=== PATIENT | female | born 1945 | race Caucasian/White ===

== ENCOUNTER 2019-05-28 12:50 | Outpatient (CLI) | payer MEDICARE, SELFPAY ==
[2019-05-28 13:25] LABS: Basophils Percent Auto 0.6 % (0.2-1.2); Eosinophils Absolute Auto 0.3 K/mm3 (0-0.3); Eosinophils Percent Auto 4.3 % (0-4.4); Hematocrit 34.2 % (37.0-47.0); Hemoglobin 10.5 g/dL (12.0-15.0); Immature Granulocyte Absolute 0.01 K/mm3 (0.00-0.031); Immature Granulocyte Percent A 0.1 % (0-0.5); Lymphocytes Absolute Auto 0.85 K/mm3 (0.9-3.2); Lymphocytes Percent Auto 12.2 % (18.3-44.2); Mean Corpuscular HGB Conc 30.7 g/dl (32-36); Mean Corpuscular Hemoglobin 29.2 pg (26-34); Mean Platelet Volume 10.3 fl (7.4-10.4); Monocytes Absolute Auto 0.4 K/mm3 (0.1-0.6); Monocytes Percent Auto 6.2 % (2.6-8.5); Neutrophils Absolute Auto 5.3 K/mm3 (1.3-6.7); Neutrophils Percent Auto 76.6 % (45.5-73.1); Platelet Count Result 185 k/mm3 (150-375); Red Cell Distribution Width 14.6 % (11.5-14.5); White Blood Count 6.9 K/mm3 (4.5-10.0)
[2019-05-28 16:43] LABS: Alanine Aminotransferase 13 U/L (4-35); Albumin Level 3.7 g/dL (3.5-5.1); Alkaline Phosphatase 120 U/L (38-126); Aspartate Amino Transferase 17 U/L (14-36); Bilirubin,Total 0.4 mg/dL (0.2-1.3); Blood Urea Nitrogen 20 mg/dL (7-17); Calcium 8.8 mg/dL (8.4-10.2); Carbon Dioxide 33 mmol/L (22-30); Chloride 95 mmol/L (98-107); Estimated Glomerular Filt Rate 44; Glucose 172 mg/dL (65-105); Potassium 3.9 mmol/L (3.4-5.0); Sodium 140 mmol/L (137-145)
[2019-05-31 05:41] LABS: CA 27.29 13 U/mL (<38)
== END 2019-05-28 12:51 | disposition home or self-care (01) ==
LOC: ANHLAB 12:52
PROVIDERS: PCP Internal Medicine; Visit Provider Internal Medicine Hematology & Oncology
DX: C50.412 Malignant neoplasm of upper-outer quadrant of left female breast (principal); Z17.0 Estrogen receptor positive status [ER+]
CPT/HCPCS: 36415; 80053; 85025; 86300

== ENCOUNTER 2019-09-07 10:59 | Outpatient (CLI) | payer MEDICARE, SELFPAY ==
[2019-09-07 13:21] LABS: Hemoglobin A1C 8.3 % (<5.7)
== END 2019-09-07 11:00 | disposition home or self-care (01) ==
PROVIDERS: PCP Internal Medicine; Visit Provider Nurse Practitioner
DX: E11.9 Type 2 diabetes mellitus without complications (principal)
CPT/HCPCS: 36415; 83036

== ENCOUNTER 2019-09-25 10:59 | Outpatient (CLI) | payer MEDICARE, SELFPAY ==
[2019-09-25 11:30] LABS: Basophils Percent Auto 0.4 % (0.2-1.2); Eosinophils Absolute Auto 0.4 K/mm3 (0-0.3); Eosinophils Percent Auto 4.1 % (0-4.4); Hematocrit 34.6 % (37.0-47.0); Hemoglobin 10.8 g/dL (12.0-15.0); Immature Granulocyte Absolute 0.03 K/mm3 (0.00-0.031); Immature Granulocyte Percent A 0.3 % (0-0.5); Lymphocytes Absolute Auto 0.89 K/mm3 (0.9-3.2); Lymphocytes Percent Auto 9.9 % (18.3-44.2); Mean Corpuscular HGB Conc 31.2 g/dl (32-36); Mean Corpuscular Hemoglobin 28.9 pg (26-34); Mean Corpuscular Volume 92.5 fl (80-100); Mean Platelet Volume 10.1 fl (7.4-10.4); Monocytes Absolute Auto 0.6 K/mm3 (0.1-0.6); Monocytes Percent Auto 6.1 % (2.6-8.5); Neutrophils Absolute Auto 7.1 K/mm3 (1.3-6.7); Neutrophils Percent Auto 79.2 % (45.5-73.1); Platelet Count Result 225 k/mm3 (150-375); Red Blood Count 3.74 M/mm3 (4.2-5.4); Red Cell Distribution Width 14.6 % (11.5-14.5)
[2019-09-25 12:19] LABS: Alanine Aminotransferase 10 U/L (4-35); Albumin Level 3.9 g/dL (3.5-5.1); Alkaline Phosphatase 109 U/L (38-126); Aspartate Amino Transferase 17 U/L (14-36); Bilirubin,Total 0.3 mg/dL (0.2-1.3); Blood Urea Nitrogen 29 mg/dL (7-17); Calcium 8.9 mg/dL (8.4-10.2); Carbon Dioxide 32 mmol/L (22-30); Chloride 103 mmol/L (98-107); Estimated Glomerular Filt Rate 37; Glucose 203 mg/dL (65-105); Potassium 3.7 mmol/L (3.4-5.0); Sodium 139 mmol/L (137-145)
[2019-09-25 12:27] LABS: Add Urine Microscopic? NO; Appearance Urine Clear (Clear); Bilirubin Urine Negative (Negative); Blood Urine Negative (Negative); Color Urine Straw (Yellow); Glucose Urine UA Negative (Negative); Ketones Urine Negative (Negative); Leukocyte Esterase Ur Negative LEU/UL (Negative); Nitrate Urine Negative (Negative); Protein Urine Negative (Negative); Urobilinogen Urine Negative mg/dL (<2.0)
[2019-09-25 12:30] LABS: Hemoglobin A1C 8.2 % (<5.7); Parathyroid Intact 53.1 pg/mL (7.5-53.5)
[2019-09-25 12:35] LABS: Vitamin D 25 Hydroxy 54.4 ng/mL
[2019-09-25 12:37] LABS: Creatinine Urine 39.5 mg/dL
[2019-09-25 12:42] LABS: MALB Creatinine Ratio 76.2 mg/g (0-30); Microalbumin Urine Random 30.1 mg/L (0-16.7)
[2019-09-25 13:46] LABS: Erythrocyte Sedimentation Rate 105 mm/hr (0-20)
== END 2019-09-25 11:00 | disposition home or self-care (01) ==
LOC: ANHLAB 11:06
PROVIDERS: PCP Internal Medicine; Visit Provider Internal Medicine Hematology & Oncology
DX: I12.9 Hypertensive chronic kidney disease with stage 1 through stage 4 chronic kidney disease, or unspecified chronic kidney disease (principal); N18.3 Chronic kidney disease, stage 3 (moderate); E78.5 Hyperlipidemia, unspecified; E55.9 Vitamin D deficiency, unspecified; N39.0 Urinary tract infection, site not specified; R73.09 Other abnormal glucose
CPT/HCPCS: 36415; 80053; 81003; 82043; 82306; 83036; 83970; 84550; 85025; 85652

== ENCOUNTER 2019-11-24 12:24 | Emergency (ER) | payer MEDICARE, SELFPAY ==
[2019-11-24 12:40] VITALS: BP 138/78; PULSE 92; RESP 17; TEMP 36.9; O2SAT 96
[2019-11-24 13:57] LABS: Basophils Percent Auto 0.5 % (0.2-1.2); Eosinophils Absolute Auto 0.4 K/mm3 (0-0.3); Eosinophils Percent Auto 4.9 % (0-4.4); Hematocrit 35.8 % (37.0-47.0); Hemoglobin 11.2 g/dL (12.0-15.0); Immature Granulocyte Absolute 0.03 K/mm3 (0.00-0.031); Immature Granulocyte Percent A 0.4 % (0-0.5); Lymphocytes Absolute Auto 0.82 K/mm3 (0.9-3.2); Lymphocytes Percent Auto 10.9 % (18.3-44.2); Mean Corpuscular HGB Conc 31.3 g/dl (32-36); Mean Corpuscular Hemoglobin 28.6 pg (26-34); Mean Corpuscular Volume 91.3 fl (80-100); Mean Platelet Volume 9.9 fl (7.4-10.4); Monocytes Absolute Auto 0.4 K/mm3 (0.1-0.6); Monocytes Percent Auto 5.3 % (2.6-8.5); Neutrophils Absolute Auto 5.9 K/mm3 (1.3-6.7); Platelet Count Result 218 k/mm3 (150-375); Red Blood Count 3.92 M/mm3 (4.2-5.4); Red Cell Distribution Width 14.9 % (11.5-14.5); White Blood Count 7.5 K/mm3 (4.5-10.0)
[2019-11-24 14:07] VITALS: BP 157/87; PULSE 90; RESP 18; O2SAT 96
[2019-11-24 14:10] LABS: Anion Gap 6 mmol/L (8-16); Blood Urea Nitrogen 22 mg/dL (7-17); Calcium 8.8 mg/dL (8.4-10.2); Carbon Dioxide 33 mmol/L (22-30); Chloride 101 mmol/L (98-107); Estimated CRCL calculation 46 ml/min; Estimated Glomerular Filt Rate 44; Glucose 155 mg/dL (65-105); Sodium 140 mmol/L (137-145)
[2019-11-24 14:22] LABS: NT Pro B Type Natriuretic Pept 196 PG/ML (5-100); Troponin I < 0.012 ng/mL (0.000-0.034)
--- NOTE | 2019-11-24 14:25 | ED.ALLEREA ---
HPI - Allergic Reaction General Chief complaint: Allergic Reaction Stated complaint: allergicv reaction, wounds to leg Time Seen by Provider: 11/24/19 14:18 Source: patient History of Present Illness HPI narrative: Patient 74 years old white female, morbidly obese complaining of itching rash over the last few days. Patient denies shortness of breath, fever, chills, nausea, vomiting, shortness of breath. Patient have history of multiple allergies. Lately been eating strawberries which could be triggered her allergy. Related Data Home Medications Medication Instructions Recorded Confirmed allopurinol 100 mg tablet 100 mg PO QID tablet 03/23/19 11/05/19 anastrozole 1 mg tablet 1 mg PO DAILY 03/23/19 11/05/19 calcitriol 0.25 mcg capsule 0.25 mcg PO DAILY 03/23/19 11/05/19 metolazone 5 mg tablet 5 mg PO DAILY PRN 03/23/19 11/05/19 multivitamin 1 tablet PO DAILY 03/23/19 11/05/19 colchicine 0.6 mg tablet 0.6 mg PO DAILY PRN 04/13/19 11/05/19 diclofenac potassium 25 mg capsule 99 mg PO BID cap 09/10/19 11/05/19 ergocalciferol (vitamin D2) 1,250 5,000 unit PO WEEKLY cap 09/10/19 11/05/19 mcg (50,000 unit) capsule ferrous sulfate 325 mg (65 mg 65 mg PO DAILY tablet 09/10/19 09/10/19 iron) tablet Allergies Allergy/AdvReac Type Severity Reaction Status Date / Time povidone-iodine Allergy Swelling Verified 11/24/19 14:09 [From Betadine] soap [From Betadine] Allergy Swelling Verified 11/24/19 14:09 morphine AdvReac Vomiting Verified 11/24/19 14:09 Review of Systems Review of Systems: Narrative: CONSTITUTIONAL: Denies fever, chills, or sweats. EYES: Denies visual changes, redness, or discharge. ENT: Denies rhinorrhea, congestion, sore throat, or otalgia. CARDIOVASCULAR: Denies chest pain, palpitations, or edema. RESPIRATORY: Denies cough or dyspnea. GASTROINTESTINAL: Denies abdominal pain, nausea, vomiting, or diarrhea. GENITOURINARY: Denies dysuria or hematuria. SKIN: Denies rash or itching. MUSCULOSKELETAL: Denies back pain, joint pain, or myalgia. NEUROLOGIC: Denies headache, numbness, or weakness. PSYCHIATRIC: Denies anxiety or depression. [facility] Past Medical History Medical History Cancer COPD (chronic obstructive pulmonary disease) Diabetes Diabetes mellitus Kidney disease Post-lymphadenectomy lymphedema of arm Sleep apnea Thyroid disease Tumor Removed from face: 2014 Removed from chest: 2018 Type 2 diabetes mellitus Surgical History Surgical History H/O mastectomy Left breast 2011 History of breast lump removal 2012 Hx of breast reduction, elective Hx of mastectomy Family History Family History Mother Diabetes mellitus Bowel disease Father Colon cancer Liver cancer Sibling Heart disease Social History Social History Smoking status: Former smoker Alcohol intake: never Gender identity (if verbalized by the patient): Female Spiritual care concerns: No Exam Narrative: Exam Narrative: General appearance: Well-developed, well-nourished, morbidly obese Skin: Normal color, scattered maculopapular rash all over the body. Head: Normocephalic, nontraumatic Eyes: Clear conjunctiva ENT: Oropharynx normal, ears normal, nose normal Neck: Supple, nontender Chest and respiratory: Airway patent, no respiratory distress, no accessory muscle use Heart: Regular rate/rhythm Abdomen: Soft, nontender, no organomegaly, quiet bowel sounds Vascular: Normal peripheral pulses, normal capillary refill. Musculoskeletal: Normal range of motion, nontender back Neurologic: Alert and oriented ?3, [employer] is normal as tested, no gross motor deficit
[2019-11-24] MEDS: LORATADINE 10 MG TABLET PO (14:45)
[2019-11-24] MEDS: predniSONE 20 MG TABLET 40 MG PO (14:45)
[2019-11-24 14:53] VITALS: BP 145/78; PULSE 82; RESP 18; O2SAT 100
== END 2019-11-24 14:54 | disposition home or self-care (01) ==
PROVIDERS: Emergency Provider Emergency Medicine; PCP Internal Medicine
DX: T78.40XA Allergy, unspecified, initial encounter (principal); J44.9 Chronic obstructive pulmonary disease, unspecified; E11.9 Type 2 diabetes mellitus without complications
CPT/HCPCS: 36415; 80048; 83880; 84484; 85025; 99284; A9270; J7512

== ENCOUNTER 2019-12-17 10:59 | Outpatient (CLI) | payer MEDICARE, SELFPAY ==
[2019-12-17 11:47] LABS: Basophils Percent Auto 0.4 % (0.2-1.2); Eosinophils Absolute Auto 0.4 K/mm3 (0-0.3); Eosinophils Percent Auto 4.5 % (0-4.4); Hemoglobin 12.1 g/dL (12.0-15.0); Immature Granulocyte Absolute 0.03 K/mm3 (0.00-0.031); Immature Granulocyte Percent A 0.3 % (0-0.5); Lymphocytes Absolute Auto 1.11 K/mm3 (0.9-3.2); Lymphocytes Percent Auto 12.4 % (18.3-44.2); Mean Corpuscular Hemoglobin 27.6 pg (26-34); Mean Platelet Volume 10.7 fl (7.4-10.4); Monocytes Absolute Auto 0.4 K/mm3 (0.1-0.6); Monocytes Percent Auto 4.8 % (2.6-8.5); Neutrophils Absolute Auto 6.9 K/mm3 (1.3-6.7); Neutrophils Percent Auto 77.6 % (45.5-73.1); Platelet Count Result 228 k/mm3 (150-375); Red Blood Count 4.38 M/mm3 (4.2-5.4); Red Cell Distribution Width 14.9 % (11.5-14.5); White Blood Count 8.9 K/mm3 (4.5-10.0)
[2019-12-17 14:24] LABS: Add Urine Microscopic? YES; Appearance Urine Clear (Clear); Bilirubin Urine Negative (Negative); Blood Urine Negative (Negative); Color Urine Colorless (Yellow); Glucose Urine UA Negative (Negative); Ketones Urine Negative (Negative); Leukocyte Esterase Ur Trace LEU/UL (Negative); Nitrate Urine Negative (Negative); Protein Urine Negative (Negative); RBC Urine 0-2 /hpf (0-2); Squamous Epithelial Cell Urine Few /hpf (Few); Urobilinogen Urine Negative mg/dL (<2.0); WBC Urine 0-3 /hpf
[2019-12-17 14:25] LABS: Specific Grav Ur 1.004 (1.001-1.035)
[2019-12-17 14:31] LABS: INR 0.9; Prothrombin Time 12.2 Seconds (11.1-14.7)
[2019-12-17 14:33] LABS: Partial Thromboplastin Time 29.4 SECONDS (22.3-36.8)
[2019-12-17 14:51] LABS: Erythrocyte Sedimentation Rate 31 mm/hr (0-20)
[2019-12-17 15:10] LABS: Alanine Aminotransferase 15 U/L (4-35); Albumin Level 4.1 g/dL (3.5-5.1); Alkaline Phosphatase 113 U/L (38-126); Anion Gap 8 mmol/L (8-16); Aspartate Amino Transferase 20 U/L (14-36); Bilirubin,Total 0.5 mg/dL (0.2-1.3); Blood Urea Nitrogen 16 mg/dL (7-17); Calcium 9.1 mg/dL (8.4-10.2); Carbon Dioxide 32 mmol/L (22-30); Chloride 99 mmol/L (98-107); Estimated Glomerular Filt Rate 40; Glucose 163 mg/dL (65-105); Phosphorus 3.6 mg/dL (2.5-4.5); Potassium 3.7 mmol/L (3.4-5.0); Sodium 139 mmol/L (137-145); Uric Acid 4.4 mg/dL (2.5-7.5)
[2019-12-17 15:11] LABS: Hemoglobin A1C 7.4 % (<5.7)
[2019-12-17 15:18] LABS: Parathyroid Intact 76.2 pg/mL (7.5-53.5)
[2019-12-17 15:23] LABS: Vitamin D 25 Hydroxy 47.8 ng/mL
[2019-12-17 15:38] LABS: Creatinine Urine 8.1 mg/dL
[2019-12-17 15:43] LABS: MALB Creatinine Ratio 198.8 mg/g (0-30); Microalbumin Urine Random 16.1 mg/L (0-16.7)
== END 2019-12-17 11:00 | disposition home or self-care (01) ==
PROVIDERS: PCP Internal Medicine
DX: R73.09 Other abnormal glucose (principal); N39.0 Urinary tract infection, site not specified; E55.9 Vitamin D deficiency, unspecified; E78.5 Hyperlipidemia, unspecified; R60.9 Edema, unspecified; E11.65 Type 2 diabetes mellitus with hyperglycemia; D64.9 Anemia, unspecified; N18.3 Chronic kidney disease, stage 3 (moderate)
CPT/HCPCS: 36415; 80069; 80076; 81001; 82043; 82306; 83036; 83970; 84550; 85025; 85610; 85652; 85730

== ENCOUNTER 2019-12-17 11:48 | Emergency (ER) | payer MEDICARE, SELFPAY ==
[2019-12-17 12:39] VITALS: BP 154/109; PULSE 88; RESP 17; TEMP 36.4; O2SAT 96
--- NOTE | 2019-12-17 14:00 | ED.SKABFB ---
HPI - Skin/Abscess/Foreign Bdy General Chief complaint: Skin/Abscess/Foreign Body Stated complaint: adverse skin condition Time Seen by Provider: 12/17/19 12:58 Source: patient Mode of arrival: ambulatory Limitations: no limitations History of Present Illness HPI narrative: Patient with history of psoriasis presents with pruritic rash and weeping wounds to bilateral inner lower legs that has been present for months. Patient states she has been on 2 rounds of antibiotics and steroids without resolution of her symptoms. Patient has not seen her primary care nor has she recently seen a junior architect as she states that Dr. Miguel just tries to sell her products in his office without causing resolution of her symptoms. Patient denies any fever, chills, nausea, vomiting, diarrhea or any other symptoms. Related Data Home Medications Medication Instructions Recorded Confirmed allopurinol 100 mg tablet 100 mg PO QID tablet 03/23/19 11/05/19 anastrozole 1 mg tablet 1 mg PO DAILY 03/23/19 11/05/19 calcitriol 0.25 mcg capsule 0.25 mcg PO DAILY 03/23/19 11/05/19 metolazone 5 mg tablet 5 mg PO DAILY PRN 03/23/19 11/05/19 multivitamin 1 tablet PO DAILY 03/23/19 11/05/19 colchicine 0.6 mg tablet 0.6 mg PO DAILY PRN 04/13/19 11/05/19 diclofenac potassium 25 mg capsule 99 mg PO BID cap 09/10/19 11/05/19 ergocalciferol (vitamin D2) 1,250 5,000 unit PO WEEKLY cap 09/10/19 11/05/19 mcg (50,000 unit) capsule ferrous sulfate 325 mg (65 mg 65 mg PO DAILY tablet 09/10/19 09/10/19 iron) tablet Allergies Allergy/AdvReac Type Severity Reaction Status Date / Time povidone-iodine Allergy Swelling Verified 12/17/19 12:41 [From Betadine] soap [From Betadine] Allergy Swelling Verified 12/17/19 12:41 morphine AdvReac Vomiting Verified 12/17/19 12:41 Review of Systems Review of Systems: Narrative: CONSTITUTIONAL: Denies fever, chills, or sweats. EYES: Denies visual changes, redness, or discharge. ENT: Denies rhinorrhea, congestion, sore throat, or otalgia. CARDIOVASCULAR: Denies chest pain, palpitations, or edema. RESPIRATORY: Denies cough or dyspnea. GASTROINTESTINAL: Denies abdominal pain, nausea, vomiting, or diarrhea. GENITOURINARY: Denies dysuria or hematuria. SKIN: Reports rash and itching. MUSCULOSKELETAL: Denies back pain, myalgia, or joint pain NEUROLOGIC: Denies headache, numbness, dizziness, or weakness. PSYCHIATRIC: Denies anxiety or depression. [facility] Social History Social History Smoking status: Former smoker Alcohol intake: never Gender identity (if verbalized by the patient): Female Spiritual care concerns: No Exam Narrative: Exam Narrative: GENERAL: Well-appearing, well-nourished. HEAD: Normocephalic, atraumatic. EYES: PERRLA and EOMI. ENT: Nares clear, no rhinorrhea or epistaxis. Mucous membranes moist. Oropharynx without tonsillar hypertrophy exudate or other lesions. Bilateral TMs pearly rosen nonbulging NECK: Supple. No adenopathy or masses. No vertebral tenderness or loss of ROM. CHEST: Clear to auscultation. No respiratory distress. No wheezes rales or rhonchi HEART: Regular rate and rhythm. Normal peripheral pulses. ABDOMEN: Soft, nontender, nondistended, normal active bowel sounds. No bruises noted. EXTREMITIES: No acute changes in ROM. No edema. SKIN: Patient has dry slightly raised quarter, nickel dime, sized patches Diffusely face, arms, legs - psoriatic in appearance. Patient has two approx 4in circumferential areas to the medial aspects of raised patches that have reddened center a slight serous drainage. There is not surrounding cellulitis or streaking. NEURO: No focal deficits. Alert and oriented x3. PSYCH: Normal mood and affect. Course Vital Signs Vital signs: Vital Signs Temperature 97.6 F 12/17/19 12:39 Pulse Rate 88 12/17/19 12:39 Respiratory Rate 12/17/19 12:39 Blood Pressure 154/109 H 12/17/19 12:39 Pulse Oxim
[2019-12-17 14:12] VITALS: BP 145/96; PULSE 98; RESP 14; O2SAT 98
== END 2019-12-17 14:13 | disposition home or self-care (01) ==
PROVIDERS: Emergency Provider Emergency Medicine; PCP Internal Medicine
DX: L30.9 Dermatitis, unspecified (principal); Z87.891 Personal history of nicotine dependence
CPT/HCPCS: 36415; 80069; 80076; 81001; 82043; 82306; 83036; 83970; 84550; 85025; 85610; 85652; 85730; 99283

== ENCOUNTER 2019-12-29 13:00 | Outpatient (RCR) | payer MEDICARE, SELFPAY ==
[2019-10-08 12:59] VITALS: BMI 43.4
[2019-10-08 13:00] VITALS: BMI 43.4
[2019-12-29 12:55] VITALS: BMI 41.1
[2019-12-29 12:57] VITALS: BMI 41.1
== END 2020-01-06 23:59 | disposition home or self-care (01) ==
LOC: ANHDMC 13:00
PROVIDERS: PCP Internal Medicine; Visit Provider Internal Medicine
DX: E11.9 Type 2 diabetes mellitus without complications (principal); Z71.89 Other specified counseling; Z71.3 Dietary counseling and surveillance
CPT/HCPCS: 97802; 97803; G0108

== ENCOUNTER 2019-12-31 11:16 | Outpatient (CLI) | payer MEDICARE, SELFPAY ==
[2019-12-31 11:35] LABS: Basophils Percent Auto 0.3 % (0.2-1.2); Eosinophils Absolute Auto 0.3 K/mm3 (0-0.3); Eosinophils Percent Auto 3.7 % (0-4.4); Hematocrit 37.5 % (37.0-47.0); Hemoglobin 11.5 g/dL (12.0-15.0); Immature Granulocyte Absolute 0.02 K/mm3 (0.00-0.031); Immature Granulocyte Percent A 0.3 % (0-0.5); Lymphocytes Absolute Auto 1.27 K/mm3 (0.9-3.2); Lymphocytes Percent Auto 16.3 % (18.3-44.2); Mean Corpuscular HGB Conc 30.7 g/dl (32-36); Mean Corpuscular Hemoglobin 27.5 pg (26-34); Mean Corpuscular Volume 89.7 fl (80-100); Mean Platelet Volume 10.3 fl (7.4-10.4); Monocytes Absolute Auto 0.5 K/mm3 (0.1-0.6); Monocytes Percent Auto 6.5 % (2.6-8.5); Neutrophils Absolute Auto 5.7 K/mm3 (1.3-6.7); Neutrophils Percent Auto 72.9 % (45.5-73.1); Platelet Count Result 202 k/mm3 (150-375); Red Blood Count 4.18 M/mm3 (4.2-5.4); Red Cell Distribution Width 15.3 % (11.5-14.5); White Blood Count 7.8 K/mm3 (4.5-10.0)
[2019-12-31 12:27] LABS: Iron 66 ug/dL (37-170)
[2019-12-31 12:31] LABS: Anion Gap 10 mmol/L (8-16); Blood Urea Nitrogen 33 mg/dL (7-17); Calcium 9.1 mg/dL (8.4-10.2); Carbon Dioxide 32 mmol/L (22-30); Chloride 100 mmol/L (98-107); Estimated Glomerular Filt Rate 37; Glucose 153 mg/dL (65-105); Potassium 3.7 mmol/L (3.4-5.0); Sodium 142 mmol/L (137-145)
[2019-12-31 12:37] LABS: Hemoglobin A1C 7.5 % (<5.7); Percent Iron Saturation 20 % (20-50)
== END 2019-12-31 11:17 | disposition home or self-care (01) ==
LOC: ANHLAB 11:17
PROVIDERS: PCP Internal Medicine; Referring Provider Nurse Practitioner; Visit Provider Internal Medicine Hematology & Oncology
DX: E11.9 Type 2 diabetes mellitus without complications (principal)
CPT/HCPCS: 36415; 80048; 82728; 83036; 83540; 83550; 85025

== ENCOUNTER 2020-01-22 14:26 | Outpatient (CLI) | payer MEDICARE, SELFPAY ==
--- NOTE | ~2020-01-22 | MM_ITS ---
EXAMINATION: MM screening vitaliy RT w raj HISTORY: Screening mammogram TECHNIQUE: Craniocaudal and mediolateral oblique 3-D tomosynthesis images were obtained and synthetic 2-D images were generated. CAD analysis was submitted and interpreted. COMPARISON: No prior mammogram is available for comparison at this institution. BREAST PARENCHYMAL COMPOSITION: There are scattered areas of fibroglandular density. FINDINGS: There is no evidence of suspicious mass, calcification, or architectural distortion to sugg est malignancy in either breast. There has been no suspicious interval change. IMPRESSION: 1. No mammographic evidence of malignancy. 2. Recommend routine screening mammography in one year. BI-RADS Category 1: Negative Reviewed, dictated and finalized at location A.
== END 2020-01-22 14:27 | disposition home or self-care (01) ==
PROVIDERS: PCP Internal Medicine; Visit Provider Internal Medicine Hematology & Oncology
DX: Z12.31 Encounter for screening mammogram for malignant neoplasm of breast (principal)
CPT/HCPCS: 77063; 77067

== ENCOUNTER 2020-02-23 11:00 | Outpatient (RCR) | payer MEDICARE, SELFPAY ==
[2020-02-04 10:56] VITALS: BMI 41.8
[2020-02-04 11:01] VITALS: BMI 41.8
== END 2020-02-23 14:17 | disposition home or self-care (01) ==
LOC: ANHDMC 11:00
PROVIDERS: PCP Internal Medicine; Visit Provider Internal Medicine
DX: E11.65 Type 2 diabetes mellitus with hyperglycemia (principal); Z71.89 Other specified counseling; Z71.3 Dietary counseling and surveillance
CPT/HCPCS: 97803; G0108

== ENCOUNTER 2020-04-25 12:28 | Outpatient (CLI) | payer MEDICARE, SELFPAY ==
[2020-04-25 12:56] LABS: Basophils Absolute Auto 0.1 K/mm3 (0.0-0.1); Basophils Percent Auto 0.6 % (0.2-1.2); Eosinophils Absolute Auto 0.3 K/mm3 (0-0.3); Eosinophils Percent Auto 3.2 % (0-4.4); Hematocrit 35.2 % (37.0-47.0); Hemoglobin 11.5 g/dL (12.0-15.0); Immature Granulocyte Absolute 0.03 K/mm3 (0.00-0.031); Immature Granulocyte Percent A 0.3 % (0-0.5); Lymphocytes Percent Auto 11.3 % (18.3-44.2); Mean Corpuscular HGB Conc 32.7 g/dl (32-36); Mean Corpuscular Hemoglobin 29.7 pg (26-34); Mean Platelet Volume 10.2 fl (7.4-10.4); Monocytes Absolute Auto 0.6 K/mm3 (0.1-0.6); Monocytes Percent Auto 6.2 % (2.6-8.5); Neutrophils Percent Auto 78.4 % (45.5-73.1); Platelet Count Result 219 k/mm3 (150-375); Red Blood Count 3.87 M/mm3 (4.2-5.4); Red Cell Distribution Width 13.7 % (11.5-14.5); White Blood Count 8.9 K/mm3 (4.5-10.0)
[2020-04-25 14:09] LABS: Add Urine Microscopic? YES; Appearance Urine Clear (Clear); Bilirubin Urine Negative (Negative); Blood Urine Negative (Negative); Color Urine Yellow (Yellow); Glucose Urine UA Negative (Negative); Ketones Urine Negative (Negative); Leukocyte Esterase Ur Negative LEU/UL (Negative); Mucus Urine Rare /lpf; Nitrate Urine Negative (Negative); Protein Urine 1+ mg/dL (Negative); RBC Urine 0-2 /hpf (0-2); Specific Grav Ur 1.013 (1.001-1.035); Squamous Epithelial Cell Urine Rare /hpf (Few); Urobilinogen Urine Negative mg/dL (<2.0); WBC Urine 0-3 /hpf
[2020-04-25 14:12] LABS: Alanine Aminotransferase 12 U/L (4-35); Albumin Level 3.7 g/dL (3.5-5.1); Alkaline Phosphatase 103 U/L (38-126); Anion Gap 9 mmol/L (8-16); Aspartate Amino Transferase 23 U/L (14-36); Bilirubin,Total 0.4 mg/dL (0.2-1.3); Blood Urea Nitrogen 31 mg/dL (7-17); Calcium 9.1 mg/dL (8.4-10.2); Carbon Dioxide 31 mmol/L (22-30); Chloride 97 mmol/L (98-107); Estimated Glomerular Filt Rate 37; Glucose 143 mg/dL (65-105); Potassium 3.8 mmol/L (3.4-5.0); Sodium 137 mmol/L (137-145)
[2020-04-25 14:22] LABS: Parathyroid Intact 23.3 pg/mL (7.5-53.5)
[2020-04-25 14:29] LABS: Vitamin D 25 Hydroxy 51.3 ng/mL
[2020-04-25 14:40] LABS: Creatinine Urine 78.4 mg/dL
[2020-04-25 14:46] LABS: MALB Creatinine Ratio 102.6 mg/g (0-30); Microalbumin Urine Random 80.4 mg/L (0-16.7)
[2020-04-25 16:50] LABS: Erythrocyte Sedimentation Rate 110 mm/hr (0-20)
[2020-04-25 17:57] LABS: Hemoglobin A1C 8.3 % (<5.7)
[2020-04-27 11:34] LABS: CA 15-3 7 U/mL (<32)
== END 2020-04-25 12:29 | disposition home or self-care (01) ==
PROVIDERS: PCP Internal Medicine; Referring Provider Specialist; Visit Provider Internal Medicine Hematology & Oncology
DX: C50.412 Malignant neoplasm of upper-outer quadrant of left female breast (principal); N18.30 Chronic kidney disease, stage 3 unspecified; I50.9 Heart failure, unspecified; E78.5 Hyperlipidemia, unspecified; R60.9 Edema, unspecified; E55.9 Vitamin D deficiency, unspecified; N39.0 Urinary tract infection, site not specified; R73.09 Other abnormal glucose; Z11.4 Encounter for screening for human immunodeficiency virus [HIV]
CPT/HCPCS: 36415; 80053; 81001; 82043; 82306; 83036; 83970; 84100; 84550; 85025; 85652; 86300; 87086

== ENCOUNTER 2020-06-27 10:41 | Outpatient (CLI) | payer MEDICARE, SELFPAY ==
[2020-06-27 11:02] LABS: Basophils Percent Auto 0.4 % (0.2-1.2); Eosinophils Absolute Auto 0.4 K/mm3 (0-0.3); Eosinophils Percent Auto 4.9 % (0-4.4); Hemoglobin 10.9 g/dL (12.0-15.0); Immature Granulocyte Absolute 0.03 K/mm3 (0.00-0.031); Immature Granulocyte Percent A 0.4 % (0-0.5); Lymphocytes Absolute Auto 1.14 K/mm3 (0.9-3.2); Lymphocytes Percent Auto 13.6 % (18.3-44.2); Mean Corpuscular HGB Conc 32.1 g/dl (32-36); Mean Corpuscular Volume 90.4 fl (80-100); Mean Platelet Volume 9.5 fl (7.4-10.4); Monocytes Absolute Auto 0.5 K/mm3 (0.1-0.6); Monocytes Percent Auto 6.2 % (2.6-8.5); Neutrophils Absolute Auto 6.2 K/mm3 (1.3-6.7); Neutrophils Percent Auto 74.5 % (45.5-73.1); Platelet Count Result 242 k/mm3 (150-375); Red Blood Count 3.76 M/mm3 (4.2-5.4); Red Cell Distribution Width 14.2 % (11.5-14.5); White Blood Count 8.4 K/mm3 (4.5-10.0)
[2020-06-27 11:11] LABS: Add Urine Microscopic? YES; Appearance Urine Clear (Clear); Bilirubin Urine Negative (Negative); Blood Urine Negative (Negative); Color Urine Yellow (Yellow); Glucose Urine UA Negative (Negative); Ketones Urine Negative (Negative); Leukocyte Esterase Ur Negative LEU/UL (Negative); Nitrate Urine Negative (Negative); Protein Urine Trace mg/dL (Negative); Squamous Epithelial Cell Urine Rare /hpf (Few); Urobilinogen Urine Negative mg/dL (<2.0); WBC Urine 0-3 /hpf
[2020-06-27 12:03] LABS: Albumin Level 3.5 g/dL (3.5-5.1); Anion Gap 6 mmol/L (8-16); Blood Urea Nitrogen 21 mg/dL (7-17); Calcium 8.8 mg/dL (8.4-10.2); Carbon Dioxide 36 mmol/L (22-30); Chloride 99 mmol/L (98-107); Estimated Glomerular Filt Rate 34; Glucose 189 mg/dL (65-105); Phosphorus 4.2 mg/dL (2.5-4.5); Potassium 3.9 mmol/L (3.4-5.0); Sodium 141 mmol/L (137-145); Uric Acid 4.2 mg/dL (2.5-7.5)
[2020-06-27 12:15] LABS: Parathyroid Intact 21.7 pg/mL (7.5-53.5)
[2020-06-27 12:16] LABS: Hemoglobin A1C 8.6 % (<5.7)
[2020-06-27 12:29] LABS: Erythrocyte Sedimentation Rate 105 mm/hr (0-20)
[2020-06-27 12:59] LABS: MALB Creatinine Ratio 94.9 mg/g (0-30); Microalbumin Urine Random 67.4 mg/L (0-16.7)
== END 2020-06-27 10:42 | disposition home or self-care (01) ==
LOC: ANHLAB 10:43
PROVIDERS: PCP Internal Medicine; Visit Provider Specialist
DX: R60.9 Edema, unspecified (principal); I12.9 Hypertensive chronic kidney disease with stage 1 through stage 4 chronic kidney disease, or unspecified chronic kidney disease; N18.30 Chronic kidney disease, stage 3 unspecified; E55.9 Vitamin D deficiency, unspecified; N39.0 Urinary tract infection, site not specified; R73.09 Other abnormal glucose; Z11.4 Encounter for screening for human immunodeficiency virus [HIV]
CPT/HCPCS: 36415; 80069; 81001; 82043; 82306; 83036; 83970; 84550; 85025; 85652

== ENCOUNTER 2020-07-14 14:04 | Outpatient (CLI) | payer MEDICARE, SELFPAY ==
--- NOTE | ~2020-07-14 | DEXA_ITS ---
Bone Density Report Name: Tami Kim Age: 74 Sex: Female Ethnicity: White Date of : 1945 Indication: postmenopausal; height loss; asthma or emphysema; Referring Provider: Carly Salmeron Study: Bone densitometry was performed. Exam Date: July 14, 2020 Accession number: [id number] Bone Density: Region BMD T-score Z-score Classification AP Spine (L3, L4) 1.043 -0.5 2.1 Normal Femoral Neck (Left) 0.716 -1.2 0.9 Osteopenia Total Hip (Left) 0.919 -0.2 1.6 Normal Total Hip Bilateral Avg 0.952 0.1 1.9 Normal Femoral Neck (Right) 0.716 -1.2 0.9 Osteopenia Total Hip (Right) 0.984 0.3 2.2 Normal World Health Organization criteria for BMD impression classify patients as: Normal (T-score at or above -1.0), Osteopenia (T-score between -1.0 and -2.5), or Osteoporosis (T-score at or below -2.5). 10-year Fracture Risk(1): Major Osteoporotic Fracture 9.3% Hip Fracture 1.5% Reported Risk Factors: [place] (), Neck BMD=0.716, BMI=41.1 (1) FRAX(R) Version 3.08. Fracture probability calculated for an untreated patient. Fracture probability may be lower if the patient has received treatment. Clinical Information Provided by Patient: Has used the following medications: Vitamin D, Calcium Has the following medical conditions: Asthma or Emphysema Patient maximum height was 66 Menopause Age: 51 Does not regularly consume dairy products Drinks caffeinated beverages Onset of menses at age 15 Number of children 2 Impression: The patient has low bone mass, based on the Left Femoral Neck T-score. The patient has an estimated ten-year risk of hip fracture of 1.5% and an estimated ten-year risk of major fracture of 9.3%, based on the WHO FRAX algorithm. Discussion: BONE DENSITY IS LOW AT ONE OR MORE SKELETAL SITES. This patient's lowest T-score is low at one or more skeletal sites. It meets the World Health Organization's (WHO) criteria for ?low bone mass? (T-score between -1.0 and -2.5). The patient's 10-year risk of fracture as calculated by FRAX is less than the threshold where pharmacological therapy is recommended by the National Osteoporosis Foundation (NOF). However, all treatment decisions require clinical judgment and consideration of individual patient factors, including patient preferences, comorbidities, previous drug use, risk factors not captured in the FRAX model (e.g., frailty, falls, vitamin D deficiency, increased bone turnover, interval significant decline in bone density) and possible under or overestimation of fracture risk by FRAX. The patient should follow a healthful lifestyle (good nutrition with adequate calcium and vitamin D, and appropriate weight-bearing exercise). Follow-Up: Consider repeating this study in 2 to 3 years to reassess this patient's status, or sooner if there is some ne
== END 2020-07-14 14:05 | disposition home or self-care (01) ==
PROVIDERS: PCP Internal Medicine; Visit Provider Clinical Nurse Specialist
DX: Z78.0 Asymptomatic menopausal state (principal); M85.852 Other specified disorders of bone density and structure, left thigh; M85.851 Other specified disorders of bone density and structure, right thigh
CPT/HCPCS: 77080

== ENCOUNTER 2020-08-15 21:56 | Observation (INO) | payer MEDICARE, SELFPAY ==
--- NOTE | ~2020-08-15 | CT_ITS ---
EXAMINATION: CT abdomen pelvis wo con DATE: 08/16/2020 00:56 INDICATION: Generalized abdominal pain. TECHNIQUE: Computed tomography (CT) of the abdomen and pelvis was performed without intravenous contr ast. Automated exposure control and iterative reconstruction technique were employed. The dose-length product was 1401.12 mGy-cm. COMPARISON: PET CT 03/06/2018 FINDINGS: The visualized portions of the lung bases demonstrate mild atelectasis. No pleural effusion . The heart size is normal. There are coronary artery calcifications. No pericardial effusion. The li marilee and spleen are normal. The gallbladder is normal in size and contains gallstones. There are are w all calcifications of the gallbladder (porcelain gallbladder). The pancreas and left adrenal gland ar e normal. There is a chronic 15 mm mass in right adrenal gland measuring low-attenuation, consistent with an adenoma There are cysts in the kidneys measuring up to 6.9 cm on the left. There is no pulmon castro embolus. There is diverticulosis of the colon without evidence of diverticulitis. There are no di lated loops of bowel. The appendix is normal. There are no pathologically enlarged lymph nodes. There is no free intraperitoneal fluid. There is mild thoracolumbar spondylosis. There is a hemangioma in T7 vertebral body. IMPRESSION: 1. Porcelain gallbladder with cholelithiasis. No evidence of acute cholecystitis. Reviewed, dictated and finalized at location A. IMPRESSION: 1. Porcelain gallbladder with cholelithiasis. No evidence of acute cholecystiti s.
--- NOTE | ~2020-08-15 | US_ITS ---
EXAMINATION: US abdomen limited DATE: 08/16/2020 08:08 INDICATION: Right upper quadrant abdominal pain. TECHNIQUE: Multiple grayscale and Doppler ultrasound images of the abdomen were obtained. COMPARISON: CT abdomen and pelvis 08/16/2020 FINDINGS: The visualized portions of the head, body, and tail of the pancreas are normal. The liver i s normal without focal lesion. No liver surface nodularity. There is normal flow in main portal vein. The gallbladder is normal in size and filled with gallstones. There are calcifications of the gallbl adder wall. No gallbladder wall thickening or sonographic Wall sign. The common duct is normal and measures 5 mm. IMPRESSION: 1. Porcelain gallbladder with cholelithiasis. No evidence of acute cholecystitis. Reviewed, dictated and finalized at location A. IMPRESSION: 1. Porcelain gallbladder with cholelithiasis. No evidence of acute cholecystiti s.
[2020-08-15 22:03] VITALS: BP 130/57; PULSE 116; RESP 22; TEMP 36.7; O2SAT 94
[2020-08-15 23:48] VITALS: BP 120/61; PULSE 107; RESP 18; O2SAT 97
[2020-08-16] VITALS (19 sets, daily range): BP systolic 106–154; BP diastolic 59–85; PULSE 62–103; RESP 16–25; TEMP 36.1–36.6; O2SAT 90–100
[2020-08-16] MEDS: SODIUM CHLORIDE 0.9% IV 1,000 ML 999 ML IV CONT (00:23)
[2020-08-16] MEDS: HYDROmorphone HCL INJ (*CRX) 1 MG/ML SYR 0.5 MG IV PUSH (00:24)
[2020-08-16 00:30] LABS: Basophils Percent Auto 0.2 % (0.2-1.2); Eosinophils Percent Auto 0.3 % (0-4.4); Hematocrit 32.4 % (37.0-47.0); Hemoglobin 10.3 g/dL (12.0-15.0); Immature Granulocyte Absolute 0.11 K/mm3 (0.00-0.031); Immature Granulocyte Percent A 0.7 % (0-0.5); Lymphocytes Absolute Auto 0.51 K/mm3 (0.9-3.2); Lymphocytes Percent Auto 3.2 % (18.3-44.2); Mean Corpuscular HGB Conc 31.8 g/dl (32-36); Mean Corpuscular Hemoglobin 28.9 pg (26-34); Mean Platelet Volume 10.1 fl (7.4-10.4); Monocytes Absolute Auto 0.6 K/mm3 (0.1-0.6); Monocytes Percent Auto 3.6 % (2.6-8.5); Neutrophils Absolute Auto 14.7 K/mm3 (1.3-6.7); Platelet Count Result 209 k/mm3 (150-375); Red Blood Count 3.56 M/mm3 (4.2-5.4); White Blood Count 15.9 K/mm3 (4.5-10.0)
[2020-08-16 00:42] LABS: Alanine Aminotransferase 13 U/L (4-35); Albumin Level 3.8 g/dL (3.5-5.1); Alkaline Phosphatase 103 U/L (38-126); Anion Gap 2 mmol/L (8-16); Aspartate Amino Transferase 21 U/L (14-36); Bilirubin,Total 0.3 mg/dL (0.2-1.3); Blood Urea Nitrogen 31 mg/dL (7-17); Carbon Dioxide 34 mmol/L (22-30); Chloride 97 mmol/L (98-107); Estimated CRCL calculation 34 ml/min; Estimated Glomerular Filt Rate 31; Glucose 240 mg/dL (65-105); Lipase 229 U/L (23-300); Potassium 4.2 mmol/L (3.4-5.0); Sodium 133 mmol/L (137-145)
[2020-08-16 00:43] LABS: Lactic Acid Reflex 1.3 mmol/L (0.7-2.1)
--- NOTE | 2020-08-16 01:00 | PC.NURSE ---
Pt unable to void. will attempt again soon.
[2020-08-16] MEDS: ONDANSETRON INJ 4 MG/2 ML VIAL IV PUSH ×2 (01:08→15:01)
[2020-08-16] MEDS: diphenhydrAMINE HCl INJ 50 MG/ML VIAL IV PUSH (02:19)
[2020-08-16] MEDS: PROCHLORPERAZINE EDISYLATE 10 MG/2 ML VIAL IV PUSH (02:19)
--- NOTE | 2020-08-16 02:34 | PC.NURSE ---
Pt unable to void at this time due to nausea. meds given, will attempt again soon.
--- NOTE | 2020-08-16 02:55 | ED.GENADULT ---
HPI - General Adult General Chief complaint: Abdominal Pain Stated complaint: Constipation and nausea Time Seen by Provider: 08/16/20 00:00 History of Present Illness HPI narrative: Patient 69-year-old female presents emergency department chief complaint of abdominal pain nausea and vomiting. Patient reports started having discomfort this evening reports that she has pain in the epigastrium and right upper quadrant. Patient states that she had no fevers with this reports she had a bowel movement that could have triggered the discomfort and started having severe discomfort all throughout her abdomen. Patient reports that she still has her gallbladder and still has her appendix. Related Data Home Medications Medication Instructions Recorded Confirmed allopurinol 100 mg tablet 100 mg PO QID tablet 03/23/19 04/06/20 anastrozole 1 mg tablet 1 mg PO DAILY 03/23/19 04/06/20 calcitriol 0.25 mcg capsule 0.25 mcg PO DAILY 03/23/19 04/06/20 metolazone 5 mg tablet 5 mg PO DAILY PRN 03/23/19 04/06/20 multivitamin 1 tablet PO DAILY 03/23/19 04/06/20 ergocalciferol (vitamin D2) 1,250 5,000 unit PO WEEKLY cap 09/10/19 04/06/20 mcg (50,000 unit) capsule Allergies Allergy/AdvReac Type Severity Reaction Status Date / Time povidone-iodine Allergy Swelling Verified 02/22/20 14:59 [From Betadine] soap [From Betadine] Allergy Swelling Verified 02/22/20 14:59 morphine AdvReac Vomiting Verified 02/22/20 14:59 Review of Systems Review of Systems: Narrative: A 10 system review of systems was completed on the patient and is negative except for what is stated in the HPI. Nursing and ancillary documentation was reviewed. [facility] Past Medical History Medical History (Updated 08/16/20 @ 02:58 by Emilio Dickinson MD) Cancer COPD (chronic obstructive pulmonary disease) Diabetes Diabetes mellitus Kidney disease Post-lymphadenectomy lymphedema of arm Sleep apnea Thyroid disease Tumor Removed from face: 2013 Removed from chest: 2018 Type 2 diabetes mellitus Surgical History Surgical History H/O mastectomy Left breast 2011 History of breast lump removal 2011 Hx of breast reduction, elective Hx of mastectomy Family History Family History Mother Diabetes mellitus Bowel disease Father Colon cancer Liver cancer Sibling Heart disease Social History Social History Smoking status: Former smoker Alcohol intake: never Gender identity (if verbalized by the patient): Female Spiritual care concerns: No Exam Narrative: Exam Narrative: GENERAL: Well-appearing, well-nourished, and in no acute distress. HEAD: Normocephalic, atraumatic. EYES: PERRLA and EOMI. ENT: Nares clear, no rhinorrhea or epistaxis. Mucous membranes moist. NECK: Supple. CHEST: Clear to auscultation. No respiratory distress. HEART: Regular rate and rhythm. No murmur heard. Normal peripheral pulses. ABDOMEN: Soft, tender to palpation in the epigastrium and right upper quadrant, nondistended, normal active bowel sounds. EXTREMITIES: Normal range of motion. No edema. SKIN: Warm, dry, no rash. NEURO: No focal deficits. Alert and oriented x3. PSYCH: Normal mood and affect. Course Course Emergency Course: CT scan shows evidence of gallstones and a probable porcelain gallbladder. Patient is still having some nausea and vomiting even after several doses of antiemetics. The case was discussed with the on-call general surgeon and the case will be discussed with hospitalist service for admission Vital Signs Vital signs: Vital Signs Temperature 36.7 C 08/15/20 22:03 Pulse Rate 116 H 08/15/20 22:03 Respiratory Rate 22 H 08/15/20 22:03 Blood Pressure 130/57 L 08/15/20 22:03 Pulse Oximetry 94 08/15/20 22:03 Temperature 36.7 C 08/15/20
[2020-08-16 03:22] LABS: Add Urine Microscopic? YES; Appearance Urine Cloudy (Clear); Bacteria Urine Trace /hpf; Bilirubin Urine Negative (Negative); Blood Urine Negative (Negative); Color Urine Yellow (Yellow); Glucose Urine UA 2+ mg/dL (Negative); Ketones Urine Negative (Negative); Leukocyte Esterase Ur Trace LEU/UL (Negative); Mucus Urine Rare /lpf; Nitrate Urine Negative (Negative); Protein Urine 2+ mg/dL (Negative); Specific Grav Ur 1.017 (1.001-1.035); Squamous Epithelial Cell Urine Moderate /hpf (Few); Urobilinogen Urine Negative mg/dL (<2.0)
--- NOTE | 2020-08-16 04:21 | ADMGEN ---
This patient, Tami Kim, was admitted to [facility] Surg Room 304-01. Patient/family oriented to hospital policies and general routines including ID bracelet, bed and alarms, visiting hours, pain management, procedures, bathroom and other care routines, personal items, smoking policy, room service/diet, and visiting hours. Information on how to activate the Rapid Response Team has been discussed. Patient/Family are encouraged to report perceived risks to care and to ask questions if they do not understand what they are told or what they should do.
[2020-08-16] MEDS: SODIUM CHLORIDE 0.9% IV 1,000 ML 125 ML IV CONT (04:52)
--- NOTE | 2020-08-16 08:57 | PM.IMHP ---
H&P: HPI History of Present Illness Date/Time: 08/16/20 08:57 Chief Complaint: Constipation Narrative: Date of admission: 08/16/2020 Date of service: 08/16/2020 Tami Kim is a 74-year-old female with a history of breast cancer s/p left mastectomy, COPD, type 2 diabetes mellitus, CKD, NICK, hypothyroidism who presented to the emergency department on 08/16/2020 with complaints of constipation and abdominal pain. On Saturday, 08/14, she began feeling very constipated. She was straining to have a bowel movement. She had rectal pain and soreness but had no bleeding. She was passing small hard stool and denied melena or hematochezia. The following day, she was unable to tolerate eating breakfast. She began having chills and reports dry heaving. She reported abdominal pain just below my xiphoid process. Because of this, she felt she needed to seek emergency care. She reports 3 episodes of emesis while in the emergency department that she described as appearing like bile and mucus. Upon presentation to the ED, she was mildly tachycardic with additional vital signs stable, she is afebrile, she had leukocytosis, mild anemia, platelets within normal limits, BMP significant for elevated BUN and creatinine, lactic 1.3, lipase 229, and CT abdomen/pelvis showed porcelain gallbladder with cholelithiasis without evidence of acute cholecystitis. Upon my evaluation, she is feeling better, her pain has improved and she is endorsing only mild nausea. She is being admitted to the hospitalist service for observation. Supervising physician for this history and physical is Dr. William Lynn. Review of Systems Review of Systems: Narrative: All systems reviewed with pertinent positives and negatives as per HPI. She endorses dizziness following ambulation which is not uncommon for her. Denies lightheadedness. She is able to ambulate independently. She had a frontal headache that she described as throbbing in nature that has resolved this morning. Denies GERD symptoms. She denies shortness breath, cough, or chest pain. No wheezing. Her COPD is well controlled and she reports using her albuterol inhaler approximately 2 times per week. She denies any cardiac issues. She complains of soreness in her left arm related to chronic lymphedema that she typically applies an Stan wrap to with symptomatic improvement. She reports intentional 8 lb weight loss over the past several weeks. She denies urinary symptoms including dysuria, hematuria, urgency or frequency. Denies pain in her neck, back, or joints. She has psoriasis plaques on her lower legs that are stable. She completed COVID vaccine in May 2020 and denies any exposures to COVID positive contacts. [facility] Past Medical History Medical History (Updated 08/16/20 @ 09:24 by Mari Andrews PA-C) Breast cancer CKD (chronic kidney disease) COPD (chronic obstructive pulmonary disease) Diabetes Hypertension Hypothyroid Post-lymphadenectomy lymphedema of arm Skin cancer Sleep apnea Tumor Removed from face: 2013 Removed from chest: 2018 Type 2 diabetes mellitus Surgical History Surgical History (Updated 08/16/20 @ 09:17 by Mari Andrews PA-C) H/O mastectomy Left breast 2011 History of breast lump removal 2011 History of lymph node excision Hx of breast reduction, elective Hx of local excision of skin lesion Family History Family History Mother Diabetes mellitus Bowel disease Father Colon cancer Liver cancer Sibling Heart disease Social History Social History (Updated 08/16/20 @ 09:21 by Mari Andrews PA-C) Social History: Ms. Kim lives at home. She is independent in her daily activities. She has 2 adult children, 1 of whom several years ago. 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 Her PCP is Dr. Campbell. She designates her sister, Cintia, as her surrogate decision maker and she would like to be
[2020-08-16 11:52] LABS: Glucose Point of Care 241 (65-105)
--- NOTE | 2020-08-16 12:19 | WPDANESEPPF ---
Anes - Initial Pre Proc Eval Procedure: Operation Date: 08/16/20 13:00 Proposed Procedures p Laparoscopic Cholecystectomy, Possible Open - Jj Lewis DO Date/Time: 08/16/20 12:19 Surgeon: Mari Andrews PA-C Pre Op Diagnosis: Abdominal pain, nausea and vomiting, cholelithiasi Patient Data Age: 74 Gender: F Height: 1.65 m Weight: 113 kg Last Vital Signs Temp 36.3 C L 08/16/20 06:00 Pulse 94 08/16/20 06:00 Resp 18 08/16/20 06:00 BP 150/85 H 08/16/20 06:00 Pulse Ox 97 08/16/20 08:00 Allergies Allergy/AdvReac Type Severity Reaction Status Date / Time povidone-iodine Allergy Swelling Verified 02/22/20 14:59 [From Betadine] soap [From Betadine] Allergy Swelling Verified 02/22/20 14:59 morphine AdvReac Vomiting Verified 02/22/20 14:59 Home Medications Medication Instructions Recorded Confirmed Type allopurinol 100 mg tablet 100 mg PO QID tablet 03/23/19 08/16/20 History anastrozole 1 mg tablet 1 mg PO DAILY 03/23/19 08/16/20 History calcitriol 0.25 mcg capsule 0.25 mcg PO DAILY 03/23/19 08/16/20 History multivitamin 1 tablet PO DAILY 03/23/19 08/16/20 History lancets #50 each 05/22/19 08/16/20 Rx ergocalciferol (vitamin D2) 1,250 5,000 unit PO WEEKLY cap 09/10/19 08/16/20 History mcg (50,000 unit) capsule glipizide 10 mg tablet 10 mg PO DAILY 90 Days #90 tablet 11/05/19 08/16/20 Rx hydroxyzine HCl 25 mg tablet 25 mg PO TID PRN #30 tablet 12/22/19 08/16/20 Rx glipizide 5 mg tablet 5 mg PO .pm 90 Days #90 tablet 02/22/20 08/16/20 Rx levothyroxine 100 mcg tablet 100 mcg PO DAILY #90 tablet 04/08/20 Rx albuterol sulfate 90 mcg/actuation 1 inh INHALATION Q4H PRN #18 g 05/05/20 08/16/20 Rx aerosol inhaler rosuvastatin 40 mg tablet 40 mg PO DAILY #90 tablet 06/13/20 08/16/20 Rx losartan 25 mg tablet 25 mg PO DAILY #90 tablet 07/12/20 08/16/20 Rx furosemide [Lasix] 60 mg PO DAILY 08/16/20 08/16/20 History Laboratory Tests 08/16/20 08/16/20 08/16/20 00:22 00:23 00:23 WBC 15.9 K/mm3 H K/mm3 (4.5-10.0) RBC 3.56 M/mm3 L M/mm3 (4.2-5.4) Hgb 10.3 g/dL L g/dL (12.0-15.0) Hct 32.4 % L % (37.0-47.0) MCV 91.0 fl fl (80-100) MCH 28.9 pg pg (26-34) MCHC 31.8 g/dl L g/dl (32-36) RDW 15.0 % H % (11.5-14.5) Plt Count 209 k/mm3 k/mm3 (150-375) MPV 10.1 fl fl (7.4-10.4) Immature Gran % (Auto) 0.7 % H % (0-0.5) Neut % (Auto) 92.0 % H % (45.5-73.1) Lymph % (Auto) 3.2 % L % (18.3-44.2) [place] % (Auto) 3.6 % % (2.6-8.5) Eos % (Auto) 0.3 % % (0-4.4) Baso % (Auto) 0.2 % % (0.2-1.2) Lymph # (Auto) 0.51 K/mm3 L K/mm3 (0.9-3.2) [place] # (Auto) 0.6 K/mm3 K/mm3 (0.1-0.6) Eos # (Auto) 0.0 K/mm3 K/mm3 (0-0.3) Baso # (Auto) 0.0 K/mm3 K/mm3 (0.0-0.1) Abs Immat Gran (auto) 0.11 K/mm3 H K/mm3 (0.00-0.031) Absolute Neuts (auto) 14.7 K/mm3 H K/mm3 (1.3-6.7) Absolute Nucleated RBC 0.0 K/mm3 K/mm3 (0.0-0.012) Nucleated RBC % 0.0 % % (0.0-0.2) Sodium 133 mmol/L L mmol/L (137-145) Potassium 4.2 mmol/L mmol/L (3.4-5.0) Chloride 97 mmol/L L mmol/L (98-107) Carbon Dioxide 34 mmol/L H mmol/L (22-30) Anion Gap 2 mmol/L L mmol/L (8-16) BUN 31 mg/dL H D mg/dL (7-17) Creatinine 1.60 mg/dL H mg/dL (0.7-1.0) Estim Creat Clear Calc 34 ml/min ml/min Estimated GFR 31 L (59 - ) Glucose 240 mg/dL H mg/dL (65-105) POC Capillary Glucose Lactic Acid 1.3 mmol/L mmol/L (0.7-2.1) Calcium 9.0 mg/dL mg/dL (8.4-10.2) Total Bilirubin 0.3 mg/dL mg/dL (0.2-1.3) AST 21 U/L U/L (14-36) ALT 13 U/L U/L (4-35) Alkaline Phosphatase 103 U/L U/L (38-126) Total Prot
--- NOTE | 2020-08-16 12:28 | WPDHPUPDATE1 ---
History and Physical Update Update Date/Time: 08/16/20 12:28 History and Physical has been reviewed, including an updated exam of the patient. There are NO changes in the patient's condition. Risks, benefits, and alternatives have been discussed and questions answered. Patient agrees to proceed with procedure.
--- NOTE | 2020-08-16 12:28 | PM.CNGS ---
Assessment and Plan Assessment and plan (1) Porcelain gallbladder: Code(s): K82.8 - Other specified diseases of gallbladder Status: Acute Assessment and Plan: I have reviewed the CT and ultrasound and discussed the findings with the patient. She has evidence of a porcelain gallbladder and symptoms are consistent with cholelithiasis. She is diabetic which puts her at risk for acute gangrenous cholecystitis. She has been admitted for further treatment. I have recommended urgent laparoscopic cholecystectomy, possible open. I discussed the procedure, risks, benefits, and alternatives. I have also discussed the typical postoperative recovery. Questions were answered. Patient would like to proceed with surgery. (2) Cholelithiasis: Qualifiers: Biliary obstruction: without biliary obstruction Cholelithiasis location: other site Qualified Code(s): K80.80 - Other cholelithiasis without obstruction Code(s): K80.20 - Calculus of gallbladder without cholecystitis without obstruction Status: Acute (3) Morbid obesity with BMI of 40.0-44.9, adult: Code(s): E66.01 - Morbid (severe) obesity due to excess calories; Z68.41 - Body mass index [BMI]40.0-44.9, adult Status: Acute (4) CKD (chronic kidney disease) stage 3, GFR 30-59 ml/min: Code(s): N18.30 - Chronic kidney disease, stage 3 unspecified Status: Acute (5) Type 2 diabetes mellitus: Qualifiers: Diabetes mellitus manager terminal insulin use: without usp use Diabetes mellitus complication status: without complication Qualified Code(s): E11.9 - Type 2 diabetes mellitus without complications Code(s): E11.9 - Type 2 diabetes mellitus without complications Status: Acute (6) Hypertension: Qualifiers: Hypertension type: essential hypertension Qualified Code(s): I10 - Essential (primary) hypertension Code(s): I10 - Essential (primary) hypertension Status: Acute History of Present Illness Consult details Consult date: 08/16/20 Reason for consult: abdominal pain Requesting physician: Emma Estrada MD Narrative: This is a 74-year-old woman who presented to the emergency department last night with upper abdominal pain with nausea and vomiting for the past day. She was also experiencing constipation for couple days prior to this. She does not recall any particular food that she ate that caused her pain. She has never had symptoms like this in the past. In the emergency department she was sent for a CT of her abdomen and pelvis which showed evidence of cholelithiasis and porcelain gallbladder. She is also diabetic. She was admitted the hospital for further workup and treatment and I was consulted for surgical evaluation of her gallbladder. Review of Systems Review of Systems: All systems reviewed & are unremarkable except as noted in HPI and below Eyes: Eyes: Denies change in vision ENT: Denies hearing loss, Denies neck pain and Denies sore throat Cardiovascular: Cardiovascular: Denies chest pain and Denies dyspnea Respiratory: Respiratory: Denies cough, Denies dyspnea and Denies wheezing Gastrointestinal: Gastrointestinal: Reports as per HPI Genitourinary: Genitourinary: Denies hematuria and Denies dysuria Musculoskeletal: Musculoskeletal: Denies arthralgias, Denies joint swelling and Denies neck pain Allergic/Immunologic: Allergic/Immunologic: Denies wheezing [facility] Past Medical History Medical History Breast cancer CKD (chronic kidney disease) CKD (chronic kidney disease) stage 3, GFR 30-59 ml/min COPD (chronic obstructive pulmonary disease) Diabetes Hyperlipidemia Hypertension Hypothyroid Kidney disease Morbid obesity with BMI of 40.0-44.9, adult Post-lymphadenectomy lymphedema of arm Skin cancer Sleep apnea Tumor Removed from face: 2013 Removed from chest: 2018 Type 2 diabetes mellitus Regi
[2020-08-16] MEDS: LACTATED RINGERS 1,000 ML 30 ML IV CONT (12:30)
--- NOTE | 2020-08-16 12:42 | PC.NURSE ---
Patient transferred to OR at 1150
[2020-08-16] MEDS: INSULIN HUMAN REGULAR (*BKC) 100 UNITS/ML IV PUSH (12:50)
[2020-08-16] MEDS: ceFAZolin 2 GM/D5W 50 ML 2 GM/50 ML BAG IVPB ×2 (13:03→21:38)
[2020-08-16] MEDS: BUPIVACAINE/EPINEPHRINE 0.5% 30 ML VIAL INFILTRATE (13:32)
--- NOTE | 2020-08-16 14:14 | PM.PROC ---
Procedure Note - Detailed Date of procedure: 08/16/20 Pre-op diagnosis: Porcelain gallbladder, Cholelithiasis Post-op diagnosis: same Procedure performed: Laparoscopic Cholecystectomy Description of procedure: Procedure as well as risks, benefits, and alternatives were discussed with patient. Written consent was obtained and placed in chart prior to procedure. The patient was brought back to surgical suite. Patient was placed in supine position on operating table. Time-out was done to confirm patient and procedure. Patient was then intubated by the anesthesia department. Abdomen was prepped and draped in sterile fashion using chlorhexidine prep. 0.5% bupivacaine with epinephrine was infiltrated at each site of incision. A 5 millimeter incision was made near the umbilicus, and a 5 millimeter Optiview trocar was advanced through the abdominal layers under direct visualization. Once inside the abdominal cavity, carbon dioxide was insufflated to create a pneumoperitoneum. The camera was inserted and the abdomen was inspected. No immediate abnormalities were identified. The patient was placed in reverse Trendelenburg position and rotated slightly to the left. An 11 millimeter incision was made in the subxiphoid region, and an 11 millimeter trocar was inserted under direct visualization. Two 5 millimeter incisions were made in the right upper quadrant, and two 5 millimeter trocars were inserted under direct visualization. The gallbladder was identified and grasped at the fundus and retracted superiorly. It was then grasped at the infundibulum retracted laterally. Careful dissection around the neck of the gallbladder was performed using blunt dissection with a [place] grasper and hook electrocautery. The cystic duct was identified, and a window was created behind it. The cystic artery was also identified and a window was created behind it. The critical view of safety was identified, visualizing the cystic duct running directly into the neck of the gallbladder, and the cystic artery running directly into the wall of the gallbladder. A 5 millimeter clip hand sign writer was then used to place 2 clips proximally and 1 clip distally on both the cystic duct and cystic artery. They were then both transected using endoscopic scissors. Once safely away from the anjelica hepatitis, the gallbladder was dissected free from the liver bed using hook electrocautery. Hemostasis was achieved along the way. The gallbladder was removed completely and then removed through the subxiphoid port. The liver bed was then inspected. Hemostasis appeared adequate, and our clips appeared secure. The area was gently irrigated with sterile saline. No other abnormalities were seen. The patient was flattened out in bed, and 1 final inspection was made around the abdominal cavity. The subxiphoid port was removed, and a Darryl Reva cone was used to approximate the fascia with an 0-Vicryl simple interrupted suture. The remaining ports were then removed under direct visualization, the camera was removed, and the pneumoperitoneum was released. The skin of the incisions was approximated using 4-0 Monocryl subcuticular sutures. Exofin glue was applied on top. The patient was then awakened from anesthesia, extubated, and transferred to recovery. Anesthesia: GETA and local (0.5% bupivicaine with epi) Surgeon: Jj Lewis DO Estimated blood loss (mL): 20 Drains: No Packing: No Pathology: yes Complications: No immediate complications Condition: stable (Patient tolerated procedure well, and is currently resting comfortably in recovery.) Disposition: same day Findings: This is a 74-year-old woman who presented to the emergency department last night with upper abdominal pain with nausea and vomiting. CT showed evidence of porcelain gallbladder and cholelithiasis. She was admitted for further treatment. Discussions were made with the patient about treatment options and decision was made to proc
[2020-08-16 14:25] LABS: Glucose Point of Care 196 mg/dl (65-105)
[2020-08-16] MEDS: fentaNYL CITRATE INJ (*CRX) 100 MCG/2 ML VIAL 25 MCG IV PUSH (14:34)
[2020-08-16] MEDS: LACTATED RINGERS 1,000 ML 100 ML IV CONT (15:50)
[2020-08-16 15:54] LABS: Glucose Point of Care 218 mg/dl (65-105)
[2020-08-16] MEDS: INSULIN ASPART (*BKC) 100 UNITS/ML SUB-Q (17:29)
[2020-08-16 17:32] LABS: Glucose Point of Care 247 mg/dl (65-105)
[2020-08-16] MEDS: DOCUSATE SODIUM 100 MG CAPSULE PO (21:09)
[2020-08-16] MEDS: INSULIN ASPART (*BKC) 100 UNITS/ML 6 UNITS SUB-Q (21:46)
[2020-08-17] VITALS: BP 156/93; PULSE 91; RESP 18; TEMP 36.4; O2SAT 96
[2020-08-17 00:58] LABS: Glucose Point of Care 331 mg/dl (65-105)
[2020-08-17 01:57] VITALS: PULSE 69; RESP 19; O2SAT 94
[2020-08-17 04:00] VITALS: BP 135/62; PULSE 90; RESP 18; TEMP 36.7; O2SAT 98
[2020-08-17] MEDS: ceFAZolin 2 GM/D5W 50 ML 2 GM/50 ML BAG IVPB (05:10)
[2020-08-17 05:13] LABS: Glucose Point of Care 204 mg/dl (65-105)
[2020-08-17] MEDS: LEVOTHYROXINE SODIUM 100 MCG TABLET PO (06:01)
[2020-08-17 06:11] LABS: Hematocrit 29.7 % (37.0-47.0); Hemoglobin 9.6 g/dL (12.0-15.0); Mean Corpuscular HGB Conc 32.3 g/dl (32-36); Mean Corpuscular Hemoglobin 28.9 pg (26-34); Mean Corpuscular Volume 89.5 fl (80-100); Mean Platelet Volume 10.6 fl (7.4-10.4); Platelet Count Result 184 k/mm3 (150-375); Red Blood Count 3.32 M/mm3 (4.2-5.4); White Blood Count 10.5 K/mm3 (4.5-10.0)
[2020-08-17 06:25] LABS: Alanine Aminotransferase 42 U/L (4-35); Albumin Level 3.3 g/dL (3.5-5.1); Alkaline Phosphatase 77 U/L (38-126); Anion Gap 4 mmol/L (8-16); Aspartate Amino Transferase 75 U/L (14-36); Bilirubin,Total 0.1 mg/dL (0.2-1.3); Blood Urea Nitrogen 23 mg/dL (7-17); Calcium 8.6 mg/dL (8.4-10.2); Carbon Dioxide 30 mmol/L (22-30); Chloride 104 mmol/L (98-107); Estimated CRCL calculation 39 ml/min; Estimated Glomerular Filt Rate 37; Glucose 174 mg/dL (65-105); Potassium 4.7 mmol/L (3.4-5.0); Sodium 138 mmol/L (137-145)
[2020-08-17 07:46] LABS: Glucose Point of Care 158 mg/dl (65-105)
[2020-08-17 08:00] VITALS: BP 154/77; PULSE 78; RESP 20; TEMP 36.4; O2SAT 97
--- NOTE | 2020-08-17 08:18 | WPDANESPN ---
Anes - Prog Note Post-Op Date/Time: 08/17/20 08:18 Cardiovascular status: normal Respiratory status: normal Airway patency: baseline Mental status: baseline Post-Op hydration status: normal Vital Signs: Last Vital Signs Temp 36.4 C L 08/17/20 08:00 Pulse 78 08/17/20 08:00 Resp 20 08/17/20 08:00 BP 154/77 H 08/17/20 08:00 Pulse Ox 97 08/17/20 08:00 Pain Score (VAS): 0 I/O: Intake & Output 08/16/20 08/17/20 08/17/20 23:59 07:59 15:59 Intake Total 350 450 Output Total 800 1200 Balance -450 -750 Laboratory Tests 08/17/20 05:34 08/17/20 05:34 08/16/20 08/16/20 08/16/20 11:48 11:53 14:22 WBC RBC Hgb Hct MCV MCH MCHC RDW Plt Count MPV Sodium Potassium Chloride Carbon Dioxide Anion Gap BUN Creatinine Estim Creat Clear Calc Estimated GFR Glucose POC Capillary Glucose 241 H 196 H Calcium Total Bilirubin AST ALT Alkaline Phosphatase Total Protein Albumin Blood Type O Positive Antibody Screen Negative 08/16/20 08/16/20 08/16/20 15:50 17:25 21:07 WBC RBC Hgb Hct MCV MCH MCHC RDW Plt Count MPV Sodium Potassium Chloride Carbon Dioxide Anion Gap BUN Creatinine Estim Creat Clear Calc Estimated GFR Glucose POC Capillary Glucose 218 H 247 H 331 H Calcium Total Bilirubin AST ALT Alkaline Phosphatase Total Protein Albumin Blood Type Antibody Screen 08/17/20 08/17/20 08/17/20 02:07 05:34 05:34 WBC 10.5 H RBC 3.32 L Hgb 9.6 L Hct 29.7 L MCV 89.5 MCH 28.9 MCHC 32.3 RDW 15.0 H Plt Count 184 MPV 10.6 H Sodium 138 Potassium 4.7 Chloride 104 Carbon Dioxide 30 Anion Gap 4 L BUN 23 H Creatinine 1.40 H Estim Creat Clear Calc 39 Estimated GFR 37 L Glucose 174 H POC Capillary Glucose 204 H Calcium 8.6 Total Bilirubin 0.1 L AST 75 H ALT 42 H Alkaline Phosphatase 77 Total Protein 6.0 L Albumin 3.3 L Blood Type Antibody Screen 08/17/20 07:42 WBC RBC Hgb Hct MCV MCH MCHC RDW Plt Count MPV Sodium Potassium Chloride Carbon Dioxide Anion Gap BUN Creatinine Estim Creat Clear Calc Estimated GFR Glucose POC Capillary Glucose 158 H Calcium Total Bilirubin AST ALT Alkaline Phosphatase Total Protein Albumin Blood Type Antibody Screen Post-procedural complaints: none Patient Feedback: Patient satisfied with anesthetic care.
[2020-08-17] MEDS: polyethylene glycoL 3350 17 GM POWD.PACK PO (08:59)
[2020-08-17] MEDS: ROSUVASTATIN 10 MG TABLET 40 MG PO (08:59)
[2020-08-17] MEDS: LOSARTAN POTASSIUM 25 MG TABLET PO (08:59)
[2020-08-17] MEDS: ENOXAPARIN 40 MG/0.4 ML SYRINGE SUB-Q (09:00)
[2020-08-17] MEDS: DOCUSATE SODIUM 100 MG CAPSULE PO (09:00)
--- NOTE | 2020-08-17 09:35 | PM.PNGS ---
Progress Note: A&P Assessment and Plan (1) Porcelain gallbladder: Code(s): K82.8 - Other specified diseases of gallbladder Status: Acute Assessment and Plan: Doing well on POD#1. OK to discharge today. Discussed discharge instructions with patient. Follow up in 2 weeks. (2) Cholelithiasis: Qualifiers: Biliary obstruction: without biliary obstruction Cholelithiasis location: other site Qualified Code(s): K80.80 - Other cholelithiasis without obstruction Code(s): K80.20 - Calculus of gallbladder without cholecystitis without obstruction Status: Acute Subjective Subjective Date/Time Seen: 08/17/20 09:35 Interval history: Doing well. Tolerating diet. Pain controlled. Exam GI: Inspection: non-distended and incision (intact with glue) GI Palp: Yes Tenderness to palpation present (GI) (incisional) Objective Data Vital Signs Vital Signs: Vital Signs - 24 hr 08/16/20 12:25 08/16/20 14:16 08/16/20 14:30 Temperature 36.5 C 36.2 C L Pulse Rate 81 86 85 Respiratory Rate 22 H 20 Blood Pressure 129/66 147/63 H 154/59 H Pulse Oximetry 98 98 100 08/16/20 14:45 08/16/20 15:00 08/16/20 15:15 Temperature Pulse Rate 81 81 75 Respiratory Rate 22 H 22 H 22 H Blood Pressure 148/69 H 139/67 130/60 Pulse Oximetry 98 96 97 08/16/20 15:20 08/16/20 15:35 08/16/20 16:05 Temperature 36.1 C L 36.3 C L 36.3 C L Pulse Rate 68 62 73 Respiratory Rate 16 16 16 Blood Pressure 151/61 H 141/65 H 145/73 H Pulse Oximetry 98 98 96 08/16/20 16:10 08/16/20 17:05 08/16/20 20:00 Temperature 36.1 C L 36.6 C Pulse Rate 75 85 Respiratory Rate 20 18 Blood Pressure 138/62 142/73 H Pulse Oximetry 98 96 94 08/16/20 22:57 08/17/20 00:00 08/17/20 01:57 Temperature 36.4 C L Pulse Rate 77 91 69 Respiratory Rate 25 H 18 19 Blood Pressure 156/93 H Pulse Oximetry 96 96 94 08/17/20 04:00 08/17/20 08:00 Temperature 36.7 C 36.4 C L Pulse Rate 90 78 Respiratory Rate 18 20 Blood Pressure 135/62 154/77 H Pulse Oximetry 98 97 Intake/Output Intake/Output: Intake & Output 08/14/20 08/15/20 08/16/20 08/17/20 23:59 23:59 23:59 23:59 Intake Total 1500 810 Output Total 800 1200 Balance 700 -390 Meds/Results Medications: Active Medications Generic Name Dose Route Start Last Admin Trade Name Freq PRN Reason Stop Dose Admin Acetaminophen 650 mg 08/16/20 15:17 Acetaminophen 325 Mg Tablet PO Q6H PRN Mild Pain (1-3) or Fever Hydrocodone Bitart/Acetaminophen 1 tab 08/16/20 15:17 Hydrocodone/Acetaminophen (*Crx) 5-325 Mg Tablet PO Q4H PRN Pain Rated 4-6 Hydrocodone Bitart/Acetaminophen 1 tab 08/16/20 15:17 Hydrocodone/Acetaminophen (*Crx) 7.5-325 Mg Tablet PO Q4H PRN Pain Rated 7-10 Albuterol 1 puff 08/16/20 12:06 Albuterol Sulfate (*Sp) Aerosol 1 Puff INHALATION Q4H PRN shortness of breath or wheezing Bisacodyl 10 mg 08/16/20 12:07 Bisacodyl 10 Mg Suppository RECTAL QAM PRN Constipation Dextrose 12.5 gm 08/16/20 08:10 Dextrose 50% 25 Gm/50 Ml Syringe IV PUSH PRN PRN Hypoglycemia Protocol Docusate Sodium 100 mg 08/16/20 21:00 08/17/20 09:00 Docusate Sodium 100 Mg Capsule PO 100 mg Q12HR JENNY Administration Enoxaparin Sodium 40 mg 08/17/20 09:00 08/17/20 09:00 Enoxaparin 40 Mg/0.4 Ml Syringe SUB-Q 40 mg DAILY JENNY Administration Glucagon 1 mg 08/16/20 08:10 Glucagon For Inj 1 Mg Vial IM PRN PRN Hypoglycemia Protocol Glucose 15 gm 08/16/20 08:10 Glucose Oral Gel 15 Gm Of Glucse In 37.5 Gm Tube PO PRN PRN Hypoglycemia Protocol Hydralazine HCl 10 mg 08/16/20 09:30 Hydralazine Hcl 20 Mg/Ml Vial IV PUSH Q8H PRN SBP >170 Hydromorphone HCl 0.5 mg 08/16/20 15:17 Hydromorphone Hcl Inj (*Crx) 1 Mg/Ml Syr IV PUSH Q2H PRN Pain Rated 4-6 Dextrose 1,000 mls @ 100 mls/hr
--- NOTE | 2020-08-17 11:04 | PM.DS ---
DS: Admitting Diagnosis Admitting Diagnosis Admitting Diagnosis: Porcelain gallbladder, cholelithiasis DS: Discharge Diagnosis Discharge Diagnosis (1) Cholelithiasis: Qualifiers: Biliary obstruction: without biliary obstruction Cholelithiasis location: other site Qualified Code(s): K80.80 - Other cholelithiasis without obstruction Code(s): K80.20 - Calculus of gallbladder without cholecystitis without obstruction Status: Acute Assessment and Plan: Abdominal CT and ultrasound demonstrated porcelain gallbladder with cholelithiasis. No evidence of acute cholecystitis noted. Total bilirubin and LFTs within normal limits. She was seen in consultation by General surgery and underwent laparoscopic cholecystectomy on 08/16/[address] Lewis. She tolerated the procedure well and her pain was well controlled. Continue low-fat diet and follow-up with general surgery in 2 weeks. (2) Porcelain gallbladder: Code(s): K82.8 - Other specified diseases of gallbladder Status: Acute Assessment and Plan: As above (3) Nausea and vomiting: Qualifiers: Vomiting Intractability: non-intractable Vomiting type: unspecified Qualified Code(s): R11.2 - Nausea with vomiting, unspecified Code(s): R11.2 - Nausea with vomiting, unspecified Status: Acute Assessment and Plan: Secondary to gallbladder disease. Resolved. (4) Hypertension: Qualifiers: Hypertension type: essential hypertension Qualified Code(s): I10 - Essential (primary) hypertension Code(s): I10 - Essential (primary) hypertension Status: Acute Assessment and Plan: Blood pressure reviewed and was generally well controlled. Continue home losartan (5) Type 2 diabetes mellitus: Qualifiers: Diabetes mellitus mcfp insulin use: without mcfp use Diabetes mellitus complication status: without complication Qualified Code(s): E11.9 - Type 2 diabetes mellitus without complications Code(s): E11.9 - Type 2 diabetes mellitus without complications Status: Acute Assessment and Plan: Most recent A1c 8.6 (06/27/2020). Blood sugar was monitored and covered with sliding scale insulin during stay. Resume home glipizide. Encouraged close monitoring of blood sugars and follow-up with PCP for medication adjustment as needed (6) CKD (chronic kidney disease): Code(s): N18.9 - Chronic kidney disease, unspecified Status: Inactive Assessment and Plan: Renal function was consistent with baseline (7) Constipation: Code(s): K59.00 - Constipation, unspecified Status: Acute Assessment and Plan: Resolved. Bowel regimen initiated. She should start taking miralax and colace daily with goal of formed BM every 1-2 days. Dulcolax suppository as needed DS: Summary Hospital Course Reason for hospitalization: Nausea and vomiting Hospital Course: Date of admission: 08/16/2020 Date of discharge: 08/17/2020 Tami Kim is a 74-year-old female with a history of breast cancer s/p left mastectomy, COPD, type 2 diabetes mellitus, CKD, NICK, hypothyroidism who presented to the emergency department on 08/16/2020 with complaints of constipation and abdominal pain associated nausea and vomiting. Upon presentation to the ED, she was mildly tachycardic with additional vital signs stable, she is afebrile, she had leukocytosis, mild anemia, platelets within normal limits, BMP significant for elevated BUN and creatinine, lactic 1.3, lipase 229, and CT abdomen/pelvis showed porcelain gallbladder with cholelithiasis without evidence of acute cholecystitis. She was admitted to the hospitalist service for further evaluation and management and seen in consultation by General surgery. Please see above for further details. She underwent laparoscopic cholecystectomy and tolerated this procedure well. She was tolerating low-fat diet. She
[2020-08-17 11:40] LABS: Glucose Point of Care 317 mg/dl (65-105)
[2020-08-17] MEDS: INSULIN ASPART (*BKC) 100 UNITS/ML SUB-Q (11:44)
== END 2020-08-17 12:05 | disposition home or self-care (01) ==
LOC: ANHED 08-16 → ANH3MEDSUR 08-16 04:38
PROVIDERS: Surgery; Admitting Provider Internal Medicine; Emergency Provider Emergency Medicine; PCP Internal Medicine; Visit Provider Physician Assistant
PROC: 0FT44ZZ Resection of Gallbladder, Percutaneous Endoscopic Approach (ICD-10-PCS; CPT 47562; principal; 2020-08-16 13:00)
DX: K80.20 Calculus of gallbladder without cholecystitis without obstruction (principal); K82.8 Other specified diseases of gallbladder; R11.2 Nausea with vomiting, unspecified; I12.9 Hypertensive chronic kidney disease with stage 1 through stage 4 chronic kidney disease, or unspecified chronic kidney disease; E11.22 Type 2 diabetes mellitus with diabetic chronic kidney disease; Z87.891 Personal history of nicotine dependence; Z85.3 Personal history of malignant neoplasm of breast; J44.9 Chronic obstructive pulmonary disease, unspecified; G47.33 Obstructive sleep apnea (adult) (pediatric); E03.9 Hypothyroidism, unspecified; E66.01 Morbid (severe) obesity due to excess calories; Z68.41 Body mass index [BMI] 40.0-44.9, adult; N18.30 Chronic kidney disease, stage 3 unspecified; K80.12 Calculus of gallbladder with acute and chronic cholecystitis without obstruction; Z79.4 Long term (current) use of insulin
CPT/HCPCS: 47562; 36415; 74176; 76705; 80053; 81001; 82948; 83605; 83690; 85025; 85027; 86850; 86900; 86901; 88304; 96361; 96365; 96366; 96372; 96375; 99285; A9270; G0378; J0690; J0780; J1100; J1170; J1200; J1650; J1815; J2405; J2704; J2710; J3010; J7030; J7120

== ENCOUNTER 2020-09-30 11:28 | Outpatient (CLI) | payer MEDICARE, SELFPAY ==
[2020-09-30 12:02] LABS: Basophils Absolute Auto 0.1 K/mm3 (0.0-0.1); Basophils Percent Auto 0.6 % (0.2-1.2); Eosinophils Absolute Auto 0.1 K/mm3 (0-0.3); Eosinophils Percent Auto 1.1 % (0-4.4); Hematocrit 31.3 % (37.0-47.0); Hemoglobin 10.3 g/dL (12.0-15.0); Immature Granulocyte Absolute 0.09 K/mm3 (0.00-0.031); Immature Granulocyte Percent A 0.9 % (0-0.5); Lymphocytes Absolute Auto 1.16 K/mm3 (0.9-3.2); Lymphocytes Percent Auto 11.9 % (18.3-44.2); Mean Corpuscular HGB Conc 32.9 g/dl (32-36); Mean Corpuscular Hemoglobin 29.3 pg (26-34); Mean Corpuscular Volume 89.2 fl (80-100); Mean Platelet Volume 9.7 fl (7.4-10.4); Monocytes Absolute Auto 0.5 K/mm3 (0.1-0.6); Monocytes Percent Auto 4.8 % (2.6-8.5); Neutrophils Absolute Auto 7.8 K/mm3 (1.3-6.7); Neutrophils Percent Auto 80.7 % (45.5-73.1); Platelet Count Result 205 k/mm3 (150-375); Red Blood Count 3.51 M/mm3 (4.2-5.4); Red Cell Distribution Width 15.1 % (11.5-14.5); White Blood Count 9.7 K/mm3 (4.5-10.0)
[2020-09-30 12:35] LABS: Appearance Urine Clear (Clear); Color Urine Light Yellow (Yellow)
[2020-09-30 12:36] LABS: Bilirubin Urine Negative (Negative); Blood Urine Negative (Negative); Glucose Urine UA 1+ mg/dL (Negative); Ketones Urine Negative (Negative); Nitrate Urine Negative (Negative); Protein Urine Trace mg/dL (Negative)
[2020-09-30 12:37] LABS: Add Urine Microscopic? YES; Leukocyte Esterase Ur Negative LEU/UL (Negative); Urobilinogen Urine 0.2 mg/dL (<2.0)
[2020-09-30 12:50] LABS: RBC Urine None seen /hpf (0-2); Squamous Epithelial Cell Urine Few /hpf (Few); WBC Urine None seen /hpf (0-3)
[2020-09-30 12:51] LABS: Bacteria Urine None seen /hpf
[2020-09-30 14:49] LABS: Hemoglobin A1C 9.4 % (<5.7)
[2020-09-30 15:02] LABS: Free T4 Free Thyroxine 1.47 ng/mL (0.78-2.19)
[2020-09-30 15:03] LABS: Erythrocyte Sedimentation Rate 92 mm/hr (0-20)
[2020-09-30 15:17] LABS: Thyroid Stimulating Hormone 0.955 uIU/mL (0.465-4.680); Total Triiodothyronine (T3) 0.95 NG/ML (0.97-1.69)
[2020-09-30 16:46] LABS: Albumin Level 3.9 g/dL (3.5-5.1); Anion Gap 7 mmol/L (8-16); Blood Urea Nitrogen 30 mg/dL (7-17); Calcium 9.2 mg/dL (8.4-10.2); Carbon Dioxide 29 mmol/L (22-30); Chloride 101 mmol/L (98-107); Estimated Glomerular Filt Rate 34; Glucose 276 mg/dL (65-105); Phosphorus 3.7 mg/dL (2.5-4.5); Potassium 4.3 mmol/L (3.4-5.0); Sodium 137 mmol/L (137-145); Uric Acid 3.7 mg/dL (2.5-7.5)
[2020-09-30 16:53] LABS: Creatinine Urine 14.6 mg/dL; MALB Creatinine Ratio 259.6 mg/g (0-30); Microalbumin Urine Random 37.9 mg/L (0-16.7)
[2020-09-30 17:04] LABS: Parathyroid Intact 27.6 pg/mL (7.5-53.5)
[2020-09-30 17:06] LABS: Vitamin D 25 Hydroxy 75.9 ng/mL
== END 2020-09-30 11:29 | disposition home or self-care (01) ==
LOC: ANHLAB 11:42
PROVIDERS: Specialist; PCP Internal Medicine; Visit Provider Internal Medicine Endocrinology, Diabetes & Metabolism
DX: E03.9 Hypothyroidism, unspecified (principal); E11.9 Type 2 diabetes mellitus without complications; N18.30 Chronic kidney disease, stage 3 unspecified; E78.5 Hyperlipidemia, unspecified; R60.9 Edema, unspecified; E55.9 Vitamin D deficiency, unspecified; N39.0 Urinary tract infection, site not specified; I12.9 Hypertensive chronic kidney disease with stage 1 through stage 4 chronic kidney disease, or unspecified chronic kidney disease
CPT/HCPCS: 36415; 80069; 81001; 82043; 82306; 83036; 83970; 84439; 84443; 84480; 84550; 85025; 85652

== ENCOUNTER 2021-01-06 11:26 | Outpatient (RCR) | payer MEDICARE, SELFPAY ==
[2021-01-06 12:06] LABS: Basophils Percent Auto 0.5 % (0.2-1.2); Eosinophils Absolute Auto 0.4 K/mm3 (0-0.3); Eosinophils Percent Auto 4.5 % (0-4.4); Hemoglobin 10.9 g/dL (12.0-15.0); Immature Granulocyte Absolute 0.04 K/mm3 (0.00-0.031); Immature Granulocyte Percent A 0.5 % (0-0.5); Lymphocytes Absolute Auto 0.97 K/mm3 (0.9-3.2); Lymphocytes Percent Auto 11.5 % (18.3-44.2); Mean Corpuscular HGB Conc 32.1 g/dl (32-36); Mean Corpuscular Hemoglobin 29.8 pg (26-34); Mean Corpuscular Volume 92.9 fl (80-100); Mean Platelet Volume 9.8 fl (7.4-10.4); Monocytes Absolute Auto 0.4 K/mm3 (0.1-0.6); Neutrophils Absolute Auto 6.6 K/mm3 (1.3-6.7); Platelet Count Result 210 k/mm3 (150-375); Red Blood Count 3.66 M/mm3 (4.2-5.4); Red Cell Distribution Width 14.3 % (11.5-14.5); White Blood Count 8.4 K/mm3 (4.5-10.0)
[2021-01-06 15:21] LABS: Add Urine Microscopic? YES; Appearance Urine Clear (Clear); Bacteria Urine Trace /hpf; Bilirubin Urine Negative (Negative); Blood Urine Negative (Negative); Color Urine Straw (Yellow); Glucose Urine UA Negative (Negative); Ketones Urine Negative (Negative); Leukocyte Esterase Ur 1+ LEU/UL (Negative); Mucus Urine Rare /lpf; Nitrate Urine Negative (Negative); Protein Urine Negative (Negative); RBC Urine 0-2 /hpf (0-2); Specific Grav Ur 1.006 (1.001-1.035); Squamous Epithelial Cell Urine Many /hpf (Few); Urobilinogen Urine Negative mg/dL (<2.0); WBC Urine 0-3 /hpf
[2021-01-06 15:28] LABS: Alanine Aminotransferase 12 U/L (4-35); Albumin Level 4.2 g/dL (3.5-5.1); Alkaline Phosphatase 112 U/L (38-126); Anion Gap 2 mmol/L (8-16); Aspartate Amino Transferase 24 U/L (14-36); Bilirubin,Total 0.2 mg/dL (0.2-1.3); Blood Urea Nitrogen 24 mg/dL (7-17); Calcium 9.2 mg/dL (8.4-10.2); Carbon Dioxide 36 mmol/L (22-30); Chloride 99 mmol/L (98-107); Estimated Glomerular Filt Rate 29; Glucose 235 mg/dL (65-110); Phosphorus 4.2 mg/dL (2.5-4.5); Potassium 4.1 mmol/L (3.4-5.0); Sodium 137 mmol/L (137-145); Uric Acid 4.6 mg/dL (2.5-7.5)
[2021-01-06 15:30] LABS: Creatinine Urine 26.9 mg/dL; Total Protein Urine Random 27 mg/dL
[2021-01-06 15:33] LABS: Potassium Urine Random 20.6 meq/L; Sodium Urine Random 64 meq/L
[2021-01-06 15:33] LABS: Hemoglobin A1C 8.3 % (<5.7)
[2021-01-06 15:35] LABS: MALB Creatinine Ratio 193.7 mg/g (0-30); Microalbumin Urine Random 52.1 mg/L (0-16.7)
[2021-01-06 15:40] LABS: Parathyroid Intact 46.2 pg/mL (7.5-53.5)
[2021-01-06 15:45] LABS: Vitamin D 25 Hydroxy 44.7 ng/mL
[2021-01-06 16:21] LABS: Erythrocyte Sedimentation Rate 116 mm/hr (0-20)
[2021-01-10 05:10] LABS: Osmolality, Urine 224 mOsm/kg (50-1200)
[2021-01-11 17:37] LABS: Chloride Rand Ur 68 mmol/L (32-290); Chloride/Creatinine Rand Ur 243 (38-318); Creatinine Random Urine 28 mg/dL (20-275)
== END 2021-04-06 23:59 | disposition home or self-care (01) ==
LOC: ANHLAB 11:26
PROVIDERS: PCP Internal Medicine; Visit Provider Specialist
DX: N18.31 Chronic kidney disease, stage 3a (principal); I12.9 Hypertensive chronic kidney disease with stage 1 through stage 4 chronic kidney disease, or unspecified chronic kidney disease; E11.65 Type 2 diabetes mellitus with hyperglycemia; E78.5 Hyperlipidemia, unspecified; E55.9 Vitamin D deficiency, unspecified; N39.0 Urinary tract infection, site not specified; R60.9 Edema, unspecified
CPT/HCPCS: 36415; 80053; 81001; 81050; 82043; 82306; 82436; 82570; 83036; 83935; 83970; 84100; 84133; 84156; 84300; 84550; 85025; 85652

== ENCOUNTER 2021-03-01 16:10 | Outpatient (CLI) | payer MEDICARE, SELFPAY ==
--- NOTE | ~2021-03-01 | XR_ITS ---
EXAMINATION: XR ankle RT 2V DATE: 03/01/2021 16:25 INDICATION: Right ankle pain. TECHNIQUE: 2 views of right ankle were obtained. COMPARISON: None. FINDINGS: There is an oblique fracture of distal fibula with medial aspect of the fracture line 1.4 c m proximal to the level of the tibial plafond. The distal fracture fragment demonstrates 3 mm posteri or displacement and 7 mm lateral displacement. There is widening of medial ankle mortise, consistent with deltoid ligament tear. The talar dome is normal. Other joint spaces are normal. There are enthes ophytes at the posterior plantar aspect of calcaneal tuberosity. Ankle soft tissue swelling is noted. IMPRESSION: 1. Oblique fracture of distal fibula. 2. Deltoid ligament tear. Reviewed, dictated and finalized at location A. PING ROOM SUPERVISOR
== END 2021-03-01 16:11 | disposition home or self-care (01) ==
LOC: ANHIMG 16:14
PROVIDERS: PCP Internal Medicine; Visit Provider Nurse Practitioner
DX: S82.831A Other fracture of upper and lower end of right fibula, initial encounter for closed fracture (principal); S93.421A Sprain of deltoid ligament of right ankle, initial encounter; X58.XXXA Exposure to other specified factors, initial encounter
CPT/HCPCS: 73600

== ENCOUNTER 2021-03-01 16:31 | Inpatient (IN) | payer MEDICARE, SELFPAY ==
--- NOTE | ~2021-03-01 | CT_ITS ---
EXAMINATION: CT brain wo con DATE: 03/01/2021 18:54 INDICATION: Syncope. TECHNIQUE: Computed tomography (CT) of the head was performed without intravenous contrast. The mA wa s adjusted according to patient size. Iterative reconstruction technique was employed. The dose-lengt h product was 605.33 mGy-cm. COMPARISON: Head CT 03/13/2018 FINDINGS: There is no acute ischemic infarct, intracranial hemorrhage, or abnormal mass lesion. There is an empty sella. The ventricles are normal in size. The paranasal sinuses are clear. The mastoid a ir cells are normal. The orbits are normal. IMPRESSION: 1. No acute intracranial pathology. Reviewed, dictated and finalized at location A. GE TREATMENT PLANT OPERATOR
--- NOTE | ~2021-03-01 | XR_ITS ---
EXAMINATION: XR surgery orthopedic DATE: 03/03/2021 16:06 INDICATION: Distal right fibular fracture. TECHNIQUE: 5 intraoperative fluoroscopic views of right ankle were obtained. I was not present. Fluor oscopy exposure time was 69 seconds. COMPARISON: Right ankle radiographs 03/01/2021 FINDINGS: There is an oblique fracture of distal fibula status post open reduction internal fixation with semitubular plate and multiple screws. There are 2 syndesmotic bands. There is normal alignment at the ankle mortise. IMPRESSION: 1. Oblique fracture of distal fibula status post open reduction internal fixation. Reviewed, dictated and finalized at location A. ARTS INSTRUCTOR IMPRESSION: 1. Oblique fracture of distal fibula status post open reduction internal fixati on.
--- NOTE | ~2021-03-01 | XR_ITS ---
EXAMINATION: XR chest 2V DATE: 03/01/2021 19:01 INDICATION: Syncope. TECHNIQUE: Frontal and lateral views of the chest were obtained. COMPARISON: CT abdomen and pelvis 08/16/20 FINDINGS: There is mild atelectasis in the lower lung zones. No pleural effusion or pneumothorax. The heart size is normal. There are surgical clips in left axilla. IMPRESSION: 1. Mild atelectasis in the lower lung zones. Reviewed, dictated and finalized at location A. ORE DIVER
--- NOTE | ~2021-03-01 | US_ITS ---
EXAMINATION: US carotid duplex BI DATE: 03/02/2021 11:31 INDICATION: Syncope. Cerebral atherosclerosis. TECHNIQUE: Grayscale, color Doppler, and pulsed Doppler images of the cervical carotid arteries were obtained. The degree of vessel stenosis is placed in one of the following categories: normal, <50%, 5 0-69%, >=70% but less than near-occlusion, near-occlusion, or total occlusion. Note that percent sten osis relative to normal distal artery lumen diameter is indirectly measured from velocity measurement s as described by Anthony, et al. Radiology 2003; 229:340-346. COMPARISON: None. FINDINGS: RIGHT: The right common carotid artery (CCA) peak systolic velocity (PSV) is 80 cm/s. The right internal car otid artery (ICA) PSV is 79 cm/s. The right ICA end-diastolic velocity (EDV) is 21 cm/s. The right IC A/CCA PSV ratio is 1.0. Grayscale and color Doppler images yield an estimate of <50% diameter reducti on from plaque in the ICA. The external carotid artery (ECA) PSV is 70 cm/s. There is antegrade flow in the right vertebral artery. LEFT: The left CCA PSV is 125 cm/s. The left ICA PSV is 78 cm/s. The left ICA EDV is 18 cm/s. The left ICA/ CCA PSV ratio is 0.6. Grayscale and color Doppler images yield an estimate of <50% diameter reduction from plaque in the ICA. The ECA PSV is 98 cm/s. There is antegrade flow in the left vertebral artery . IMPRESSION: 1. <50% stenosis in the right internal carotid artery. 2. <50% stenosis in the left internal carotid artery. Reviewed, dictated and finalized at location A. SLUDGE MIXER
[2021-03-01 16:43] VITALS: BP 125/53; PULSE 87; RESP 15; TEMP 36.8; O2SAT 98
--- NOTE | 2021-03-01 18:10 | ECG_ITS ---
Measurements Intervals [place] Rate: 84 P: 59 AK: 168 QRS: -4 QRSD: 80 T: 11 QT: 362 QTc: 430 Interpretive Statements SINUS RHYTHM LOW QRS VOLTAGE IN PRECORDIAL LEADS BASELINE ARTIFACT- I, II, III, AVR, AVL, AVF, V1-V2 BORDERLINE ECG Electronically Signed On 03-01-2021 20:16:38 TERM[employer]RE[employer] by Freedom Scott D.O.
--- NOTE | 2021-03-01 18:24 | ED.SYNCOPE ---
HPI - Syncope General Chief Complaint: Syncope <Gricelda Devries PA-C - Last Filed: 03/01/21 21:07> Stated Complaint: Sent from Xray Rt ankle fracture <DELANEY Greene Last Filed: 03/01/21 21:07> Time Seen by Provider: 03/01/21 18:09 <Gricelda Devries PA-C - Last Filed: 03/01/21 21:07> Source: patient <DELANEY Greene Last Filed: 03/01/21 21:07> Mode of arrival: wheelchair <DELANEY Greene Last Filed: 03/01/21 21:07> Limitations: no limitations <DELANEY Greene Last Filed: 03/01/21 21:07> History of Present Illness HPI narrative: This is a 75-year-old female that presents to the emergency department after a right ankle injury yesterday with a positive outpatient x-ray. Reports she was in her kitchen yesterday around noon getting some water. She started to feel lightheaded, nauseous, and hot. Reports she then passed out. Does report hitting her head. Reports similar syncopal episodes in the past. Reports she was on the ground for a couple of hours before she could finally get back up. Her primary ordered an outpatient x-ray today that showed a fracture and she was prompted to be seen in the ER. Denies vision changes, vomiting, chest pain, shortness of breath, numbness, or weakness. <Gricelda Devries PA-C - Last Filed: 03/01/21 21:07> Related Data Home Medications: Home Medications Medication Instructions Recorded Confirmed allopurinol 100 mg tablet 100 mg PO QID tablet 03/23/19 10/04/20 calcitriol 0.25 mcg capsule 0.25 mcg PO DAILY 03/23/19 10/04/20 multivitamin 1 tablet PO DAILY 03/23/19 10/04/20 ergocalciferol (vitamin D2) 1,250 5,000 unit PO WEEKLY cap 09/10/19 10/04/20 mcg (50,000 unit) capsule glipizide 5 mg tablet 5 mg PO QAM tablet 11/02/20 <Gricelda Devries PA-C - Last Filed: 03/01/21 21:07> Allergies/Adverse Reactions: Allergies Allergy/AdvReac Type Severity Reaction Status Date / Time povidone-iodine Allergy Swelling Verified 08/30/20 11:06 [From Betadine] soap [From Betadine] Allergy Swelling Verified 08/30/20 11:06 morphine AdvReac Vomiting Verified 08/30/20 11:06 <Gricelda Devries PA-C - Last Filed: 03/01/21 21:07> Review of Systems Review of Systems: CONSTITUTIONAL: Denies fever EYES: Denies visual changes CARDIOVASCULAR: Denies chest pain, or edema. RESPIRATORY: Denies dyspnea. GASTROINTESTINAL: Denies vomiting GENITOURINARY: Denies dysuria SKIN: Reports rash MUSCULOSKELETAL: Reports joint pain and myalgia. Denies back pain NEUROLOGIC: Denies headache, numbness, or weakness. <Gricelda Devries PA-C - Last Filed: 03/01/21 21:07> All systems reviewed & are unremarkable except as noted in HPI and below <Gricelda Devries PA-C - Last Filed: 03/01/21 21:07> [facility] Past Medical History Medical History: Medical History Breast cancer CKD (chronic kidney disease) CKD (chronic kidney disease) stage 3, GFR 30-59 ml/min COPD (chronic obstructive pulmonary disease) Diabetes Hyperlipidemia Hypertension Hypothyroid Kidney disease Morbid obesity with BMI of 40.0-44.9, adult Post-lymphadenectomy lymphedema of arm Skin cancer Sleep apnea Tumor Removed from face: 2013 Removed from chest: 2018 Type 2 diabetes mellitus <DELANEY Greene Last Filed: 03/01/21 21:07> Surgical History Surgical History: Surgical History H/O mastectomy Left breast 2011 History of breast lump removal 2012 History of lymph node excision Hx laparoscopic cholecystectomy Hx of breast reduction, elective Hx of local excision of skin lesion <Gricelda Devries PA-C - Last Filed: 03/01/21 21:07> Family History Family History: Family History Mother Diabetes mellitus Bowel disease Father Colon cancer Liver cancer Sibling Heart disease
[2021-03-01 19:12] VITALS: PULSE 89
[2021-03-01 19:14] LABS: Basophils Percent Auto 0.5 % (0.2-1.2); Eosinophils Percent Auto 0.7 % (0-4.4); Immature Granulocyte Absolute 0.01 K/mm3 (0.00-0.031); Immature Granulocyte Percent A 0.2 % (0-0.5); Lymphocytes Absolute Auto 0.87 K/mm3 (0.9-3.2); Lymphocytes Percent Auto 20.1 % (18.3-44.2); Mean Corpuscular HGB Conc 32.4 g/dl (32-36); Mean Corpuscular Hemoglobin 30.6 pg (26-34); Mean Corpuscular Volume 94.4 fl (80-100); Mean Platelet Volume 10.2 fl (7.4-10.4); Monocytes Absolute Auto 0.5 K/mm3 (0.1-0.6); Monocytes Percent Auto 10.6 % (2.6-8.5); Neutrophils Absolute Auto 2.9 K/mm3 (1.3-6.7); Neutrophils Percent Auto 67.9 % (45.5-73.1); Platelet Count Result 168 k/mm3 (150-375); Red Cell Distribution Width 14.5 % (11.5-14.5); White Blood Count 4.3 K/mm3 (4.5-10.0)
[2021-03-01] MEDS: HYDROcodone/acetaminophen (*CRX) 5-325 MG TABLET 1 TAB PO (19:15)
--- NOTE | 2021-03-01 19:15 | PC.NURSE ---
Assuming care of pt.
[2021-03-01 19:16] VITALS: BP 137/70; PULSE 82; RESP 16; O2SAT 100
[2021-03-01 19:26] LABS: Anion Gap 7 mmol/L (8-16); Blood Urea Nitrogen 31 mg/dL (7-17); Calcium 8.7 mg/dL (8.4-10.2); Carbon Dioxide 29 mmol/L (22-30); Chloride 98 mmol/L (98-107); Creatine Kinase 449 U/L (30-135); Estimated CRCL calculation 26 ml/min; Estimated Glomerular Filt Rate 23; Glucose 100 mg/dL (65-110); Potassium 3.9 mmol/L (3.4-5.0); Sodium 134 mmol/L (137-145)
[2021-03-01 19:33] LABS: Prothrombin Time 12.8 Seconds (11.1-14.7)
[2021-03-01 19:34] LABS: Partial Thromboplastin Time 31.9 SECONDS (22.3-36.8)
[2021-03-01 19:38] LABS: Troponin I < 0.012 ng/mL (0.000-0.034)
--- NOTE | 2021-03-01 20:21 | PM.IMHP ---
H&P: HPI History of Present Illness Date/Time: 03/01/21 20:21 Chief Complaint: Syncope Narrative: This is a 75-year-old female that presents to the emergency department after of syncopal episode yesterday. She states she was in the kitchen trying to get some water around noon when see as dizzy and lightheaded moments later she found herself on the floor. She sustained injury to her right ankle. She has never had similar episode in the past but mention she lightheaded dizziness intermittently in the past. He went to see a primary care doctor today and had x-ray done which revealed distal fibula fracture. She was then prompted to the ER for evaluation. She denies any chest pain or shortness of breath or tingling and numbness no nausea vomiting abdominal pain. No fever chills. She does report some mild cough and congestion and sinus pain since recently. She is admitted for further evaluation and management Review of Systems Review of Systems: - CONSTITUTIONAL: Denies weight loss, fever and chills. - HEENT: Denies changes in vision and hearing - RESPIRATORY: Denies SOB and cough. - CV: Denies palpitations and CP. - GI: Denies abdominal pain, nausea, vomiting and diarrhea. - : Denies dysuria and urinary frequency. - MSK: Denies myalgia and joint pain. - SKIN: Denies rash and pruritus. - NEUROLOGICAL: Denies headache and reports syncope. - PSYCHIATRIC: Denies recent changes in mood. Denies anxiety and depression. All systems reviewed & are unremarkable except as noted in HPI and below Constitutional: Constitutional: Reports fatigue and Reports weakness Neurologic: Reports weakness Endocrine: Endocrine: Reports fatigue [facility] Past Medical History Medical History Breast cancer CKD (chronic kidney disease) CKD (chronic kidney disease) stage 3, GFR 30-59 ml/min COPD (chronic obstructive pulmonary disease) Diabetes Hyperlipidemia Hypertension Hypothyroid Kidney disease Morbid obesity with BMI of 40.0-44.9, adult Post-lymphadenectomy lymphedema of arm Skin cancer Sleep apnea Tumor Removed from face: 2013 Removed from chest: 2018 Type 2 diabetes mellitus Surgical History Surgical History H/O mastectomy Left breast 2011 History of breast lump removal 2012 History of lymph node excision Hx laparoscopic cholecystectomy Hx of breast reduction, elective Hx of local excision of skin lesion Family History Family History Mother Diabetes mellitus Bowel disease Father Colon cancer Liver cancer Sibling Heart disease Social History Social History Social History: Ms. Kim lives at home. She is independent in her daily activities. She has 2 adult children, 1 of whom several years ago. 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 Her PCP is Dr. Campbell. She designates her sister, Cintia, as her surrogate decision maker and she would like to be a full code. Smoking packs per day: 2 Smoking cigarettes per day: 40.0 Years smoked: 42 Smoking pack-years: 84.00 Smoking status: Former smoker Tobacco type: cigarettes Alcohol intake: never Substance use: never Gender identity (if verbalized by the patient): Female Spiritual care concerns: No Meds Home Medications and Allergies Home Medications Medication Instructions Recorded Confirmed Type allopurinol 100 mg tablet 100 mg PO QID tablet 03/23/19 03/01/21 History calcitriol 0.25 mcg capsule 0.25 mcg PO DAILY 03/23/19 03/01/21 History multivitamin 1 tablet PO DAILY 03/23/19 03/01/21 History lancets #50 each 05/22/19 10/04/20 Rx ergocalciferol (vitamin D2) 1,250 5,000 unit PO WEEKLY cap MDD 09/10/19 03/01/21 History mcg (50,000 unit) capsule Takes on albuterol sulfate 90 mcg/actuation 1 inh INHALATION Q
[2021-03-01] MEDS: SODIUM CHLORIDE 0.9% IV 500 ML 999 ML IV CONT (20:36)
[2021-03-01 20:48] LABS: Add Urine Microscopic? YES; Amorphous Sediment Urine Few; Appearance Urine Cloudy (Clear); Bacteria Urine 2+ /hpf; Bilirubin Urine Negative (Negative); Blood Urine 2+ (Negative); Color Urine Yellow (Yellow); Glucose Urine UA Negative (Negative); Ketones Urine Negative (Negative); Leukocyte Esterase Ur Negative LEU/UL (Negative); Mucus Urine Rare /lpf; Nitrate Urine Negative (Negative); Protein Urine Negative (Negative); Specific Grav Ur 1.005 (1.001-1.035); Squamous Epithelial Cell Urine Moderate /hpf (Few); Urobilinogen Urine Negative mg/dL (<2.0)
--- NOTE | 2021-03-01 22:04 | PC.NURSE ---
Orthoglass placed on right lower leg.
[2021-03-01 22:09] VITALS: BP 133/65; PULSE 85; RESP 24; O2SAT 95
[2021-03-01 22:35] VITALS: BP 132/65; PULSE 88; RESP 16; O2SAT 98
[2021-03-01 22:45] VITALS: BP 118/56; PULSE 88; RESP 20; TEMP 36.2; O2SAT 97; BMI 42.1
[2021-03-02] VITALS (9 sets, daily range): BP systolic 116–137; BP diastolic 53–57; PULSE 84–92; RESP 16–20; TEMP 36–36.9; O2SAT 92–94
--- NOTE | 2021-03-02 | ECHO_ITS ---
Patient Info Name: Tami Kim Age: 75 years : 1945 Gender: Female Ht: 65 in Wt: 246 lbs BSA: 2.32 m2 HR: 94 bpm BP: 122 / 53 mmHg Technical Quality: Fair Exam Date: 03/02/2021 10:22 AM Exam Location: [facility] Pulmonary Exam Room: 316 Patient Status: Outpatient Admit Date: 03/01/2021 Staff Ordering Physician: Blas King MD Gravedigger: SLY Attending Provider: Mari Andrews PA-C Exam Type: CA echo doppler color flow Study Info Indications - SYNCOPE Complete two-dimensional, color flow and Doppler transthoracic echocardiogram is performed. Summary 1. Complete two-dimensional, color flow and Doppler transthoracic echocardiogram is performed. 2. Left ventricular chamber dimension is normal. 3. Left ventricular systolic function is normal, estimated at 55-60%. 4. The left ventricular diastolic function is grade I diastolic dysfunction. 5. E/e' 12 is mildly elevated. Left Ventricle E/e' 12 is mildly elevated. Left ventricular chamber dimension is normal. Left ventricular systolic function is normal, estimated at 55-60%. The left ventricular diastolic function is grade I diastolic dysfunction. Right Ventricle Right ventricular chamber dimension is normal. Right ventricular systolic function is normal. Left Atria Left atrial chamber dimension is normal. Right Atria Right atrial chamber dimension is normal. Aortic Valve The aortic valve is trileaflet. There is no aortic valve stenosis. There is no aortic valve regurgitation. Pulmonic Valve There is no pulmonic regurgitation. Mitral Valve There is no mitral valve stenosis. There is no mitral valve regurgitation. Tricuspid Valve There is no tricuspid valve regurgitation. Pericardium/Pleural There is no pericardial effusion. Inferior Vena Cava Normal inferior vena cava with >50% collapse upon inspiration consistent with normal right atrial pressure, 5 mmHg. Aorta The aortic root size at the sinus of Valsalva is normal. Left Ventricular Outflow Tract Name Value Normal LVOT 2D LVOT Diameter 2.1 cm LVOT Doppler LVOT Peak Gradient 9 mmHg LVOT Mean Gradient 5 mmHg LVOT VTI 32 cm LVOT VTI/AV VTI Ratio 1.0 LVOT Stroke Volume 116 ml LVOT CO 22.4 l/min LVOT CI 9.6 l/min/m2 Mitral Valve Name Value Normal MV Doppler MV Decel [place] 574 cm/s2 MV PHT 53 ms MV Area (PHT) 4.1 cm2 4.0-5.0 MV Regurgitation Doppler MR Peak Gradient 19 mmHg MV
[2021-03-02] MEDS: SODIUM CHLORIDE 0.9% IV 1,000 ML 100 ML IV CONT (00:19)
[2021-03-02 03:23] LABS: Hemoglobin A1C 8.5 % (<5.7)
[2021-03-02] MEDS: LEVOTHYROXINE SODIUM 100 MCG TABLET PO (06:44)
[2021-03-02 08:06] LABS: Glucose Point of Care 100 mg/dl (65-105)
[2021-03-02 08:41] LABS: Hematocrit 40.6 % (37.0-47.0); Hemoglobin 12.2 g/dL (12.0-15.0); Mean Corpuscular Hemoglobin 30.4 pg (26-34); Mean Corpuscular Volume 101.2 fl (80-100); Platelet Count Result 92 k/mm3 (150-375); Red Blood Count 4.01 M/mm3 (4.2-5.4); Red Cell Distribution Width 14.5 % (11.5-14.5); White Blood Count 4.2 K/mm3 (4.5-10.0)
[2021-03-02 08:56] LABS: Anion Gap 11 mmol/L (8-16); Blood Urea Nitrogen 27 mg/dL (7-17); Calcium 8.5 mg/dL (8.4-10.2); Carbon Dioxide 24 mmol/L (22-30); Chloride 101 mmol/L (98-107); Estimated CRCL calculation 32 ml/min; Estimated Glomerular Filt Rate 29; Glucose 112 mg/dL (65-110); Potassium 4.2 mmol/L (3.4-5.0); Sodium 136 mmol/L (137-145)
[2021-03-02] MEDS: HEPARIN SODIUM 5,000 UNITS/ML VIAL 5000 UNITS SUB-Q ×2 (10:34→20:56)
[2021-03-02] MEDS: calcitrioL 0.25 MCG CAPSULE PO (10:34)
[2021-03-02] MEDS: MULTIVITAMINS THERAPEUTIC TAB (*BKC) 1 TABLET PO (10:34)
[2021-03-02] MEDS: allopurinoL 100 MG TABLET PO ×4 (10:34→20:56)
[2021-03-02 11:35] LABS: Glucose Point of Care 174 mg/dl (65-105)
--- NOTE | 2021-03-02 12:02 | PM.CNOR ---
Assessment and Plan Assessment and plan (1) Closed fracture of distal end of right fibula: Qualifiers: Encounter type: initial encounter Fracture morphology: unspecified fracture morphology Qualified Code(s): S82.831A - Other fracture of upper and lower end of right fibula, initial encounter for closed fracture <MARGIE Martino - Last Filed: 03/02/21 12:19> Code(s): S82.831A - Other fracture of upper and lower end of right fibula, initial encounter for closed fracture <MARGIE Martino - Last Filed: 03/02/21 12:19> Status: Acute <MARGIE Martino - Last Filed: 03/02/21 12:19> Assessment and Plan: Right distal fibula fracture and possible syndesmosis injury. Mortise joint in widened and unstable. Will require ORIF. Risks, benefits, and alternatives discussed with patient. Discussed the expectations for recovery. Plan for surgery tomorrow afternoon. <MARGIE Martino - Last Filed: 03/02/21 12:19> Additional Plan Patient seen and examined. Discussed and agree with above care plan. Radiographic images reviewed personally. The fracture is highly unstable. She will benefit from ORIF of the fibula and possibly of the syndesmosis depending on intraoperative findings. Risks benefits and alternatives discussed with the patient and her family. Risks associated with the fracture include wound healing complications, malunion, nonunion, stiffness, and arthritis. <Alexis Herrera MD - Last Filed: 03/02/21 16:38> History of Present Illness HPI Consult date: 03/02/21 <MARGIE Martino - Last Filed: 03/02/21 12:19> 03/02/21 <Alexis Herrera MD - Last Filed: 03/02/21 16:38> Consult reason: fracture <MARGIE Martino - Last Filed: 03/02/21 12:19> Chief complaint: Syncope,Acute on Chronic Kidney Injury,Rt distal F <MARGIE Martino - Last Filed: 03/02/21 12:19> Narrative: Patient was admitted from the ER after a syncopal episode and fall from standing height in her home for definitive treatment. She was found to have a distal fibula fracture and possible syndesmosis injury. Was splinted in the ER. Patient states she was on the ground for approximately 5 hours before getting to a phone. No other complaints at this time. History of kidney disease, COPD, sleep apnea, diabetes, obesity, psoriasis, HTN, Hyperlipidemia, Hypothyroidism. She lives at home alone. <MARGIE Martino - Last Filed: 03/02/21 12:19> Review of Systems Review of Systems: All systems reviewed & are unremarkable except as noted in HPI and below <MARGIE Martino - Last Filed: 03/02/21 12:19> [facility] Past Medical History Medical History: Medical History (Reviewed 10/04/20 @ 13:00 by Cindy Burkett [facility]) Breast cancer CKD (chronic kidney disease) CKD (chronic kidney disease) stage 3, GFR 30-59 ml/min COPD (chronic obstructive pulmonary disease) Diabetes Hyperlipidemia Hypertension Hypothyroid Kidney disease Morbid obesity with BMI of 40.0-44.9, adult Post-lymphadenectomy lymphedema of arm Skin cancer Sleep apnea Tumor Removed from face: 2013 Removed from chest: 2018 Type 2 diabetes mellitus <MARGIE Martino - Last Filed: 03/02/21 12:19> Surgical History Surgical History: Surgical History (Reviewed 10/04/20 @ 13:00 by Cindy Burkett [facility]) H/O mastectomy Left breast 2011 History of breast lump removal 2012 History of lymph node excision Hx laparoscopic cholecystectomy Hx of breast reduction, elective Hx of local excision of skin lesion <MARGIE Martino - Last Filed: 03/02/21 12:19> Family History Family History: Family History Mother Diabetes mellitus Bowel disease Father Colon cancer Liver cancer Sibling Heart disease <MARGIE Martino - Last Filed: 03/02/21 12:19> Social History So
--- NOTE | 2021-03-02 13:38 | PM.IMPN ---
Progress Note: A&P Assessment and Plan (1) Syncope: Qualifiers: Syncope type: unspecified Qualified Code(s): R55 - Syncope and collapse Code(s): R55 - Syncope and collapse Status: Acute Assessment and Plan: Episode of syncope at home in which she became flushed and dizzy prior to. Reports history of similar episodes. Possibly orthostatic hypotension vs vasovagal syncope. Head CT with no acute intracranial findings Carotid Doppler with <50% stenosis bilaterally Echocardiogram showed EF 55-60% with grade 1 diastolic dysfunction and no significant valvular disease. Telemetry reviewed which shows sinus rhythm. Will discontinue. Will check orthostatic blood pressures Hypoglycemia considered, though less likely as patient notes that her blood sugar is typically high. She checked her glucose when she got off the ground and noted it was in the 200s. (2) Closed fracture of distal end of right fibula: Qualifiers: Encounter type: initial encounter Fracture morphology: unspecified fracture morphology Qualified Code(s): S82.831A - Other fracture of upper and lower end of right fibula, initial encounter for closed fracture Code(s): S82.831A - Other fracture of upper and lower end of right fibula, initial encounter for closed fracture Status: Acute Assessment and Plan: Secondary to fall/syncopal episode as above. Ankle x-ray with oblique fracture of distal fibula Appreciate orthopedic surgery consultation Planning for ORIF tomorrow Supportive care. Analgesics available as needed (3) Acute on chronic renal insufficiency: Code(s): N28.9 - Disorder of kidney and ureter, unspecified; N18.9 - Chronic kidney disease, unspecified Status: Acute Assessment and Plan: Baseline creatinine appears to be approximately 1.3-1.5. Creatinine elevated on presentation up to 2.1. Likely related to prerenal etiology given improvement with IV fluids. Creatinine is down to 1.7 today. Will go ahead and discontinue her IV fluids as she is tolerating oral intake. Encourage adequate oral fluid intake Continue to monitor her renal function closely Renally dose medications and avoid nephrotoxins (4) Hypertension: Qualifiers: Hypertension type: essential hypertension Qualified Code(s): I10 - Essential (primary) hypertension Code(s): I10 - Essential (primary) hypertension Status: Acute Assessment and Plan: Blood pressure reviewed and has been generally well controlled. Last BP 122/53 Home losartan is on hold, likely due to her acute kidney injury. Continue to monitor blood pressure trends and resume when clinically appropriate based on renal function (5) Hypothyroidism: Qualifiers: Hypothyroidism type: unspecified Qualified Code(s): E03.9 - Hypothyroidism, unspecified Code(s): E03.9 - Hypothyroidism, unspecified Status: Acute Assessment and Plan: TSH in September 2020 was within normal limits. Continue home levothyroxine (6) Type 2 diabetes mellitus: Qualifiers: Diabetes mellitus correction insulin use: without correction use Diabetes mellitus complication status: without complication Qualified Code(s): E11.9 - Type 2 diabetes mellitus without complications Code(s): E11.9 - Type 2 diabetes mellitus without complications Status: Acute Assessment and Plan: A1c is 8.5. Blood sugars have been reasonably controlled this admission. Last glucose 174 Continue Accu-Cheks, sliding scale insulin, and hypoglycemic protocol Home glipizide is on hold (7) Sleep apnea: Qualifiers: Sleep apnea type: unspecified type Qualified Code(s): G47.30 - Sleep apnea, unspecified Code(s): G47.30 - Sleep apnea, unspecified Status: Acute Assessment and Plan: Maintained on BiPAP therapy. Continue BiPAP when sleeping during admission (8) CO
[2021-03-02 16:23] LABS: Glucose Point of Care 157 mg/dl (65-105)
[2021-03-02] MEDS: ACETAMINOPHEN 325 MG TABLET 650 MG PO (17:07)
--- NOTE | 2021-03-02 17:27 | WPDANESEPP ---
Anes - Eval Pre Procedure Procedure: Operation Date: 03/03/21 15:00 Proposed Procedures p Open Reduction Internal Fixation Right Distal Fibula, Possible Syndesmosis Fixation - Alexis Herrera MD Date/Time: 03/02/21 17:27 Pre Op Diagnosis: Syncope,Acute on Chronic Kidney Injury,Rt distal F Patient Data Age: 75 Gender: F Height: 1.65 m Weight: 114.8 kg Last Vital Signs Temp 96.8 F L 03/02/21 14:00 Pulse 86 03/02/21 16:00 Resp 20 03/02/21 14:00 BP 137/57 L 03/02/21 14:00 Pulse Ox 92 03/02/21 14:00 Allergies Allergy/AdvReac Type Severity Reaction Status Date / Time povidone-iodine Allergy Swelling Verified 08/30/20 11:06 [From Betadine] soap [From Betadine] Allergy Swelling Verified 08/30/20 11:06 morphine AdvReac Vomiting Verified 08/30/20 11:06 Home Medications Medication Instructions Recorded Confirmed Type allopurinol 100 mg tablet 100 mg PO QID tablet 03/23/19 03/01/21 History calcitriol 0.25 mcg capsule 0.25 mcg PO DAILY 03/23/19 03/01/21 History multivitamin 1 tablet PO DAILY 03/23/19 03/01/21 History ergocalciferol (vitamin D2) 1,250 5,000 unit PO WEEKLY cap MDD 09/10/19 03/01/21 History mcg (50,000 unit) capsule Takes on albuterol sulfate 90 mcg/actuation 1 inh INHALATION Q4H PRN #18 g 05/05/20 03/01/21 Rx aerosol inhaler acetaminophen [Mapap 650 mg PO Q6H PRN #30 tablet 08/17/20 03/01/21 Rx (acetaminophen)] levothyroxine 100 mcg tablet 100 mcg PO DAILY #90 tablet 09/30/20 03/01/21 Rx glipizide 5 mg tablet 5 mg PO QAM tablet 11/02/20 03/01/21 History rosuvastatin 40 mg tablet 40 mg PO DAILY #90 tablet 12/06/20 03/02/21 Rx losartan 25 mg tablet 25 mg PO DAILY #90 tablet 01/02/21 03/01/21 Rx furosemide [Lasix] 60 mg PO BID 03/01/21 03/01/21 History Laboratory Tests 03/01/21 03/01/21 03/01/21 19:07 19:07 19:07 WBC 4.3 K/mm3 L K/mm3 (4.5-10.0) RBC 3.60 M/mm3 L M/mm3 (4.2-5.4) Hgb 11.0 g/dL L g/dL (12.0-15.0) Hct 34.0 % L % (37.0-47.0) MCV 94.4 fl fl (80-100) MCH 30.6 pg pg (26-34) MCHC 32.4 g/dl g/dl (32-36) RDW 14.5 % % (11.5-14.5) Plt Count 168 k/mm3 k/mm3 (150-375) MPV 10.2 fl fl (7.4-10.4) Immature Gran % (Auto) 0.2 % % (0-0.5) Neut % (Auto) 67.9 % % (45.5-73.1) Lymph % (Auto) 20.1 % % (18.3-44.2) [place] % (Auto) 10.6 % H % (2.6-8.5) Eos % (Auto) 0.7 % % (0-4.4) Baso % (Auto) 0.5 % % (0.2-1.2) Lymph # (Auto) 0.87 K/mm3 L K/mm3 (0.9-3.2) [place] # (Auto) 0.5 K/mm3 K/mm3 (0.1-0.6) Eos # (Auto) 0.0 K/mm3 K/mm3 (0-0.3) Baso # (Auto) 0.0 K/mm3 K/mm3 (0.0-0.1) Abs Immat Gran (auto) 0.01 K/mm3 K/mm3 (0.00-0.031) Absolute Neuts (auto) 2.9 K/mm3 K/mm3 (1.3-6.7) Absolute Nucleated RBC 0.0 K/mm3 K/mm3 (0.0-0.012) Nucleated RBC % 0.0 % % (0.0-0.2) PT 12.8 Seconds Seconds (11.1-14.7) INR 1.0 APTT 31.9 SECONDS SECONDS (22.3-36.8) Sodium 134 mmol/L L mmol/L (137-145) Potassium 3.9 mmol/L mmol/L (3.4-5.0) Chloride 98 mmol/L mmol/L (98-107) Carbon Dioxide 29 mmol/L mmol/L (22-30) Anion Gap 7 mmol/L L mmol/L (8-16) BUN 31 mg/dL H mg/dL (7-17) Creatinine 2.10 mg/dL H mg/dL (0.7-1.0) Estim Creat Clear Calc 26 ml/min ml/min Estimated GFR 23 L (59 - ) Glucose 100 mg/dL mg/dL (65-110) POC Capillary Glucose Hemoglobin A1c Calcium 8.7 mg/dL mg/dL (8.4-10.2) Total Creatine Kinase 449 U/L H U/L (30-135) Troponin I < 0.012 ng/mL ng/mL (0.000-0.034) Urine Color Urine Appearance Urine pH Ur Specific [place] Urine Protein Urine
[2021-03-02] MEDS: HYDROcodone/acetaminophen (*CRX) 5-325 MG TABLET 1 TAB PO ×2 (19:07→23:15)
[2021-03-02 23:20] LABS: Glucose Point of Care 151 mg/dl (65-105)
[2021-03-03] VITALS (15 sets, daily range): BP systolic 128–186; BP diastolic 62–80; PULSE 76–106; RESP 14–97; TEMP 35.6–36.7; O2SAT 18–100
[2021-03-03] MEDS: HYDROcodone/acetaminophen (*CRX) 5-325 MG TABLET 1 TAB PO ×3 (05:07→21:02)
[2021-03-03] MEDS: LEVOTHYROXINE SODIUM 100 MCG TABLET PO (05:09)
[2021-03-03 06:58] LABS: Anion Gap 6 mmol/L (8-16); Blood Urea Nitrogen 26 mg/dL (7-17); Calcium 8.2 mg/dL (8.4-10.2); Carbon Dioxide 27 mmol/L (22-30); Chloride 101 mmol/L (98-107); Estimated CRCL calculation 34 ml/min; Estimated Glomerular Filt Rate 31; Glucose 166 mg/dL (65-110); Potassium 3.8 mmol/L (3.4-5.0); Sodium 134 mmol/L (137-145)
[2021-03-03 07:58] LABS: Glucose Point of Care 161 mg/dl (65-105)
[2021-03-03] MEDS: MULTIVITAMINS THERAPEUTIC TAB (*BKC) 1 TABLET PO (09:07)
[2021-03-03] MEDS: calcitrioL 0.25 MCG CAPSULE PO (09:07)
[2021-03-03] MEDS: allopurinoL 100 MG TABLET PO ×2 (09:08→21:13)
--- NOTE | 2021-03-03 09:31 | P.PNIM_ITS ---
Progress Note: A&P Assessment and Plan (1) Syncope: Qualifiers: Syncope type: unspecified Qualified Code(s): R55 - Syncope and collapse Code(s): R55 - Syncope and collapse Status: Acute Assessment and Plan: Episode of syncope at home in which she became flushed and dizzy prior to. Reports history of similar episodes. Possibly orthostatic hypotension vs vasovagal syncope. * Head CT with no acute intracranial findings * Carotid Doppler with <50% stenosis bilaterally * Echocardiogram showed EF 55-60% with grade 1 diastolic dysfunction and no significant valvular disease. * Telemetry reviewed which shows sinus rhythm. Will discontinue. * Will continue daily orthostatic blood pressures * Hypoglycemia considered, though less likely as patient notes that her blood sugar is typically high. She checked her glucose when she got off the ground and noted it was in the 200s. A1C=8.5, last glucose 166. (2) Closed fracture of distal end of right fibula: Qualifiers: Encounter type: initial encounter Fracture morphology: unspecified fracture morphology Qualified Code(s): S82.831A - Other fracture of upper and lower end of right fibula, initial encounter for closed fracture Code(s): S82.831A - Other fracture of upper and lower end of right fibula, initial encounter for closed fracture Status: Acute Assessment and Plan: Secondary to fall/syncopal episode as above. Ankle x-ray with oblique fracture of distal fibula * Appreciate orthopedic surgery consultation * Planning for ORIF -she is currently NPO and awaiting her right ankle surgical repair by Ortho this afternoon. * Supportive care. Analgesics available as needed * Required Zofran due to nausea from her [place] on an empty stomach, but nausea resolved with that. * platelets at 92 today, will need to continue to monitor with labwork. H/H stable at 12.2/40.6. (3) Acute on chronic renal insufficiency: Code(s): N28.9 - Disorder of kidney and ureter, unspecified; N18.9 - Chronic kidney di sease, unspecified Status: Acute Assessment and Plan: Baseline creatinine appears to be approximately 1.3-1.5. Creatinine elevated on presentation up to 2.1. Likely related to prerenal etiology given improvement with IV fluids. Creatinine continues to improve and is down to 1.6 today. * Had IVFs, now off. Continue adequate oral fluid intake * Continue to monitor her renal function closely * Renally dose medications and avoid nephrotoxins (4) Hypertension: Qualifiers: Hypertension type: essential hypertension Qualified Code(s): I10 - Essential (primary) hypertension Code(s): I10 - Essential (primary) hypertension Status: Acute Assessment and Plan: Blood pressure reviewed and has been generally well controlled. Last BP 116/54 - 141/71 * Home losartan is on hold, likely due to her acute kidney injury. * Stable at this time. * Continue to monitor blood pressure trends and resume when clinically appropriate based on renal function (5) Hypothyroidism: Qualifiers: Hypothyroidism type: unspecified Qualified Code(s): E03.9 - Hypothyroidism, unspecified Code(s): E03.9 - Hypothyroidism, unspecified Status: Acute Assessment and Plan: TSH in September 2020 was within normal limits. * Continue home levothyroxine (6) Type 2 diabetes mellitus: Qualifiers: Diabetes mellitus complication status: without complication Diabetes mellitus fdc insulin use: without fdc use Qualified Code(s): E11.9 - Type 2 diabetes mellitu
--- NOTE | 2021-03-03 09:31 | PM.IMPN ---
Progress Note: A&P Assessment and Plan (1) Syncope: Qualifiers: Syncope type: unspecified Qualified Code(s): R55 - Syncope and collapse Code(s): R55 - Syncope and collapse Status: Acute Assessment and Plan: Episode of syncope at home in which she became flushed and dizzy prior to. Reports history of similar episodes. Possibly orthostatic hypotension vs vasovagal syncope. Head CT with no acute intracranial findings Carotid Doppler with <50% stenosis bilaterally Echocardiogram showed EF 55-60% with grade 1 diastolic dysfunction and no significant valvular disease. Telemetry reviewed which shows sinus rhythm. Will discontinue. Will continue daily orthostatic blood pressures Hypoglycemia considered, though less likely as patient notes that her blood sugar is typically high. She checked her glucose when she got off the ground and noted it was in the 200s. A1C=8.5, last glucose 166. (2) Closed fracture of distal end of right fibula: Qualifiers: Encounter type: initial encounter Fracture morphology: unspecified fracture morphology Qualified Code(s): S82.831A - Other fracture of upper and lower end of right fibula, initial encounter for closed fracture Code(s): S82.831A - Other fracture of upper and lower end of right fibula, initial encounter for closed fracture Status: Acute Assessment and Plan: Secondary to fall/syncopal episode as above. Ankle x-ray with oblique fracture of distal fibula Appreciate orthopedic surgery consultation Planning for ORIF -she is currently NPO and awaiting her right ankle surgical repair by Ortho this afternoon. Supportive care. Analgesics available as needed Required Zofran due to nausea from her [place] on an empty stomach, but nausea resolved with that. platelets at 92 today, will need to continue to monitor with labwork. H/H stable at 12.2/40.6. (3) Acute on chronic renal insufficiency: Code(s): N28.9 - Disorder of kidney and ureter, unspecified; N18.9 - Chronic kidney disease, unspecified Status: Acute Assessment and Plan: Baseline creatinine appears to be approximately 1.3-1.5. Creatinine elevated on presentation up to 2.1. Likely related to prerenal etiology given improvement with IV fluids. Creatinine continues to improve and is down to 1.6 today. Had IVFs, now off. Continue adequate oral fluid intake Continue to monitor her renal function closely Renally dose medications and avoid nephrotoxins (4) Hypertension: Qualifiers: Hypertension type: essential hypertension Qualified Code(s): I10 - Essential (primary) hypertension Code(s): I10 - Essential (primary) hypertension Status: Acute Assessment and Plan: Blood pressure reviewed and has been generally well controlled. Last BP 116/54 - 141/71 Home losartan is on hold, likely due to her acute kidney injury. Stable at this time. Continue to monitor blood pressure trends and resume when clinically appropriate based on renal function (5) Hypothyroidism: Qualifiers: Hypothyroidism type: unspecified Qualified Code(s): E03.9 - Hypothyroidism, unspecified Code(s): E03.9 - Hypothyroidism, unspecified Status: Acute Assessment and Plan: TSH in September 2020 was within normal limits. Continue home levothyroxine (6) Type 2 diabetes mellitus: Qualifiers: Diabetes mellitus complication status: without complication Diabetes mellitus rn long term care insulin use: without retirement use Qualified Code(s): E11.9 - Type 2 diabetes mellitus without complications Code(s): E11.9 - Type 2 diabetes mellitus without complications Status: Acute Assessment and Plan: A1c is 8.5. Blood sugars have been reasonably controlled this admission. Last glucose 166 Continue Accu-Cheks, sliding scale insulin, and hypoglycemic protocol Home glipizide is on hold (7) Sleep apnea: Qualifie
[2021-03-03] MEDS: ONDANSETRON INJ 4 MG/2 ML VIAL IV PUSH ×3 (10:32→18:16)
[2021-03-03 12:21] LABS: Glucose Point of Care 163 mg/dl (65-105)
--- NOTE | 2021-03-03 14:24 | WPDANESEFPP ---
Anes - Eval Final PreProcedure Day of Procedure 03/03/21 14:24 Patient weight: morbidly obese Heart: regular rate and rhythm Lungs: decreased breath sounds Airway: Mallampati scale class III Neurological: other (alert) Last oral intake: >/= 8 hours ASA classification: IV Emergent: no Anesthetic plan: proceed Anesthesia type and monitoring: general LMA and standard monitoring Results Review: All pre-operative results and documents have been reviewed as part of the pre-operative evaluation. Informed Consent: The patient's anesthetic plan and its attendant risks and benefits were discussed with the patient/family/POA. Questions were solicited and answers provided to the satisfaction of the patient/family/POA.
[2021-03-03] MEDS: fentaNYL CITRATE INJ (*CRX) 100 MCG/2 ML VIAL 50 MCG IV PUSH (14:25)
--- NOTE | 2021-03-03 14:50 | WPDHPUPDATE1 ---
History and Physical Update Update Date/Time: 03/03/21 14:50 History and Physical has been reviewed, including an updated exam of the patient. There are NO changes in the patient's condition. Risks, benefits, and alternatives have been discussed and questions answered. Patient agrees to proceed with procedure.
[2021-03-03] MEDS: ceFAZolin SODIUM 1 GM VIAL IV PUSH (14:57)
[2021-03-03] MEDS: ceFAZolin 2 GM/D5W 50 ML 2 GM/50 ML BAG IVPB (14:57)
[2021-03-03] MEDS: LACTATED RINGERS 1,000 ML 30 ML IV CONT (16:20)
[2021-03-03 16:29] LABS: Glucose Point of Care 188 mg/dl (65-105)
[2021-03-03] MEDS: fentaNYL CITRATE INJ (*CRX) 100 MCG/2 ML VIAL 25 MCG IV PUSH ×3 (16:32→17:00)
--- NOTE | 2021-03-03 16:40 | W.PM.PROC2 ---
Procedure Note - Detailed Date of Procedure 03/03/21 Pre-op Diagnosis 1. Right ankle lateral malleolus fracture 2. Right ankle syndesmosis disruption. Post-op Diagnosis same Procedure Performed 1. Open reduction and internal fixation right lateral malleolus 2. Open reduction internal fixation right tib fib syndesmosis Surgeon Alexis Herrera MD [employer]rentice Sahra Vivar PA-C Anesthesia general Description of Procedure A general anesthetic was administered. The limb was prepped and draped in the usual sterile fashion with a well-padded tourniquet high on the thigh. A bump was placed under the hip. The limb was exsanguinated and the tourniquet inflated to 300 millimeters of mercury during the procedure. A longitudinal incision was created at the distal fibula. Careful dissection was carried down to bone. Perineal nerve branches were protected. The fracture was carefully exposed. Callus and debris was irrigated from the wound. The fracture was brought out to length. Reduction was accomplished with the reduction forceps. The fixation plate fit anatomically. Fixation was performed with a combination of cortical and cancellous screws. locking screws were used distal and at the 1st and 3rd proximal holes. The ankle syndesmosis was tested and found to be unstable. Statically position was easily reduced. Two tight rope fixation devices with the suture button placed from the fibular plate across to the opposite tibial cortex. The syndesmosis reduced anatomically. The ankle was rendered stable. Fluoroscopy was used throughout the procedure to confirm anatomic reduction and appropriate placement of the implants. The tourniquet was released. Meticulous hemostasis was obtained. Wound was closed in layers with 2-0 Vicryl suture 3-0 Monocryl suture and laury. A sterile splint with padding was applied. The patient was extubated and brought to the recovery room in stable condition. There were no complications. Implants Arthrex distal fibular anatomic locking plate. Multiple locking and compression screws. Syndesmosis tight rope fixation x2. Estimated Blood Loss -10.0 Urine Output 900 Drains No Pathology none sent Complications No immediate complications Condition stable Disposition PACU
[2021-03-03] MEDS: HEPARIN SODIUM 5,000 UNITS/ML VIAL 5000 UNITS SUB-Q (21:03)
[2021-03-03 22:04] LABS: Glucose Point of Care 166 mg/dl (65-105)
[2021-03-04] VITALS (8 sets, daily range): BP systolic 119–149; BP diastolic 59–90; PULSE 80–95; RESP 14–20; TEMP 36.2–37.4; O2SAT 93–100
[2021-03-04] MEDS: HYDROcodone/acetaminophen (*CRX) 5-325 MG TABLET 1 TAB PO ×5 (01:41→22:14)
[2021-03-04] MEDS: LEVOTHYROXINE SODIUM 100 MCG TABLET PO (05:44)
[2021-03-04 07:25] LABS: Hematocrit 31.6 % (37.0-47.0); Mean Corpuscular HGB Conc 31.6 g/dl (32-36); Mean Corpuscular Hemoglobin 30.4 pg (26-34); Mean Platelet Volume 10.4 fl (7.4-10.4); Platelet Count Result 154 k/mm3 (150-375); Red Blood Count 3.29 M/mm3 (4.2-5.4); Red Cell Distribution Width 14.2 % (11.5-14.5); White Blood Count 5.3 K/mm3 (4.5-10.0)
[2021-03-04 07:36] LABS: Anion Gap 8 mmol/L (8-16); Blood Urea Nitrogen 21 mg/dL (7-17); Carbon Dioxide 28 mmol/L (22-30); Chloride 101 mmol/L (98-107); Estimated CRCL calculation 36 ml/min; Estimated Glomerular Filt Rate 34; Glucose 141 mg/dL (65-110); Sodium 137 mmol/L (137-145)
[2021-03-04 07:54] LABS: Glucose Point of Care 156 mg/dl (65-105)
[2021-03-04] MEDS: allopurinoL 100 MG TABLET PO ×4 (08:21→21:58)
[2021-03-04] MEDS: calcitrioL 0.25 MCG CAPSULE PO (08:21)
[2021-03-04] MEDS: MULTIVITAMINS THERAPEUTIC TAB (*BKC) 1 TABLET PO (08:21)
[2021-03-04] MEDS: HEPARIN SODIUM 5,000 UNITS/ML VIAL 5000 UNITS SUB-Q ×2 (08:22→21:58)
--- NOTE | 2021-03-04 09:42 | PM.IMPN ---
Progress Note: A&P Assessment and Plan (1) Syncope: Qualifiers: Syncope type: unspecified Qualified Code(s): R55 - Syncope and collapse Code(s): R55 - Syncope and collapse Status: Acute Assessment and Plan: Episode of syncope at home in which she became flushed and dizzy prior to. Most likely vasovagal Head CT with no acute intracranial findings Carotid Doppler with <50% stenosis bilaterally Echocardiogram showed EF 55-60% with grade 1 diastolic dysfunction and no significant valvular disease. Telemetry was discontinued (2) Closed fracture of distal end of right fibula: Qualifiers: Encounter type: initial encounter Fracture morphology: unspecified fracture morphology Qualified Code(s): S82.831A - Other fracture of upper and lower end of right fibula, initial encounter for closed fracture Code(s): S82.831A - Other fracture of upper and lower end of right fibula, initial encounter for closed fracture Status: Acute Assessment and Plan: Secondary to fall/syncopal episode as above. Ankle x-ray with oblique fracture of distal fibula Appreciate orthopedic surgery consultation Status post ORIF -on 03/03/2021. (3) Acute on chronic renal insufficiency: Code(s): N28.9 - Disorder of kidney and ureter, unspecified; N18.9 - Chronic kidney disease, unspecified Status: Acute Assessment and Plan: Baseline creatinine appears to be approximately 1.3-1.5. Treated with IV hydration currently patient is in fluid overload DC IV fluid started on 1 dose of IV Lasix today (4) Hypertension: Qualifiers: Hypertension type: essential hypertension Qualified Code(s): I10 - Essential (primary) hypertension Code(s): I10 - Essential (primary) hypertension Status: Acute Assessment and Plan: Home losartan is on hold, due to her acute kidney injury. Stable at this time. Continue to monitor blood pressure trends and resume when clinically appropriate based on renal function (5) Hypothyroidism: Qualifiers: Hypothyroidism type: unspecified Qualified Code(s): E03.9 - Hypothyroidism, unspecified Code(s): E03.9 - Hypothyroidism, unspecified Status: Acute Assessment and Plan: TSH in September 2020 was within normal limits. Continue home levothyroxine (6) Type 2 diabetes mellitus: Qualifiers: Diabetes mellitus account strategist insulin use: without account strategist use Diabetes mellitus complication status: without complication Qualified Code(s): E11.9 - Type 2 diabetes mellitus without complications Code(s): E11.9 - Type 2 diabetes mellitus without complications Status: Acute Assessment and Plan: A1c is 8.5. Blood sugars have been reasonably controlled this admission. Last glucose 166 Continue Accu-Cheks, sliding scale insulin, and hypoglycemic protocol Home glipizide is on hold (7) Sleep apnea: Qualifiers: Sleep apnea type: unspecified type Qualified Code(s): G47.30 - Sleep apnea, unspecified Code(s): G47.30 - Sleep apnea, unspecified Status: Acute Assessment and Plan: Maintained on BiPAP therapy. Continue BiPAP when sleeping during admission (8) COPD (chronic obstructive pulmonary disease): Qualifiers: COPD type: unspecified COPD Qualified Code(s): J44.9 - Chronic obstructive pulmonary disease, unspecified Code(s): J44.9 - Chronic obstructive pulmonary disease, unspecified Status: Acute Assessment and Plan: Not in acute exacerbation. No wheezing or SOB on exam Albuterol as needed. She is not on any additional maintenance inhalers. Subjective Date/time seen: 03/04/21 09:42 Interval history: Tami Kim is a 75-year-old female with a history of CKD, COPD, type 2 diabetes mellitus, hypertension, hyperlipidemia, hypothyroidism, NICK on BiPAP who is seen in follow-up for syncope and her ankle fr
[2021-03-04 11:48] LABS: Glucose Point of Care 220 mg/dl (65-105)
[2021-03-04] MEDS: FUROSEMIDE INJ 40 MG/4 ML VIAL IV PUSH (12:23)
[2021-03-04] MEDS: INSULIN ASPART (*BKC) 100 UNITS/ML SUB-Q (12:24)
--- NOTE | 2021-03-04 14:27 | WPDANESPN ---
Anes - Prog Note Post-Op Date/Time: 03/04/21 14:27 Cardiovascular status: normal Respiratory status: normal Airway patency: baseline Mental status: baseline Post-Op hydration status: normal Vital Signs: Last Vital Signs Temp 36.7 C 03/04/21 12:04 Pulse 90 03/04/21 12:04 Resp 14 03/04/21 12:04 BP 148/64 H 03/04/21 12:04 Pulse Ox 94 03/04/21 12:04 Pain Score (VAS): 0 I/O: Intake & Output 03/03/21 03/04/21 03/04/21 23:59 07:59 15:59 Intake Total 200 240 Output Total 900 400 Balance -900 -200 240 Laboratory Tests 03/04/21 06:21 03/04/21 06:21 03/03/21 03/03/21 03/04/21 16:26 21:08 06:21 WBC 5.3 RBC 3.29 L Hgb 10.0 L Hct 31.6 L MCV 96.0 D MCH 30.4 MCHC 31.6 L RDW 14.2 Plt Count 154 D MPV 10.4 Sodium Potassium Chloride Carbon Dioxide Anion Gap BUN Creatinine Estim Creat Clear Calc Estimated GFR Glucose POC Capillary Glucose 188 H 166 H Calcium 03/04/21 03/04/21 03/04/21 06:21 07:41 11:46 WBC RBC Hgb Hct MCV MCH MCHC RDW Plt Count MPV Sodium 137 Potassium 4.0 Chloride 101 Carbon Dioxide 28 Anion Gap 8 BUN 21 H Creatinine 1.50 H Estim Creat Clear Calc 36 Estimated GFR 34 L Glucose 141 H POC Capillary Glucose 156 H 220 H Calcium 8.0 L Post-procedural complaints: none Patient Feedback: Patient satisfied with anesthetic care.
[2021-03-04 16:59] LABS: Glucose Point of Care 196 mg/dl (65-105)
[2021-03-04 22:22] LABS: Glucose Point of Care 231 mg/dl (65-105)
[2021-03-05 00:43] VITALS: PULSE 82; RESP 18; O2SAT 95
[2021-03-05] MEDS: LEVOTHYROXINE SODIUM 100 MCG TABLET PO (06:14)
[2021-03-05] MEDS: HYDROcodone/acetaminophen (*CRX) 5-325 MG TABLET 1 TAB PO ×3 (06:14→14:23)
[2021-03-05 06:25] LABS: Hematocrit 29.9 % (37.0-47.0); Hemoglobin 9.9 g/dL (12.0-15.0); Mean Corpuscular HGB Conc 33.1 g/dl (32-36); Mean Corpuscular Hemoglobin 30.8 pg (26-34); Mean Corpuscular Volume 93.1 fl (80-100); Mean Platelet Volume 10.6 fl (7.4-10.4); Platelet Count Result 151 k/mm3 (150-375); Red Blood Count 3.21 M/mm3 (4.2-5.4); White Blood Count 5.8 K/mm3 (4.5-10.0)
[2021-03-05 06:27] LABS: Anion Gap 6 mmol/L (8-16); Blood Urea Nitrogen 20 mg/dL (7-17); Calcium 7.8 mg/dL (8.4-10.2); Carbon Dioxide 28 mmol/L (22-30); Chloride 98 mmol/L (98-107); Estimated CRCL calculation 36 ml/min; Estimated Glomerular Filt Rate 34; Glucose 175 mg/dL (65-110); Potassium 3.9 mmol/L (3.4-5.0); Sodium 132 mmol/L (137-145)
[2021-03-05 08:00] VITALS: PULSE 82; RESP 18; O2SAT 95
[2021-03-05 08:57] LABS: Glucose Point of Care 166 mg/dl (65-105)
[2021-03-05] MEDS: HEPARIN SODIUM 5,000 UNITS/ML VIAL 5000 UNITS SUB-Q ×2 (09:18→20:53)
[2021-03-05] MEDS: MULTIVITAMINS THERAPEUTIC TAB (*BKC) 1 TABLET PO (09:18)
[2021-03-05] MEDS: allopurinoL 100 MG TABLET PO ×4 (09:18→20:54)
[2021-03-05] MEDS: calcitrioL 0.25 MCG CAPSULE PO (09:18)
[2021-03-05] MEDS: ONDANSETRON INJ 4 MG/2 ML VIAL IV PUSH (09:20)
--- NOTE | 2021-03-05 09:58 | P.PNIM_ITS ---
Progress Note: A&P Assessment and Plan (1) Syncope: Qualifiers: Syncope type: unspecified Qualified Code(s): R55 - Syncope and collapse Code(s): R55 - Syncope and collapse Status: Acute Assessment and Plan: Episode of syncope at home in which she became flushed and dizzy prior to. Most likely vasovagal * Head CT with no acute intracranial findings * Carotid Doppler with <50% stenosis bilaterally * Echocardiogram showed EF 55-60% with grade 1 diastolic dysfunction and no significant valvular disease. * Telemetry was discontinued * None noted, but patient also very immobile due to fracture and surgical repair of right ankle. * eating and drinking well, euvolemic, VS stable. HR 82, BP 119/59 * no further complaints per patient. (2) Closed fracture of distal end of right fibula: Qualifiers: Encounter type: initial encounter Fracture morphology: unspecified fracture morphology Qualified Code(s): S82.831A - Other fracture of upper and lower end of right fibula, initial encounter for closed fracture Code(s): S82.831A - Other fracture of upper and lower end of right fibula, initial encounter for closed fracture Status: Acute Assessment and Plan: Secondary to fall/syncopal episode as above. Ankle x-ray with oblique fracture of distal fibula * Appreciate orthopedic surgery consultation * Status post ORIF -on 03/03/2021. * participating in PT/OT - recovery is very slow, not able to get up to chair yet * on heparin sq Q12 and PRN stool softeners and PRN laxative ordered and PRN pain meds * follow ortho surgeon recommendations for discharge (3) Acute on chronic renal insufficiency: Code(s): N28.9 - Disorder of kidney and ureter, unspecified; N18.9 - Chronic kidney disease, unspecified Status: Acute Assessment and Plan: Baseline creatinine appears to be approximately 1.3-1.5. Treated with IV hydration DC IV fluids 1 dose of IV Lasix on 03/04 for fluid overload , recheck BNP in morning. Lung sounds clear, no dypnea or SOB. euvoleumic today - eating and drinking well stable, creatinine 1.5 today (4) Hypertension: Qualifiers: Hypertension type: essential hypertension Qualified Code(s): I10 - Essential (primary) hypertension Code(s): I10 - Essential (primary) hypertension Status: Acute Assessment and Plan: * Home losartan is on hold, due to her acute kidney injury. * Stable at this time. VS stable. HR 82, BP 119/59 * Continue to monitor blood pressure trends and resume when clinically appropriate based on renal function (5) Hypothyroidism: Qualifiers: Hypothyroidism type: unspecified Qualified Code(s): E03.9 - Hypothyroidism, unspecified Code(s): E03.9 - Hypothyroidism, unspecified Status: Acute Assessment and Plan: TSH in September 2020 was within normal limits. * Continue home levothyroxine (6) Type 2 diabetes mellitus: Qualifiers: Diabetes mellitus group home insulin use: without computer terminal operator use Diabetes mellitus complication status: without complication Qualified Code(s): E11.9 - Type 2 diabetes mellitus without complications Code(s): E11.9 - Type 2 diabetes mellitus without complications Status: Acute Assessment and Plan: A1c is 8.5. Blood sugars have been reasonably controlled this admission. Last glucose 166 and 175 * Continue Accu-Cheks, sliding scale insulin, and hypoglycemic protocol * Home glipizide is on hold (7) Sleep apnea: Qualifiers: S
--- NOTE | 2021-03-05 09:58 | PM.IMPN ---
Progress Note: A&P Assessment and Plan (1) Syncope: Qualifiers: Syncope type: unspecified Qualified Code(s): R55 - Syncope and collapse Code(s): R55 - Syncope and collapse Status: Acute Assessment and Plan: Episode of syncope at home in which she became flushed and dizzy prior to. Most likely vasovagal Head CT with no acute intracranial findings Carotid Doppler with <50% stenosis bilaterally Echocardiogram showed EF 55-60% with grade 1 diastolic dysfunction and no significant valvular disease. Telemetry was discontinued None noted, but patient also very immobile due to fracture and surgical repair of right ankle. eating and drinking well, euvolemic, VS stable. HR 82, BP 119/59 no further complaints per patient. (2) Closed fracture of distal end of right fibula: Qualifiers: Encounter type: initial encounter Fracture morphology: unspecified fracture morphology Qualified Code(s): S82.831A - Other fracture of upper and lower end of right fibula, initial encounter for closed fracture Code(s): S82.831A - Other fracture of upper and lower end of right fibula, initial encounter for closed fracture Status: Acute Assessment and Plan: Secondary to fall/syncopal episode as above. Ankle x-ray with oblique fracture of distal fibula Appreciate orthopedic surgery consultation Status post ORIF -on 03/03/2021. participating in PT/OT - recovery is very slow, not able to get up to chair yet on heparin sq Q12 and PRN stool softeners and PRN laxative ordered and PRN pain meds follow ortho surgeon recommendations for discharge (3) Acute on chronic renal insufficiency: Code(s): N28.9 - Disorder of kidney and ureter, unspecified; N18.9 - Chronic kidney disease, unspecified Status: Acute Assessment and Plan: Baseline creatinine appears to be approximately 1.3-1.5. Treated with IV hydration DC IV fluids 1 dose of IV Lasix on 03/04 for fluid overload , recheck BNP in morning. Lung sounds clear, no dypnea or SOB. euvoleumic today - eating and drinking well stable, creatinine 1.5 today (4) Hypertension: Qualifiers: Hypertension type: essential hypertension Qualified Code(s): I10 - Essential (primary) hypertension Code(s): I10 - Essential (primary) hypertension Status: Acute Assessment and Plan: Home losartan is on hold, due to her acute kidney injury. Stable at this time. VS stable. HR 82, BP 119/59 Continue to monitor blood pressure trends and resume when clinically appropriate based on renal function (5) Hypothyroidism: Qualifiers: Hypothyroidism type: unspecified Qualified Code(s): E03.9 - Hypothyroidism, unspecified Code(s): E03.9 - Hypothyroidism, unspecified Status: Acute Assessment and Plan: TSH in September 2020 was within normal limits. Continue home levothyroxine (6) Type 2 diabetes mellitus: Qualifiers: Diabetes mellitus terminologist insulin use: without shelter use Diabetes mellitus complication status: without complication Qualified Code(s): E11.9 - Type 2 diabetes mellitus without complications Code(s): E11.9 - Type 2 diabetes mellitus without complications Status: Acute Assessment and Plan: A1c is 8.5. Blood sugars have been reasonably controlled this admission. Last glucose 166 and 175 Continue Accu-Cheks, sliding scale insulin, and hypoglycemic protocol Home glipizide is on hold (7) Sleep apnea: Qualifiers: Sleep apnea type: unspecified type Qualified Code(s): G47.30 - Sleep apnea, unspecified Code(s): G47.30 - Sleep apnea, unspecified Status: Acute Assessment and Plan: Maintained on BiPAP therapy. Continue BiPAP when sleeping during admission (8) COPD (chronic obstructive pulmonary disease): Qualifiers: COPD type: unspecified COPD Qualified Code(s): J44.9 - Chronic
[2021-03-05 12:30] LABS: Glucose Point of Care 224 mg/dl (65-105)
[2021-03-05] MEDS: INSULIN ASPART (*BKC) 100 UNITS/ML SUB-Q (12:36)
[2021-03-05 16:54] LABS: Glucose Point of Care 183 mg/dl (65-105)
[2021-03-05 20:19] VITALS: PULSE 87; RESP 18; O2SAT 95
[2021-03-05 20:30] VITALS: PULSE 87; RESP 18; O2SAT 95
[2021-03-05 22:09] LABS: Glucose Point of Care 153 mg/dl (65-105)
[2021-03-06] MEDS: HYDROcodone/acetaminophen (*CRX) 5-325 MG TABLET 1 TAB PO ×2 (00:33→10:58)
[2021-03-06 04:31] VITALS: PULSE 91; RESP 18; O2SAT 95
[2021-03-06] MEDS: LEVOTHYROXINE SODIUM 100 MCG TABLET PO (06:57)
[2021-03-06 07:14] LABS: Hematocrit 30.2 % (37.0-47.0); Hemoglobin 9.7 g/dL (12.0-15.0); Mean Corpuscular HGB Conc 32.1 g/dl (32-36); Mean Corpuscular Hemoglobin 30.3 pg (26-34); Mean Corpuscular Volume 94.4 fl (80-100); Mean Platelet Volume 10.4 fl (7.4-10.4); Platelet Count Result 160 k/mm3 (150-375); Red Cell Distribution Width 13.8 % (11.5-14.5); White Blood Count 5.7 K/mm3 (4.5-10.0)
[2021-03-06 07:27] LABS: Anion Gap 6 mmol/L (8-16); Blood Urea Nitrogen 24 mg/dL (7-17); Calcium 7.9 mg/dL (8.4-10.2); Carbon Dioxide 30 mmol/L (22-30); Chloride 96 mmol/L (98-107); Estimated CRCL calculation 32 ml/min; Estimated Glomerular Filt Rate 29; Glucose 149 mg/dL (65-110); Sodium 132 mmol/L (137-145)
[2021-03-06 07:56] LABS: Glucose Point of Care 161 mg/dl (65-105)
[2021-03-06 08:05] VITALS: BP 118/72
--- NOTE | 2021-03-06 08:28 | PM.PNORT ---
Progress Note: A&P Assessment and Plan (1) Closed fracture of distal end of right fibula: Qualifiers: Encounter type: initial encounter Fracture morphology: unspecified fracture morphology Qualified Code(s): S82.831A - Other fracture of upper and lower end of right fibula, initial encounter for closed fracture Code(s): S82.831A - Other fracture of upper and lower end of right fibula, initial encounter for closed fracture Status: Acute Assessment and Plan: POD #2 ORIF right lateral malleolus and right tib fib syndesmosis Patient progressing well. No complaints. States she would like to be discharged home. She has family that live near her and will be helping her. No distal numbness or tingling. Pain controlled with pain medications. Discussed post op expectations. Will see her 2 weeks post op with xrays and for staple removal. Ortho instructions: D/C home. She has family who will help her. Follow up in office and Xray in 2 weeks. Keep leg elevated with ice. Avoid pressure on heel. Wound Care: Will remove laury at 2 weeks post op. Keep splint on and dry for 2 weeks. PT: Toe touch weight bearing with walker. DVT prophylaxis: ASA 81mg BID for 2 weeks Pain medication: Percocet Subjective Subjective Date/Time Seen: 03/06/21 08:28 POD #2 ORIF right lateral malleolus and right tib fib syndesmosis Patient progressing well. No complaints. States she would like to be discharged home. She has family that live near her and will be helping her. No distal numbness or tingling. Pain controlled with pain medications. Review of Systems Review of Systems: All systems reviewed & are unremarkable except as noted in HPI and below Exam Narrative: Obese 75 y/o female resting comfortably in bed. Wearing CPAP. Lower leg elevated and splint intact. Light touch sensation intact. Good capillary refill. Able to wiggle toes. Objective Data Vital Signs Vital Signs: Vital Signs - 24 hr 03/05/21 20:19 03/05/21 20:30 03/06/21 04:31 Pulse Rate 87 87 91 Respiratory Rate 18 18 18 Pulse Oximetry 95 95 95 Intake/Output Intake/Output: Intake & Output 03/03/21 03/04/21 03/05/21 03/06/21 23:59 23:59 23:59 23:59 Intake Total 300 2690 880 500 Output Total 1800 400 400 500 Balance -1500 2290 480 0 Meds/Results Medications: Active Medications Generic Name Dose Route Start Last Admin Trade Name Hailey PRN Reason Stop Dose Admin Acetaminophen 650 mg 03/02/21 01:39 03/02/21 17:07 Acetaminophen 325 Mg Tablet PO 650 mg Q6H PRN Administration Mild Pain (1-3) Or Fever Hydrocodone Bitart/Acetaminophen 1 tab 03/02/21 18:45 03/06/21 00:33 Hydrocodone/Acetaminophen (*Crx) 5-325 Mg Tablet PO 1 tab Q4H PRN Administration Pain Rated 4-6 Albuterol 1 puff 03/02/21 01:39 Albuterol Sulfate (*Sp) Aerosol 1 Puff INHALATION Q4H PRN shortness of breath or wheezing Allopurinol 100 mg 03/02/21 08:00 03/05/21 20:54 Allopurinol 100 Mg Tablet PO 100 mg 0800,1200,1700,2100 JENNY Administration Calcitriol 0.25 mcg 03/02/21 09:00 03/05/21 09:18 Calcitriol 0.25 Mcg Capsule PO 0.25 mcg DAILY JENNY Administration Dextrose 12.5 gm 03/02/21 01:39 Dextrose 50% 25 Gm/50 Ml Syringe IV PUSH PRN PRN Hypoglycemia Protocol Docusate Sodium 100 mg 03/05/21 08:36 Docusate Sodium 100 Mg Capsule PO Q12H PRN Constipation Fentanyl Citrate 25 mcg 03/03/21 14:24 03/03/21 17:00 Fentanyl Citrate Inj (*Crx) 100 Mcg/2 Ml Vial IV PUSH 25 mcg Q2M PRN Administration Pain Glucagon 1 mg 03/02/21 01:39 Glucagon For Inj 1 Mg Vial IM PRN PRN Hypoglycemia Protocol Glucose 15 gm 03/02/21 01:39 Glucose Oral Gel 15 Gm Of Glucse In 37.5 Gm Tube PO PRN PRN Hypoglycemia Protocol Heparin Sodium (Porcine) 5,000 units 03/02/21 09:00 03/05/21 20:53 Heparin Sodium 5,000 Units/Ml Vial SUB-Q
[2021-03-06] MEDS: MULTIVITAMINS THERAPEUTIC TAB (*BKC) 1 TABLET PO (10:59)
[2021-03-06] MEDS: allopurinoL 100 MG TABLET PO (10:59)
[2021-03-06] MEDS: calcitrioL 0.25 MCG CAPSULE PO (10:59)
[2021-03-06] MEDS: HEPARIN SODIUM 5,000 UNITS/ML VIAL 5000 UNITS SUB-Q (11:00)
[2021-03-06 11:13] VITALS: BP 152/82
[2021-03-06 11:52] LABS: Glucose Point of Care 172 mg/dl (65-105)
--- NOTE | 2021-03-06 13:10 | WPDCDIQUERY2 ---
CDI Query Clarification Request - mild rhabdomyolysis CK of 449 continue to monitor with gentle IV hydration likely from the fall documented in H&P -No further mention of rhabdomyolysis Please clarify if rhabdomyolysis was ruled in or ruled out. Also, if ruled in, please specify type of rhabdomyolysis, traumatic, non traumatic, or unable to determine.
--- NOTE | 2021-03-06 13:33 | PM.DS ---
DS: Admitting Diagnosis Discharge Date 03/06/2021 Admitting Diagnosis Syncope, right ankle fracture DS: Discharge Diagnosis Discharge Diagnosis (1) Syncope: Qualifiers: Syncope type: unspecified Qualified Code(s): R55 - Syncope and collapse Code(s): R55 - Syncope and collapse Status: Acute Assessment and Plan: Episode of syncope at home in which she became flushed and dizzy prior. Most likely vasovagal in origin. Reports history of similar episodes. Head CT showed no acute intracranial findings. Carotid Doppler with <50% stenosis bilaterally. Echocardiogram showed EF 55-60% with grade 1 diastolic dysfunction and no significant valvular disease. Telemetry reviewed which showed sinus rhythm without arrhythmias or pauses. Fall precautions were implemented. She remained asymptomatic with no further episodes. She was euvolemic and vital signs remained stable. (2) Closed fracture of distal end of right fibula: Qualifiers: Encounter type: initial encounter Fracture morphology: unspecified fracture morphology Qualified Code(s): S82.831A - Other fracture of upper and lower end of right fibula, initial encounter for closed fracture Code(s): S82.831A - Other fracture of upper and lower end of right fibula, initial encounter for closed fracture Status: Acute Assessment and Plan: Secondary to fall/syncopal episode as above. Ankle x-ray showed oblique fracture of distal fibula. She was seen in consultation by Orthopedic surgery and underwent ORIF on 03/03/[address] Herrera. She tolerated the procedure well. She participated in PT/OT following the procedure. She was discharged home where she has family support as needed and will follow-up with Orthopedic surgery in 2 weeks. Aspirin 81 mg b.i.d. for 2 weeks for DVT prophylaxis per ortho surgery. (3) Acute on chronic renal insufficiency: Code(s): N28.9 - Disorder of kidney and ureter, unspecified; N18.9 - Chronic kidney disease, unspecified Status: Acute Assessment and Plan: Baseline creatinine appears to be approximately 1.3-1.5. Creatinine was elevated on presentation up to 2.1, likely related to prerenal etiology and improved with IV fluids. Creatinine returned to baseline. She did receive IV Lasix, therefore creatinine was minimally elevated above baseline at discharge up to 1.7, though I anticipate return back to baseline when she returns to her home medication regimen (4) Hypertension: Qualifiers: Hypertension type: essential hypertension Qualified Code(s): I10 - Essential (primary) hypertension Code(s): I10 - Essential (primary) hypertension Status: Acute Assessment and Plan: Blood pressures reviewed and were stable. Losartan held initially due to her acute kidney injury but was resumed on discharge. (5) Hypothyroidism: Qualifiers: Hypothyroidism type: unspecified Qualified Code(s): E03.9 - Hypothyroidism, unspecified Code(s): E03.9 - Hypothyroidism, unspecified Status: Acute Assessment and Plan: TSH in September 2020 was within normal limits. Continue home levothyroxine (6) Type 2 diabetes mellitus: Qualifiers: Diabetes mellitus chcf insulin use: without chcf use Diabetes mellitus complication status: without complication Qualified Code(s): E11.9 - Type 2 diabetes mellitus without complications Code(s): E11.9 - Type 2 diabetes mellitus without complications Status: Acute Assessment and Plan: A1c is 8.5. Blood sugars reasonably controlled this admission. Home glipizide is on hold (7) Sleep apnea: Qualifiers: Sleep apnea type: unspecified type Qualified Code(s): G47.30 - Sleep apnea, unspecified Code(s): G47.30 - Sleep apnea, unspecified Status: Acute Assessment and Plan: Maintained on BiPAP therapy. (8) COPD (chronic obst
[2021-03-06 16:35] LABS: Glucose Point of Care 164 mg/dl (65-105)
== END 2021-03-06 18:10 | disposition home health service (06) | DRG 493 ==
LOC: ANHED 20:55 → ANH3MEDSUR 21:33
PROVIDERS: Nurse Practitioner; Orthopaedic Surgery; Physician Assistant; Admitting Provider Internal Medicine; Emergency Provider Emergency Medicine; PCP Internal Medicine; Visit Provider Physician Assistant
PROC: 0QSJ04Z Reposition Right Fibula with Internal Fixation Device, Open Approach (ICD-10-PCS; principal; 2021-03-03 15:00)
DX: S82.491A Other fracture of shaft of right fibula, initial encounter for closed fracture (principal); Z68.41 Body mass index [BMI] 40.0-44.9, adult; N17.9 Acute kidney failure, unspecified; R55 Syncope and collapse; S93.431A Sprain of tibiofibular ligament of right ankle, initial encounter; I12.9 Hypertensive chronic kidney disease with stage 1 through stage 4 chronic kidney disease, or unspecified chronic kidney disease; E11.22 Type 2 diabetes mellitus with diabetic chronic kidney disease; N18.30 Chronic kidney disease, stage 3 unspecified; E03.9 Hypothyroidism, unspecified; E66.01 Morbid (severe) obesity due to excess calories; G47.33 Obstructive sleep apnea (adult) (pediatric); J32.9 Chronic sinusitis, unspecified; E78.5 Hyperlipidemia, unspecified; J44.9 Chronic obstructive pulmonary disease, unspecified; W19.XXXA Unspecified fall, initial encounter; Z85.828 Personal history of other malignant neoplasm of skin; Z90.49 Acquired absence of other specified parts of digestive tract; Z87.891 Personal history of nicotine dependence; Z85.3 Personal history of malignant neoplasm of breast
CPT/HCPCS: 36415; 70450; 71046; 80048; 81001; 82550; 82948; 83036; 84484; 85025; 85027; 85610; 85730; 93005; 93306; 93880; 96361; 96365; 96366; 96372; 96375; 96376; 97110; 97116; 97162; 97530; 99285; A9270; C1713; G0378; J0456; J0690; J1644; J1815; J1940; J2405; J2704; J3010; J7030; J7040; J7120

== ENCOUNTER 2023-11-04 18:31 | Inpatient (IN) | payer MEDICARE, SELFPAY ==
--- NOTE | ~2023-11-04 | US_ITS ---
EXAMINATION: US biopsy renal DATE: 11/12/2023 12:41 INDICATION: Hematuria. Proteinuria and elevated creatinine. TECHNIQUE: The procedure including the risks, benefits, and alternatives was discussed with the patie nt. Risks discussed included bleeding and infection. The patient understood the risks and agreed to p roceed. A timeout was performed to verify the patient's name, date of , and procedure to be p erformed. The skin overlying the left kidney was prepped and draped in usual sterile fashion. Anest hetic was administered with 1% lidocaine subcutaneously. An 18 gauge core biopsy needle was then use d to obtain 3 core biopsy specimens under continuous sonographic guidance. The entry site was cleaned and dressed. There were no immediate complications. FINDINGS: Ultrasound images demonstrate the needle in the kidney. IMPRESSION: 1. Ultrasound-guided random left kidney core needle biopsy. Reviewed, dictated and finalized at location A.
--- NOTE | ~2023-11-04 | US_ITS ---
EXAMINATION: US renal BI DATE: 11/05/2023 18:51 INDICATION: Acute on chronic renal failure TECHNIQUE: Multiple grayscale and Doppler ultrasound images of the kidneys were obtained. COMPARISON: CT abdomen pelvis 11/05/2023 FINDINGS: The right kidney measures 14.0 x 10.0 x 5.4 cm. The left kidney measures 11.6 x 6.2 x 5.4 cm. The kid neys demonstrate normal parenchymal echogenicity. Bilateral simple renal cysts There is no hydronephr osis. The bladder is normal. IMPRESSION: Unremarkable renal sonogram findings. Reviewed, dictated and finalized at location K.
--- NOTE | ~2023-11-04 | CT_ITS ---
CT of the Abdomen and Pelvis: Indication: Abdominal pain Technique: 2.5 mm axial scans were obtained through the abdomen and pelvis following intravenous adm inistration of 100 cc of Omnipaque 350. Dose reduction technique was used on this scan by utilizing a utomated exposure control and iterative reconstruction technique. The dose-length product (DLP) was 1 334.63 mGy-cm. COMPARISON: 08/16/2020 Findings: Scans through the lung bases demonstrate small left pleural effusion, with mild bibasilar atelectatic change. The liver, spleen, pancreas, and left adrenal gland are within normal limits. Cholecystectomy clips a re present. Stable small right adrenal gland nodule. Stable bilateral renal cysts. There are atherosc lerotic calcifications of the aorta. Shotty iliac chain/pelvic lymph nodes are similar to prior exam. . No bowel obstruction or bowel wall thickening. There is no evidence to suggest acute appendicitis. Images through the pelvis were performed. Urinary bladder unremarkable. No pelvic mass seen. No ascit es. Impression: Small left pleural effusion with mild bibasilar atelectasis. No other acute abnormality in the abdomen or pelvis. Chronic findings, as above. Reviewed, dictated and finalized at location . Impression: Small left pleural effusion with mild bibasilar atelectasis. No other acute abnormality in the abdomen or pelvis. Chronic findings, as above.
--- NOTE | ~2023-11-04 | CT_ITS ---
Non-contrast Head CT History: Altered mental status COMPARISON: 03/01/2021 Technique: Axial non-contrast imaging of the brain was performed. Dose reduction technique was used on this scan by utilizing automated exposure control and iterative reconstruction technique. The dose -length product (DLP) was 605.33 mGy-cm. Findings: There is no evidence of intracranial hemorrhage, mass lesion, or acute infarct. Brain par enchyma appears normal. The ventricles and subarachnoid spaces are normal in size. The calvarium ap pears normal. The visualized paranasal sinuses and mastoid air cells are clear. Impression: No significant abnormality seen. Reviewed, dictated and finalized at location . Impression: No significant abnormality seen.
--- NOTE | ~2023-11-04 | XR_ITS ---
EXAMINATION: XR chest 1V portable DATE: 11/06/2023 09:07 INDICATION: Shortness of breath. TECHNIQUE: A single frontal view of the chest was obtained. COMPARISON: Chest single view 11/04/2023, CT abdomen and pelvis 11/05/2023 FINDINGS: The patient is rotated to her left. There is mild atelectasis at left lung base. There is a small left pleural effusion. No pneumothorax. The heart size is normal. There are surgical clips in left axilla. IMPRESSION: 1. Mild atelectasis at left lung base. 2. Small left pleural effusion. Reviewed, dictated and finalized at location A.
--- NOTE | ~2023-11-04 | NM_ITS ---
EXAMINATION: NM renal flow and function DATE: 11/08/2023 15:05 INDICATION: Acute on chronic kidney disease. TECHNIQUE: 7 mCi Tc-99m MAG3 was administered IV. The patient was scanned in the supine position. A posterior abdominal radionuclide angiogram was obtained. A subsequent time course of static images of the kidneys, ureters, and bladder was obtained. COMPARISON: CT abdomen and pelvis 11/05/23 FINDINGS: The posterior abdominal radionuclide angiogram and sequential static images show normal siz e, position, and morphology of the kidneys. Peak renal parenchymal uptake was 2 min in right kidney a nd 1 min in left kidney (normal peak 3-5 minutes). The relative early renal uptake was 47% on the ri ght and 53% on the left (<40% is abnormal). No abnormalities of the ureters or bladder are seen. T1/2 for clearance of activity from the right kidney and proximal collecting system was >>20 minutes. T1/2 for clearance of activity from the left kidney and proximal collecting system was >>20 minutes. IMPRESSION: 1. Symmetric kidney function. 2. Delayed contrast clearance from the kidneys, consistent with decreased kidney function. Reviewed, dictated and finalized at location A. IMPRESSION: 1. Symmetric kidney function. 2. Delayed contrast clearance from the kidneys, consistent with decreased kidn ey function.
--- NOTE | ~2023-11-04 | XR_ITS ---
EXAMINATION: XR chest 1V portable Exam Date/Time: 11/04/2023 23:25 CDT HISTORY: weakness Comparison: 03/01/2021. RESULT: Lines, tubes, and devices: Left axillary clips. Lungs and pleura: Leftward rotation. Mild diffuse reticular opacities. Streaky bibasilar and subsegm ental left medial basilar opacities. Cardiomediastinal silhouette: Stable. Other: No acute osseous or upper abdominal finding. IMPRESSION: Mild interstitial edema. Subsegmental medial basal atelectasis/consolidation. Reviewed, dictated and finalized at location K.
--- NOTE | ~2023-11-04 | CT_ITS ---
EXAMINATION:CT diagnostic chest wo con DATE: 11/07/2023 11:20 INDICATION: Leukocytosis. Shortness of breath. TECHNIQUE: Computed tomography (CT) of the chest was performed without intravenous contrast. Automate d exposure control and iterative reconstruction technique were employed. The dose-length product (DLP ) was 454.27 mGy-cm. COMPARISON: PET/CT 03/06/2018 FINDINGS: There is mild emphysema. There is mild atelectasis bilaterally. There are few nodules in th e lungs measuring up to 4 mm. There is a 7 mm nodule in perihilar left upper lobe. There is a 7 mm no dule in right middle lobe. There is smooth septal thickening in the lungs, consistent with mild pulmo nary edema. There are small pleural effusions, left worse than right. There are surgical clips in lef t axilla. The heart size is normal. There are coronary artery calcifications. No pericardial effusion . There is chronic mild mediastinal lymphadenopathy, likely reactive. There are changes of cholecyst ectomy. There is calcified atherosclerosis of the aorta and many of the other arteries. There are faiza dging endplate osteophytes at multiple levels in the spine, consistent with diffuse idiopathic skelet al hyperostosis (DISH). IMPRESSION: 1. Mild pulmonary edema and small pleural effusions. 2. Mild emphysema. 3. Pulmonary nodules measuring up 7 mm, worsened from 03/06/2018, probably benign. Noncontrast low-dos e chest CT is recommended in 6 months. Reviewed, dictated and finalized at location A. IMPRESSION: 1. Mild pulmonary edema and small pleural effusions. 2. Mild emphysema. 3. Pulmonary nodules measuring up 7 mm, worsened from 03/06/2018, probably benig n. Noncontrast low-dose chest CT is recommended in 6 months.
[2023-11-04 18:36] VITALS: BP 129/71; PULSE 94; RESP 20; TEMP 36.3; O2SAT 97
[2023-11-04 22:23] VITALS: BP 152/76; PULSE 81; RESP 16; O2SAT 98
[2023-11-04 23:16] VITALS: BP 139/92; PULSE 87; RESP 18; O2SAT 96
--- NOTE | 2023-11-04 23:19 | ECG_ITS ---
Test Date: 2023-11-04 23:37:46 Measurements Intervals [place] Rate: 83 P: 50 IN: 223 QRS: 7 QRSD: 91 T: 18 QT: 378 QTc: 445 Interpretive Statements SINUS RHYTHM WITH FIRST DEGREE AV BLOCK No previous ECG available for comparison Electronically Signed On 11-05-2023 14:42:04 CDT by Poli Clay M.D.
[2023-11-04 23:43] LABS: Alveolar/Arterial O2 Gradient 42.6 mmHg; Base Excess ABG 5.2 mEq/l (+/-2.0); Fractional Inspired Oxygen 21 %; HCO3 ABG 29.5 mEq/l (22.0-26.0); Oxygen Saturation ABG 91.2 % (95.0-100.0); Oxyhemoglobin 89.5 % THb (90.0-100.0); PCO2 ABG 41.9 mmHg (35.0-45.0); PO2 FiO2 Ratio Arterial Blood 2.71 %; Total Hemoglobin 8.7 g/dL (12.0-18.0); pH ABG 7.465 (7.350-7.450)
[2023-11-04 23:44] VITALS: RESP 20
[2023-11-04 23:44] LABS: Device ROOM AIR; Modified Allen's Test Pass; Site Drawn RIGHT RADIAL
[2023-11-04 23:45] VITALS: PULSE 86
[2023-11-04 23:46] VITALS: BP 161/81; PULSE 85; RESP 14; O2SAT 100
[2023-11-05] VITALS (14 sets, daily range): BP systolic 128–172; BP diastolic 48–89; PULSE 83–100; RESP 17–21; TEMP 36.1–36.6; O2SAT 93–100; BMI 36.8
[2023-11-05 00:10] LABS: Basophils Percent Auto 0.4 % (0.2-1.2); Eosinophils Absolute Auto 0.4 K/mm3 (0-0.3); Eosinophils Percent Auto 4.5 % (0-4.4); Hematocrit 26.8 % (37.0-47.0); Hemoglobin 8.2 g/dL (12.0-15.0); Immature Granulocyte Absolute 0.04 K/mm3 (0.00-0.031); Immature Granulocyte Percent A 0.4 % (0-0.5); Lymphocytes Absolute Auto 0.81 K/mm3 (0.9-3.2); Lymphocytes Percent Auto 8.4 % (18.3-44.2); Mean Corpuscular HGB Conc 30.6 g/dl (32-36); Mean Corpuscular Hemoglobin 29.3 pg (26-34); Mean Corpuscular Volume 95.7 fl (80-100); Mean Platelet Volume 10.3 fl (7.4-10.4); Monocytes Absolute Auto 0.4 K/mm3 (0.1-0.6); Monocytes Percent Auto 3.8 % (2.6-8.5); Neutrophils Percent Auto 82.5 % (45.5-73.1); Platelet Count Result 216 k/mm3 (150-375); Red Cell Distribution Width 14.3 % (11.5-14.5); White Blood Count 9.7 K/mm3 (4.5-10.0)
[2023-11-05 00:25] LABS: Prothrombin Time 13.7 Seconds (11.1-14.7)
[2023-11-05 00:26] LABS: Partial Thromboplastin Time 37.6 Seconds (22.3-36.8)
[2023-11-05 00:30] LABS: Alanine Aminotransferase 13 U/L (6-35); Albumin Level 3.7 g/dL (3.5-5.1); Alkaline Phosphatase 90 U/L (38-126); Anion Gap 6 mmol/L (4-12); Aspartate Amino Transferase 26 U/L (14-36); Bilirubin,Total 0.3 mg/dL (0.2-1.3); Blood Urea Nitrogen 42 mg/dL (7-17); Calcium 11.8 mg/dL (8.4-10.2); Carbon Dioxide 35 mmol/L (22-30); Chloride 100 mmol/L (98-107); Estimated CRCL calculation 9 ml/min; Estimated Glomerular Filt Rate 7; Glucose 63 mg/dL (65-110); Lactic Acid Reflex 0.9 mmol/L (0.7-2.0); Magnesium 2.3 mg/dL (1.6-2.3); Potassium 3.2 mmol/L (3.4-5.0); Sodium 141 mmol/L (137-145)
--- NOTE | 2023-11-05 00:34 | PC.NURSE ---
Pt ambulated out of bed to commode and o2 sats dropped to 87-89. Pt placed on 2L nasal cannula.
[2023-11-05 00:41] LABS: NT Pro B Type Natriuretic Pept 1120 pg/mL (19.9-100); Troponin I < 0.012 ng/mL (0.000-0.034)
[2023-11-05 00:42] LABS: Add Urine Microscopic? YES; Appearance Urine Clear (Clear); Bacteria Urine None Seen /hpf; Bilirubin Urine Negative (Negative); Blood Urine Trace (Negative); Color Urine Yellow (Yellow); Glucose Urine UA Negative (Negative); Ketones Urine Negative (Negative); Leukocyte Esterase Ur Negative LEU/UL (Negative); Nitrate Urine Negative (Negative); Protein Urine 2+ mg/dL (Negative); RBC Urine 0-2 /hpf (0-2); Specific Grav Ur 1.012 (1.001-1.035); Squamous Epithelial Cell Urine Occasional /hpf (Few); Urobilinogen Urine 0.2 mg/dL (<2.0); WBC Urine 0-5 /hpf (0-3); pH Urine 7.5 (5.0-9.0)
[2023-11-05 00:50] LABS: Influenza A QL RT-PCR Negative (Negative); Influenza B QL RT-PCR Negative (Negative); RSV RNA, RT-PCR Negative (Negative); SARS-CoV-2 RNA PCR Negative (Negative)
--- NOTE | 2023-11-05 00:56 | PC.NURSE ---
Girma Abdullahi (brother) to be contacted at [phone] for pickup of pt if discharged.
[2023-11-05 01:38] LABS: Procalcitonin 0.3 ng/mL
--- NOTE | 2023-11-05 02:33 | ED.GENADULT ---
HPI - General Adult General Chief complaint: Unspecified Stated complaint: MULTIPLE C/O Time Seen by Provider: 11/04/23 22:55 History of Present Illness HPI narrative: Patient 78-year-old female who presents emergency department with chief complaint of generalized weakness body cramping nausea and elucidating. The patient states been ongoing for the last 5 days reports she just does not feel well patient does report that she has prior history of chronic kidney disease reports that she has psoriasis and she was recently treated with Augmentin and has been on chronic allopurinol is is concerned that she may be having a reaction to this. The patient does report that she has had some diarrhea Related Data Home Medications Medication Instructions Recorded Confirmed allopurinol 100 mg tablet 200 mg PO BID 03/23/19 11/05/23 calcitriol 0.25 mcg capsule 0.25 mcg PO DAILY 03/08/22 11/05/23 ergocalciferol (vitamin D2) 1,250 1,250 mcg PO WEEKLY 06/13/22 11/05/23 mcg (50,000 unit) capsule acetaminophen 500 mg tablet 500 mg PO Q6H PRN PAIN 1-3 11/05/23 11/05/23 (Acetaminophen Extra Strength) furosemide 20 mg tablet 20 mg PO QHS 11/05/23 11/05/23 furosemide 20 mg tablet 40 mg PO QAM 11/05/23 11/05/23 glipizide 5 mg tablet 5 mg PO DAILY 11/05/23 11/05/23 Allergies Allergy/AdvReac Type Severity Reaction Status Date / Time dapagliflozin [From Farxiga] Allergy Unknown Gastrointestinal Verified 01/01/23 13:26 Upset povidone-iodine Allergy Swelling Verified 01/01/23 13:26 [From Betadine] soap [From Betadine] Allergy Swelling Verified 01/01/23 13:26 morphine AdvReac Vomiting Verified 01/01/23 13:26 Review of Systems Review of Systems: A 10 system review of systems was completed on the patient and is negative except for what is stated in the HPI. Nursing and ancillary documentation was reviewed. [facility] Past Medical History Medical History Acute on chronic renal insufficiency Anemia Breast cancer Cataract (lens) fragments in eye following cataract surgery, bilateral June 2022 Cholelithiasis Chronic cholecystitis with calculus CKD (chronic kidney disease) Closed fracture of distal end of right fibula COPD (chronic obstructive pulmonary disease) Diabetes Fracture of right lower leg Hyperlipidemia Hypertension Hypothyroid Kidney disease Morbid obesity with BMI of 40.0-44.9, adult Porcelain gallbladder Post-lymphadenectomy lymphedema of arm Psoriasis Skin cancer Sleep apnea Type 2 diabetes mellitus Vitamin D deficiency Surgical History Surgical History H/O mastectomy Left breast 2011 History of breast lump removal 2012 History of lymph node excision Hx laparoscopic cholecystectomy Hx of breast reduction, elective Hx of local excision of skin lesion Family History Family History Mother Diabetes mellitus Bowel disease Father Colon cancer Liver cancer Sibling Heart disease Social History Social History Social History: Ms. Kim lives at home. She is independent in her daily activities. She has 2 adult children, 1 of whom several years ago. 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 Her PCP is Dr. Campbell. She designates her sister, Cintia, as her surrogate decision maker and she would like to be a full code. Smoking packs per day: 0.5 Smoking cigarettes per day: 10.0 Years smoked: 42 Smoking pack-years: 21.00 Smoking status: Former smoker Tobacco type: cigarettes Alcohol intake: never Substance use: never Do You Feel Safe in your Home?: Yes Lack of Transportation: No Lack of Food: Never True Current Housing: I Have Housing Concerned About Future Housing: No Difficulty Paying Gas/Electric Bills: No Difficulty Paying for
[2023-11-05] MEDS: SODIUM CHLORIDE 0.9% IV 1,000 ML 125 ML IV CONT (03:04)
[2023-11-05 03:33] LABS: Glucose Point of Care 83 mg/dl (65-105)
--- NOTE | 2023-11-05 03:45 | ADMGEN ---
This patient, Tami Kim, was admitted to Medical Room 248-. Patient/family oriented to hospital policies and general routines including ID bracelet, bed and alarms, visiting hours, pain management, procedures, bathroom and other care routines, personal items, smoking policy, room service/diet, and visiting hours. Information on how to activate the Rapid Response Team has been discussed. Patient/Family are encouraged to report perceived risks to care and to ask questions if they do not understand what they are told or what they should do.
--- NOTE | 2023-11-05 03:59 | PM.IMHP ---
H&P: HPI History of Present Illness Date/Time: 11/05/23 03:59 Chief Complaint: Generalized weakness, brain fog Narrative: Patient is a 78-year-old female with past medical history psoriasis, CKD3B/4, gout who presents to ED with generalized weakness. Patient has been recently being treated for a psoriasis flare. She recently has been placed on Augmentin for her psoriasis and suspected cellulitis. She started feeling brain fog and generalized weakness 4 days after completing Augmentin course. She has longstanding CKD. She has been on Augmentin without issues in the past. She is on allopurinol for her gout. In the ED: Patient found to have creatinine of 5.9 with baseline creatinine around 1.5-1.7, however potassium is at 3.2. Flu negative, RSV negative, COVID negative, UA negative, procalcitonin 0.3, troponin negative, BNP 1120. Chest x-ray shows mild interstitial and atelectasis. Chest CT and abdominal CT showed no acute findings. Patient being admitted for the acute on chronic renal failure. Review of Systems Review of Systems: Constitutional: No Fever, No Chills, No Night Sweats, generalized weakness ENT/Mouth: No Hearing Changes, No Ear Pain, No Nasal Congestion, No Sinus Pain, No Hoarseness, No sore throat, No Rhinorrhea, No Swallowing Difficulty Eyes: No Eye Pain, No Redness, No Vision Changes Cardiovascular: No Chest Pain, No Palpitations, No Dyspnea on Exertion, No Orthopnea, No Claudication, No Edema Respiratory: No Cough, No Sputum, No Wheezing, No Shortness of Breath Gastrointestinal: No Nausea, No Vomiting, No Diarrhea, No Constipation, No Abdominal Pain, No Heartburn, No Hematochezia, No Melena Genitourinary: No Dysuria, No Urinary Frequency, No Hematuria, No Urinary Incontinence, No Urgency Musculoskeletal: No Arthralgias, No Myalgias, No Joint Swelling, No Joint Stiffness, No Back Pain Skin: No Skin Lesions, No Pruritis, No Hair Changes Neuro: No Weakness, No Numbness, No Paresthesias, No Loss of Consciousness. endorses dizziness, brain fog Psych: No Anxiety/Panic, No Depression, No Insomnia Heme: No Bruising, No Bleeding Lymph: No Adenopathy Endocrine: No Polyuria, No Polydipsia, No Temperature Intolerance [facility] Past Medical History Medical History Acute on chronic renal insufficiency Anemia Breast cancer Cataract (lens) fragments in eye following cataract surgery, bilateral June 2022 Cholelithiasis Chronic cholecystitis with calculus CKD (chronic kidney disease) Closed fracture of distal end of right fibula COPD (chronic obstructive pulmonary disease) Diabetes Fracture of right lower leg Hyperlipidemia Hypertension Hypothyroid Kidney disease Morbid obesity with BMI of 40.0-44.9, adult Porcelain gallbladder Post-lymphadenectomy lymphedema of arm Psoriasis Skin cancer Sleep apnea Type 2 diabetes mellitus Vitamin D deficiency Surgical History Surgical History H/O mastectomy Left breast 2011 History of breast lump removal 2011 History of lymph node excision Hx laparoscopic cholecystectomy Hx of breast reduction, elective Hx of local excision of skin lesion Family History Family History Mother Diabetes mellitus Bowel disease Father Colon cancer Liver cancer Sibling Heart disease Social History Social History Social History: Ms. Kim lives at home. She is independent in her daily activities. She has 2 adult children, 1 of whom several years ago. 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 Her PCP is Dr. Campbell. She designates her sister, Cintia, as her surrogate decision maker and she would like to be a full code. Smoking packs per day: 0.5 Smoking cigarettes per day: 10.0 Years smoked: 42 Smoking pack-years: 21.00 Smoking status
[2023-11-05] MEDS: ONDANSETRON INJ 4 MG/2 ML VIAL IV PUSH (04:01)
[2023-11-05 05:49] LABS: Hemoglobin A1C 8.7 % (<5.7)
[2023-11-05] MEDS: LEVOTHYROXINE SODIUM 100 MCG TABLET PO (05:59)
[2023-11-05 06:47] LABS: Albumin Level 3.4 g/dL (3.5-5.1); Anion Gap 10 mmol/L (4-12); Blood Urea Nitrogen 42 mg/dL (7-17); Calcium 10.7 mg/dL (8.4-10.2); Carbon Dioxide 27 mmol/L (22-30); Chloride 103 mmol/L (98-107); Creatine Kinase 54 U/L (30-135); Estimated CRCL calculation 9 ml/min; Estimated Glomerular Filt Rate 8; Glucose 100 mg/dL (65-110); Phosphorus 5.5 mg/dL (2.5-4.5); Potassium 3.3 mmol/L (3.4-5.0); Sodium 140 mmol/L (137-145)
[2023-11-05 07:22] LABS: Creatinine Urine 45.2 mg/dL; Total Protein Urine Random 98 mg/dL; Ur Ttl Prot Creatinine Ratio 2.17 mg/mg (0-0.20)
[2023-11-05 07:47] LABS: Eosinophil Urine None Seen % (None Seen)
[2023-11-05 07:48] LABS: Urine Eos QC NJ
[2023-11-05 08:03] LABS: Free T4 Free Thyroxine Reflex 1.63 ng/dL (0.78-2.19)
[2023-11-05 08:10] LABS: Glucose Point of Care 99 mg/dl (65-105)
[2023-11-05] MEDS: ASCORBIC ACID 500 MG TABLET 1000 MG PO (08:14)
[2023-11-05] MEDS: calcitrioL 0.25 MCG CAPSULE PO (08:15)
[2023-11-05] MEDS: HEPARIN SODIUM 5,000 UNITS/ML VIAL 5000 UNITS SUB-Q ×2 (08:15→20:55)
[2023-11-05] MEDS: PANTOPRAZOLE 40 MG TABLET PO (08:18)
[2023-11-05 08:56] LABS: Total Triiodothyronine (T3) 0.86 NG/ML (0.97-1.69)
--- NOTE | 2023-11-05 11:45 | PM.CNNEP ---
Assessment and Plan Assessment and plan (1) RODRIGO (acute kidney injury): Code(s): N17.9 - Acute kidney failure, unspecified Status: Acute Assessment and Plan: etiology not clear check urine studies, CPK, and renal ultrasound reasonably to continue trial of IVFs follow repeat labs and UOP (2) Chronic kidney disease, stage IV (severe): Code(s): N18.4 - Chronic kidney disease, stage 4 (severe) Status: Chronic Assessment and Plan: baseline creatinine runs ~ 2.0 - 2.4mg/dl in the last year presumably secondary to hypertension, diabetes, obesity, NICK, and age-related changes follows with Dr. Weaver for CKD management (3) Hypertension: Qualifiers: Hypertension type: essential hypertension Qualified Code(s): I10 - Essential (primary) hypertension Code(s): I10 - Essential (primary) hypertension Status: Chronic Assessment and Plan: slightly elevated at this time diuretics on hold follow trend of hemodynamics may need to start another BP medication (4) Anemia: Qualifiers: Anemia type: unspecified type Qualified Code(s): D64.9 - Anemia, unspecified Code(s): D64.9 - Anemia, unspecified Status: Chronic Assessment and Plan: suspect related to RODRIGO, CKD, and acute illness folow trend of H/H consider BERNADETTE while hospitalized (5) Type 2 diabetes mellitus: Qualifiers: Diabetes mellitus complication status: without complication Diabetes mellitus director long term care insulin use: without director long term care use Qualified Code(s): E11.9 - Type 2 diabetes mellitus without complications Code(s): E11.9 - Type 2 diabetes mellitus without complications Status: Chronic Assessment and Plan: follow accu-cheks glycemic control per hospitalists I will continue follow the patient with you while she remains hospitalized make further recommendations as deemed necessary Thank you for allowing me to participate in the care this patient. History of Present Illness Reason for Consult Consult date: 11/05/23 Reason for consult: acute renal failure (on chronic kidney disease) Chief Complaint Chief complaint: Acute on chronic renal failure, Generalized weakne History of Present Illness Narrative: The patient is a 78-year-old female with a past medical history as outlined below who presented to [facility] Emergency room with complaints of generalized weakness. The patient reports that she was recently treated with psoriasis flare that was apparently complicated by cellulitis. She was prescribed Augmentin for the suspected skin infection and following initiation of this therapy, she reports feeling a bit off with regard to her mentation with subsequent fatigue and weakness which seemed to start about 4-5 days after she completed the course of Augmentin. However, on further questioning, she reports that she has been on Augmentin before and did not have any problems at that time. Due to these ongoing symptoms as mentioned, she presented to the emergency room for further assessment. Workup and evaluation emergency room demonstrated the patient being hemodynamically stable and in no acute distress. Routine blood tests were done which demonstrated a marked decline in her kidney function with a creatinine of 5.9 mg/dL but no critical electrolyte abnormalities. Influenza/RSV/Covid testing was negative. Her urinalysis was unrevealing and her troponin was negative her chest x-ray showed mild interstitial edema and atelectasis and subsequent CT imaging was otherwise without any acute pathology as well. Given the significant decline in her kidney function, she was admitted to the hospital for further evaluation and therapy. Since her admission, despite IV fluids, her renal function /creatinine is not any significantly better. Nevertheless, she appears to making fairly good urine output with relative stability in her electrolyt
[2023-11-05 11:54] LABS: Glucose Point of Care 127 mg/dl (65-105)
--- NOTE | 2023-11-05 12:07 | PM.EVENT ---
Event Note Event Note Event Note: Patient was seen by previous provider same day, follow-up with patient states she is feeling better since arrival to the ED. She denied CP, SOB, N/V. Patient with acute on chronic renal baseline is usually around 1.7 however patient recent completed a course of Augmentin therapy for her psoriasis flare up. Since taking the Augmentin patient reports generalized weakness and overall not feeling well. Findings in the emergency department showed a creatinine of 5.8 possibly induced by the Augmentin Likely intrinsic renal failure nephrology has been consulted for further recommendations monitor for renal improvement, renal US pending.
[2023-11-05 16:57] LABS: Glucose Point of Care 95 mg/dl (65-105)
[2023-11-05] MEDS: hydrALAZINE HCL 20 MG/ML VIAL IV PUSH (17:14)
[2023-11-05] MEDS: ALBUTEROL SULFATE (*SP) AEROSOL 1 PUFF INHALATION (17:17)
[2023-11-05] MEDS: ACETAMINOPHEN 500 MG TABLET PO (17:20)
[2023-11-05] MEDS: SODIUM CHLORIDE 0.9% IV 1,000 ML 75 ML IV CONT (18:47)
[2023-11-05] MEDS: MECLIZINE HCL 25 MG TABLET PO (20:55)
[2023-11-05 20:58] LABS: Glucose Point of Care 271 mg/dl (65-105)
[2023-11-05] MEDS: INSULIN ASPART (*BKC) 100 UNITS/ML SUB-Q (21:00)
[2023-11-06] VITALS (12 sets, daily range): BP systolic 132–159; BP diastolic 47–67; PULSE 83–92; RESP 18–22; TEMP 36.2–36.9; O2SAT 96–100
--- NOTE | 2023-11-06 | ECHO_ITS ---
Patient Info Name: Tami Kim Age: 78 years : 1945 Gender: Female Ht: 65 in Wt: 221 lbs BSA: 2.19 m2 HR: 90 bpm BP: 152 / 62 mmHg Heart Rhythm: Sinus Rhythm Technical Quality: Fair Exam Date: 11/06/2023 4:12 PM Exam Location: Echo Lab Patient Status: Inpatient Admit Date: 11/06/2023 Staff Ordering Physician: Sheri Grajeda APRN Barn Operator: Liat Pedersen RDCS Attending Provider: Sheri Grajeda APRN Referring Physician: Nicci KEITH; Exam Type: CA echo doppler color flow Study Info Indications R06.02 - Shortness of breath - effusion Complete two-dimensional, color flow and Doppler transthoracic echocardiogram is performed. Summary 1. Complete two-dimensional, color flow and Doppler transthoracic echocardiogram is performed. 2. Left ventricular chamber dimension is normal. 3. Left ventricular systolic function is hyperdynamic, estimated at >70%. 4. There is mild concentric increased left ventricular wall thickness. 5. The left ventricular diastolic function is grade I diastolic dysfunction. 6. E/e' 19 is elevated. 7. Left atrial chamber dimension is moderately enlarged. 8. There is mild aortic valve sclerosis. 9. There is trace tricuspid valve regurgitation. 10. Mild pulmonary hypertension, estimated pulmonary arterial systolic pressure is 43 mmHg. 11. There is trivial pericardial effusion. Left Ventricle E/e' 19 is elevated. Left ventricular chamber dimension is normal. Left ventricular systolic function is hyperdynamic, estimated at >70%. There is mild concentric increased left ventricular wall thickness. The left ventricular diastolic function is grade I diastolic dysfunction. Right Ventricle Right ventricular systolic function is normal and with normal TAPSE 2.4 cm. Right ventricular chamber dimension is normal. Left Atria Left atrial chamber dimension is moderately enlarged. Right Atria Right atrial chamber dimension is normal. Aortic Valve The aortic valve is trileaflet. There is mild aortic valve sclerosis. There is no aortic valve stenosis. There is no aortic valve regurgitation. Pulmonic Valve There is no pulmonic regurgitation. Mitral Valve There is no mitral valve stenosis. There is no mitral valve regurgitation. Tricuspid Valve There is trace tricuspid valve regurgitation. Mild pulmonary hypertension, estimated pulmonary arterial systolic pressure is 43 mmHg. Pericardium/Pleural There is trivial pericardial effusion. Inferior Vena Cava Normal inferior vena cava with >50% collapse upon inspiration consistent with normal right atrial pressure, 5 mmHg. Aorta The aortic root size at the sinus of Valsalva is normal. Left Ventricular Outflow Tract Name Value Normal LVOT 2D LVOT Diameter 1.9 cm LVOT Doppler LVOT Peak Gradient 9 mmHg LVOT Mean Gradient 4 mmHg LVOT VTI 29 cm LVOT VTI/AV VTI Ratio 0.8 LVOT Stroke Volume 83 ml LVOT CO 7.4 l/min LVOT CI 3.4 l/min/m2 Pulmonic Valve
[2023-11-06] MEDS: ACETAMINOPHEN 500 MG TABLET PO ×2 (04:24→14:34)
[2023-11-06 05:52] LABS: Basophils Percent Auto 0.4 % (0.2-1.2); Eosinophils Absolute Auto 0.4 K/mm3 (0-0.3); Eosinophils Percent Auto 4.9 % (0-4.4); Hematocrit 26.2 % (37.0-47.0); Immature Granulocyte Absolute 0.05 K/mm3 (0.00-0.031); Immature Granulocyte Percent A 0.6 % (0-0.5); Lymphocytes Absolute Auto 1.08 K/mm3 (0.9-3.2); Lymphocytes Percent Auto 12.7 % (18.3-44.2); Mean Corpuscular HGB Conc 30.5 g/dl (32-36); Mean Corpuscular Hemoglobin 30.2 pg (26-34); Mean Corpuscular Volume 98.9 fl (80-100); Mean Platelet Volume 10.5 fl (7.4-10.4); Monocytes Absolute Auto 0.5 K/mm3 (0.1-0.6); Monocytes Percent Auto 5.5 % (2.6-8.5); Neutrophils Absolute Auto 6.5 K/mm3 (1.3-6.7); Neutrophils Percent Auto 75.9 % (45.5-73.1); Platelet Count Result 209 k/mm3 (150-375); Red Blood Count 2.65 M/mm3 (4.2-5.4); Red Cell Distribution Width 14.6 % (11.5-14.5); White Blood Count 8.5 K/mm3 (4.5-10.0)
[2023-11-06 06:04] LABS: Alanine Aminotransferase 11 U/L (6-35); Albumin Level 3.3 g/dL (3.5-5.1); Alkaline Phosphatase 88 U/L (38-126); Anion Gap 9 mmol/L (4-12); Aspartate Amino Transferase 19 U/L (14-36); Bilirubin,Total 0.3 mg/dL (0.2-1.3); Blood Urea Nitrogen 42 mg/dL (7-17); Calcium 10.1 mg/dL (8.4-10.2); Carbon Dioxide 31 mmol/L (22-30); Chloride 101 mmol/L (98-107); Estimated CRCL calculation 8 ml/min; Estimated Glomerular Filt Rate 7; Glucose 109 mg/dL (65-110); Magnesium 2.2 mg/dL (1.6-2.3); Potassium 3.7 mmol/L (3.4-5.0); Sodium 141 mmol/L (137-145)
[2023-11-06] MEDS: LEVOTHYROXINE SODIUM 100 MCG TABLET PO (06:22)
--- NOTE | 2023-11-06 07:31 | PM.IMPN ---
Progress Note: A&P Assessment and Plan (1) Acute on chronic renal insufficiency: Code(s): N28.9 - Disorder of kidney and ureter, unspecified; N18.9 - Chronic kidney disease, unspecified Status: Acute (2) Psoriasis: Code(s): L40.9 - Psoriasis, unspecified Status: Acute Plan # acute on chronic kidney disease -may be secondary to Augmentin, AIN? -consulting child development associate teacher -patient is not hypotensive, likely intrinsically renal failure -IV fluids: Normal saline 50 cc/hour -checking urine osmolarity, serum osmolarity, urine sodium, serum sodium -patient is on calcitriol -negative procalcitonin, no acute signs of cellulitis, no need for further antibiotic -NS at 50 ml per hour -May consider Ford catheter for strict I&O # elevated blood pressure -patient appears not to have any home medications for hypertension (previously on losartan however with the renal failure we will hold) -start on amlodipine 5 mg daily for BP control -last ECHO on file was from 2020 with LV systolic function normal with EF 55-60%, LV diastolic grade 1 dysfunction -will continue to monitor # chronic conditions -hypothyroidism: Levothyroxine -abdominal wound: wound consulted, Mepilex in place -supplements: Vitamin-C, cranberry, ergo calciferol -vertigo: P.r.n. meclizine -hyperlipidemia: Holding rosuvastatin -gout: Holding allopurinol -type 2 diabetes: Holding glipizide, sliding scale insulin, Accu-Cheks a.c. HS, hypoglycemia protocol. Last hemoglobin A1c 6.31 December 2022 Diet: Heart healthy code DVT prophylaxis: SubQ heparin Code status: Full code Disposition: Pending PT OT, home in >2 days Subjective Date/time seen: 11/06/23 07:31 Interval history: 78 year old female with acute on chronic renal baseline is usually around 1.7 however patient recent completed a course of Augmentin therapy for her psoriasis flare up. Since taking the Augmentin patient reports generalized weakness and overall not feeling well. Findings in the emergency department showed a creatinine of 5.8 possibly induced by the Augmentin Likely intrinsic renal failure nephrology has been consulted for further recommendations monitor for renal improvement, renal US pending. 11/05: Patient is seen resting in the chair in no acute distress wearing 2 L NC. She says she feels better than when she first presented. On arrival she was having nausea, dizziness, and weakness. Besides her weakness these symptoms have resolved. She reports a small amount of swelling in her hands and feet. She also has a wound on her abdomen that she says is from cancer. Review of Systems Review of Systems: All systems reviewed & are unremarkable except as noted in HPI and below Exam Narrative: General: well appearing, appears stated age. HEENT: normocephalic, atraumatic. Mucous membranes moist. EOMI, PERRLA, bilateral sclera anicteric, no conjunctival injection. Neck supple without JVD, lymphadenopathy, or bruit. Respiratory: clear but diminished on auscultation bilaterally. No rales/rhonic/wheezes. Cardiovascular: Regular rate and rhythm, normal S1-S2 upon auscultation. No murmurs, rubs, or clicks. PMI is nondisplaced, capillary refill less than 3 second. NSR on telemetry. Abdomen: Soft, round, no pulsatile masses, nondistended and nontender. No rebound, no guarding. No CVA tenderness, no hepatosplenomegaly. Bowel sounds present to all four quadrants. No high pitch or tinkling sounds, resonant to percussion. Extremities: No cyanosis, clubbing. Trace, non-pitting edema present to hands and feet. Pulses are palpable 2/2. Active ROM to all four extremities. Neuro: Alert and orientated x 4. PERRLA. Cranial nerves 2-12 intact without focal deficit. Skin: Warm, dry, and intact. Open ulceration to her mid-upper abdomen with fragile, pink wound bed which easily bleeds with adjacent tissue mass. Lines: PIV Incisions: NA Psych: pleasant, cooperative, normal speech, normal affect, no
[2023-11-06] MEDS: SODIUM CHLORIDE 0.9% IV 1,000 ML 50 ML IV CONT (07:41)
[2023-11-06] MEDS: PANTOPRAZOLE 40 MG TABLET PO (07:42)
[2023-11-06] MEDS: calcitrioL 0.25 MCG CAPSULE PO (07:42)
[2023-11-06] MEDS: ASCORBIC ACID 500 MG TABLET 1000 MG PO (07:42)
[2023-11-06 07:48] LABS: Glucose Point of Care 115 mg/dl (65-105)
[2023-11-06] MEDS: HEPARIN SODIUM 5,000 UNITS/ML VIAL 5000 UNITS SUB-Q ×2 (08:28→21:04)
[2023-11-06 11:42] LABS: Glucose Point of Care 152 mg/dl (65-105)
[2023-11-06 12:02] LABS: Creatinine Urine 93.4 mg/dL; Urea Random Urine 482 MG/DL
[2023-11-06 12:03] LABS: Sodium Urine Random 50 meq/L
--- NOTE | 2023-11-06 13:29 | PCPTNOTE ---
On 11/06/23, the student, [Irlanda Gomez], provided care and completed [facility] documentation on this patient. I have reviewed the student's documentation and agree with the findings.
[2023-11-06] MEDS: amLODIPine BESYLATE 5 MG TABLET PO (14:34)
--- NOTE | 2023-11-06 14:37 | P.PNNP_ITS ---
Progress Note: A&P Assessment and Plan (1) RODRIGO (acute kidney injury): Code(s): N17.9 - Acute kidney failure, unspecified Status: Acute Assessment and Plan: * etiology not clear * evaluation noted: * urine electrolytes non-prerenal * urine eosinophils negative * CPK normal * renal ultrasound without obstruction * moderate proteinuria noted * on trial of IVFs * possible AIN (?) * peripheral eosinophilia noted * however, no rash or urine eosinophils * follow repeat labs and UOP (2) Chronic kidney disease, stage IV (severe): Code(s): N18.4 - Chronic kidney disease, stage 4 (severe) Status: Chronic Assessment and Plan: * baseline creatinine runs ~ 2.0 - 2.4mg/dl in the last year * presumably secondary to hypertension, diabetes, obesity, NICK, and age-related changes * follows with Dr. Weaver for CKD management (3) Hypertension: Qualifiers: Hypertension type: essential hypertension Qualified Code(s): I10 - Essential (primary) hypertension Code(s): I10 - Essential (primary) hypertension Status: Chronic Assessment and Plan: * slightly elevated at this time * diuretics on hold * follow trend of hemodynamics * started on amlodipine (4) Anemia: Qualifiers: Anemia type: unspecified type Qualified Code(s): D64.9 - Anemia, unspecified Code(s): D64.9 - Anemia, unspecified Status: Chronic Assessment and Plan: * suspect related to RODRIGO, CKD, and acute illness * folow trend of H/H * consider BERNADETTE while hospitalized (5) Type 2 diabetes mellitus: Qualifiers: Diabetes mellitus bed bug exterminator insulin use: without bed bug exterminator use Diabetes mellitus complication status: without complication Qualified Code(s): E11.9 - Type 2 diabetes mellitus without complications Code(s): E11.9 - Type 2 diabetes mellitus without complications Status: Chronic Assessment and Plan: * follow accu-cheks * glycemic control per hospitalists Will continue to follow. Subjective Date/time seen: 11/06/23 14:37 Interval history: Follow-up for acute kidney injury/acute renal failure on chronic kidney disease. No apparent distress noted at the time of my visit; despite reasonable urine output, her renal function/creatinine has not improved (and is actually slightly worsened by recent testing); no issues/events overnight or earlier this morning. Objective Data Vital Signs Vital Signs: Vital Signs Temp Pulse Resp BP Pulse Ox O2 Del Method O2 Flow Rate 11/06/23 14:00 97.2 F L 90 20 152/62 H 99 Nasal Cannula 2 11/06/23 12:00 88 11/06/23 10:00 97.2 F L 91 22 H 143/58 H 100 11/06/23 10:01 Nasal Cannula 2 11/06/23 08:00 96 Nasal Cannula 2 11/06/23 08:00 86 11/06/23 08:35 96 Nasal Cannula 2 11/06/23 04:00 97.8 F 87 20 141/52 H 100 11/06/23 04:00 85 11/05/23 20:00 CPAP 2 11/06/23 00:00 86 11/05/23 20:00 95 11/06/23 00:00 97.7 F 83 20 149/58 H 99 11/05/23 19:55 97.8 F 97 20 128/48 L 95 11/05/23 18:15 100 18 140/55 L 96 11/05/23 16:42 96.9 F L 86 18 172/89 H 100 Intake/Output Intake/Output: Intake & Output 11/03/23 0
--- NOTE | 2023-11-06 14:37 | PM.PNNEP ---
Progress Note: A&P Assessment and Plan (1) RODRIGO (acute kidney injury): Code(s): N17.9 - Acute kidney failure, unspecified Status: Acute Assessment and Plan: etiology not clear evaluation noted: urine electrolytes non-prerenal urine eosinophils negative CPK normal renal ultrasound without obstruction moderate proteinuria noted on trial of IVFs possible AIN (?) peripheral eosinophilia noted however, no rash or urine eosinophils follow repeat labs and UOP (2) Chronic kidney disease, stage IV (severe): Code(s): N18.4 - Chronic kidney disease, stage 4 (severe) Status: Chronic Assessment and Plan: baseline creatinine runs ~ 2.0 - 2.4mg/dl in the last year presumably secondary to hypertension, diabetes, obesity, NICK, and age-related changes follows with Dr. eWaver for CKD management (3) Hypertension: Qualifiers: Hypertension type: essential hypertension Qualified Code(s): I10 - Essential (primary) hypertension Code(s): I10 - Essential (primary) hypertension Status: Chronic Assessment and Plan: slightly elevated at this time diuretics on hold follow trend of hemodynamics started on amlodipine (4) Anemia: Qualifiers: Anemia type: unspecified type Qualified Code(s): D64.9 - Anemia, unspecified Code(s): D64.9 - Anemia, unspecified Status: Chronic Assessment and Plan: suspect related to RODRIGO, CKD, and acute illness folow trend of H/H consider BERNADETTE while hospitalized (5) Type 2 diabetes mellitus: Qualifiers: Diabetes mellitus senior living insulin use: without senior living use Diabetes mellitus complication status: without complication Qualified Code(s): E11.9 - Type 2 diabetes mellitus without complications Code(s): E11.9 - Type 2 diabetes mellitus without complications Status: Chronic Assessment and Plan: follow accu-cheks glycemic control per hospitalists Will continue to follow. Subjective Date/time seen: 11/06/23 14:37 Interval history: Follow-up for acute kidney injury/acute renal failure on chronic kidney disease. No apparent distress noted at the time of my visit; despite reasonable urine output, her renal function/creatinine has not improved (and is actually slightly worsened by recent testing); no issues/events overnight or earlier this morning. Objective Data Vital Signs Vital Signs: Vital Signs Temp Pulse Resp BP Pulse Ox O2 Del Method O2 Flow Rate 11/06/23 14:00 97.2 F L 90 20 152/62 H 99 Nasal Cannula 2 11/06/23 12:00 88 11/06/23 10:00 97.2 F L 91 22 H 143/58 H 100 11/06/23 10:01 Nasal Cannula 2 11/06/23 08:00 96 Nasal Cannula 2 11/06/23 08:00 86 11/06/23 08:35 96 Nasal Cannula 2 11/06/23 04:00 97.8 F 87 20 141/52 H 100 11/06/23 04:00 85 11/05/23 20:00 CPAP 2 11/06/23 00:00 86 11/05/23 20:00 95 11/06/23 00:00 97.7 F 83 20 149/58 H 99 11/05/23 19:55 97.8 F 97 20 128/48 L 95 11/05/23 18:15 100 18 140/55 L 96 11/05/23 16:42 96.9 F L 86 18 172/89 H 100 Intake/Output Intake/Output: Intake & Output 11/03/23 11/04/23 11/05/23 11/06/23 23:59 23:59 23:59 23:59 Intake Total 1840 1649.5 Output Total 700 800 Balance 1140 849.5 Meds/Results Medications: Active Medications Generic Name Dose Route Start Last Admin Trade Name Freq PRN Reason Stop Dose Admin Acetaminophen 500 mg 11/05/23 04:20 11/06/23 14:34 Acetaminophen 500 Mg Tablet PO 500 mg Q6H PRN Administration PAIN 1-3 Al Hydrox/Mg Hydrox/Simethicone 30 ml 11/05/23 04:22 Mag Hydrox/Al Hydrox/Simeth 30 Ml Udc PO QID PRN Dyspepsia Albuterol 1 puff 11/05/23 16:57 11/05/23 17:17 Albuterol Sulfate (*Sp) Aerosol 1 Puff INHALATION 1 puff Q4H PRN Administration shortness of breath or wheezing A
[2023-11-06 16:58] LABS: Glucose Point of Care 157 mg/dl (65-105)
[2023-11-06 20:56] LABS: Glucose Point of Care 169 mg/dl (65-105)
[2023-11-06] MEDS: ALBUTEROL SULFATE (*SP) AEROSOL 1 PUFF INHALATION (20:56)
[2023-11-06] MEDS: MECLIZINE HCL 25 MG TABLET PO (21:09)
[2023-11-07] VITALS (10 sets, daily range): BP systolic 125–152; BP diastolic 54–99; PULSE 84–122; RESP 18–20; TEMP 35.8–37; O2SAT 96–100
[2023-11-07] MEDS: LEVOTHYROXINE SODIUM 100 MCG TABLET PO (06:13)
[2023-11-07 06:38] LABS: White Blood Count 14.3 K/mm3 (4.5-10.0)
[2023-11-07 06:39] LABS: Basophils Percent Auto 0.1 % (0.2-1.2); Eosinophils Absolute Auto 0.4 K/mm3 (0-0.3); Eosinophils Percent Auto 2.7 % (0-4.4); Hematocrit 27.1 % (37.0-47.0); Hemoglobin 8.3 g/dL (12.0-15.0); Immature Granulocyte Absolute 0.08 K/mm3 (0.00-0.031); Immature Granulocyte Percent A 0.6 % (0-0.5); Lymphocytes Absolute Auto 0.55 K/mm3 (0.9-3.2); Lymphocytes Percent Auto 3.8 % (18.3-44.2); Mean Corpuscular HGB Conc 30.6 g/dl (32-36); Mean Corpuscular Volume 97.8 fl (80-100); Mean Platelet Volume 9.8 fl (7.4-10.4); Monocytes Absolute Auto 0.5 K/mm3 (0.1-0.6); Monocytes Percent Auto 3.2 % (2.6-8.5); Neutrophils Absolute Auto 12.8 K/mm3 (1.3-6.7); Neutrophils Percent Auto 89.6 % (45.5-73.1); Platelet Count Result 210 k/mm3 (150-375); Red Blood Count 2.77 M/mm3 (4.2-5.4); Red Cell Distribution Width 14.7 % (11.5-14.5)
[2023-11-07 06:50] LABS: Alanine Aminotransferase 11 U/L (6-35); Albumin Level 3.4 g/dL (3.5-5.1); Alkaline Phosphatase 98 U/L (38-126); Anion Gap 11 mmol/L (4-12); Aspartate Amino Transferase 18 U/L (14-36); Bilirubin,Total 0.3 mg/dL (0.2-1.3); Blood Urea Nitrogen 42 mg/dL (7-17); Calcium 10.2 mg/dL (8.4-10.2); Carbon Dioxide 26 mmol/L (22-30); Chloride 102 mmol/L (98-107); Estimated CRCL calculation 9 ml/min; Estimated Glomerular Filt Rate 7; Glucose 163 mg/dL (65-110); Potassium 3.6 mmol/L (3.4-5.0); Sodium 139 mmol/L (137-145)
[2023-11-07 08:06] LABS: Glucose Point of Care 168 mg/dl (65-105)
[2023-11-07] MEDS: calcitrioL 0.25 MCG CAPSULE PO (08:12)
[2023-11-07] MEDS: PANTOPRAZOLE 40 MG TABLET PO (08:12)
[2023-11-07] MEDS: HEPARIN SODIUM 5,000 UNITS/ML VIAL 5000 UNITS SUB-Q ×2 (08:12→20:59)
[2023-11-07] MEDS: amLODIPine BESYLATE 5 MG TABLET PO (08:12)
[2023-11-07] MEDS: ASCORBIC ACID 500 MG TABLET 1000 MG PO (08:12)
[2023-11-07] MEDS: SODIUM CHLORIDE 0.9% IV 1,000 ML 50 ML IV CONT (08:13)
--- NOTE | 2023-11-07 08:15 | PM.IMPN ---
Progress Note: A&P Assessment and Plan (1) Acute on chronic renal insufficiency: Code(s): N28.9 - Disorder of kidney and ureter, unspecified; N18.9 - Chronic kidney disease, unspecified Status: Acute (2) Psoriasis: Code(s): L40.9 - Psoriasis, unspecified Status: Acute Plan # acute on chronic kidney disease -may be secondary to Augmentin, AIN? 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 Heart rate ranging 109-119 bpm. Now in the 90's after bolus. She has 300 ml of clear yellow urine in her catheter. Lactic and procalcitonin repeated and are both negative. -Spoke with nephrology about considering steroids for possible AIN as she had, had persistent eosinophilia with recent Augmentin and Allopurinol use. However, now concerns for a possible infection. Will hold on steroids today, give a small bolus of fluid and see how she does. -EKG shows sinus tachycardia # elevated blood pressure -patient appears not to have any home medications for hypertension (previously on losartan however with the renal failure we will hold) -start on amlodipine 5 mg daily for BP control -ECHO this admission shows LV systolic function hyperdynamic with EF 70%, LV diastolic dysfunction grade 1, mild pulmonary hypertension, PA pressure estimated at 43 mmHg -Blood pressures reviewed #Leukocytosis - new leukocytosis 14.3 - Tachycardia 119 bpm - Obtain U/A, chest x-ray from yesterday showed small pleural effusion with atelectasis - Given her new leukocytosis, tachycardia, and continued oxygen requirement, ordered a CT scan today which shows bilateral pleural effusions left moderate, right small and mild pulmonary edema - incentive spirometer # chronic conditions -hypothyroidism: Levothyroxine -abdominal wound: wound consulted, Mepilex in place -supplements: Vitamin-C, cranberry, ergo calciferol -vertigo: P.r.n. meclizine -hyperlipidemia: Holding rosuvastatin -gout: Holding allopurinol -type 2 diabetes: Holding glipizide, sliding scale insulin, Accu-Cheks a.c. HS, hypoglycemia protocol. Last hemoglobin A1c 6.31 December 2022 Diet: Heart healthy code DVT prophylaxis: SubQ heparin Code status: Full code Disposition: Pending PT OT, home in >2 days Subjective Date/time seen: 11/07/23 08:15 Interval history: 78 year old female with acute on chronic renal baseline is usually around 1.7 however patient recent completed a course of Augmentin therapy for her psoriasis flare up. Since taking the Augmentin patient reports generalized weakness and overall not feeling well. Findings in the emergency department showed a creatinine of 5.8 possibly induced by the Augmentin Likely intrinsic renal failure nephrology has been consulted for further recommendations monitor for renal improvement, renal US pending. 11/05: Patient is seen resting in the chair in no acute distress wearing 2 L NC. She says she feels better than when she first presented. On arrival she was having nausea, dizziness, and weakness. Besides her weakness these symptoms have resolved. She reports a small amount of swelling in her hands and feet. She also has a wound on her abdomen that she says is from cancer. 11/06: Today she is feeling dry. Her mouth is dry and she is craving water. She does not look fluid overloaded to me. She is still making good amounts of urine. Remains on 2 L NC. She becomes short of breath when laying flat. Review of Systems Review of Systems: All systems reviewed & are unremarkable except as noted in HPI and below Exam Narrative: General: well appearing, appears stated age. HEENT: normocephalic, atraumatic. Mucous membranes moist. EOMI, PERRLA, bilateral sclera anicteric, no conjuncti
[2023-11-07] MEDS: ERGOCALCIFEROL 50,000 UNITS CAPSULE 50000 UNITS PO (08:17)
[2023-11-07] MEDS: ACETAMINOPHEN 500 MG TABLET PO ×2 (09:11→20:58)
[2023-11-07 10:38] LABS: Add Urine Microscopic? YES; Appearance Urine Cloudy (Clear); Bacteria Urine None Seen /hpf; Bilirubin Urine Negative (Negative); Blood Urine 1+ (Negative); Color Urine Yellow (Yellow); Glucose Urine UA 2+ mg/dL (Negative); Ketones Urine Trace mg/dL (Negative); Leukocyte Esterase Ur Trace LEU/UL (Negative); Need Manual Microscopic Reviewed; Nitrate Urine Negative (Negative); Protein Urine 2+ mg/dL (Negative); RBC Urine 0-2 /hpf (0-2); Squamous Epithelial Cell Urine Moderate /hpf (Few); Urobilinogen Urine 0.2 mg/dL (<2.0)
--- NOTE | 2023-11-07 10:57 | PCOTNOTE ---
Attempted to see pt for Occupational therapy treatment. Per RN, pt is being prepared to have CT scan and ask to attempt later.
[2023-11-07 11:14] LABS: NT Pro B Type Natriuretic Pept 1900 pg/mL (19.9-100)
[2023-11-07 11:22] LABS: Procalcitonin 0.3 ng/mL
[2023-11-07 12:00] LABS: Glucose Point of Care 154 mg/dl (65-105)
--- NOTE | 2023-11-07 12:54 | ECG_ITS ---
Test Date: 2023-11-07 13:09:23 Measurements Intervals [place] Rate: 101 P: 53 LA: 171 QRS: 8 QRSD: 85 T: 15 QT: 289 QTc: 374 Interpretive Statements SINUS TACHYCARDIA WITH FREQUENT SUPRAVENTRICULAR PREMATURE COMPLEXES NONSPECIFIC T-WAVE ABNORMALITY ABNORMAL RHYTHM ECG Compared to ECG 11/04/2023 23:37:46 NO DIFFERENCE Electronically Signed On 11-08-2023 13:33:13 CDT by Marv Navarrete M.D.
[2023-11-07] MEDS: SODIUM CHLORIDE 0.9% IV 500 ML IV CONT (13:05)
--- NOTE | 2023-11-07 13:15 | PCOTNOTE ---
Per RN, pt is not appropriate for Occupational Therapy treatment today due to having several testing completed today. Will attempt per POC duration/frequency tomorrow.
[2023-11-07 13:34] LABS: Lactic Acid Reflex 0.7 mmol/L (0.7-2.0)
--- NOTE | 2023-11-07 13:51 | PCPTNOTE ---
The patient treatment was not able to be completed on 11/07/2023 due to patient having multiple test this date and per RN advised not to see patient. Will plan to continue treatment per plan of care.
--- NOTE | 2023-11-07 13:58 | PM.PNNEP ---
Progress Note: A&P Assessment and Plan (1) RODRIGO (acute kidney injury): Code(s): N17.9 - Acute kidney failure, unspecified Status: Acute Assessment and Plan: etiology not clear evaluation noted: urine electrolytes non-prerenal urine eosinophils negative CPK normal renal ultrasound without obstruction moderate proteinuria noted on trial of IVFs possible AIN (?) peripheral eosinophilia noted however, no rash or urine eosinophils consider trial of steroids once infection is definitively ruled out... follow repeat labs and UOP (2) Chronic kidney disease, stage IV (severe): Code(s): N18.4 - Chronic kidney disease, stage 4 (severe) Status: Chronic Assessment and Plan: baseline creatinine runs ~ 2.0 - 2.4mg/dl in the last year presumably secondary to hypertension, diabetes, obesity, NICK, and age-related changes follows with Dr. Weaver for CKD management (3) Hypertension: Qualifiers: Hypertension type: essential hypertension Qualified Code(s): I10 - Essential (primary) hypertension Code(s): I10 - Essential (primary) hypertension Status: Chronic Assessment and Plan: better control noted diuretics on hold follow trend of hemodynamics (4) Anemia: Qualifiers: Anemia type: unspecified type Qualified Code(s): D64.9 - Anemia, unspecified Code(s): D64.9 - Anemia, unspecified Status: Chronic Assessment and Plan: suspect related to RODRIGO, CKD, and acute illness folow trend of H/H consider BERNADETTE while hospitalized (5) Type 2 diabetes mellitus: Qualifiers: 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 Subjective Date/time seen: 11/07/23 13:58 Interval history: Follow-up for acute kidney injury/acute renal failure on chronic kidney disease. Renal function/creatinine remains about the same despite current interventions; she continues to make reasonable urine output despite her fluctuating renal insufficiency; major complaint is that of dry mouth and increased thirst despite currentl IVFs. Exam Narrative: General: large female in NAD Heart: normal S1 and S2; no rub Lungs: decreased at the bases Abdomen: soft, nontender, nondistended, positive bowel sounds Extremities: no cyanosis or clubbing; 1+ edema Skin: warm and dry Objective Data Vital Signs Vital Signs: Vital Signs Temp Pulse Resp BP Pulse Ox O2 Del Method O2 Flow Rate 11/07/23 12:00 101 H 11/07/23 12:05 97.9 F 102 H 18 125/69 98 11/07/23 08:00 96 Nasal Cannula 2 11/07/23 08:00 122 H 11/07/23 08:02 96 Nasal Cannula 2 11/07/23 08:01 96.5 F L 119 H 19 139/99 H 96 11/07/23 04:00 107 H 11/07/23 04:00 98.6 F 111 H 18 144/82 H 100 11/06/23 21:00 Nasal Cannula 2 11/07/23 00:00 92 11/06/23 20:00 91 11/06/23 23:31 98.4 F 88 18 132/47 L 100 11/06/23 19:56 97.9 F 91 18 158/67 H 100 11/06/23 18:00 97.8 F 89 20 159/64 H 98 11/06/23 16:00 92 Intake/Output Intake/Output: Intake & Output 11/04/23 11/05/23 11/06/23 11/07/23 23:59 23:59 23:59 23:59 Intake Total 1840 1889.5 1680 Output Total 700 800 900 Balance 1140 1089.5 780 Meds/Results Medications: Active Medications Generic Name Dose Route Start Last Admin Trade Name Freq PRN Reason Stop Dose Admin Acetaminophen 500 mg 11/05/23 04:20 11/07/23 09:11 Acetaminophen 500 Mg Tablet PO 500 mg Q6H PRN Administration PAIN 1-3 Al Hydrox/Mg Hydrox/Simethicone
--- NOTE | 2023-11-07 13:58 | P.PNNP_ITS ---
Progress Note: A&P Assessment and Plan (1) RODRIGO (acute kidney injury): Code(s): N17.9 - Acute kidney failure, unspecified Status: Acute Assessment and Plan: * etiology not clear * evaluation noted: * urine electrolytes non-prerenal * urine eosinophils negative * CPK normal * renal ultrasound without obstruction * moderate proteinuria noted * on trial of IVFs * possible AIN (?) * peripheral eosinophilia noted * however, no rash or urine eosinophils * consider trial of steroids once infection is definitively ruled out... * follow repeat labs and UOP (2) Chronic kidney disease, stage IV (severe): Code(s): N18.4 - Chronic kidney disease, stage 4 (severe) Status: Chronic Assessment and Plan: * baseline creatinine runs ~ 2.0 - 2.4mg/dl in the last year * presumably secondary to hypertension, diabetes, obesity, NICK, and age-related changes * follows with Dr. Weaver for CKD management (3) Hypertension: Qualifiers: Hypertension type: essential hypertension Qualified Code(s): I10 - Essential (primary) hypertension Code(s): I10 - Essential (primary) hypertension Status: Chronic Assessment and Plan: * better control noted * diuretics on hold * follow trend of hemodynamics (4) Anemia: Qualifiers: Anemia type: unspecified type Qualified Code(s): D64.9 - Anemia, unspecified Code(s): D64.9 - Anemia, unspecified Status: Chronic Assessment and Plan: * suspect related to RODRIGO, CKD, and acute illness * folow trend of H/H * consider BERNADETTE while hospitalized (5) Type 2 diabetes mellitus: Qualifiers: Diabetes 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 Subjective Date/time seen: 11/07/23 13:58 Interval history: Follow-up for acute kidney injury/acute renal failure on chronic kidney disease. Renal function/creatinine remains about the same despite current interventions; she continues to make reasonable urine output despite her fluctuating renal insufficiency; major complaint is that of dry mouth and increased thirst despite currentl IVFs. Exam Narrative: General: large female in NAD Heart: normal S1 and S2; no rub Lungs: decreased at the bases Abdomen: soft, nontender, nondistended, positive bowel sounds Extremities: no cyanosis or clubbing; 1+ edema Skin: warm and dry Objective Data Vital Signs Vital Signs: Vital Signs Temp Pulse Resp BP Pulse Ox O2 Del Method O2 Flow Rate 11/07/23 12:00 101 H 11/07/23 12:05 97.9 F 102 H 18 125/69 98 11/07/23 08:00 96 Nasal Cannula 2 11/07/23 08:00 122 H 11/07/23 08:02 96 Nasal Cannula 2 11/07/23 08:01 96.5 F L 119 H 19 139/99 H 96 11/07/23 04:00 107 H 11/07/23 04:00 98.6 F 111 H 18 144/82 H 100 11/06/23 21:00 Nasal Cannula 2 11/07/23 00:00 92 11/06/23 20:00 91 11/06/23 23:31 98.4 F
[2023-11-07 17:05] LABS: Glucose Point of Care 126 mg/dl (65-105)
[2023-11-07] MEDS: MECLIZINE HCL 25 MG TABLET PO (20:59)
[2023-11-07 22:00] LABS: Glucose Point of Care 194 mg/dl (65-105)
[2023-11-08] VITALS (15 sets, daily range): BP systolic 139–167; BP diastolic 56–78; PULSE 85–106; RESP 16–26; TEMP 36.5–37.3; O2SAT 96–100
[2023-11-08 05:16] LABS: Basophils Percent Auto 0.3 % (0.2-1.2); Eosinophils Absolute Auto 0.4 K/mm3 (0-0.3); Eosinophils Percent Auto 3.9 % (0-4.4); Hematocrit 22.5 % (37.0-47.0); Immature Granulocyte Absolute 0.04 K/mm3 (0.00-0.031); Immature Granulocyte Percent A 0.4 % (0-0.5); Lymphocytes Absolute Auto 0.91 K/mm3 (0.9-3.2); Lymphocytes Percent Auto 8.6 % (18.3-44.2); Mean Corpuscular HGB Conc 30.2 g/dl (32-36); Mean Corpuscular Volume 99.1 fl (80-100); Mean Platelet Volume 9.8 fl (7.4-10.4); Monocytes Absolute Auto 0.5 K/mm3 (0.1-0.6); Monocytes Percent Auto 4.6 % (2.6-8.5); Neutrophils Absolute Auto 8.7 K/mm3 (1.3-6.7); Neutrophils Percent Auto 82.2 % (45.5-73.1); Platelet Count Result 177 k/mm3 (150-375); Red Blood Count 2.27 M/mm3 (4.2-5.4); Red Cell Distribution Width 14.8 % (11.5-14.5); White Blood Count 10.6 K/mm3 (4.5-10.0)
[2023-11-08 05:20] LABS: Hemoglobin 6.8 g/dL (12.0-15.0)
[2023-11-08 05:32] LABS: Alanine Aminotransferase 10 U/L (6-35); Albumin Level 2.8 g/dL (3.5-5.1); Alkaline Phosphatase 72 U/L (38-126); Anion Gap 7 mmol/L (4-12); Aspartate Amino Transferase 17 U/L (14-36); Bilirubin,Total 0.3 mg/dL (0.2-1.3); Blood Urea Nitrogen 44 mg/dL (7-17); Calcium 9.3 mg/dL (8.4-10.2); Carbon Dioxide 26 mmol/L (22-30); Chloride 106 mmol/L (98-107); Estimated CRCL calculation 9 ml/min; Estimated Glomerular Filt Rate 8; Glucose 89 mg/dL (65-110); Potassium 3.3 mmol/L (3.4-5.0); Sodium 139 mmol/L (137-145)
[2023-11-08] MEDS: SODIUM CHLORIDE 0.9% IV 1,000 ML 50 ML IV CONT (06:00)
[2023-11-08] MEDS: LEVOTHYROXINE SODIUM 100 MCG TABLET PO (06:36)
--- NOTE | 2023-11-08 07:08 | PM.PNNEP ---
Progress Note: A&P Assessment and Plan (1) RODRIGO (acute kidney injury): Code(s): N17.9 - Acute kidney failure, unspecified Status: Acute Assessment and Plan: The patient has acute on chronic kidney injury. Baseline creatinine is around 1.5-1.7. She was admitted with a creatinine of 5.9 which jair to 6.1 then 5.7 yesterday and 5.4 today. Renal ultrasound shows normal size kidneys Urine electrolytes and fractional excretion of urea are non pre renal Patient does not have low blood pressure, in fact it is a little high. She has volume overload. CPK is normal No fevers or chills. The patient does have peripheral eosinophilia of 0.4 % but total number was normal and the high % this is been present off and on since 2019 so I am not sure if this is relevant. The patient does have an active sediment. Urine culture is pending but the patient has no urinary symptoms and the urine white count only 6-10 white cells per high-power field. Will check serology. His the creatinine is improving I will not give steroids because of question of infection. Will get blood cultures and wait for the urine cultures to come back. Will also check a serum cortisol because of the elevated eosinophils (2) Chronic kidney disease, stage IV (severe): Code(s): N18.4 - Chronic kidney disease, stage 4 (severe) Status: Chronic Assessment and Plan: baseline creatinine runs ~ 2.0 - 2.4mg/dl in the last year presumably secondary to hypertension, diabetes, obesity, NICK, and age-related changes follows with Dr. Weaver for CKD management Subjective Date/time seen: 11/08/23 07:08 Interval history: Tami is on her CPAP machine finishing with her slumber. No chest pain or shortness of breath. She has a little bit of swelling Review of Systems Cardiovascular: Cardiovascular: Reports no additional cardiovascular complaints Respiratory: Respiratory: Reports no additional respiratory complaints Gastrointestinal: Gastrointestinal: Reports no additional gastrointestinal complaints Genitourinary: Genitourinary: Reports no additional female genitourinary complaints Exam Narrative: WDWN in NAD skin no rash head ncat lungs clear on the right slightly decreased on the left cor reg no rub or gallop abd BS+ nontender and soft ext 1+ bilateral edema. Objective Data Vital Signs Vital Signs: Vital Signs - 24 hr 11/07/23 08:01 11/07/23 08:02 11/07/23 08:00 Temperature 96.5 F L Pulse Rate 119 H 122 H Respiratory Rate 19 Blood Pressure 139/99 H Pulse Oximetry 96 96 Oxygen Delivery Nasal Cannula Oxygen Flow Rate 2 Fraction of Inspired Oxygen 28 11/07/23 08:00 11/07/23 12:05 11/07/23 12:00 Temperature 97.9 F Pulse Rate 102 H 101 H Respiratory Rate 18 Blood Pressure 125/69 Pulse Oximetry 96 98 Oxygen Delivery Nasal Cannula Oxygen Flow Rate 2 Fraction of Inspired Oxygen 11/07/23 16:00 11/07/23 17:19 11/07/23 20:00 Temperature 97.3 F L 97.8 F Pulse Rate 93 95 89 Respiratory Rate 18 20 Blood Pressure 152/64 H 136/54 L Pulse Oximetry 100 100 Oxygen Delivery Oxygen Flow Rate Fraction of Inspired Oxygen 11/08/23 00:00 11/07/23 20:00 11/08/23 00:00 Temperature 97.7 F Pulse Rate 86 84 85 Respiratory Rate 20 Blood Pressure 140/63 Pulse Oximetry 98 Oxygen Delivery Oxygen Flow Rate Fraction of Inspired Oxygen 11/07/23 20:00 11/08/23 04:00 11/08/23 04:00 Temperature 97.8 F Pulse Rate 89 89 Respiratory Rate 20 Blood Pressure 139/56 L Pulse Oximetry 100 99 Oxygen Delivery Nasal Cannula Oxygen Flow Rate 2 Fraction of Inspired Oxygen Intake/Output Intake/Output: Intake & Output 11/05/23 11/06/23 11/07/23 11/08/23 23:59 23:59 23:59 23:59 Intake Total 1840 1889.5 3520 1240 Output Total 274 301 2677 300 Balance 1140 1089.5 2320 940 Meds/Results Medications: Active Medications Generic Name Dose Rout
--- NOTE | 2023-11-08 07:39 | PM.IMPN ---
Progress Note: A&P Assessment and Plan (1) Acute on chronic renal insufficiency: Code(s): N28.9 - Disorder of kidney and ureter, unspecified; N18.9 - Chronic kidney disease, unspecified Status: Acute (2) Psoriasis: Code(s): L40.9 - Psoriasis, unspecified Status: Acute Plan # acute on chronic kidney disease -may be secondary to Augmentin, AIN? 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 Heart rate ranging 109-119 bpm. Now in the 90's after bolus. She has 300 ml of clear yellow urine in her catheter. Lactic and procalcitonin repeated and are both negative. -Spoke with nephrology about considering steroids for possible AIN as she had, had persistent eosinophilia with recent Augmentin and Allopurinol use. However, now concerns for a possible infection. Holding on steroids until definitively no infection present. -serologies ordered by nephro -random cortisol ordered as well given elevated eosinophils -EKG shows sinus tachycardia # elevated blood pressure -patient appears not to have any home medications for hypertension (previously on losartan however with the renal failure we will hold) -start on amlodipine 5 mg daily for BP control -ECHO this admission shows LV systolic function hyperdynamic with EF 70%, LV diastolic dysfunction grade 1, mild pulmonary hypertension, PA pressure estimated at 43 mmHg -Blood pressures reviewed #Leukocytosis - new leukocytosis 14.3-->10.6 today - Tachycardia has resolved. HR 80's - Obtain U/A, chest x-ray from yesterday showed small pleural effusion with atelectasis - Given her new leukocytosis, tachycardia, and continued oxygen requirement, ordered a CT scan today which shows bilateral pleural effusions left moderate, right small and mild pulmonary edema - incentive spirometer -Blood cultures added # chronic conditions -hypothyroidism: Levothyroxine -abdominal wound: wound consulted, Mepilex in place -supplements: Vitamin-C, cranberry, ergo calciferol -vertigo: P.r.n. meclizine -hyperlipidemia: Holding rosuvastatin -gout: Holding allopurinol -type 2 diabetes: Holding glipizide, sliding scale insulin, Accu-Cheks a.c. HS, hypoglycemia protocol. Last hemoglobin A1c 6.31 December 2022 Diet: Heart healthy code DVT prophylaxis: SubQ heparin Code status: Full code Disposition: Pending PT OT. Will be placed at [facility] Subjective Date/time seen: 11/08/23 07:39 Interval history: 78 year old female with acute on chronic renal baseline is usually around 1.7 however patient recent completed a course of Augmentin therapy for her psoriasis flare up. Since taking the Augmentin patient reports generalized weakness and overall not feeling well. Findings in the emergency department showed a creatinine of 5.8 possibly induced by the Augmentin Likely intrinsic renal failure nephrology has been consulted for further recommendations monitor for renal improvement, renal US pending. 11/05: Patient is seen resting in the chair in no acute distress wearing 2 L NC. She says she feels better than when she first presented. On arrival she was having nausea, dizziness, and weakness. Besides her weakness these symptoms have resolved. She reports a small amount of swelling in her hands and feet. She also has a wound on her abdomen that she says is from cancer. 11/06: Today she is feeling dry. Her mouth is dry and she is craving water. She does not look fluid overloaded to me. She is still making good amounts of urine. Remains on 2 L NC. She becomes short of breath when laying flat. 11/07: She looks better today. She does not feel as dry and thirsty. She is off of oxygen. Still having some dyspnea with layi
[2023-11-08 08:02] LABS: Glucose Point of Care 89 mg/dl (65-105)
[2023-11-08] MEDS: amLODIPine BESYLATE 5 MG TABLET PO (08:17)
[2023-11-08] MEDS: calcitrioL 0.25 MCG CAPSULE PO (08:18)
[2023-11-08] MEDS: ASCORBIC ACID 500 MG TABLET 1000 MG PO (08:18)
[2023-11-08] MEDS: PANTOPRAZOLE 40 MG TABLET PO (08:18)
[2023-11-08 08:19] LABS: Hematocrit 23.8 % (37.0-47.0); Hemoglobin 7.4 g/dL (12.0-15.0); Mean Corpuscular HGB Conc 31.1 g/dl (32-36); Mean Corpuscular Hemoglobin 30.3 pg (26-34); Mean Corpuscular Volume 97.5 fl (80-100); Mean Platelet Volume 10.2 fl (7.4-10.4); Platelet Count Result 196 k/mm3 (150-375); Red Blood Count 2.44 M/mm3 (4.2-5.4); White Blood Count 10.8 K/mm3 (4.5-10.0)
[2023-11-08] MEDS: POTASSIUM CHLORIDE 20 MEQ PACKET (FOR LIQUID) 40 MEQ PO (08:31)
[2023-11-08] MEDS: HEPARIN SODIUM 5,000 UNITS/ML VIAL 5000 UNITS SUB-Q ×2 (08:33→20:50)
[2023-11-08 08:44] LABS: Erythrocyte Sedimentation Rate > 140 mm/hr (0-20)
[2023-11-08 12:16] LABS: Hematocrit 25.4 % (37.0-47.0); Hemoglobin 7.8 g/dL (12.0-15.0)
[2023-11-08 12:23] LABS: Osmolality, Urine 444 mOsm/kg (50-1200)
[2023-11-08] MEDS: ACETAMINOPHEN 500 MG TABLET PO (14:08)
[2023-11-08 16:51] LABS: Glucose Point of Care 169 mg/dl (65-105)
--- NOTE | 2023-11-08 20:30 | PM.EVENT ---
Event Note Event Note Event Note: Cross Coverage: Urine culture growing out group B strep, resulted on 11/07 at 8:30 p.m. Patient started on oral ampicillin 500 mg q.6 hours.
[2023-11-08 21:13] LABS: Glucose Point of Care 158 mg/dl (65-105)
[2023-11-08] MEDS: AMPICILLIN TRIHYDRATE 500 MG CAPSULE PO (21:23)
[2023-11-08 21:58] LABS: Complement C3 122 mg/dL (88-165)
[2023-11-09] VITALS (15 sets, daily range): BP systolic 140–155; BP diastolic 54–70; PULSE 87–106; RESP 16–27; TEMP 36.5–36.8; O2SAT 94–100
[2023-11-09 04:49] LABS: Basophils Percent Auto 0.3 % (0.2-1.2); Eosinophils Absolute Auto 0.5 K/mm3 (0-0.3); Eosinophils Percent Auto 5.5 % (0-4.4); Hematocrit 21.8 % (37.0-47.0); Immature Granulocyte Absolute 0.06 K/mm3 (0.00-0.031); Immature Granulocyte Percent A 0.7 % (0-0.5); Lymphocytes Absolute Auto 0.61 K/mm3 (0.9-3.2); Lymphocytes Percent Auto 7.1 % (18.3-44.2); Mean Corpuscular HGB Conc 30.3 g/dl (32-36); Mean Corpuscular Hemoglobin 29.5 pg (26-34); Mean Corpuscular Volume 97.3 fl (80-100); Mean Platelet Volume 9.8 fl (7.4-10.4); Monocytes Absolute Auto 0.5 K/mm3 (0.1-0.6); Monocytes Percent Auto 5.3 % (2.6-8.5); Neutrophils Percent Auto 81.1 % (45.5-73.1); Platelet Count Result 177 k/mm3 (150-375); Red Blood Count 2.24 M/mm3 (4.2-5.4); White Blood Count 8.6 K/mm3 (4.5-10.0)
[2023-11-09 04:56] LABS: Hemoglobin 6.6 g/dL (12.0-15.0)
[2023-11-09 04:59] LABS: Alanine Aminotransferase 11 U/L (6-35); Albumin Level 2.7 g/dL (3.5-5.1); Alkaline Phosphatase 99 U/L (38-126); Anion Gap 7 mmol/L (4-12); Aspartate Amino Transferase 19 U/L (14-36); Bilirubin,Total 0.2 mg/dL (0.2-1.3); Blood Urea Nitrogen 49 mg/dL (7-17); Calcium 9.5 mg/dL (8.4-10.2); Carbon Dioxide 25 mmol/L (22-30); Chloride 106 mmol/L (98-107); Estimated CRCL calculation 9 ml/min; Estimated Glomerular Filt Rate 7; Glucose 149 mg/dL (65-110); Phosphorus 4.7 mg/dL (2.5-4.5); Potassium 3.8 mmol/L (3.4-5.0); Sodium 138 mmol/L (137-145)
[2023-11-09] MEDS: SODIUM CHLORIDE 0.9% IV 1,000 ML 50 ML IV CONT (05:43)
[2023-11-09 07:56] LABS: Glucose Point of Care 128 mg/dl (65-105)
--- NOTE | 2023-11-09 08:03 | PM.IMPN ---
Progress Note: A&P Assessment and Plan (1) Acute on chronic renal insufficiency: Code(s): N28.9 - Disorder of kidney and ureter, unspecified; N18.9 - Chronic kidney disease, unspecified Status: Acute (2) Psoriasis: Code(s): L40.9 - Psoriasis, unspecified Status: Acute Plan # acute on chronic kidney disease -may be secondary to Augmentin, AIN? Holding off steroids for now given urinary tract infection. Awaiting blood cultures. 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 -Stopping IV fluids today as she is more short of breath with crackles on exam -1 x dose of lasix 20 mg IVP -Added scheduled DuoNeb for wheezing -checking urine osmolarity, serum osmolarity, urine sodium, serum sodium -patient is on calcitriol -negative procalcitonin, negative lactic -Ford catheter for strict I&O -UOP for 11/07 was 500 ml total -serologies ordered by nephro -random cortisol normal -EKG shows sinus tachycardia # elevated blood pressure -patient appears not to have any home medications for hypertension (previously on losartan however with the renal failure we will hold) -start on amlodipine 5 mg daily for BP control. -ECHO this admission shows LV systolic function hyperdynamic with EF 70%, LV diastolic dysfunction grade 1, mild pulmonary hypertension, PA pressure estimated at 43 mmHg -Blood pressures reviewed 11/08. Some improvement. #Leukocytosis - new leukocytosis 14.3-->10.6-->8.6 today - Tachycardia again today. 101 bpm. - U/A reflexed to culture. Urine is growing group B streptococcus. Started on ampicillin for 3 days. - CT scan from 11/06 which shows bilateral pleural effusions left moderate, right small and mild pulmonary edema - incentive spirometer - Blood cultures from 11/07 with no growth to date # chronic conditions -hypothyroidism: Levothyroxine -abdominal wound: wound consulted, Mepilex in place -supplements: Vitamin-C, cranberry, ergo calciferol -vertigo: P.r.n. meclizine -hyperlipidemia: Holding rosuvastatin -gout: Holding allopurinol -type 2 diabetes: Holding glipizide, sliding scale insulin, Accu-Cheks a.c. HS, hypoglycemia protocol. Last hemoglobin A1c 6.31 December 2022 Diet: Heart healthy code DVT prophylaxis: SubQ heparin Code status: Full code Disposition: Pending PT OT. Will be placed at [facility] Subjective Date/time seen: 11/09/23 08:03 Interval history: 78 year old female with acute on chronic renal baseline is usually around 1.7 however patient recent completed a course of Augmentin therapy for her psoriasis flare up. Since taking the Augmentin patient reports generalized weakness and overall not feeling well. Findings in the emergency department showed a creatinine of 5.8 possibly induced by the Augmentin Likely intrinsic renal failure nephrology has been consulted for further recommendations monitor for renal improvement, renal US pending. 11/05: Patient is seen resting in the chair in no acute distress wearing 2 L NC. She says she feels better than when she first presented. On arrival she was having nausea, dizziness, and weakness. Besides her weakness these symptoms have resolved. She reports a small amount of swelling in her hands and feet. She also has a wound on her abdomen that she says is from cancer. 11/06: Today she is feeling dry. Her mouth is dry and she is craving water. She does not look fluid overloaded to me. She is still making good amounts of urine. Remains on 2 L NC. She becomes short of breath when laying flat. 11/07: She looks better today. She does not feel as dry and thirsty. She is off of oxygen. Still having some dyspnea with laying flat and certain positions but when sitting upright on the edge of the bed she feels fine. She reports a slight headache across her eyebrows. 11/08: Mrs. Kim is feeling more short of breath today when I see her. She is on 2 L NC. She does have some expiratory wheeze and crackles to the bases. She feels like she cannot take a deep breath
--- NOTE | 2023-11-09 08:29 | P.PNNP_ITS ---
Progress Note: A&P Assessment and Plan (1) RODRIGO (acute kidney injury): Code(s): N17.9 - Acute kidney failure, unspecified Status: Acute Assessment and Plan: * etiology not clear * evaluation noted: * urine electrolytes non-prerenal * urine eosinophils negative * CPK normal * renal ultrasound without obstruction * moderate proteinuria noted * on trial of IVFs * possible AIN (?) * peripheral eosinophilia noted * however, no rash or urine eosinophils * consider trial of steroids but with the slightly improved creatinine and also a bladder in for the risk benefit ratio is leaning toward the risk. * I checked for inflammation and paraproteins. * Sed rate is very high. Complements are normal. The rest is pending. * The patient has significant anemia. Bilirubin is normal. Will check stool guaiacs. Will also check haptoglobin. Platelet count is normal so HUS/TTP is unlikely. * At this point will treat the infection for a couple of days. See what happens with the blood cultures. If the creatinine is not better by Saturday then we should probably do a kidney biopsy. She is not on any anticoagulants. * She is still making some urine * Check labs in the morning (2) Chronic kidney disease, stage IV (severe): Code(s): N18.4 - Chronic kidney disease, stage 4 (severe) Status: Chronic Assessment and Plan: * baseline creatinine runs ~ 2.0 - 2.4mg/dl in the last year * presumably secondary to hypertension, diabetes, obesity, NICK, and age-related changes * follows with Dr. Weaver for CKD management (3) Hypertension: Qualifiers: Hypertension type: essential hypertension Qualified Code(s): I10 - Essential (primary) hypertension Code(s): I10 - Essential (primary) hypertension Status: Chronic Assessment and Plan: * better control noted * diuretics on hold * follow trend of hemodynamics (4) Anemia: Qualifiers: Anemia type: unspecified type Qualified Code(s): D64.9 - Anemia, unspecified Code(s): D64.9 - Anemia, unspecified Status: Chronic Assessment and Plan: * suspect related to RODRIGO, CKD, and acute illness * Her sudden drop in hemoglobin is not explained by her kidneys. * Will check stool guaiacs haptoglobin and irons.. * Will start erythropoietin to help out. * Will at hospitalist decide when to transfuse. 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 She has no shortness of breath or chest pain. Slight amounts of swelling. She has a Ford catheter in for her 24hour urine Exam Narrative: General: large female in NAD Heart: normal S1 and S2; no rub Lungs: decreased at the bases Abdomen: soft, nontender, nondistended, positive bowel sounds Extremities: no cyanosis or clubbing; 1+ edema Skin: No rash Objective Data Vital Signs Vital Signs: Vital Signs - 24 hr 11/08/23 11:50 11/08/23
--- NOTE | 2023-11-09 08:29 | PM.PNNEP ---
Progress Note: A&P Assessment and Plan (1) RODRIGO (acute kidney injury): Code(s): N17.9 - Acute kidney failure, unspecified Status: Acute Assessment and Plan: etiology not clear evaluation noted: urine electrolytes non-prerenal urine eosinophils negative CPK normal renal ultrasound without obstruction moderate proteinuria noted on trial of IVFs possible AIN (?) peripheral eosinophilia noted however, no rash or urine eosinophils consider trial of steroids but with the slightly improved creatinine and also a bladder in for the risk benefit ratio is leaning toward the risk. I checked for inflammation and paraproteins. Sed rate is very high. Complements are normal. The rest is pending. The patient has significant anemia. Bilirubin is normal. Will check stool guaiacs. Will also check haptoglobin. Platelet count is normal so HUS/TTP is unlikely. At this point will treat the infection for a couple of days. See what happens with the blood cultures. If the creatinine is not better by Saturday then we should probably do a kidney biopsy. She is not on any anticoagulants. She is still making some urine Check labs in the morning (2) Chronic kidney disease, stage IV (severe): Code(s): N18.4 - Chronic kidney disease, stage 4 (severe) Status: Chronic Assessment and Plan: baseline creatinine runs ~ 2.0 - 2.4mg/dl in the last year presumably secondary to hypertension, diabetes, obesity, NICK, and age-related changes follows with Dr. Weaver for CKD management (3) Hypertension: Qualifiers: Hypertension type: essential hypertension Qualified Code(s): I10 - Essential (primary) hypertension Code(s): I10 - Essential (primary) hypertension Status: Chronic Assessment and Plan: better control noted diuretics on hold follow trend of hemodynamics (4) Anemia: Qualifiers: Anemia type: unspecified type Qualified Code(s): D64.9 - Anemia, unspecified Code(s): D64.9 - Anemia, unspecified Status: Chronic Assessment and Plan: suspect related to RODRIGO, CKD, and acute illness Her sudden drop in hemoglobin is not explained by her kidneys. Will check stool guaiacs haptoglobin and irons.. Will start erythropoietin to help out. Will at hospitalist decide when to transfuse. 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 She has no shortness of breath or chest pain. Slight amounts of swelling. She has a Ford catheter in for her 24hour urine Exam Narrative: General: large female in NAD Heart: normal S1 and S2; no rub Lungs: decreased at the bases Abdomen: soft, nontender, nondistended, positive bowel sounds Extremities: no cyanosis or clubbing; 1+ edema Skin: No rash Objective Data Vital Signs Vital Signs: Vital Signs - 24 hr 11/08/23 11:50 11/08/23 12:00 11/08/23 15:14 Temperature 99.1 F 97.7 F Pulse Rate 103 H 106 H 98 Respiratory Rate 20 16 Blood Pressure 140/63 167/78 H Pulse Oximetry 97 99 Oxygen Delivery Oxygen Flow Rate Fraction of Inspired Oxygen 11/08/23 16:00 11/08/23 19:46 11/08/23 20:55 Temperature 97.7 F Pulse Rate 96 98 95 Respiratory Rate 20 26 H Blood Pressure 167/71 H Pulse Oximetry 99 96 Oxygen Delivery Autopap Oxygen Flow Rate Fraction of Inspired Oxygen 11/08/23 20:00 11/08/23 20:00 11/09/23 00:00 Temperature 97.7 F Pulse Ra
[2023-11-09 08:44] LABS: Hematocrit 23.2 % (37.0-47.0); Hemoglobin 7.2 g/dL (12.0-15.0); Immature Reticulocyte Fraction 15.1 % (3.0-15.9); Reticulocyte Hemoglobin Conten 29.5 pg (28.2-36.6); Reticulocytes Absolute 0.04 10^6/uL (0.02-0.10)
[2023-11-09 09:26] LABS: Iron 25 ug/dL (37-170)
[2023-11-09 09:36] LABS: Percent Iron Saturation 11 % (20-50)
[2023-11-09] MEDS: MECLIZINE HCL 25 MG TABLET PO (09:52)
[2023-11-09] MEDS: ASCORBIC ACID 500 MG TABLET 1000 MG PO (09:52)
[2023-11-09] MEDS: PANTOPRAZOLE 40 MG TABLET PO (09:52)
[2023-11-09] MEDS: LEVOTHYROXINE SODIUM 100 MCG TABLET PO (09:52)
[2023-11-09] MEDS: calcitrioL 0.25 MCG CAPSULE PO (09:53)
[2023-11-09] MEDS: amLODIPine BESYLATE 5 MG TABLET PO (09:53)
[2023-11-09] MEDS: ACETAMINOPHEN 500 MG TABLET PO (09:53)
[2023-11-09] MEDS: MAG HYDROX/AL HYDROX/SIMETH 30 ML UDC PO (09:54)
[2023-11-09] MEDS: HEPARIN SODIUM 5,000 UNITS/ML VIAL 5000 UNITS SUB-Q ×2 (09:54→20:56)
[2023-11-09] MEDS: EPOETIN ALFA-EPBX 10,000 UNITS/ML VIAL 10000 UNITS SUB-Q (09:56)
[2023-11-09 11:14] LABS: Add Urine Microscopic? YES; Appearance Urine Cloudy (Clear); Bacteria Urine None Seen /hpf; Bilirubin Urine Negative (Negative); Blood Urine 1+ (Negative); Color Urine Yellow (Yellow); Glucose Urine UA 1+ mg/dL (Negative); Ketones Urine Negative (Negative); Leukocyte Esterase Ur 1+ LEU/UL (Negative); Nitrate Urine Negative (Negative); Protein Urine 2+ mg/dL (Negative); RBC Urine 0-2 /hpf (0-2); Specific Grav Ur 1.014 (1.001-1.035); Squamous Epithelial Cell Urine Occasional /hpf (Few); Urobilinogen Urine 0.2 mg/dL (<2.0); WBC Urine 21-50 /hpf (0-3); pH Urine 5.5 (5.0-9.0)
[2023-11-09 11:36] LABS: Folic Acid 10.1 ng/mL (2.76->20)
[2023-11-09 11:54] LABS: Glucose Point of Care 152 mg/dl (65-105)
[2023-11-09] MEDS: FUROSEMIDE INJ 40 MG/4 ML VIAL 20 MG IV PUSH (12:02)
[2023-11-09] MEDS: AMPICILLIN TRIHYDRATE 500 MG CAPSULE PO (12:02)
[2023-11-09] MEDS: FERROUS SULFATE 325 MG TABLET DR PO ×2 (12:35→17:29)
[2023-11-09] MEDS: CLOBETASOL PROPIONATE 0.05% OINT 30 GM 1 APPLIC TOPICAL ×2 (12:35→20:58)
[2023-11-09] MEDS: IPRATROPIUM 0.5 MG/ALBUTEROL SULFATE 2.5 MG AMPUL.NEB 3 ML INHALATION ×2 (13:34→20:25)
[2023-11-09 17:04] LABS: Glucose Point of Care 154 mg/dl (65-105)
[2023-11-09 22:01] LABS: Glucose Point of Care 127 mg/dl (65-105)
[2023-11-10] VITALS (34 sets, daily range): BP systolic 137–166; BP diastolic 56–93; PULSE 91–103; RESP 18–27; TEMP 36.1–36.8; O2SAT 93–100
[2023-11-10] MEDS: AMPICILLIN TRIHYDRATE 500 MG CAPSULE PO ×3 (00:19→23:17)
[2023-11-10] MEDS: IPRATROPIUM 0.5 MG/ALBUTEROL SULFATE 2.5 MG AMPUL.NEB 3 ML INHALATION ×4 (02:12→20:25)
[2023-11-10 03:25] LABS: Glucose Point of Care 160 mg/dl (65-105)
[2023-11-10 05:22] LABS: Alanine Aminotransferase 11 U/L (6-35); Albumin Level 2.7 g/dL (3.5-5.1); Alkaline Phosphatase 83 U/L (38-126); Anion Gap 9 mmol/L (4-12); Aspartate Amino Transferase 17 U/L (14-36); Bilirubin,Total 0.3 mg/dL (0.2-1.3); Blood Urea Nitrogen 50 mg/dL (7-17); Calcium 9.6 mg/dL (8.4-10.2); Carbon Dioxide 24 mmol/L (22-30); Chloride 106 mmol/L (98-107); Estimated CRCL calculation 8 ml/min; Estimated Glomerular Filt Rate 7; Glucose 119 mg/dL (65-110); Potassium 3.8 mmol/L (3.4-5.0); Sodium 139 mmol/L (137-145)
[2023-11-10 05:34] LABS: Basophils Percent Auto 0.3 % (0.2-1.2); Eosinophils Absolute Auto 0.4 K/mm3 (0-0.3); Eosinophils Percent Auto 4.7 % (0-4.4); Hematocrit 21.2 % (37.0-47.0); Immature Granulocyte Absolute 0.04 K/mm3 (0.00-0.031); Immature Granulocyte Percent A 0.5 % (0-0.5); Lymphocytes Absolute Auto 0.68 K/mm3 (0.9-3.2); Lymphocytes Percent Auto 8.7 % (18.3-44.2); Mean Corpuscular HGB Conc 31.6 g/dl (32-36); Mean Corpuscular Hemoglobin 30.7 pg (26-34); Mean Corpuscular Volume 97.2 fl (80-100); Mean Platelet Volume 9.6 fl (7.4-10.4); Monocytes Absolute Auto 0.5 K/mm3 (0.1-0.6); Monocytes Percent Auto 6.3 % (2.6-8.5); Neutrophils Absolute Auto 6.2 K/mm3 (1.3-6.7); Neutrophils Percent Auto 79.5 % (45.5-73.1); Platelet Count Result 178 k/mm3 (150-375); Red Blood Count 2.18 M/mm3 (4.2-5.4); Red Cell Distribution Width 15.3 % (11.5-14.5); White Blood Count 7.8 K/mm3 (4.5-10.0)
[2023-11-10 05:37] LABS: Hemoglobin 6.7 g/dL (12.0-15.0)
--- NOTE | 2023-11-10 06:45 | PM.IMPN ---
Progress Note: A&P Assessment and Plan (1) Acute on chronic renal insufficiency: Code(s): N28.9 - Disorder of kidney and ureter, unspecified; N18.9 - Chronic kidney disease, unspecified Status: Acute (2) Psoriasis: Code(s): L40.9 - Psoriasis, unspecified Status: Acute Plan # acute on chronic kidney disease -may be secondary to Augmentin, AIN? Holding off steroids for now given urinary tract infection. Awaiting blood cultures. 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 There had been some concerns previously about lab collection technique. Will transfuse 2 unit pRBC today. -1 mg IV Bumex once between blood transfusions -checking urine osmolarity, serum osmolarity, urine sodium, serum sodium -patient is on calcitriol -negative procalcitonin, negative lactic -Ford catheter for strict I&O -UOP for 11/07 was 500 ml total -serologies ordered by nephro -random cortisol 14. Nephrology has order cosyntropin stimulation test. -IV methylprednisolone 500 mg BID for 3 days followed by prednisone 40 mg BID (starting 11/12) to start today after stim testing completed. Patient is on low dose SSI--may need to titrate up. Glucose will be followed AC/HS. -EKG shows sinus tachycardia # Anemia -hemoglobin 8.2 g/dL on admission slowly trending down. 6.7 g/dL today -H/H less than 7 today. Transfuse 2 units PRBCs. -Nephrology ordered anemia panel -iron deficiency present thus far. Started on oral iron BID. Would have given Venofer but trying to not give her more fluid than necessary. She reports constipation. Added bowel regimen. -she reports brown stool -erythropoietin added by nephrology # elevated blood pressure -patient appears not to have any home medications for hypertension (previously on losartan however with the renal failure we will hold) -start on amlodipine 5 mg daily for BP control. -ECHO this admission shows LV systolic function hyperdynamic with EF 70%, LV diastolic dysfunction grade 1, mild pulmonary hypertension, PA pressure estimated at 43 mmHg -Blood pressures reviewed 11/08. Some improvement. #Leukocytosis - new leukocytosis 14.3-->10.6-->8.6 today - Tachycardia again today. 101 bpm. - U/A reflexed to culture. Urine is growing group B streptococcus. Started on ampicillin for 3 days. - CT scan from 11/06 which shows bilateral pleural effusions left moderate, right small and mild pulmonary edema - incentive spirometer - Blood cultures from 11/07 with no growth to date # chronic conditions -hypothyroidism: Levothyroxine -abdominal wound: wound consulted, Mepilex in place -supplements: Vitamin-C, cranberry, ergo calciferol -vertigo: P.r.n. meclizine -hyperlipidemia: Holding rosuvastatin -gout: Holding allopurinol -type 2 diabetes: Holding glipizide, sliding scale insulin, Accu-Cheks a.c. HS, hypoglycemia protocol. Last hemoglobin A1c 6.31 December 2022 Diet: Heart healthy code DVT prophylaxis: SubQ heparin Code status: Full code Disposition: Pending PT OT. Will be placed at [facility] Subjective Date/time seen: 11/10/23 06:45 Interval history: 78 year old female with acute on chronic renal baseline is usually around 1.7 however patient recent completed a course of Augmentin therapy for her psoriasis flare up. Since taking the Augmentin patient reports generalized weakness and overall not feeling well. Findings in the emergency department showed a creatinine of 5.8 possibly induced by the Augmentin Likely intrinsic renal failure nephrology has been consulted for further recommendations monitor for renal improvement, renal US pending. 11/05: Patient is seen resting in the chair in no acute distress wearing 2 L NC. She says she feels better than when she first presented. On arrival she was having nausea, dizziness, and weakness. Besides her weakness these symptoms have r
[2023-11-10] MEDS: LEVOTHYROXINE SODIUM 100 MCG TABLET PO (07:18)
[2023-11-10 08:30] LABS: Glucose Point of Care 101 mg/dl (65-105)
--- NOTE | 2023-11-10 08:30 | P.PNNP_ITS ---
Progress Note: A&P Assessment and Plan (1) RODRIGO (acute kidney injury): Code(s): N17.9 - Acute kidney failure, unspecified Status: Acute Assessment and Plan: * etiology not clear * evaluation noted: * urine electrolytes non-prerenal * urine eosinophils negative * CPK normal * renal ultrasound without obstruction * moderate proteinuria noted * on trial of IVFs * possible AIN (?) * peripheral eosinophilia noted but this has been present off and on for years * however, no rash or urine eosinophils * consider trial of steroids but with the slightly improved creatinine and also a bladder in for the risk benefit ratio is leaning toward the risk. * Because of the eosinophils I checked a cortisol level. This is 14. Will check a Cortrosyn stim test * I checked for inflammation and paraproteins. * Sed rate is very high at greater than 140. Complements are normal. The rest is still pending. * The patient has significant anemia. Bilirubin is normal. Will check stool guaiacs. Will also check haptoglobin. These are pending. * Platelet count is normal so HUS/TTP is unlikely. * Patient has a UTI. Urine grew strep. Blood cultures are negative. She is getting ampicillin for this. * At this point will treat the infection for a couple of days. * She is still making some urine * Her creatinine is worse today. * Her hemoglobin is very low. * Will talk to MARGIE Grajeda about transfusion * I would like to do a kidney biopsy tomorrow but I am concerned about everything going on. * Possibly better to transfuse blood today. * Because her white count okay, afebrile, has been on ampicillin for a few days, I think it would be okay to put her on pulse steroids and biopsy on Saturday. * Check labs in the morning (2) Chronic kidney disease, stage IV (severe): Code(s): N18.4 - Chronic kidney disease, stage 4 (severe) Status: Chronic Assessment and Plan: * baseline creatinine runs ~ 2.0 - 2.4mg/dl in the last year * presumably secondary to hypertension, diabetes, obesity, NICK, and age-related changes * follows with Dr. Weaver for CKD management (3) Hypertension: Qualifiers: Hypertension type: essential hypertension Qualified Code(s): I10 - Essential (primary) hypertension Code(s): I10 - Essential (primary) hypertension Status: Chronic Assessment and Plan: * better control noted * diuretics on hold * follow trend of hemodynamics (4) Anemia: Qualifiers: Anemia type: unspecified type Qualified Code(s): D64.9 - Anemia, unspecified Code(s): D64.9 - Anemia, unspecified Status: Chronic Assessment and Plan: * suspect related to RODRIGO, CKD, and acute illness. * Her sudden drop in hemoglobin is not explained by her kidneys. * Will check stool guaiacs. pending * iron sat is low. start venofer once UTI treated. * Will start erythropoietin to help out. 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
--- NOTE | 2023-11-10 08:30 | PM.PNNEP ---
Progress Note: A&P Assessment and Plan (1) RODRIGO (acute kidney injury): Code(s): N17.9 - Acute kidney failure, unspecified Status: Acute Assessment and Plan: etiology not clear evaluation noted: urine electrolytes non-prerenal urine eosinophils negative CPK normal renal ultrasound without obstruction moderate proteinuria noted on trial of IVFs possible AIN (?) peripheral eosinophilia noted but this has been present off and on for years however, no rash or urine eosinophils consider trial of steroids but with the slightly improved creatinine and also a bladder in for the risk benefit ratio is leaning toward the risk. Because of the eosinophils I checked a cortisol level. This is 14. Will check a Cortrosyn stim test I checked for inflammation and paraproteins. Sed rate is very high at greater than 140. Complements are normal. The rest is still pending. The patient has significant anemia. Bilirubin is normal. Will check stool guaiacs. Will also check haptoglobin. These are pending. Platelet count is normal so HUS/TTP is unlikely. Patient has a UTI. Urine grew strep. Blood cultures are negative. She is getting ampicillin for this. At this point will treat the infection for a couple of days. She is still making some urine Her creatinine is worse today. Her hemoglobin is very low. Will talk to MARGIE Grajeda about transfusion I would like to do a kidney biopsy tomorrow but I am concerned about everything going on. Possibly better to transfuse blood today. Because her white count okay, afebrile, has been on ampicillin for a few days, I think it would be okay to put her on pulse steroids and biopsy on Saturday. Check labs in the morning (2) Chronic kidney disease, stage IV (severe): Code(s): N18.4 - Chronic kidney disease, stage 4 (severe) Status: Chronic Assessment and Plan: baseline creatinine runs ~ 2.0 - 2.4mg/dl in the last year presumably secondary to hypertension, diabetes, obesity, NICK, and age-related changes follows with Dr. Weaver for CKD management (3) Hypertension: Qualifiers: Hypertension type: essential hypertension Qualified Code(s): I10 - Essential (primary) hypertension Code(s): I10 - Essential (primary) hypertension Status: Chronic Assessment and Plan: better control noted diuretics on hold follow trend of hemodynamics (4) Anemia: Qualifiers: Anemia type: unspecified type Qualified Code(s): D64.9 - Anemia, unspecified Code(s): D64.9 - Anemia, unspecified Status: Chronic Assessment and Plan: suspect related to RODRIGO, CKD, and acute illness. Her sudden drop in hemoglobin is not explained by her kidneys. Will check stool guaiacs. pending iron sat is low. start venofer once UTI treated. Will start erythropoietin to help out. 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 No chest pain or shortness of breath Sitting in chair hungry for breakfast Exam Narrative: General: large female in NAD Heart: normal S1 and S2; no rub or gallop Lungs: decreased at the bases Abdomen: soft, nontender, nondistended, positive bowel sounds Extremities: no cyanosis or clubbing; trace edema Skin: No rash or subQ not Objective Data Vital Signs Vital Signs: Vital Signs - 24 hr 11/09/23 10:14 11/09/23 13:35 11/09/23 13:3
[2023-11-10] MEDS: COSYNTROPIN 0.25 MG/ML VIAL IV PUSH (09:15)
[2023-11-10] MEDS: ASCORBIC ACID 500 MG TABLET 1000 MG PO (10:49)
[2023-11-10] MEDS: methylPREDNISolone SOD SUCC 500 MG in DEXTROSE 5% 100 ML 200 MG IVPB ×2 (10:50→23:16)
[2023-11-10] MEDS: CLOBETASOL PROPIONATE 0.05% OINT 30 GM 1 APPLIC TOPICAL ×2 (10:50→21:01)
[2023-11-10] MEDS: calcitrioL 0.25 MCG CAPSULE PO (10:50)
[2023-11-10] MEDS: HEPARIN SODIUM 5,000 UNITS/ML VIAL 5000 UNITS SUB-Q ×2 (10:50→21:01)
[2023-11-10] MEDS: PANTOPRAZOLE 40 MG TABLET PO (10:50)
[2023-11-10] MEDS: FERROUS SULFATE 325 MG TABLET DR PO ×2 (10:50→17:41)
[2023-11-10] MEDS: amLODIPine BESYLATE 5 MG TABLET PO (10:50)
[2023-11-10] MEDS: polyethylene glycoL 3350 17 GM POWD.PACK PO (11:02)
[2023-11-10] MEDS: ACETAMINOPHEN 500 MG TABLET PO (11:02)
[2023-11-10 12:19] LABS: Glucose Point of Care 200 mg/dl (65-105)
[2023-11-10 17:18] LABS: Glucose Point of Care 277 mg/dl (65-105)
[2023-11-10] MEDS: INSULIN ASPART (*BKC) 100 UNITS/ML SUB-Q ×2 (17:30→21:40)
[2023-11-10] MEDS: BUMETANIDE INJ 1 MG/4 ML VIAL IV PUSH (17:44)
[2023-11-10] MEDS: SENNA/DOCUSATE SODIUM TABLET 1 TAB PO (21:01)
[2023-11-10 21:42] LABS: Glucose Point of Care 261 mg/dl (65-105)
[2023-11-10] MEDS: MECLIZINE HCL 25 MG TABLET PO (21:43)
[2023-11-11] VITALS (17 sets, daily range): BP systolic 145–176; BP diastolic 68–87; PULSE 91–106; RESP 14–25; TEMP 36.4–36.7; O2SAT 94–99
[2023-11-11] MEDS: IPRATROPIUM 0.5 MG/ALBUTEROL SULFATE 2.5 MG AMPUL.NEB 3 ML INHALATION ×4 (02:40→20:59)
[2023-11-11 05:14] LABS: Basophils Percent Auto 0.1 % (0.2-1.2); Hematocrit 28.2 % (37.0-47.0); Immature Granulocyte Absolute 0.13 K/mm3 (0.00-0.031); Immature Granulocyte Percent A 1.7 % (0-0.5); Lymphocytes Absolute Auto 0.37 K/mm3 (0.9-3.2); Lymphocytes Percent Auto 4.7 % (18.3-44.2); Mean Corpuscular HGB Conc 31.9 g/dl (32-36); Mean Corpuscular Hemoglobin 29.9 pg (26-34); Mean Corpuscular Volume 93.7 fl (80-100); Monocytes Absolute Auto 0.1 K/mm3 (0.1-0.6); Monocytes Percent Auto 0.6 % (2.6-8.5); Neutrophils Absolute Auto 7.3 K/mm3 (1.3-6.7); Neutrophils Percent Auto 92.9 % (45.5-73.1); Platelet Count Result 212 k/mm3 (150-375); Red Blood Count 3.01 M/mm3 (4.2-5.4); Red Cell Distribution Width 15.7 % (11.5-14.5); White Blood Count 7.9 K/mm3 (4.5-10.0)
[2023-11-11 05:23] LABS: Alanine Aminotransferase 13 U/L (6-35); Albumin Level 3.4 g/dL (3.5-5.1); Alkaline Phosphatase 93 U/L (38-126); Anion Gap 12 mmol/L (4-12); Aspartate Amino Transferase 16 U/L (14-36); Bilirubin,Total 0.4 mg/dL (0.2-1.3); Blood Urea Nitrogen 59 mg/dL (7-17); Carbon Dioxide 21 mmol/L (22-30); Chloride 104 mmol/L (98-107); Estimated CRCL calculation 9 ml/min; Estimated Glomerular Filt Rate 7; Glucose 253 mg/dL (65-110); Potassium 4.2 mmol/L (3.4-5.0); Sodium 137 mmol/L (137-145)
[2023-11-11] MEDS: LEVOTHYROXINE SODIUM 100 MCG TABLET PO (06:17)
--- NOTE | 2023-11-11 07:04 | PM.IMPN ---
Progress Note: A&P Assessment and Plan (1) Acute on chronic renal insufficiency: Code(s): N28.9 - Disorder of kidney and ureter, unspecified; N18.9 - Chronic kidney disease, unspecified Status: Acute (2) Psoriasis: Code(s): L40.9 - Psoriasis, unspecified Status: Acute Plan # acute on chronic kidney disease -may be secondary to Augmentin, AIN? Steroids started 11/09 after r/o of bacteremia. 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 Nephrology has order cosyntropin stimulation test. -IV methylprednisolone 500 mg BID for 3 days followed by prednisone 40 mg BID (starting 11/12) to start today after stim testing completed. Patient is on low dose SSI--may need to titrate up. Glucose will be followed AC/HS. -Cr improving with addition of steroids!! Trend 6.1-->5.7-->5.4--5.7--> (bump after diuretics) 5.9-->5.6 # Anemia -hemoglobin 8.2 g/dL on admission slowly trending down. 9.0 g/dL today -s/p 2 units pRBC on 11/10 -Nephrology ordered anemia panel -iron deficiency present. Started on oral iron BID. Would have given Venofer but trying to not give her more fluid than necessary. She reports constipation. Added bowel regimen. -Vitamin B12 and folate normal -she reports brown stool. Occult blood ordered -erythropoietin started # elevated blood pressure -patient appears not to have any home medications for hypertension (previously on losartan however with the renal failure we will hold) -start on amlodipine 5 mg daily for BP control. Increased dose to 10 mg daily on 11/10. -ECHO this admission shows LV systolic function hyperdynamic with EF 70%, LV diastolic dysfunction grade 1, mild pulmonary hypertension, PA pressure estimated at 43 mmHg -Blood pressures reviewed 11/08. Some improvement #Leukocytosis - new leukocytosis 14.3-->10.6-->8.6 today - Tachycardia again today. 101 bpm. - U/A reflexed to culture. Urine is growing group B streptococcus. Started on ampicillin for 7 days. - CT scan from 11/06 which shows bilateral pleural effusions left moderate, right small and mild pulmonary edema - incentive spirometer - Blood cultures from 11/07 with no growth to date #Psoriasis with new Rash -New erythema to bilateral lower extremities that travels from her feet to just below her knees. Blanchable without warmth. Denies pain or itching. -Psoriasis rash to bilateral ankles/feet with right worse than left, rash to hands, and left eye. Clobetasol cream topical BID. # chronic conditions -hypothyroidism: Levothyroxine -abdominal wound: wound consulted, Mepilex in place -supplements: Vitamin-C, cranberry, ergo calciferol -vertigo: P.r.n. meclizine -hyperlipidemia: Holding rosuvastatin -gout: Holding allopurinol -type 2 diabetes: Holding glipizide, sliding scale insulin, Accu-Cheks a.c. HS, hypoglycemia protocol. Last hemoglobin A1c 6.31 December 2022 Diet: Heart healthy code DVT prophylaxis: SubQ heparin Code status: Full code Disposition: 78 year old female who presented from home with weakness and found to have acute on chronic renal failure. Nephrology has been consulted and is planning a biopsy for Friday 11/10. Possible etiologies include AIN from recent Augmentin/Allopurinol use vs autoimmune glomerular nephritis. She was started on IV steroids for 3 days to be followed by oral prednisone per nephrology. While inpatient she has received 2 units of blood for anemia. At 1 point she developed a leukocytosis with tachycardia and UA was concerning for possible infection. Urine grew group B strep for which she was started on ampicillin for 7 days. PT and OT have worked with her and her recommending SNF. Patient is agreeable to SNF at discharge. Subjective Date/ti
[2023-11-11 08:16] LABS: Glucose Point of Care 264 mg/dl (65-105)
[2023-11-11] MEDS: PANTOPRAZOLE 40 MG TABLET PO (08:24)
[2023-11-11] MEDS: FERROUS SULFATE 325 MG TABLET DR PO ×2 (08:24→16:54)
[2023-11-11] MEDS: amLODIPine BESYLATE 10 MG TABLET PO (08:24)
[2023-11-11] MEDS: polyethylene glycoL 3350 17 GM POWD.PACK PO (08:24)
[2023-11-11] MEDS: ASCORBIC ACID 500 MG TABLET 1000 MG PO (08:24)
[2023-11-11] MEDS: CLOBETASOL PROPIONATE 0.05% OINT 30 GM 1 APPLIC TOPICAL ×2 (08:24→20:41)
[2023-11-11] MEDS: calcitrioL 0.25 MCG CAPSULE PO (08:24)
[2023-11-11] MEDS: INSULIN ASPART (*BKC) 100 UNITS/ML SUB-Q ×4 (08:25→20:59)
[2023-11-11] MEDS: methylPREDNISolone SOD SUCC 500 MG in DEXTROSE 5% 100 ML 200 MG IVPB ×2 (08:36→20:43)
--- NOTE | 2023-11-11 08:46 | PC.NURSE ---
Patient refusing, states she already received this AM, yet no medication administration documented and last dose scheduled for 11/09 2099. Explained to patient that she may be confusing her night time heparin administration with this AM scheduled dose. Patient continues to refuse.
--- NOTE | 2023-11-11 10:44 | PM.PNNEP ---
Progress Note: A&P Assessment and Plan (1) RODRIGO (acute kidney injury): Code(s): N17.9 - Acute kidney failure, unspecified Status: Acute Assessment and Plan: etiology not clear evaluation noted: urine electrolytes non-prerenal urine eosinophils negative CPK normal renal ultrasound without obstruction moderate proteinuria noted no real improvement with IVFs possible AIN (?) peripheral eosinophilia noted but this has been present off and on for years however, no rash or urine eosinophils serologies pending ESR quite elevate (at > 140); complements are normal; the rest is still pending plan kidney biopsy tomorrow for definitive diagnosis follow trend of labs and UOP (2) Chronic kidney disease, stage IV (severe): Code(s): N18.4 - Chronic kidney disease, stage 4 (severe) Status: Chronic Assessment and Plan: baseline creatinine runs ~ 2.0 - 2.4mg/dl in the last year presumably secondary to hypertension, diabetes, obesity, NICK, and age-related changes follows with Dr. Weaver for CKD management (3) Hypertension: Qualifiers: Hypertension type: essential hypertension Qualified Code(s): I10 - Essential (primary) hypertension Code(s): I10 - Essential (primary) hypertension Status: Chronic Assessment and Plan: better control noted diuretics on hold follow trend of hemodynamics (4) Anemia: Qualifiers: Anemia type: unspecified type Qualified Code(s): D64.9 - Anemia, unspecified Code(s): D64.9 - Anemia, unspecified Status: Chronic Assessment and Plan: suspect related to RODRIGO, CKD, and acute illness. Her sudden drop in hemoglobin is not explained by her kidneys. Will check stool guaiacs. pending iron sat is low. start venofer once UTI treated. Will start erythropoietin to help out. I will talk with hospitalist about transfusion today (5) Type 2 diabetes mellitus: Qualifiers: Diabetes mellitus complication status: without complication Diabetes mellitus skilled nursing insulin use: without superintendent terminal use Qualified Code(s): E11.9 - Type 2 diabetes mellitus without complications Code(s): E11.9 - Type 2 diabetes mellitus without complications Status: Chronic Assessment and Plan: follow accu-cheks glycemic control per hospitalists Subjective Date/time seen: 11/11/23 10:44 Interval history: Follow-up for acute kidney injury/acute renal failure on chronic kidney disease. Chart reviewed since last seen -- no real significant improvement in renal function despite conservative therapy; noted issues/problems with anemia requiring PRBC transfusion with improvement in H/H by AM labs; started on steroids as well; continues to make good urine output; no apparent distress noted. Exam Narrative: General: large female in NAD Heart: normal S1 and S2; no rub Lungs: decreased at the bases Abdomen: soft, nontender, nondistended, positive bowel sounds Extremities: no cyanosis or clubbing; trace edema Skin: warm and intact Objective Data Vital Signs Vital Signs: Vital Signs Temp Pulse Resp BP Pulse Ox O2 Del Method O2 Flow Rate 11/11/23 08:00 106 H 11/11/23 08:00 97.6 F 102 H 14 153/87 H 97 11/11/23 07:15 96 20 11/11/23 07:05 94 18 11/11/23 07:05 94 18 96 Nasal Cannula 1 11/11/23 04:39 97.6 F 98 18 145/72 H 94 11/11/23 02:40 91 21 H 95 Autopap 11/11/23 02:47 95 23 H 11/11/23 02:40 93 21 H 11/11/23 04:00 93 11/11/23 00:03 96 11/10/23 20:00 101 H 11/10/23 20:50 100 18 93 CPAP 11/10/23 23:00 98.2 F 100 18 157/79 H 93 11/10/23 23:00 98.2 F 100 18 157/79 H 93 11/10/23 21:55 97.9 F 102 H 18 158/83 H 96 11/10/23 20:55 98.0 F 100 18 157/74 H 93 11/10/23 20:29 97.6 F 100 20 166/93 H 98 11/10/23 19:55 97.6 F 10
--- NOTE | 2023-11-11 10:44 | P.PNNP_ITS ---
Progress Note: A&P Assessment and Plan (1) RODRIGO (acute kidney injury): Code(s): N17.9 - Acute kidney failure, unspecified Status: Acute Assessment and Plan: * etiology not clear * evaluation noted: * urine electrolytes non-prerenal * urine eosinophils negative * CPK normal * renal ultrasound without obstruction * moderate proteinuria noted * no real improvement with IVFs * possible AIN (?) * peripheral eosinophilia noted but this has been present off and on for years * however, no rash or urine eosinophils * serologies pending * ESR quite elevate (at > 140); complements are normal; the rest is still pending * plan kidney biopsy tomorrow for definitive diagnosis * follow trend of labs and UOP (2) Chronic kidney disease, stage IV (severe): Code(s): N18.4 - Chronic kidney disease, stage 4 (severe) Status: Chronic Assessment and Plan: * baseline creatinine runs ~ 2.0 - 2.4mg/dl in the last year * presumably secondary to hypertension, diabetes, obesity, NICK, and age-related changes * follows with Dr. Weaver for CKD management (3) Hypertension: Qualifiers: Hypertension type: essential hypertension Qualified Code(s): I10 - Essential (primary) hypertension Code(s): I10 - Essential (primary) hypertension Status: Chronic Assessment and Plan: * better control noted * diuretics on hold * follow trend of hemodynamics (4) Anemia: Qualifiers: Anemia type: unspecified type Qualified Code(s): D64.9 - Anemia, unspecified Code(s): D64.9 - Anemia, unspecified Status: Chronic Assessment and Plan: * suspect related to RODRIGO, CKD, and acute illness. * Her sudden drop in hemoglobin is not explained by her kidneys. * Will check stool guaiacs. pending * iron sat is low. start venofer once UTI treated. * Will start erythropoietin to help out. 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 Chart reviewed since last seen -- no real significant improvement in renal function despite conservative therapy; noted issues/problems with anemia requiring PRBC transfusion with improvement in H/H by AM labs; started on steroids as well; continues to make good urine output; no apparent distress noted. Exam Narrative: General: large female in NAD Heart: normal S1 and S2; no rub Lungs: decreased at the bases Abdomen: soft, nontender, nondistended, positive bowel sounds Extremities: no cyanosis or clubbing; trace edema Skin: warm and intact Objective Data Vital Signs Vital Signs: Vital Signs Temp Pulse Resp BP Pulse Ox O2 Del Method O2 Flow Rate 11/11/23 08:00 106 H 11/11/23 08:00 97.6 F 102 H 14 153/87 H 97 11/11/23 07:15 96 20
[2023-11-11 11:50] LABS: Glucose Point of Care 359 mg/dl (65-105)
[2023-11-11] MEDS: AMPICILLIN TRIHYDRATE 500 MG CAPSULE PO (12:10)
[2023-11-11 13:33] LABS: Kappa\\Lambda Light Chains 1.37 (0.26-1.65); Lambda Light Chain 41.8 mg/L (5.7-26.3)
[2023-11-11 13:33] LABS: Creat 24 Hr 0.75 g/24 h (0.50-2.15); Pro/Creat Ratio 1759 mg/g creat (<150); Pro/Creat Ratio mg/mg 1.759 (<0.150); Protein,total, 24 Hr Ur 1326 mg/24 h (<150)
[2023-11-11] MEDS: BISACODYL 10 MG SUPPOSITORY RECTAL (15:19)
[2023-11-11 15:26] LABS: Complement Total CH50 >60 U/mL (31-60)
[2023-11-11 15:27] LABS: Haptoglobin 287 mg/dL (43-212)
[2023-11-11] MEDS: ACETAMINOPHEN 500 MG TABLET PO (16:12)
[2023-11-11] MEDS: hydrALAZINE 12.5 MG TABLET PO (16:55)
[2023-11-11 17:06] LABS: Glucose Point of Care 385 mg/dl (65-105)
[2023-11-11 19:41] LABS: Immunochemical Fecal Occult Bl Negative (N)
[2023-11-11 19:42] LABS: IFOB Positive Control Positive
[2023-11-11] MEDS: SENNA/DOCUSATE SODIUM TABLET 1 TAB PO (20:40)
[2023-11-11 21:13] LABS: Glucose Point of Care 328 mg/dl (65-105)
[2023-11-12] VITALS (17 sets, daily range): BP systolic 137–161; BP diastolic 66–73; PULSE 92–106; RESP 14–26; TEMP 36.4–36.7; O2SAT 93–98
[2023-11-12] MEDS: AMPICILLIN TRIHYDRATE 500 MG CAPSULE PO ×2 (00:35→14:57)
[2023-11-12] MEDS: IPRATROPIUM 0.5 MG/ALBUTEROL SULFATE 2.5 MG AMPUL.NEB 3 ML INHALATION ×4 (02:00→20:32)
[2023-11-12] MEDS: LEVOTHYROXINE SODIUM 100 MCG TABLET PO (06:03)
[2023-11-12 06:40] LABS: Basophils Percent Auto 0.1 % (0.2-1.2); Hematocrit 28.4 % (37.0-47.0); Hemoglobin 9.1 g/dL (12.0-15.0); Immature Granulocyte Absolute 0.31 K/mm3 (0.00-0.031); Immature Granulocyte Percent A 2.2 % (0-0.5); Lymphocytes Absolute Auto 0.52 K/mm3 (0.9-3.2); Lymphocytes Percent Auto 3.8 % (18.3-44.2); Mean Corpuscular Volume 93.7 fl (80-100); Mean Platelet Volume 10.3 fl (7.4-10.4); Monocytes Absolute Auto 0.2 K/mm3 (0.1-0.6); Monocytes Percent Auto 1.5 % (2.6-8.5); Neutrophils Absolute Auto 12.8 K/mm3 (1.3-6.7); Neutrophils Percent Auto 92.4 % (45.5-73.1); Platelet Count Result 222 k/mm3 (150-375); Red Blood Count 3.03 M/mm3 (4.2-5.4); Red Cell Distribution Width 15.7 % (11.5-14.5); White Blood Count 13.9 K/mm3 (4.5-10.0)
[2023-11-12 06:51] LABS: Alanine Aminotransferase 13 U/L (6-35); Albumin Level 3.4 g/dL (3.5-5.1); Alkaline Phosphatase 107 U/L (38-126); Anion Gap 12 mmol/L (4-12); Aspartate Amino Transferase 14 U/L (14-36); Bilirubin,Total 0.3 mg/dL (0.2-1.3); Blood Urea Nitrogen 74 mg/dL (7-17); Calcium 10.2 mg/dL (8.4-10.2); Carbon Dioxide 23 mmol/L (22-30); Chloride 100 mmol/L (98-107); Estimated CRCL calculation 9 ml/min; Estimated Glomerular Filt Rate 7; Glucose 321 mg/dL (65-110); Potassium 4.6 mmol/L (3.4-5.0); Sodium 135 mmol/L (137-145)
--- NOTE | 2023-11-12 07:08 | PM.IMPN ---
Progress Note: A&P Assessment and Plan (1) Acute on chronic renal insufficiency: Code(s): N28.9 - Disorder of kidney and ureter, unspecified; N18.9 - Chronic kidney disease, unspecified Status: Acute (2) Psoriasis: Code(s): L40.9 - Psoriasis, unspecified Status: Acute Plan # acute on chronic kidney disease -may be secondary to Augmentin, AIN? Steroids started 11/09 after r/o of bacteremia. 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 Nephrology has order cosyntropin stimulation test. -IV methylprednisolone 500 mg BID for 3 days followed by prednisone 40 mg BID (starting 11/12) to start today after stim testing completed. Patient is on low dose SSI--may need to titrate up. Glucose will be followed AC/HS. -Cr improving with addition of steroids. Trend 6.1-->5.7-->5.4--5.7--> (bump after diuretics) 5.9-->5.6-->5. -Going for renal biopsy today. Gave xanax 0.125 mg for biopsy. # Anemia -hemoglobin 8.2 g/dL on admission slowly trending down. 9.0 g/dL today -s/p 2 units pRBC on 11/10 -iron deficiency present. Started on oral iron BID. Would have given Venofer but trying to not give her more fluid than necessary. She reports constipation. Added bowel regimen. Consider IV Venofer. -Vitamin B12 and folate normal -she reports brown stool. Occult blood negative -erythropoietin started # elevated blood pressure -patient appears not to have any home medications for hypertension (previously on losartan however with the renal failure we will hold) -start on amlodipine 5 mg daily for BP control. Increased dose to 10 mg daily on 11/10. -ECHO this admission shows LV systolic function hyperdynamic with EF 70%, LV diastolic dysfunction grade 1, mild pulmonary hypertension, PA pressure estimated at 43 mmHg -Blood pressures reviewed 11/11 #Leukocytosis - leukocytosis 14.3-->10.6-->8.6-->7.6-->7.9---13.9 today related to steroids??? - NSR on , 's - U/A reflexed to culture. Urine is growing group B streptococcus. Started on ampicillin for 7 days. - CT scan from 11/06 which shows bilateral pleural effusions left moderate, right small and mild pulmonary edema - incentive spirometer - Blood cultures from 11/07 with no growth to date #Psoriasis with new Rash -New erythema to bilateral lower extremities that travels from her feet to just below her knees. Blanchable without warmth. Denies pain or itching. -Above rash resolved overnight without intervention... -Psoriasis rash to bilateral ankles/feet with right worse than left, rash to hands, and left eye. Clobetasol cream topical BID. # chronic conditions -hypothyroidism: Levothyroxine -abdominal wound: wound consulted, Mepilex in place -supplements: Vitamin-C, cranberry, ergo calciferol -vertigo: P.r.n. meclizine -hyperlipidemia: Holding rosuvastatin -gout: Holding allopurinol -type 2 diabetes: Holding glipizide, sliding scale insulin moderate dosing, Accu-Cheks a.c. HS, hypoglycemia protocol. Last hemoglobin A1c 6.31 December 2022 Diet: Heart healthy code DVT prophylaxis: SubQ heparin Code status: Full code Disposition: 78 year old female who presented from home with weakness and found to have acute on chronic renal failure. Nephrology has been consulted and is planning a biopsy for Friday 11/10. Possible etiologies include AIN from recent Augmentin/Allopurinol use vs autoimmune glomerular nephritis. She was started on IV steroids for 3 days to be followed by oral prednisone per nephrology. While inpatient she has received 2 units of blood for anemia, also found to be iron deficient. At 1 point she developed a leukocytosis with tachycardia and UA was concerning for possible infection. Urine grew group B strep for which she w
[2023-11-12 08:04] LABS: Anisocytosis 2+; Platelet Estimate Adequate (Adequate); Schistocytes None Seen
[2023-11-12 08:13] LABS: Glucose Point of Care 309 mg/dl (65-105)
[2023-11-12] MEDS: hydrALAZINE HCL 25 MG TABLET 75 MG PO (08:43)
[2023-11-12] MEDS: FERROUS SULFATE 325 MG TABLET DR PO ×2 (08:43→17:06)
[2023-11-12] MEDS: amLODIPine BESYLATE 10 MG TABLET PO (08:43)
[2023-11-12] MEDS: PANTOPRAZOLE 40 MG TABLET PO (08:43)
[2023-11-12] MEDS: calcitrioL 0.25 MCG CAPSULE PO (08:43)
[2023-11-12] MEDS: ASCORBIC ACID 500 MG TABLET 1000 MG PO (08:43)
[2023-11-12] MEDS: EPOETIN ALFA-EPBX 10,000 UNITS/ML VIAL 10000 UNITS SUB-Q (08:44)
[2023-11-12] MEDS: CLOBETASOL PROPIONATE 0.05% OINT 30 GM 1 APPLIC TOPICAL ×2 (08:44→19:42)
[2023-11-12] MEDS: methylPREDNISolone SOD SUCC 500 MG in DEXTROSE 5% 100 ML 200 MG IVPB ×2 (08:44→19:41)
--- NOTE | 2023-11-12 11:14 | PCNWS ---
Weekly nutritional screen. Patient is tolerating current diet with adequate intake 75-100%. No weight loss reported. No nutritional needs at this time.
--- NOTE | 2023-11-12 11:26 | P.PNNP_ITS ---
Progress Note: A&P Assessment and Plan (1) RODRIGO (acute kidney injury): Code(s): N17.9 - Acute kidney failure, unspecified Status: Acute Assessment and Plan: * etiology not clear * evaluation noted: * urine electrolytes non-prerenal * urine eosinophils negative * CPK normal * renal ultrasound without obstruction * moderate proteinuria noted * no real improvement with IVFs * possible AIN (?) * peripheral eosinophilia noted but this has been present off and on for years * however, no rash or urine eosinophils * serologies pending * ESR quite elevate (at > 140); complements are normal; the rest is still pending * plan kidney biopsy today for definitive diagnosis * follow trend of labs and UOP (2) Chronic kidney disease, stage IV (severe): Code(s): N18.4 - Chronic kidney disease, stage 4 (severe) Status: Chronic Assessment and Plan: * baseline creatinine runs ~ 2.0 - 2.4mg/dl in the last year * presumably secondary to hypertension, diabetes, obesity, NICK, and age-related changes * follows with Dr. Weaver for CKD management (3) Hypertension: Qualifiers: Hypertension type: essential hypertension Qualified Code(s): I10 - Essential (primary) hypertension Code(s): I10 - Essential (primary) hypertension Status: Chronic Assessment and Plan: * better control noted * diuretics on hold * follow trend of hemodynamics (4) Anemia: Qualifiers: Anemia type: unspecified type Qualified Code(s): D64.9 - Anemia, unspecified Code(s): D64.9 - Anemia, unspecified Status: Chronic Assessment and Plan: * suspect related to RODRIGO, CKD, and acute illness. * however, her previous sudden drop in hemoglobin is not explained by her kidneys * start venofer once UTI treatment completed * on Epogen * follow trend of H/H (5) Type 2 diabetes mellitus: Qualifiers: Diabetes mellitus assisted insulin use: without watermelon inspector use Diabetes mellitus complication status: without complication Qualified Code(s): E11.9 - Type 2 diabetes mellitus without complications Code(s): E11.9 - Type 2 diabetes mellitus without complications Status: Chronic Assessment and Plan: * follow accu-cheks * glycemic control per hospitalists Will continue to follow. Subjective Date/time seen: 11/12/23 11:26 Interval history: Follow-up for acute kidney injury/acute renal failure on chronic kidney disease. No apparent issues or problems noted at the time of my visit; overall, feels reasonably well; renal function remains unchanged at this time and in comparison to admission; tentatively on schedule for renal biopsy today. Exam Narrative: General: large female in NAD Heart: normal S1 and S2; no rub Lungs: decreased at the bases Abdomen: soft, nontender, nondistended, positive bowel sounds Extremities: no cyanosis or clubbing; trace edema Skin: no rash Objective Data Vital Signs Vital Signs: Vital Signs Temp Pulse Resp BP Pulse Ox O2 Del Method FiO2 11/12/23 08:00 98.1 F 100 14 153/69 H 98 11/12/23 08:38 96 20 11/12/23 08:27 92 20 11/12/23 08:27 93 Room Air 11/12/23 04:00 92 11/12/23 05:51 97.6 F 95 16 155/72 H 98 11/12/23 02:07 93 26 H
--- NOTE | 2023-11-12 11:26 | PM.PNNEP ---
Progress Note: A&P Assessment and Plan (1) RODRIGO (acute kidney injury): Code(s): N17.9 - Acute kidney failure, unspecified Status: Acute Assessment and Plan: etiology not clear evaluation noted: urine electrolytes non-prerenal urine eosinophils negative CPK normal renal ultrasound without obstruction moderate proteinuria noted no real improvement with IVFs possible AIN (?) peripheral eosinophilia noted but this has been present off and on for years however, no rash or urine eosinophils serologies pending ESR quite elevate (at > 140); complements are normal; the rest is still pending plan kidney biopsy today for definitive diagnosis follow trend of labs and UOP (2) Chronic kidney disease, stage IV (severe): Code(s): N18.4 - Chronic kidney disease, stage 4 (severe) Status: Chronic Assessment and Plan: baseline creatinine runs ~ 2.0 - 2.4mg/dl in the last year presumably secondary to hypertension, diabetes, obesity, NICK, and age-related changes follows with Dr. Weaver for CKD management (3) Hypertension: Qualifiers: Hypertension type: essential hypertension Qualified Code(s): I10 - Essential (primary) hypertension Code(s): I10 - Essential (primary) hypertension Status: Chronic Assessment and Plan: better control noted diuretics on hold follow trend of hemodynamics (4) Anemia: Qualifiers: Anemia type: unspecified type Qualified Code(s): D64.9 - Anemia, unspecified Code(s): D64.9 - Anemia, unspecified Status: Chronic Assessment and Plan: suspect related to RODRIGO, CKD, and acute illness. 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 Subjective Date/time seen: 11/12/23 11:26 Interval history: Follow-up for acute kidney injury/acute renal failure on chronic kidney disease. No apparent issues or problems noted at the time of my visit; overall, feels reasonably well; renal function remains unchanged at this time and in comparison to admission; tentatively on schedule for renal biopsy today. Exam Narrative: General: large female in NAD Heart: normal S1 and S2; no rub Lungs: decreased at the bases Abdomen: soft, nontender, nondistended, positive bowel sounds Extremities: no cyanosis or clubbing; trace edema Skin: no rash Objective Data Vital Signs Vital Signs: Vital Signs Temp Pulse Resp BP Pulse Ox O2 Del Method FiO2 11/12/23 08:00 98.1 F 100 14 153/69 H 98 11/12/23 08:38 96 20 11/12/23 08:27 92 20 11/12/23 08:27 93 Room Air 11/12/23 04:00 92 11/12/23 05:51 97.6 F 95 16 155/72 H 98 11/12/23 02:07 93 26 H 11/12/23 02:00 94 25 H 11/12/23 00:00 99 24 H 97 Autopap 11/12/23 00:55 97.6 F 100 20 161/73 H 95 11/12/23 00:00 98 11/11/23 22:00 98.1 F 99 18 164/68 H 99 11/11/23 20:00 106 H 11/11/23 20:00 103 H 25 H 95 Autopap 28 11/11/23 21:32 103 H 25 H 95 Autopap 11/11/23 21:06 98 22 H 11/11/23 21:00 99 22 H 11/11/23 21:00 96 Room Air 11/11/23 16:00 98.1 F 105 H 16 176/78 H 98 11/11/23 16:00 104 H 11/11/23 13:15 93 20 11/11/23 13:05 94 20 Intake/Output Intake/Output: Intake & Output 11/09/23 11/10/23 11/11/23 11/12/23
[2023-11-12 12:54] LABS: ANCA Screen NEGATIVE (NEGATIVE)
[2023-11-12 14:48] LABS: Albumin 18 %
[2023-11-12] MEDS: ACETAMINOPHEN 500 MG TABLET PO (14:57)
[2023-11-12 14:59] LABS: Anti Glomerular Basement Memb <1.0 AI
[2023-11-12] MEDS: INSULIN ASPART (*BKC) 100 UNITS/ML SUB-Q (17:06)
[2023-11-12] MEDS: hydrALAZINE HCL 50 MG TABLET PO (17:07)
[2023-11-12 17:45] LABS: Glucose Point of Care 349 mg/dl (65-105)
[2023-11-12] MEDS: SENNA/DOCUSATE SODIUM TABLET 1 TAB PO (19:42)
[2023-11-12 20:38] LABS: Glucose Point of Care 388 mg/dl (65-105)
[2023-11-13] VITALS (18 sets, daily range): BP systolic 124–160; BP diastolic 52–79; PULSE 83–101; RESP 18–25; TEMP 35.6–36.8; O2SAT 93–100
[2023-11-13] MEDS: IPRATROPIUM 0.5 MG/ALBUTEROL SULFATE 2.5 MG AMPUL.NEB 3 ML INHALATION ×4 (02:12→21:19)
[2023-11-13] MEDS: AMPICILLIN TRIHYDRATE 500 MG CAPSULE PO ×3 (02:20→23:55)
[2023-11-13] MEDS: LEVOTHYROXINE SODIUM 100 MCG TABLET PO (04:59)
[2023-11-13 06:08] LABS: Basophils Percent Auto 0.1 % (0.2-1.2); Hematocrit 29.2 % (37.0-47.0); Hemoglobin 9.5 g/dL (12.0-15.0); Immature Granulocyte Absolute 0.57 K/mm3 (0.00-0.031); Immature Granulocyte Percent A 3.6 % (0-0.5); Lymphocytes Absolute Auto 0.53 K/mm3 (0.9-3.2); Lymphocytes Percent Auto 3.3 % (18.3-44.2); Mean Corpuscular HGB Conc 32.5 g/dl (32-36); Mean Corpuscular Hemoglobin 30.4 pg (26-34); Mean Corpuscular Volume 93.6 fl (80-100); Mean Platelet Volume 10.2 fl (7.4-10.4); Monocytes Absolute Auto 0.2 K/mm3 (0.1-0.6); Monocytes Percent Auto 1.3 % (2.6-8.5); Neutrophils Absolute Auto 14.6 K/mm3 (1.3-6.7); Neutrophils Percent Auto 91.7 % (45.5-73.1); Platelet Count Result 281 k/mm3 (150-375); Red Blood Count 3.12 M/mm3 (4.2-5.4); Red Cell Distribution Width 15.8 % (11.5-14.5); White Blood Count 15.9 K/mm3 (4.5-10.0)
[2023-11-13 06:17] LABS: Alanine Aminotransferase 14 U/L (6-35); Albumin Level 3.5 g/dL (3.5-5.1); Alkaline Phosphatase 124 U/L (38-126); Anion Gap 13 mmol/L (4-12); Aspartate Amino Transferase 14 U/L (14-36); Bilirubin,Total 0.3 mg/dL (0.2-1.3); Blood Urea Nitrogen 85 mg/dL (7-17); Calcium 10.4 mg/dL (8.4-10.2); Carbon Dioxide 22 mmol/L (22-30); Chloride 99 mmol/L (98-107); Estimated CRCL calculation 8 ml/min; Estimated Glomerular Filt Rate 7; Glucose 389 mg/dL (65-110); Magnesium 2.8 mg/dL (1.6-2.3); Phosphorus 5.5 mg/dL (2.5-4.5); Potassium 4.7 mmol/L (3.4-5.0); Sodium 134 mmol/L (137-145)
--- NOTE | 2023-11-13 07:55 | P.PNIM_ITS ---
Progress Note: A&P Assessment and Plan (1) Acute on chronic renal insufficiency: Code(s): N28.9 - Disorder of kidney and ureter, unspecified; N18.9 - Chronic kidney disease, unspecified Status: Acute (2) Psoriasis: Code(s): L40.9 - Psoriasis, unspecified Status: Acute (3) Anemia: Qualifiers: Anemia type: unspecified type Qualified Code(s): D64.9 - Anemia, unspecified Code(s): D64.9 - Anemia, unspecified Status: Chronic (4) Hypothyroidism: Qualifiers: Hypothyroidism type: unspecified Qualified Code(s): E03.9 - Hypothyroidism, unspecified Code(s): E03.9 - Hypothyroidism, unspecified Status: Acute (5) Hyperlipidemia: Code(s): E78.5 - Hyperlipidemia, unspecified Status: Acute (6) Hypertension: Qualifiers: Hypertension type: essential hypertension Qualified Code(s): I10 - Essential (primary) hypertension Code(s): I10 - Essential (primary) hypertension Status: Chronic (7) Type 2 diabetes mellitus: Qualifiers: Diabetes mellitus [facility] insulin use: without [facility] use Diabetes mellitus complication status: without complication Qualified Code(s): E11.9 - Type 2 diabetes mellitus without complications Code(s): E11.9 - Type 2 diabetes mellitus without complications Status: Chronic Plan Acute on chronic kidney disease Stage IV * may be secondary to Augmentin, AIN? Steroids started 11/09 after r/o of bacteremia. 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 Nephrology has order cosyntropin stimulation test. * IV methylprednisolone 500 mg BID for 3 days followed by prednisone 40 mg BID (starting 11/12) to start today after stim testing completed. Patient is on low dose SSI--may need to titrate up. Glucose will be followed AC/HS. * Cr improving with addition of steroids. Trend 6.1-->5.7-->5.4--5.7--> (bump after diuretics) 5.9-->5.6-->5. * Going for renal biopsy today. Gave xanax 0.125 mg for biopsy. 11/13/2023: * CR trending flat 5.9 today * kidney biopsy pending Anemia * hemoglobin 8.2 g/dL on admission slowly trending down. 9.0 g/dL today * s/p 2 units pRBC on 11/10 * iron deficiency present. Started on oral iron BID. Would have given Venofer but trying to not give her more fluid than necessary. She reports constipation. Added bowel regimen. Consider IV Venofer. * Vitamin B12 and folate normal * she reports brown stool. Occult blood negative * erythropoietin started Hypertension * patient appears not to have any home medications for hypertension (previously on losartan however with the renal failure we will hold) * start on amlodipine 5 mg daily for BP control. Increased dose to 10 mg daily on 11/10. * ECHO this admission shows LV systolic function hyperdynamic with EF 70%, LV diastolic dysfunction grade 1, mild pulmonary hypertension, PA pressure estimated at 43 mmHg * Blood pressures reviewed 11/11 Leukocytosis * leukocytosis 14.3-->10.6-->8.6-->7.6-->7.9---13.9 today related to steroids??? * NSR on , 90's * U/A reflexed to culture. Urine is growing group B streptococcus. Started on ampicillin for 7 days. * CT scan from 11/06 which shows bilateral pleural effusions left moderate, right small and mild pulmonary edema * incentive spi
--- NOTE | 2023-11-13 07:55 | PM.IMPN ---
Progress Note: A&P Assessment and Plan (1) Acute on chronic renal insufficiency: Code(s): N28.9 - Disorder of kidney and ureter, unspecified; N18.9 - Chronic kidney disease, unspecified Status: Acute (2) Psoriasis: Code(s): L40.9 - Psoriasis, unspecified Status: Acute (3) Anemia: Qualifiers: Anemia type: unspecified type Qualified Code(s): D64.9 - Anemia, unspecified Code(s): D64.9 - Anemia, unspecified Status: Chronic (4) Hypothyroidism: Qualifiers: Hypothyroidism type: unspecified Qualified Code(s): E03.9 - Hypothyroidism, unspecified Code(s): E03.9 - Hypothyroidism, unspecified Status: Acute (5) Hyperlipidemia: Code(s): E78.5 - Hyperlipidemia, unspecified Status: Acute (6) Hypertension: Qualifiers: Hypertension type: essential hypertension Qualified Code(s): I10 - Essential (primary) hypertension Code(s): I10 - Essential (primary) hypertension Status: Chronic (7) Type 2 diabetes mellitus: Qualifiers: Diabetes mellitus [facility] insulin use: without [facility] use Diabetes mellitus complication status: without complication Qualified Code(s): E11.9 - Type 2 diabetes mellitus without complications Code(s): E11.9 - Type 2 diabetes mellitus without complications Status: Chronic Plan Acute on chronic kidney disease Stage IV may be secondary to Augmentin, AIN? Steroids started 11/09 after r/o of bacteremia. 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 Nephrology has order cosyntropin stimulation test. IV methylprednisolone 500 mg BID for 3 days followed by prednisone 40 mg BID (starting 11/12) to start today after stim testing completed. Patient is on low dose SSI--may need to titrate up. Glucose will be followed AC/HS. Cr improving with addition of steroids. Trend 6.1-->5.7-->5.4--5.7--> (bump after diuretics) 5.9-->5.6-->5. Going for renal biopsy today. Gave xanax 0.125 mg for biopsy. 11/13/2023: CR trending flat 5.9 today kidney biopsy pending Anemia hemoglobin 8.2 g/dL on admission slowly trending down. 9.0 g/dL today s/p 2 units pRBC on 11/10 iron deficiency present. Started on oral iron BID. Would have given Venofer but trying to not give her more fluid than necessary. She reports constipation. Added bowel regimen. Consider IV Venofer. Vitamin B12 and folate normal she reports brown stool. Occult blood negative erythropoietin started Hypertension patient appears not to have any home medications for hypertension (previously on losartan however with the renal failure we will hold) start on amlodipine 5 mg daily for BP control. Increased dose to 10 mg daily on 11/10. ECHO this admission shows LV systolic function hyperdynamic with EF 70%, LV diastolic dysfunction grade 1, mild pulmonary hypertension, PA pressure estimated at 43 mmHg Blood pressures reviewed 11/11 Leukocytosis leukocytosis 14.3-->10.6-->8.6-->7.6-->7.9---13.9 today related to steroids??? NSR on tele, 90's U/A reflexed to culture. Urine is growing group B streptococcus. Started on ampicillin for [address] scan from 11/06 which shows bilateral pleural effusions left moderate, right small and mild pulmonary edema incentive spirometer Blood cultures from 11/07 with no growth to date 11/13/2023 15.9 Psoriasis with new Rash New erythema to bilateral lower extremities that travels from her feet to just below her knees. Blanchable without warmth. Denies pain or itching. Above rash resolved overnight without intervention... Psoriasis rash to bilateral ankles/feet with right worse than left, rash to hands, and left eye. Clobetasol cream topical BID.
[2023-11-13 08:08] LABS: Glucose Point of Care 393 mg/dl (65-105)
[2023-11-13] MEDS: ASCORBIC ACID 500 MG TABLET 1000 MG PO (08:38)
[2023-11-13] MEDS: calcitrioL 0.25 MCG CAPSULE PO (08:38)
[2023-11-13] MEDS: PANTOPRAZOLE 40 MG TABLET PO (08:39)
[2023-11-13] MEDS: hydrALAZINE HCL 50 MG TABLET PO ×2 (08:39→17:19)
[2023-11-13] MEDS: amLODIPine BESYLATE 10 MG TABLET PO (08:39)
[2023-11-13] MEDS: CLOBETASOL PROPIONATE 0.05% OINT 30 GM 1 APPLIC TOPICAL (08:39)
[2023-11-13] MEDS: predniSONE 20 MG TABLET 40 MG PO ×2 (08:39→17:19)
[2023-11-13] MEDS: polyethylene glycoL 3350 17 GM POWD.PACK PO (08:40)
[2023-11-13] MEDS: INSULIN ASPART (*BKC) 100 UNITS/ML SUB-Q ×4 (08:40→21:54)
--- NOTE | 2023-11-13 11:06 | PC.NURSE ---
Mine Supervisor spoke with Billie Ellis APRN clarified if provider wants Ford Catheter D/C per nurse driven as order provider request Catheter to remain in place until further notice.
--- NOTE | 2023-11-13 12:00 | PCPTNOTE ---
Attempted to see patient at this time, however patient states I feel as weak as a kitten. That biopsy really wiped me out. Patient requested PT return later. PT will continue to follow per plan of care.
[2023-11-13 12:23] LABS: Glucose Point of Care 396 mg/dl (65-105)
--- NOTE | 2023-11-13 13:37 | PM.PNNEP ---
Progress Note: A&P Assessment and Plan (1) RODRIGO (acute kidney injury): Code(s): N17.9 - Acute kidney failure, unspecified Status: Acute Assessment and Plan: etiology not clear evaluation noted: urine electrolytes non-prerenal urine eosinophils negative CPK normal renal ultrasound without obstruction moderate proteinuria noted no real improvement with IVFs possible AIN (?) peripheral eosinophilia noted but this has been present off and on for years however, no rash or urine eosinophils serologies pending ESR quite elevate (at > 140); complements are normal; the rest is still pending s/p kidney biopsy yesterday for definitive diagnosis - hopefully some preliminary results today follow trend of labs and UOP (2) Chronic kidney disease, stage IV (severe): Code(s): N18.4 - Chronic kidney disease, stage 4 (severe) Status: Chronic Assessment and Plan: baseline creatinine runs ~ 2.0 - 2.4mg/dl in the last year presumably secondary to hypertension, diabetes, obesity, NICK, and age-related changes follows with Dr. Weaver for CKD management (3) Hypertension: Qualifiers: Hypertension type: essential hypertension Qualified Code(s): I10 - Essential (primary) hypertension Code(s): I10 - Essential (primary) hypertension Status: Chronic Assessment and Plan: better control noted diuretics on hold follow trend of hemodynamics (4) Anemia: Qualifiers: Anemia type: unspecified type Qualified Code(s): D64.9 - Anemia, unspecified Code(s): D64.9 - Anemia, unspecified Status: Chronic Assessment and Plan: suspect related to RODRIGO, CKD, and acute illness. however, her previous sudden drop in hemoglobin is not explained by her kidneys start venofer once UTI treatment completed on Epogen follow trend of H/H (5) Type 2 diabetes mellitus: Qualifiers: Diabetes mellitus custodial insulin use: without mechanical spreader operator use Diabetes mellitus complication status: without complication Qualified Code(s): E11.9 - Type 2 diabetes mellitus without complications Code(s): E11.9 - Type 2 diabetes mellitus without complications Status: Chronic Assessment and Plan: follow accu-cheks glycemic control per hospitalists Will continue to follow. Subjective Date/time seen: 11/13/23 13:37 Interval history: Follow-up for acute kidney injury/acute renal failure on chronic kidney disease. Renal function/creatinine remains the same; tolerated renal biopsy yesterday without any issues or problems; no apparent distress on my visit with her today -- sitting up in chair watching TV when seen; no events overnight or earlier this morning. Exam Narrative: General: large female in NAD Heart: normal S1 and S2; no rub Lungs: decreased at the bases Abdomen: soft, nontender, nondistended, positive bowel sounds Extremities: no cyanosis or clubbing; trace edema Skin: no rash Objective Data Vital Signs Vital Signs: Vital Signs Temp Pulse Resp BP Pulse Ox O2 Del Method O2 Flow Rate 11/13/23 13:34 97 20 97 Room Air 11/13/23 12:00 90 11/13/23 12:00 98.1 F 88 18 133/56 L 95 11/13/23 08:00 85 11/13/23 08:40 100 Room Air 11/13/23 08:00 96.1 F L 98 18 124/56 L 100 11/13/23 08:02 83 24 H 11/13/23 07:56 88 22 H 11/13/23 07:56 88 22 H 96 CPAP 1 11/13/23 07:56 88 22 H 96 CPAP 11/13/23 04:00 97.5 F L 91 22 H 137/71 97 11/13/23 04:00 89 11/13/23 00:00 97 11/13/23 02:21 91 21 H 11/13/23 02:13 93 23 H 11/12/23 20:42 102 H 20 11/13/23 00:00 93 23 H 93 CPAP 11/13/23 00:00 98.2 F 99 20 160/79 H 95 11/12/23 21:00 100 26 H 95 CPAP 11/12/23 20:00 106 H 11/12/23 20:00 102 H 20 95 Room Air 11/12/23 20:00 97.6 F 100 20 157/66 H 96
--- NOTE | 2023-11-13 13:37 | P.PNNP_ITS ---
Progress Note: A&P Assessment and Plan (1) RODRIGO (acute kidney injury): Code(s): N17.9 - Acute kidney failure, unspecified Status: Acute Assessment and Plan: * etiology not clear * evaluation noted: * urine electrolytes non-prerenal * urine eosinophils negative * CPK normal * renal ultrasound without obstruction * moderate proteinuria noted * no real improvement with IVFs * possible AIN (?) * peripheral eosinophilia noted but this has been present off and on for years * however, no rash or urine eosinophils * serologies pending * ESR quite elevate (at > 140); complements are normal; the rest is still pending * s/p kidney biopsy yesterday for definitive diagnosis - hopefully some preliminary results today * follow trend of labs and UOP (2) Chronic kidney disease, stage IV (severe): Code(s): N18.4 - Chronic kidney disease, stage 4 (severe) Status: Chronic Assessment and Plan: * baseline creatinine runs ~ 2.0 - 2.4mg/dl in the last year * presumably secondary to hypertension, diabetes, obesity, NICK, and age-related changes * follows with Dr. Weaver for CKD management (3) Hypertension: Qualifiers: Hypertension type: essential hypertension Qualified Code(s): I10 - Essential (primary) hypertension Code(s): I10 - Essential (primary) hypertension Status: Chronic Assessment and Plan: * better control noted * diuretics on hold * follow trend of hemodynamics (4) Anemia: Qualifiers: Anemia type: unspecified type Qualified Code(s): D64.9 - Anemia, unspecified Code(s): D64.9 - Anemia, unspecified Status: Chronic Assessment and Plan: * suspect related to RODRIGO, CKD, and acute illness. * however, her previous sudden drop in hemoglobin is not explained by her kidneys * start venofer once UTI treatment completed * on Epogen * follow trend of H/H (5) Type 2 diabetes mellitus: Qualifiers: Diabetes mellitus watermelon inspector insulin use: without watermelon inspector use Diabetes mellitus complication status: without complication Qualified Code(s): E11.9 - Type 2 diabetes mellitus without complications Code(s): E11.9 - Type 2 diabetes mellitus without complications Status: Chronic Assessment and Plan: * follow accu-cheks * glycemic control per hospitalists Will continue to follow. Subjective Date/time seen: 11/13/23 13:37 Interval history: Follow-up for acute kidney injury/acute renal failure on chronic kidney disease. Renal function/creatinine remains the same; tolerated renal biopsy yesterday without any issues or problems; no apparent distress on my visit with her today -- sitting up in chair watching TV when seen; no events overnight or earlier this morning. Exam Narrative: General: large female in NAD Heart: normal S1 and S2; no rub Lungs: decreased at the bases Abdomen: soft, nontender, nondistended, positive bowel sounds Extremities: no cyanosis or clubbing; trace edema Skin: no rash Objective Data Vital Signs Vital Signs: Vital Signs Temp Pulse Resp BP Pulse Ox O2 Del Method O2 Flow Rate 11/13/23 13:34 97 20 97 Room Air 11/13/23 12:00 90 11/13/23 12:00 98.1 F 88 18 133/56 L 95 11/13/23 08:00 85 11/13/23 08:40 100 Room Air
--- NOTE | 2023-11-13 15:30 | P.PNCROSS_ITS ---
Event Note Event Note Event Note: Preliminary renal biopsy results: * advanced diabetic nephrosclerosis * signifiant vascular disease noted as well * ~ 70% interstitial fibrosis and tubular atrophy * no evidnence of any acute disease process Findings discussed with patient -- she will likely need LURER/dialysis fairly soon but no immediate need at this time. She will need to follow-up with Dr. Weaver (primary machine burrer) to discuss the issuesof renal replacement therapy/dialysis as well as modality options (PD versus incenter HD versus HHD...etc).
--- NOTE | 2023-11-13 15:30 | PM.EVENT ---
Event Note Event Note Event Note: Preliminary renal biopsy results: advanced diabetic nephrosclerosis signifiant vascular disease noted as well ~ 70% interstitial fibrosis and tubular atrophy no evidnence of any acute disease process Findings discussed with patient -- she will likely need REAR ADMIRAL/dialysis fairly soon but no immediate need at this time. She will need to follow-up with Dr. Weaver (primary grave cleaner) to discuss the issuesof renal replacement therapy/dialysis as well as modality options (PD versus incenter HD versus HHD...etc).
[2023-11-13 17:03] LABS: Glucose Point of Care 421 mg/dl (65-105)
[2023-11-13] MEDS: INSULIN ASPART (*BKC) 100 UNITS/ML 6 UNITS SUB-Q (17:18)
[2023-11-13 19:23] LABS: Immunofixation, Serum Normal pattern.
[2023-11-13 20:38] LABS: Glucose Point of Care 385 mg/dl (65-105)
[2023-11-13] MEDS: MECLIZINE HCL 25 MG TABLET PO (21:53)
[2023-11-13] MEDS: SENNA/DOCUSATE SODIUM TABLET 1 TAB PO (21:54)
[2023-11-14] VITALS (15 sets, daily range): BP systolic 124–146; BP diastolic 50–65; PULSE 87–99; RESP 16–26; TEMP 35.9–36.8; O2SAT 96–100
[2023-11-14] MEDS: WATER FOR IRRIGATION, STERILE 1,000 ML BOTTLE 1000 ML (01:55)
[2023-11-14] MEDS: IPRATROPIUM 0.5 MG/ALBUTEROL SULFATE 2.5 MG AMPUL.NEB 3 ML INHALATION ×4 (02:30→20:52)
[2023-11-14 05:35] LABS: Basophils Percent Auto 0.2 % (0.2-1.2); Eosinophils Percent Auto 0.1 % (0-4.4); Hematocrit 28.1 % (37.0-47.0); Hemoglobin 8.9 g/dL (12.0-15.0); Immature Granulocyte Absolute 0.89 K/mm3 (0.00-0.031); Immature Granulocyte Percent A 4.8 % (0-0.5); Immature Platelet Fraction Pct 3.2 % (0.9-11.2); Lymphocytes Absolute Auto 0.61 K/mm3 (0.9-3.2); Lymphocytes Percent Auto 3.3 % (18.3-44.2); Mean Corpuscular HGB Conc 31.7 g/dl (32-36); Mean Corpuscular Hemoglobin 30.1 pg (26-34); Mean Corpuscular Volume 94.9 fl (80-100); Mean Platelet Volume 11.1 fl (7.4-10.4); Monocytes Absolute Auto 0.7 K/mm3 (0.1-0.6); Monocytes Percent Auto 3.8 % (2.6-8.5); Neutrophils Absolute Auto 16.3 K/mm3 (1.3-6.7); Neutrophils Percent Auto 87.8 % (45.5-73.1); Platelet Count Result 248 k/mm3 (150-375); Red Blood Count 2.96 M/mm3 (4.2-5.4); Red Cell Distribution Width 15.7 % (11.5-14.5); White Blood Count 18.5 K/mm3 (4.5-10.0)
[2023-11-14 06:09] LABS: Alanine Aminotransferase 14 U/L (6-35); Albumin Level 3.1 g/dL (3.5-5.1); Alkaline Phosphatase 138 U/L (38-126); Anion Gap 15 mmol/L (4-12); Aspartate Amino Transferase 16 U/L (14-36); Bilirubin,Total 0.4 mg/dL (0.2-1.3); Blood Urea Nitrogen 102 mg/dL (7-17); Calcium 9.7 mg/dL (8.4-10.2); Carbon Dioxide 18 mmol/L (22-30); Chloride 100 mmol/L (98-107); Estimated CRCL calculation 9 ml/min; Estimated Glomerular Filt Rate 7; Glucose 369 mg/dL (65-110); Magnesium 2.7 mg/dL (1.6-2.3); Phosphorus 5.7 mg/dL (2.5-4.5); Potassium 5.3 mmol/L (3.4-5.0); Sodium 133 mmol/L (137-145)
[2023-11-14] MEDS: LEVOTHYROXINE SODIUM 100 MCG TABLET PO (06:34)
[2023-11-14 06:43] LABS: Anisocytosis 1+; Ovalocytes 1+; Platelet Estimate Adequate (Adequate); Schistocytes None Seen
--- NOTE | 2023-11-14 07:53 | P.PNIM_ITS ---
Progress Note: A&P Assessment and Plan (1) Acute on chronic renal insufficiency: Code(s): N28.9 - Disorder of kidney and ureter, unspecified; N18.9 - Chronic kidney disease, unspecified Status: Acute (2) Psoriasis: Code(s): L40.9 - Psoriasis, unspecified Status: Acute (3) Anemia: Qualifiers: Anemia type: unspecified type Qualified Code(s): D64.9 - Anemia, unspecified Code(s): D64.9 - Anemia, unspecified Status: Chronic (4) Hypothyroidism: Qualifiers: Hypothyroidism type: unspecified Qualified Code(s): E03.9 - Hypothyroidism, unspecified Code(s): E03.9 - Hypothyroidism, unspecified Status: Acute (5) Hyperlipidemia: Code(s): E78.5 - Hyperlipidemia, unspecified Status: Acute (6) Hypertension: Qualifiers: Hypertension type: essential hypertension Qualified Code(s): I10 - Essential (primary) hypertension Code(s): I10 - Essential (primary) hypertension Status: Chronic (7) Type 2 diabetes mellitus: Qualifiers: Diabetes mellitus complication status: without complication Diabetes mellitus continuous churn buttermaker insulin use: without continuous churn buttermaker use Qualified Code(s): E11.9 - Type 2 diabetes mellitus without complications Code(s): E11.9 - Type 2 diabetes mellitus without complications Status: Chronic Plan Acute on chronic kidney disease Stage IV * may be secondary to Augmentin, AIN? Steroids started 11/09 after r/o of bacteremia. * consulting office clerk routine * checking urine osmolarity, serum osmolarity, urine sodium, serum sodium * patient is on calcitriol * negative procalcitonin, negative lactic * Ford catheter for strict I&O * UOP for 11/10 was 800 ml total * serologies ordered by nephro * random cortisol 14. Nephrology has order cosyntropin stimulation test. * IV methylprednisolone 500 mg BID for 3 days followed by prednisone 40 mg BID (starting 11/12) to start today after stim testing completed. Patient is on low dose SSI--may need to titrate up. Glucose will be followed AC/HS. * Cr improving with addition of steroids. Trend 6.1-->5.7-->5.4--5.7--> (bump after diuretics) 5.9-->5.6-->5. * Going for renal biopsy today. Gave xanax 0.125 mg for biopsy. 11/13/2023: * CR trending flat 5.9 today * kidney biopsy pending 11/14/2023 * Prelim: advanced diabetic nephrosclerosis * K 5.3 lokelma x 1 * CR 5.7 trending flat * will need outpatient with office clerk routine on PAYMENT SPECIALIST/dialysis options Anemia * hemoglobin 8.2 g/dL on admission slowly trending down. 9.0 g/dL today * s/p 2 units pRBC on 11/10 * iron deficiency present. Started on oral iron BID. Would have given Venofer but trying to not give her more fluid than necessary. She reports constipation. Added bowel regimen. Consider IV Venofer. * Vitamin B12 and folate normal * she reports brown stool. Occult blood negative * erythropoietin started * started on iron supplement Hypertension * patient appears not to have any home medications for hypertension (previously on losartan however with the renal failure we will hold) * start on amlodipine 5 mg daily for BP control. Increased dose to 10 mg daily on 11/10. * ECHO this admission shows LV systolic function hyperdynamic with EF 70%, LV diastolic dysfunction grade 1, mild pulmonary hypertension, PA pressure estimated at 43 mmHg * Blood pressures reviewed 11/11 Leukocytosis * leukocytosis 14.3-->10.6-->8.6-->7.6-->7.9---13.9 today related to steroids??? * NSR on tele, 90's * U/A reflexed to culture. U
--- NOTE | 2023-11-14 07:53 | PM.IMPN ---
Progress Note: A&P Assessment and Plan (1) Acute on chronic renal insufficiency: Code(s): N28.9 - Disorder of kidney and ureter, unspecified; N18.9 - Chronic kidney disease, unspecified Status: Acute (2) Psoriasis: Code(s): L40.9 - Psoriasis, unspecified Status: Acute (3) Anemia: Qualifiers: Anemia type: unspecified type Qualified Code(s): D64.9 - Anemia, unspecified Code(s): D64.9 - Anemia, unspecified Status: Chronic (4) Hypothyroidism: Qualifiers: Hypothyroidism type: unspecified Qualified Code(s): E03.9 - Hypothyroidism, unspecified Code(s): E03.9 - Hypothyroidism, unspecified Status: Acute (5) Hyperlipidemia: Code(s): E78.5 - Hyperlipidemia, unspecified Status: Acute (6) Hypertension: Qualifiers: Hypertension type: essential hypertension Qualified Code(s): I10 - Essential (primary) hypertension Code(s): I10 - Essential (primary) hypertension Status: Chronic (7) Type 2 diabetes mellitus: Qualifiers: Diabetes mellitus complication status: without complication Diabetes mellitus locker room clerk insulin use: without locker room clerk use Qualified Code(s): E11.9 - Type 2 diabetes mellitus without complications Code(s): E11.9 - Type 2 diabetes mellitus without complications Status: Chronic Plan Acute on chronic kidney disease Stage IV may be secondary to Augmentin, AIN? Steroids started 11/09 after r/o of bacteremia. 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 Nephrology has order cosyntropin stimulation test. IV methylprednisolone 500 mg BID for 3 days followed by prednisone 40 mg BID (starting 11/12) to start today after stim testing completed. Patient is on low dose SSI--may need to titrate up. Glucose will be followed AC/HS. Cr improving with addition of steroids. Trend 6.1-->5.7-->5.4--5.7--> (bump after diuretics) 5.9-->5.6-->5. Going for renal biopsy today. Gave xanax 0.125 mg for biopsy. 11/13/2023: CR trending flat 5.9 today kidney biopsy pending 11/14/2023 Prelim: advanced diabetic nephrosclerosis K 5.3 lokelma x 1 CR 5.7 trending flat will need outpatient with webfed offset press operator on DIRECT[employer] CONSTRUCTION SERVICES/dialysis options Anemia hemoglobin 8.2 g/dL on admission slowly trending down. 9.0 g/dL today s/p 2 units pRBC on 11/10 iron deficiency present. Started on oral iron BID. Would have given Venofer but trying to not give her more fluid than necessary. She reports constipation. Added bowel regimen. Consider IV Venofer. Vitamin B12 and folate normal she reports brown stool. Occult blood negative erythropoietin started started on iron supplement Hypertension patient appears not to have any home medications for hypertension (previously on losartan however with the renal failure we will hold) start on amlodipine 5 mg daily for BP control. Increased dose to 10 mg daily on 11/10. ECHO this admission shows LV systolic function hyperdynamic with EF 70%, LV diastolic dysfunction grade 1, mild pulmonary hypertension, PA pressure estimated at 43 mmHg Blood pressures reviewed 11/11 Leukocytosis leukocytosis 14.3-->10.6-->8.6-->7.6-->7.9---13.9 today related to steroids??? NSR on , 's U/A reflexed to culture. Urine is growing group B streptococcus. Started on ampicillin for [address] scan from 11/06 which shows bilateral pleural effusions left moderate, right small and mild pulmonary edema incentive spirometer Blood cultures from 11/07 with no growth to date 11/13/2023 15.9 11/14/2023 18.5 Likely reactive to prednisone 80 mg dose no infectious evidence prednisone stopped Psoriasis with new Rash New erythema to bilateral lower extr
[2023-11-14] MEDS: SODIUM ZIRCONIUM CYCLOSILICATE 10 GM POWD.PACK PO (07:59)
[2023-11-14 08:04] LABS: Glucose Point of Care 372 mg/dl (65-105)
[2023-11-14] MEDS: INSULIN ASPART (*BKC) 100 UNITS/ML SUB-Q ×4 (09:14→21:06)
[2023-11-14] MEDS: EPOETIN ALFA-EPBX 10,000 UNITS/ML VIAL 10000 UNITS SUB-Q (09:15)
[2023-11-14] MEDS: CLOBETASOL PROPIONATE 0.05% OINT 30 GM 1 APPLIC TOPICAL (09:26)
[2023-11-14] MEDS: calcitrioL 0.25 MCG CAPSULE PO (10:22)
[2023-11-14] MEDS: ACETAMINOPHEN 500 MG TABLET PO (10:22)
[2023-11-14] MEDS: PANTOPRAZOLE 40 MG TABLET PO (10:22)
[2023-11-14] MEDS: amLODIPine BESYLATE 10 MG TABLET PO (10:22)
[2023-11-14] MEDS: ASCORBIC ACID 500 MG TABLET 1000 MG PO (10:23)
[2023-11-14] MEDS: SODIUM BICARBONATE TAB 650 MG TABLET PO ×2 (10:23→17:23)
[2023-11-14] MEDS: ERGOCALCIFEROL 50,000 UNITS CAPSULE 50000 UNITS PO (10:23)
[2023-11-14] MEDS: polyethylene glycoL 3350 17 GM POWD.PACK PO (10:23)
[2023-11-14] MEDS: hydrALAZINE HCL 25 MG TABLET PO ×2 (10:23→17:23)
[2023-11-14 12:35] LABS: Glucose Point of Care 369 mg/dl (65-105)
[2023-11-14] MEDS: AMPICILLIN TRIHYDRATE 500 MG CAPSULE PO ×2 (12:43→23:57)
--- NOTE | 2023-11-14 13:34 | PM.PNNEP ---
Progress Note: A&P Assessment and Plan (1) Chronic kidney disease (CKD), stage V: Code(s): N18.5 - Chronic kidney disease, stage 5 Status: Chronic Assessment and Plan: on presentation, assumption was RODRIGO/ARF on CKD extensive testing/imaging unrevealing and creatinine remains elevated but stable results of RENAL BIOPSY noted: diabetic nephrosclerosis severe arterionephrosclerosis as well 70% intersitital fibrosis and tubular atrophy no other active disease present no urgent need for OBIEE CONSULTANT/dialysis at this time she will need to follow-up with Dr. Weaver to discuss options of OBIEE CONSULTANT/dialysis fairly soon continue supportive therapy (2) Hypertension: Qualifiers: Hypertension type: essential hypertension Qualified Code(s): I10 - Essential (primary) hypertension Code(s): I10 - Essential (primary) hypertension Status: Chronic Assessment and Plan: better control noted diuretics on hold follow trend of hemodynamics (3) Anemia: Qualifiers: Anemia type: unspecified type Qualified Code(s): D64.9 - Anemia, unspecified Code(s): D64.9 - Anemia, unspecified Status: Chronic Assessment and Plan: suspect related to RODRIGO, CKD, and acute illness. however, her previous sudden drop in hemoglobin is not explained by her kidneys on Epogen follow trend of H/H (4) Type 2 diabetes mellitus: Qualifiers: Diabetes mellitus complication status: without complication Diabetes mellitus dedicated intermodal truck driver insulin use: without fdc use Qualified Code(s): E11.9 - Type 2 diabetes mellitus without complications Code(s): E11.9 - Type 2 diabetes mellitus without complications Status: Chronic Assessment and Plan: follow accu-cheks glycemic control per hospitalists Will continue to follow. Subjective Date/time seen: 11/14/23 13:34 Interval history: Follow-up for chronic kidney disease. No apparent distress noted at the time of my visit; renal function/creatinine remains unchanged; K+ mildly elevated by AM labs so lokelma given; started on sodium bicarbonate to treat mild metabolic acidosis as well; no issues/events overnight or earlier this morning. Exam Narrative: General: large female in NAD Heart: normal S1 and S2; no rub Lungs: decreased at the bases Abdomen: soft, nontender, nondistended, positive bowel sounds Extremities: no cyanosis or clubbing; trace edema Skin: no nodules Objective Data Vital Signs Vital Signs: Vital Signs Temp Pulse Resp BP Pulse Ox O2 Del Method O2 Flow Rate 11/14/23 12:00 97.8 F 90 16 146/65 H 97 11/14/23 09:15 95 20 11/14/23 09:09 98 20 11/14/23 09:09 98 20 96 Room Air 11/14/23 08:00 98.2 F 92 16 145/64 H 98 11/14/23 04:00 87 11/14/23 00:00 97 11/13/23 20:00 95 11/14/23 04:00 97.0 F L 87 20 134/54 L 96 11/14/23 02:40 94 22 H 11/14/23 02:25 92 24 H 98 CPAP 11/14/23 02:30 92 26 H 11/13/23 20:00 Room Air 11/14/23 00:00 97.4 F L 95 20 124/50 L 99 11/13/23 21:31 95 23 H 11/13/23 21:22 95 25 H 95 CPAP 11/13/23 21:22 99 95 CPAP 1 11/13/23 21:19 99 20 11/13/23 19:43 96.8 F L 93 20 146/58 H 97 Intake/Output Intake/Output: Intake & Output 11/11/23 11/12/23 11/13/23 11/14/23 23:59 23:59 23:59 23:59 Intake Total 2440 660 1830 920 Output Total 1300 1850 2650 750 Balance 1140 -1190 -820 170 Meds/Results Medications: Active Medications Generic Name Dose Route Start Last Admin Trade Name Hailey PRN Reason Stop Dose Admin Acetaminophen 500 mg 11/05/23 04:20 11/14/23 10:22 Acetaminophen 500 Mg Tablet PO 500 mg Q6H PRN Administration PAIN 1-3 Al Hydrox/Mg Hydrox/Simethicone 30 ml 11/05/23 04:22 11/09/23 09:54 Mag Hydrox/Al Hydrox/Simeth 30 Ml Udc PO 30 ml QID PRN Administration
--- NOTE | 2023-11-14 13:34 | P.PNNP_ITS ---
Progress Note: A&P Assessment and Plan (1) Chronic kidney disease (CKD), stage V: Code(s): N18.5 - Chronic kidney disease, stage 5 Status: Chronic Assessment and Plan: * on presentation, assumption was RODRIGO/ARF on CKD * extensive testing/imaging unrevealing and creatinine remains elevated but stable * results of RENAL BIOPSY noted: * diabetic nephrosclerosis * severe arterionephrosclerosis as well * 70% intersitital fibrosis and tubular atrophy * no other active disease present * no urgent need for HOME VISITOR HOME BASE HEAD START/dialysis at this time * she will need to follow-up with Dr. Weaver to discuss options of HOME VISITOR HOME BASE HEAD START/dialysis fairly soon * continue supportive therapy (2) Hypertension: Qualifiers: Hypertension type: essential hypertension Qualified Code(s): I10 - Essential (primary) hypertension Code(s): I10 - Essential (primary) hypertension Status: Chronic Assessment and Plan: * better control noted * diuretics on hold * follow trend of hemodynamics (3) Anemia: Qualifiers: Anemia type: unspecified type Qualified Code(s): D64.9 - Anemia, unspecified Code(s): D64.9 - Anemia, unspecified Status: Chronic Assessment and Plan: * suspect related to RODRIGO, CKD, and acute illness. * however, her previous sudden drop in hemoglobin is not explained by her kidneys * on Epogen * follow trend of H/H (4) Type 2 diabetes mellitus: Qualifiers: Diabetes mellitus complication status: without complication Diabetes mellitus custodial insulin use: without custodial use Qualified Code(s): E11.9 - Type 2 diabetes mellitus without complications Code(s): E11.9 - Type 2 diabetes mellitus without complications Status: Chronic Assessment and Plan: * follow accu-cheks * glycemic control per hospitalists Will continue to follow. Subjective Date/time seen: 11/14/23 13:34 Interval history: Follow-up for chronic kidney disease. No apparent distress noted at the time of my visit; renal function/creatinine remains unchanged; K+ mildly elevated by AM labs so lokelma given; started on sodium bicarbonate to treat mild metabolic acidosis as well; no issues/events overnight or earlier this morning. Exam Narrative: General: large female in NAD Heart: normal S1 and S2; no rub Lungs: decreased at the bases Abdomen: soft, nontender, nondistended, positive bowel sounds Extremities: no cyanosis or clubbing; trace edema Skin: no nodules Objective Data Vital Signs Vital Signs: Vital Signs Temp Pulse Resp BP Pulse Ox O2 Del Method O2 Flow Rate 11/14/23 12:00 97.8 F 90 16 146/65 H 97 11/14/23 09:15 95 20 11/14/23 09:09 98 20 11/14/23 09:09 98 20 96 Room Air 11/14/23 08:00 98.2 F 92 16 145/64 H 98 11/14/23 04:00 87 11/14/23 00:00 97 11/13/23 20:00 95 11/14/23 04:00 97.0 F L 87 20 134/54 L 96 11/14/23 02:40 94 22 H 11/14/23 02:25 92 24 H 98 CPAP 11/14/23 02:30 92 26 H 11/13/23 20:00 Room Air 11/14/23 00:00 97.4 F L 95 20 124/50 L 99 11/13/23 21:31 95 23 H 11/13/23 21:22 95 25 H 95 CPAP 11/13/23 21:22 99 95 CPAP 1 11/13/23 21:19 99 20
[2023-11-14 17:29] LABS: Glucose Point of Care 366 mg/dl (65-105)
[2023-11-14] MEDS: MECLIZINE HCL 25 MG TABLET PO (20:17)
[2023-11-14] MEDS: SENNA/DOCUSATE SODIUM TABLET 1 TAB PO (20:17)
[2023-11-14 21:09] LABS: Glucose Point of Care 345 mg/dl (65-105)
[2023-11-15] VITALS (13 sets, daily range): BP systolic 107–154; BP diastolic 55–79; PULSE 88–112; RESP 18–25; TEMP 35.7–36.4; O2SAT 95–100
[2023-11-15] MEDS: IPRATROPIUM 0.5 MG/ALBUTEROL SULFATE 2.5 MG AMPUL.NEB 3 ML INHALATION ×4 (03:27→20:45)
[2023-11-15 05:18] LABS: Hematocrit 30.3 % (37.0-47.0); Hemoglobin 9.8 g/dL (12.0-15.0); Immature Platelet Fraction Pct 2.7 % (0.9-11.2); Mean Corpuscular HGB Conc 32.3 g/dl (32-36); Mean Corpuscular Hemoglobin 30.5 pg (26-34); Mean Corpuscular Volume 94.4 fl (80-100); Mean Platelet Volume 10.4 fl (7.4-10.4); Platelet Count Result 270 k/mm3 (150-375); Red Blood Count 3.21 M/mm3 (4.2-5.4); Red Cell Distribution Width 15.6 % (11.5-14.5)
[2023-11-15] MEDS: LEVOTHYROXINE SODIUM 100 MCG TABLET PO (05:32)
[2023-11-15 05:45] LABS: Alanine Aminotransferase 18 U/L (6-35); Albumin Level 3.1 g/dL (3.5-5.1); Alkaline Phosphatase 132 U/L (38-126); Anion Gap 14 mmol/L (4-12); Aspartate Amino Transferase 17 U/L (14-36); Bilirubin,Total 0.3 mg/dL (0.2-1.3); Blood Urea Nitrogen 112 mg/dL (7-17); Calcium 10.5 mg/dL (8.4-10.2); Carbon Dioxide 20 mmol/L (22-30); Chloride 101 mmol/L (98-107); Estimated CRCL calculation 9 ml/min; Estimated Glomerular Filt Rate 7; Glucose 269 mg/dL (65-110); Magnesium 2.5 mg/dL (1.6-2.3); Phosphorus 5.8 mg/dL (2.5-4.5); Potassium 4.8 mmol/L (3.4-5.0); Sodium 135 mmol/L (137-145)
--- NOTE | 2023-11-15 05:47 | PC.NURSE ---
On 11/14/23 & 11/15/23, the HONEY PRODUCER, [Didi Barboza], provided care and completed [employer] documentation on this patient. I have reviewed the HONEY PRODUCER's documentation and agree with the findings.
[2023-11-15 07:19] LABS: Band Neutrophils Percent 6 % (0-6); Eosinophils Absolute Manual 0.19 K/mm3 (0.02-0.50); Eosinophils Percent Manual 1 % (0-4); Lymphocytes Absolute Manual 2.47 K/mm3 (1.1-4.5); Metamyelocytes Percent 1 %; Monocytes Absolute Manual 0.19 K/mm3 (0.1-0.90); Monocytes Percent Manual 1 % (3-9); Neutrophils Absolute Manual 15.96 K/mm3 (1.7-7.2); Neutrophils Percent Manual 78 % (46-73); Platelet Estimate Adequate (Adequate); Total Cells Counted 100
[2023-11-15 07:20] LABS: Schistocytes None Seen
[2023-11-15 07:21] LABS: Burr Cells 1+; Ovalocytes 1+
[2023-11-15 08:20] LABS: Glucose Point of Care 218 mg/dl (65-105)
[2023-11-15] MEDS: PANTOPRAZOLE 40 MG TABLET PO (08:30)
[2023-11-15] MEDS: ASCORBIC ACID 500 MG TABLET 1000 MG PO (08:30)
[2023-11-15] MEDS: hydrALAZINE HCL 25 MG TABLET PO ×2 (08:30→17:15)
[2023-11-15] MEDS: SODIUM BICARBONATE TAB 650 MG TABLET PO ×2 (08:30→17:15)
[2023-11-15] MEDS: calcitrioL 0.25 MCG CAPSULE PO (08:30)
[2023-11-15] MEDS: amLODIPine BESYLATE 10 MG TABLET PO (08:30)
[2023-11-15] MEDS: CLOBETASOL PROPIONATE 0.05% OINT 30 GM 1 APPLIC TOPICAL (08:31)
[2023-11-15] MEDS: INSULIN ASPART (*BKC) 100 UNITS/ML SUB-Q ×4 (08:33→20:28)
[2023-11-15] MEDS: AMPICILLIN TRIHYDRATE 500 MG CAPSULE PO (11:01)
--- NOTE | 2023-11-15 11:20 | P.PNNP_ITS ---
Progress Note: A&P Assessment and Plan (1) Chronic kidney disease (CKD), stage V: Code(s): N18.5 - Chronic kidney disease, stage 5 Status: Chronic Assessment and Plan: * on presentation, assumption was RODRIGO/ARF on CKD * extensive testing/imaging unrevealing and creatinine remains elevated but stable * results of RENAL BIOPSY noted: * diabetic nephrosclerosis * severe arterionephrosclerosis as well * 70% intersitital fibrosis and tubular atrophy * no other active disease present * no urgent need for RUBBER WASHER/dialysis at this time * azotemia likely secondary to use of steroids * she will need to follow-up with Dr. Weaver to discuss options of RUBBER WASHER/dialysis fairly soon * continue supportive therapy (2) Hypertension: Qualifiers: Hypertension type: essential hypertension Qualified Code(s): I10 - Essential (primary) hypertension Code(s): I10 - Essential (primary) hypertension Status: Chronic Assessment and Plan: * better control noted * diuretics on hold * follow trend of hemodynamics (3) Anemia: Qualifiers: Anemia type: unspecified type Qualified Code(s): D64.9 - Anemia, unspecified Code(s): D64.9 - Anemia, unspecified Status: Chronic Assessment and Plan: * suspect related to RODRIGO, CKD, and acute illness. * however, her previous sudden drop in hemoglobin is not explained by her kidneys * on Epogen while hospitalized * follow trend of H/H (4) Type 2 diabetes mellitus: Qualifiers: Diabetes mellitus half-way insulin use: without superintendent terminal use Diabetes mellitus complication status: without complication Qualified Code(s): E11.9 - Type 2 diabetes mellitus without complications Code(s): E11.9 - Type 2 diabetes mellitus without complications Status: Chronic Assessment and Plan: * follow accu-cheks * glycemic control per hospitalists Will continue to follow. Subjective Date/time seen: 11/15/23 11:20 Interval history: Follow-up for chronic kidney disease. Renal function remains stable with improvement in potassium and metabolic acidosis; no appraent distress voiced at the time of my visit; no other issues/events overnight or earlier this morning. Exam Narrative: General: large female in NAD Heart: normal S1 and S2; no rub Lungs: decreased at the bases Abdomen: soft, nontender, nondistended, positive bowel sounds Extremities: no cyanosis or clubbing; trace edema Skin: warm and dry Objective Data Vital Signs Vital Signs: Vital Signs Temp Pulse Resp BP Pulse Ox O2 Del Method O2 Flow Rate 11/15/23 11:00 97.6 F 94 24 H 135/55 L 98 11/15/23 08:00 93 11/15/23 08:00 97.4 F L 95 22 H 133/79 97 11/15/23 08:29 96 20 11/15/23 08:17 93 20 11/15/23 08:17 97 Room Air 11/15/23 04:00 97.4 F L 89 20 132/74 97 11/15/23 04:00 96 11/15/23 03:32 94 25 H 96 CPAP 11/15/23 00:00 96.2 F L 93 20 107/71 99 11/15/23 00:00 97 11/14/23 20:00 97 11/14/23 20:00 CPAP 11/14/23 20:52 97 CPAP 1 11/14/23 20:52 99 24 H 97 CPAP 11/14/23 20:53 99 24 H 11/14/23 20:00 96.6 F L 94 20 131/60 100 11/14/23 16:00 97.5 F L 95 22
--- NOTE | 2023-11-15 11:20 | PM.PNNEP ---
Progress Note: A&P Assessment and Plan (1) Chronic kidney disease (CKD), stage V: Code(s): N18.5 - Chronic kidney disease, stage 5 Status: Chronic Assessment and Plan: on presentation, assumption was RODRIGO/ARF on CKD extensive testing/imaging unrevealing and creatinine remains elevated but stable results of RENAL BIOPSY noted: diabetic nephrosclerosis severe arterionephrosclerosis as well 70% intersitital fibrosis and tubular atrophy no other active disease present no urgent need for HAND CANDY MOLDER/dialysis at this time azotemia likely secondary to use of steroids she will need to follow-up with Dr. Weaver to discuss options of HAND CANDY MOLDER/dialysis fairly soon continue supportive therapy (2) Hypertension: Qualifiers: Hypertension type: essential hypertension Qualified Code(s): I10 - Essential (primary) hypertension Code(s): I10 - Essential (primary) hypertension Status: Chronic Assessment and Plan: better control noted diuretics on hold follow trend of hemodynamics (3) Anemia: Qualifiers: Anemia type: unspecified type Qualified Code(s): D64.9 - Anemia, unspecified Code(s): D64.9 - Anemia, unspecified Status: Chronic Assessment and Plan: suspect related to RODRIGO, CKD, and acute illness. however, her previous sudden drop in hemoglobin is not explained by her kidneys on Epogen while hospitalized follow trend of H/H (4) Type 2 diabetes mellitus: Qualifiers: Diabetes mellitus rat exterminator insulin use: without rat exterminator use Diabetes mellitus complication status: without complication Qualified Code(s): E11.9 - Type 2 diabetes mellitus without complications Code(s): E11.9 - Type 2 diabetes mellitus without complications Status: Chronic Assessment and Plan: follow accu-cheks glycemic control per hospitalists Will continue to follow. Subjective Date/time seen: 11/15/23 11:20 Interval history: Follow-up for chronic kidney disease. Renal function remains stable with improvement in potassium and metabolic acidosis; no appraent distress voiced at the time of my visit; no other issues/events overnight or earlier this morning. Exam Narrative: General: large female in NAD Heart: normal S1 and S2; no rub Lungs: decreased at the bases Abdomen: soft, nontender, nondistended, positive bowel sounds Extremities: no cyanosis or clubbing; trace edema Skin: warm and dry Objective Data Vital Signs Vital Signs: Vital Signs Temp Pulse Resp BP Pulse Ox O2 Del Method O2 Flow Rate 11/15/23 11:00 97.6 F 94 24 H 135/55 L 98 11/15/23 08:00 93 11/15/23 08:00 97.4 F L 95 22 H 133/79 97 11/15/23 08:29 96 20 11/15/23 08:17 93 20 11/15/23 08:17 97 Room Air 11/15/23 04:00 97.4 F L 89 20 132/74 97 11/15/23 04:00 96 11/15/23 03:32 94 25 H 96 CPAP 11/15/23 00:00 96.2 F L 93 20 107/71 99 11/15/23 00:00 97 11/14/23 20:00 97 11/14/23 20:00 CPAP 11/14/23 20:52 97 CPAP 1 11/14/23 20:52 99 24 H 97 CPAP 11/14/23 20:53 99 24 H 11/14/23 20:00 96.6 F L 94 20 131/60 100 11/14/23 16:00 97.5 F L 95 22 H 136/55 L 98 11/14/23 16:00 95 11/14/23 14:48 90 20 Intake/Output Intake/Output: Intake & Output 11/12/23 11/13/23 11/14/23 11/15/23 23:59 23:59 23:59 23:59 Intake Total 660 1830 1950 1340 Output Total 1850 2650 1500 300 Balance -1190 -089 021 5206 Meds/Results Medications: Active Medications Generic Name Dose Route Start Last Admin Trade Name Hailey PRN Reason Stop Dose Admin Acetaminophen 500 mg 11/05/23 04:20 11/14/23 10:22 Acetaminophen 500 Mg Tablet PO 500 mg Q6H PRN Administration PAIN 1-3 Al Hydrox/Mg Hydrox/Simethicone 30 ml 11/05/23 04:22 11/09/23 09:54 Mag Hydrox/Al Hydrox/Simeth 30 Ml Udc PO 30 ml
[2023-11-15 12:20] LABS: Glucose Point of Care 245 mg/dl (65-105)
--- NOTE | 2023-11-15 12:59 | P.PNIM_ITS ---
Progress Note: A&P Assessment and Plan (1) Acute on chronic renal insufficiency: Code(s): N28.9 - Disorder of kidney and ureter, unspecified; N18.9 - Chronic kidney disease, unspecified Status: Acute (2) Psoriasis: Code(s): L40.9 - Psoriasis, unspecified Status: Acute (3) Anemia: Qualifiers: Anemia type: unspecified type Qualified Code(s): D64.9 - Anemia, unspecified Code(s): D64.9 - Anemia, unspecified Status: Chronic (4) Hypothyroidism: Qualifiers: Hypothyroidism type: unspecified Qualified Code(s): E03.9 - Hypothyroidism, unspecified Code(s): E03.9 - Hypothyroidism, unspecified Status: Acute (5) Hyperlipidemia: Code(s): E78.5 - Hyperlipidemia, unspecified Status: Acute (6) Hypertension: Qualifiers: Hypertension type: essential hypertension Qualified Code(s): I10 - Essential (primary) hypertension Code(s): I10 - Essential (primary) hypertension Status: Chronic (7) Type 2 diabetes mellitus: Qualifiers: Diabetes mellitus snf insulin use: without snf use Diabetes mellitus complication status: without complication Qualified Code(s): E11.9 - Type 2 diabetes mellitus without complications Code(s): E11.9 - Type 2 diabetes mellitus without complications Status: Chronic Plan Acute on chronic kidney disease Stage IV * may be secondary to Augmentin, AIN? Steroids started 11/09 after r/o of bacteremia. * consulting senior consulting manager * checking urine osmolarity, serum osmolarity, urine sodium, serum sodium * patient is on calcitriol * negative procalcitonin, negative lactic * Ford catheter for strict I&O * UOP for 11/10 was 800 ml total * serologies ordered by nephro * random cortisol 14. Nephrology has order cosyntropin stimulation test. * IV methylprednisolone 500 mg BID for 3 days followed by prednisone 40 mg BID (starting 11/12) to start today after stim testing completed. Patient is on low dose SSI--may need to titrate up. Glucose will be followed AC/HS. * Cr improving with addition of steroids. Trend 6.1-->5.7-->5.4--5.7--> (bump after diuretics) 5.9-->5.6-->5. * Going for renal biopsy today. Gave xanax 0.125 mg for biopsy. 11/13/2023: * CR trending flat 5.9 today * kidney biopsy pending 11/14/2023 * Prelim: advanced diabetic nephrosclerosis * K 5.3 lokelma x 1 * CR 5.7 trending flat * will need outpatient with senior consulting manager on NURSE CASE MANAGEMENT/dialysis options Anemia * hemoglobin 8.2 g/dL on admission slowly trending down. 9.0 g/dL today * s/p 2 units pRBC on 11/10 * iron deficiency present. Started on oral iron BID. Would have given Venofer but trying to not give her more fluid than necessary. She reports constipation. Added bowel regimen. Consider IV Venofer. * Vitamin B12 and folate normal * she reports brown stool. Occult blood negative * erythropoietin started * started on iron supplement 11/15/2023: * H&H stabilizing * may not need Venofer last dose of ABX for UTI today will re-evaluate Hgb tomorrow * H&H in the am Hypertension * patient appears not to have any home medications for hypertension (previously on losartan however with the renal failure we will hold) * start on amlodipine 5 mg daily for BP control. Increased dose to 10 mg daily on 11/10. * ECHO this admission shows LV systolic function hyperdynamic with EF 70%, LV diastolic dysfunction grade 1, mild pulmonary hypertension, PA pressure estimated at 43 mmHg * Blood pressures reviewed 11/11 [place]
--- NOTE | 2023-11-15 12:59 | PM.IMPN ---
Progress Note: A&P Assessment and Plan (1) Acute on chronic renal insufficiency: Code(s): N28.9 - Disorder of kidney and ureter, unspecified; N18.9 - Chronic kidney disease, unspecified Status: Acute (2) Psoriasis: Code(s): L40.9 - Psoriasis, unspecified Status: Acute (3) Anemia: Qualifiers: Anemia type: unspecified type Qualified Code(s): D64.9 - Anemia, unspecified Code(s): D64.9 - Anemia, unspecified Status: Chronic (4) Hypothyroidism: Qualifiers: Hypothyroidism type: unspecified Qualified Code(s): E03.9 - Hypothyroidism, unspecified Code(s): E03.9 - Hypothyroidism, unspecified Status: Acute (5) Hyperlipidemia: Code(s): E78.5 - Hyperlipidemia, unspecified Status: Acute (6) Hypertension: Qualifiers: Hypertension type: essential hypertension Qualified Code(s): I10 - Essential (primary) hypertension Code(s): I10 - Essential (primary) hypertension Status: Chronic (7) Type 2 diabetes mellitus: Qualifiers: Diabetes mellitus longterm insulin use: without longterm use Diabetes mellitus complication status: without complication Qualified Code(s): E11.9 - Type 2 diabetes mellitus without complications Code(s): E11.9 - Type 2 diabetes mellitus without complications Status: Chronic Plan Acute on chronic kidney disease Stage IV may be secondary to Augmentin, AIN? Steroids started 11/09 after r/o of bacteremia. consulting etl lead checking urine osmolarity, serum osmolarity, urine sodium, serum sodium patient is on calcitriol negative procalcitonin, negative lactic Ford catheter for strict I&O UOP for 11/10 was 800 ml total serologies ordered by nephro random cortisol 14. Nephrology has order cosyntropin stimulation test. IV methylprednisolone 500 mg BID for 3 days followed by prednisone 40 mg BID (starting 11/12) to start today after stim testing completed. Patient is on low dose SSI--may need to titrate up. Glucose will be followed AC/HS. Cr improving with addition of steroids. Trend 6.1-->5.7-->5.4--5.7--> (bump after diuretics) 5.9-->5.6-->5. Going for renal biopsy today. Gave xanax 0.125 mg for biopsy. 11/13/2023: CR trending flat 5.9 today kidney biopsy pending 11/14/2023 Prelim: advanced diabetic nephrosclerosis K 5.3 lokelma x 1 CR 5.7 trending flat will need outpatient with etl lead on HOUSE STEWARD/STEWARDESS/dialysis options Anemia hemoglobin 8.2 g/dL on admission slowly trending down. 9.0 g/dL today s/p 2 units pRBC on 11/10 iron deficiency present. Started on oral iron BID. Would have given Venofer but trying to not give her more fluid than necessary. She reports constipation. Added bowel regimen. Consider IV Venofer. Vitamin B12 and folate normal she reports brown stool. Occult blood negative erythropoietin started started on iron supplement 11/15/2023: H&H stabilizing may not need Venofer last dose of ABX for UTI today will re-evaluate Hgb tomorrow H&H in the am Hypertension patient appears not to have any home medications for hypertension (previously on losartan however with the renal failure we will hold) start on amlodipine 5 mg daily for BP control. Increased dose to 10 mg daily on 11/10. ECHO this admission shows LV systolic function hyperdynamic with EF 70%, LV diastolic dysfunction grade 1, mild pulmonary hypertension, PA pressure estimated at 43 mmHg Blood pressures reviewed 11/11 Leukocytosis leukocytosis 14.3-->10.6-->8.6-->7.6-->7.9---13.9 today related to steroids??? NSR on tele, 90's U/A reflexed to culture. Urine is growing group B streptococcus. Started on ampicillin for [address] scan from 11/06 which shows bilateral pleural effusions left moderate, right small and mild pulmonary edema incentive spirometer Blood cultures from 11/07 with no growth to date 11/13/2023 15.9 11/14/2023 18.5 Likely reactive to pred
[2023-11-15 13:12] LABS: Add Urine Microscopic? YES; Appearance Urine Clear (Clear); Bacteria Urine None Seen /hpf; Bilirubin Urine Negative (Negative); Blood Urine Trace (Negative); Color Urine Yellow (Yellow); Glucose Urine UA 2+ mg/dL (Negative); Ketones Urine Negative (Negative); Leukocyte Esterase Ur Negative LEU/UL (Negative); Nitrate Urine Negative (Negative); Non Pathogenic Casts 0-2; Protein Urine 1+ mg/dL (Negative); Specific Grav Ur 1.016 (1.001-1.035); Squamous Epithelial Cell Urine Few /hpf (Few); Urobilinogen Urine 0.2 mg/dL (<2.0); WBC Urine 0-5 /hpf (0-3)
[2023-11-15 17:07] LABS: Glucose Point of Care 293 mg/dl (65-105)
[2023-11-15] MEDS: SENNA/DOCUSATE SODIUM TABLET 1 TAB PO (20:13)
[2023-11-15] MEDS: MECLIZINE HCL 25 MG TABLET PO (20:13)
[2023-11-15 20:46] LABS: Glucose Point of Care 272 mg/dl (65-105)
[2023-11-16] VITALS (17 sets, daily range): BP systolic 121–154; BP diastolic 53–68; PULSE 93–113; RESP 17–26; TEMP 36.3–36.6; O2SAT 96–100
[2023-11-16] MEDS: IPRATROPIUM 0.5 MG/ALBUTEROL SULFATE 2.5 MG AMPUL.NEB 3 ML INHALATION ×4 (02:45→21:24)
[2023-11-16 05:02] LABS: Hematocrit 31.5 % (37.0-47.0); Hemoglobin 9.9 g/dL (12.0-15.0); Mean Corpuscular HGB Conc 31.4 g/dl (32-36); Mean Corpuscular Hemoglobin 29.6 pg (26-34); Mean Corpuscular Volume 94.3 fl (80-100); Platelet Count Result 288 k/mm3 (150-375); Red Blood Count 3.34 M/mm3 (4.2-5.4); Red Cell Distribution Width 15.9 % (11.5-14.5); White Blood Count 15.3 K/mm3 (4.5-10.0)
[2023-11-16 05:13] LABS: Alanine Aminotransferase 20 U/L (6-35); Albumin Level 3.1 g/dL (3.5-5.1); Alkaline Phosphatase 108 U/L (38-126); Anion Gap 11 mmol/L (4-12); Aspartate Amino Transferase 20 U/L (14-36); Bilirubin,Total 0.4 mg/dL (0.2-1.3); Blood Urea Nitrogen 115 mg/dL (7-17); Carbon Dioxide 22 mmol/L (22-30); Chloride 103 mmol/L (98-107); Estimated CRCL calculation 9 ml/min; Estimated Glomerular Filt Rate 8; Glucose 240 mg/dL (65-110); Magnesium 2.5 mg/dL (1.6-2.3); Phosphorus 6.3 mg/dL (2.5-4.5); Potassium 5.2 mmol/L (3.4-5.0); Sodium 136 mmol/L (137-145)
[2023-11-16 05:31] LABS: Band Neutrophils Percent 2 % (0-6); Eosinophils Absolute Manual 0.61 K/mm3 (0.02-0.50); Eosinophils Percent Manual 4 % (0-4); Lymphocytes Absolute Manual 2.14 K/mm3 (1.1-4.5); Monocytes Absolute Manual 0.45 K/mm3 (0.1-0.90); Monocytes Percent Manual 3 % (3-9); Neutrophils Absolute Manual 12.08 K/mm3 (1.7-7.2); Neutrophils Percent Manual 77 % (46-73); Total Cells Counted 100
[2023-11-16 05:32] LABS: Anisocytosis 1+; Platelet Estimate Adequate (Adequate); Poikilocytosis 1+
[2023-11-16 05:33] LABS: Ovalocytes 1+; Schistocytes None Seen
[2023-11-16] MEDS: LEVOTHYROXINE SODIUM 100 MCG TABLET PO (06:00)
--- NOTE | 2023-11-16 06:49 | PC.NURSE ---
On 11/15/23 & 11/16/23, the LAND LEVELER, [Didi Barboza], provided care and completed [employer] documentation on this patient. I have reviewed the LAND LEVELER's documentation and agree with the findings.
[2023-11-16 08:13] LABS: Glucose Point of Care 222 mg/dl (65-105)
[2023-11-16] MEDS: INSULIN ASPART (*BKC) 100 UNITS/ML SUB-Q ×3 (08:27→17:19)
[2023-11-16] MEDS: ASCORBIC ACID 500 MG TABLET 1000 MG PO (08:29)
[2023-11-16] MEDS: hydrALAZINE HCL 25 MG TABLET PO ×2 (08:29→17:19)
[2023-11-16] MEDS: amLODIPine BESYLATE 10 MG TABLET PO (08:29)
[2023-11-16] MEDS: SODIUM BICARBONATE TAB 650 MG TABLET PO ×2 (08:29→17:19)
[2023-11-16] MEDS: CLOBETASOL PROPIONATE 0.05% OINT 30 GM 1 APPLIC TOPICAL ×2 (08:29→20:22)
[2023-11-16] MEDS: calcitrioL 0.25 MCG CAPSULE PO (08:30)
[2023-11-16] MEDS: PANTOPRAZOLE 40 MG TABLET PO (08:30)
[2023-11-16] MEDS: HEPARIN SODIUM 5,000 UNITS/ML VIAL 5000 UNITS SUB-Q ×2 (08:30→20:22)
[2023-11-16] MEDS: EPOETIN ALFA-EPBX 10,000 UNITS/ML VIAL 10000 UNITS SUB-Q (08:39)
[2023-11-16] MEDS: SODIUM ZIRCONIUM CYCLOSILICATE 10 GM POWD.PACK PO (10:35)
[2023-11-16 12:00] LABS: Glucose Point of Care 204 mg/dl (65-105)
--- NOTE | 2023-11-16 13:09 | P.PNNP_ITS ---
Progress Note: A&P Assessment and Plan (1) Chronic kidney disease (CKD), stage V: Code(s): N18.5 - Chronic kidney disease, stage 5 Status: Chronic Assessment and Plan: * on presentation, assumption was RODRIGO/ARF on CKD * extensive testing/imaging unrevealing and creatinine remains elevated but stable * results of RENAL BIOPSY noted: * diabetic nephrosclerosis * severe arterionephrosclerosis as well * 70% intersitital fibrosis and tubular atrophy * no other active disease present * no urgent need for CREW SCHEDULER/dialysis at this time * creatinine is quite high but she has no symptoms. * Dr. Burgess talked at length with Dr. Weaver yesterday * azotemia likely secondary to use of steroids * she will need to follow-up with Dr. Weaver to discuss options of CREW SCHEDULER/dialysis fairly soon * continue supportive therapy (2) Hypertension: Qualifiers: Hypertension type: essential hypertension Qualified Code(s): I10 - Essential (primary) hypertension Code(s): I10 - Essential (primary) hypertension Status: Chronic Assessment and Plan: * blood pressure running in the 120s to 150s. * diuretics on hold * No volume overload so far (3) Anemia: Qualifiers: Anemia type: unspecified type Qualified Code(s): D64.9 - Anemia, unspecified Code(s): D64.9 - Anemia, unspecified Status: Chronic Assessment and Plan: * suspect related to RODRIGO, CKD, and acute illness. * however, her previous sudden drop in hemoglobin is not explained by her kidneys * on Epogen while hospitalized * she can continue this as an outpatient under Dr. Weaver if needed (4) Type 2 diabetes mellitus: Qualifiers: Diabetes mellitus fpc insulin use: without fpc use Diabetes mellitus complication status: without complication Qualified Code(s): E11.9 - Type 2 diabetes mellitus without complications Code(s): E11.9 - Type 2 diabetes mellitus without complications Status: Chronic Assessment and Plan: * follow accu-cheks * glycemic control per hospitalists Subjective Date/time seen: 11/16/23 13:09 Interval history: Tami is feeling about the same. Eager for discharge. Exam Narrative: General: Well-developed female in NAD with a high body mass index Heart: normal S1 and S2; no rub or gallop Lungs: decreased at the bases Abdomen: soft, nontender, nondistended, positive bowel sounds Extremities: no cyanosis or clubbing; trace edema Skin: no rash Objective Data Vital Signs Vital Signs: Vital Signs - 24 hr 11/15/23 15:40 11/15/23 15:50 11/15/23 16:00 Temperature Pulse Rate 93 92 93 Respiratory Rate 20 20 Blood Pressure Pulse Oximetry Oxygen Delivery Oxygen Flow Rate 11/15/23 16:00 11/15/23 20:00 11/15/23 20:46 Temperature 97.3 F L 97.4 F L Pulse Rate 96 112 H 98 Respiratory Rate 24 H 18 23 H Blood Pressure 136/55 L 154/73 H Pulse Oximetry 100 95 100 Oxygen Delivery CPAP Oxygen Flow Rate 11/15/23 20:46 11/15/23 20:46 11/15/23 20:53 Temperature Pulse Rate 98 98 93 Respiratory Rate 23 H 23 H Blood Pressure Pulse Oximetry 100 Oxygen Delivery CPAP Oxygen F
--- NOTE | 2023-11-16 13:09 | PM.PNNEP ---
Progress Note: A&P Assessment and Plan (1) Chronic kidney disease (CKD), stage V: Code(s): N18.5 - Chronic kidney disease, stage 5 Status: Chronic Assessment and Plan: on presentation, assumption was RODRIGO/ARF on CKD extensive testing/imaging unrevealing and creatinine remains elevated but stable results of RENAL BIOPSY noted: diabetic nephrosclerosis severe arterionephrosclerosis as well 70% intersitital fibrosis and tubular atrophy no other active disease present no urgent need for SCALLOPER/dialysis at this time creatinine is quite high but she has no symptoms. Dr. Burgess talked at length with Dr. Weaver yesterday azotemia likely secondary to use of steroids she will need to follow-up with Dr. Weaver to discuss options of SCALLOPER/dialysis fairly soon continue supportive therapy (2) Hypertension: Qualifiers: Hypertension type: essential hypertension Qualified Code(s): I10 - Essential (primary) hypertension Code(s): I10 - Essential (primary) hypertension Status: Chronic Assessment and Plan: blood pressure running in the 120s to 150s. diuretics on hold No volume overload so far (3) Anemia: Qualifiers: Anemia type: unspecified type Qualified Code(s): D64.9 - Anemia, unspecified Code(s): D64.9 - Anemia, unspecified Status: Chronic Assessment and Plan: suspect related to RODRIGO, CKD, and acute illness. however, her previous sudden drop in hemoglobin is not explained by her kidneys on Epogen while hospitalized she can continue this as an outpatient under Dr. Weaver if needed (4) Type 2 diabetes mellitus: Qualifiers: Diabetes mellitus jail insulin use: without jail use Diabetes mellitus complication status: without complication Qualified Code(s): E11.9 - Type 2 diabetes mellitus without complications Code(s): E11.9 - Type 2 diabetes mellitus without complications Status: Chronic Assessment and Plan: follow accu-cheks glycemic control per hospitalists Subjective Date/time seen: 11/16/23 13:09 Interval history: Tami is feeling about the same. Eager for discharge. Exam Narrative: General: Well-developed female in NAD with a high body mass index Heart: normal S1 and S2; no rub or gallop Lungs: decreased at the bases Abdomen: soft, nontender, nondistended, positive bowel sounds Extremities: no cyanosis or clubbing; trace edema Skin: no rash Objective Data Vital Signs Vital Signs: Vital Signs - 24 hr 11/15/23 15:40 11/15/23 15:50 11/15/23 16:00 Temperature Pulse Rate 93 92 93 Respiratory Rate 20 20 Blood Pressure Pulse Oximetry Oxygen Delivery Oxygen Flow Rate 11/15/23 16:00 11/15/23 20:00 11/15/23 20:46 Temperature 97.3 F L 97.4 F L Pulse Rate 96 112 H 98 Respiratory Rate 24 H 18 23 H Blood Pressure 136/55 L 154/73 H Pulse Oximetry 100 95 100 Oxygen Delivery CPAP Oxygen Flow Rate 11/15/23 20:46 11/15/23 20:46 11/15/23 20:53 Temperature Pulse Rate 98 98 93 Respiratory Rate 23 H 23 H Blood Pressure Pulse Oximetry 100 Oxygen Delivery CPAP Oxygen Flow Rate 2 11/15/23 20:00 11/15/23 20:00 11/16/23 00:00 Temperature 97.4 F L Pulse Rate 112 H 102 H Respiratory Rate 18 Blood Pressure 121/62 Pulse Oximetry 97 Oxygen Delivery CPAP Oxygen Flow Rate 11/16/23 03:01 11/16/23 03:01 11/16/23 02:45 Temperature Pulse Rate 93 94 93 Respiratory Rate 26 H 18 26 H Blood Pressure Pulse Oximetry Oxygen Delivery CPAP Oxygen Flow Rate 11/16/23 00:00 11/16/23 04:00 11/16/23 04:00 Temperature 97.6 F Pulse Rate 113 H 104 H 93 Respiratory Rate 18 Blood Pressure 152/62 H Pulse Oximetry 98 Oxygen Delivery Oxygen Flow Rate 11/16/23 06:24 11/16/23 06:55 11/16/23 06:55 Temperature 97.8 F Pulse Rate 97 95 95 Respiratory Rate 18 18 18 Blood P
[2023-11-16 17:02] LABS: Glucose Point of Care 211 mg/dl (65-105)
--- NOTE | 2023-11-16 17:12 | PM.IMPN ---
Progress Note: A&P Assessment and Plan (1) Acute on chronic renal insufficiency: Code(s): N28.9 - Disorder of kidney and ureter, unspecified; N18.9 - Chronic kidney disease, unspecified Status: Acute Assessment and Plan: Patient with acute on chronic kidney disease. Acute process may be secondary to abx, AIN? No clear baseline (last Cr 1.7 in 2020) but Cr 5.9 on admission and climbed to 6.1 Fuel Cell Repairer consulted. Cortisol 14 with normal stimulation test. 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 Steroids stopped 11/12. Cr trended down to 5.4. BUN climbing to 115 possibly related to steroids. Potassium still periodically elevated. K 5.2 today so [place] added. Serum bicarb dropped to 18 treated with Biacrb and serum bicarb remaining normal Phos 6.3. Continue Rocaltrol Discussed with nephrology. Concerns she will do well at home (lives alone) without moving forward with HD sooner. Plan is to see if labs continue to improve tomorrow. If they do, then home with close followup. If not, then have GenSurg see Saturday for tunneled catheter placement. (2) Anemia: Qualifiers: Anemia type: unspecified type Qualified Code(s): D64.9 - Anemia, unspecified Code(s): D64.9 - Anemia, unspecified Status: Chronic Assessment and Plan: Hemoglobin 8.2 g/dL on admission and would drop periodically to 6 range. No schistocytes noted. Fe 25, TIBC 232 with TSat 11%. Ferritin 58. B12/folate normal She did receive 2U PRBCs on 11/09 for Hgb 6.7. Hgb mostly in the 9 range since. Continue Epo and Vit C/iron supplements. (3) Hypertension: Qualifiers: Hypertension type: essential hypertension Qualified Code(s): I10 - Essential (primary) hypertension Code(s): I10 - Essential (primary) hypertension Status: Chronic Assessment and Plan: Patient's blood pressure was reviewed on 11/15 Blood pressure remains well controlled. ECHO this admission shows LV systolic function hyperdynamic with EF 70%, LV diastolic dysfunction grade 1, mild pulmonary hypertension, PA pressure estimated at 43 mmHg Will continue current medications. (4) Type 2 diabetes mellitus: Qualifiers: Diabetes mellitus tank terminal gauger insulin use: without tank terminal gauger use Diabetes mellitus complication status: without complication Qualified Code(s): E11.9 - Type 2 diabetes mellitus without complications Code(s): E11.9 - Type 2 diabetes mellitus without complications Status: Chronic Assessment and Plan: A1c 8.7.%. The patient's blood glucose was reviewed on 11/15 Glucose better in the 200's but still remains poorly controlled. Continue AccuCheks covering with sliding scale. Hypoglycemia protocol available as needed. Receiving anywhere from 10-16U novolog per day. Continue to monitor. Add low dose lantus at night. (5) Psoriasis: Code(s): L40.9 - Psoriasis, unspecified Status: Acute Assessment and Plan: Patient noted to have a new erythema to bilateral lower extremities that travels from her feet to just below her knees. Blanchable without warmth. Denies pain or itching. The rash resolved overnight without intervention. Psoriasis rash to bilateral ankles/feet with right worse than left, rash to hands, and left eye. Clobetasol cream topical BID to affected areas except kota-orbital, groin or axilla (6) Hypothyroidism: Qualifiers: Hypothyroidism type: unspecified Qualified Code(s): E03.9 - Hypothyroidism, unspecified Code(s): E03.9 - Hypothyroidism, unspecified Status: Acute Assessment and Plan: TSH mildly elevated but free T4 normal. Continue levothyroxine. Plan Leukocytosis - WBC climbed to 19K probably related to nicole
[2023-11-16 18:22] LABS: Potassium 4.7 mmol/L (3.4-5.0)
[2023-11-16] MEDS: SENNA/DOCUSATE SODIUM TABLET 1 TAB PO (20:22)
[2023-11-16] MEDS: INSULIN GLARGINE (*BKC) 100 UNITS/ML 8 UNITS SUB-Q (20:23)
[2023-11-16 20:33] LABS: Glucose Point of Care 214 mg/dl (65-105)
[2023-11-16] MEDS: ACETAMINOPHEN 500 MG TABLET PO (20:57)
[2023-11-17] VITALS (10 sets, daily range): BP systolic 146–155; BP diastolic 48–66; PULSE 86–106; RESP 16–21; TEMP 36.4–36.5; O2SAT 94–98
[2023-11-17] MEDS: IPRATROPIUM 0.5 MG/ALBUTEROL SULFATE 2.5 MG AMPUL.NEB 3 ML INHALATION ×2 (02:49→07:46)
[2023-11-17 05:44] LABS: Basophils Percent Auto 0.3 % (0.2-1.2); Eosinophils Absolute Auto 0.5 K/mm3 (0-0.3); Eosinophils Percent Auto 3.7 % (0-4.4); Hematocrit 28.8 % (37.0-47.0); Hemoglobin 9.2 g/dL (12.0-15.0); Immature Granulocyte Absolute 1.03 K/mm3 (0.00-0.031); Immature Granulocyte Percent A 8.2 % (0-0.5); Lymphocytes Absolute Auto 1.21 K/mm3 (0.9-3.2); Lymphocytes Percent Auto 9.6 % (18.3-44.2); Mean Corpuscular HGB Conc 31.9 g/dl (32-36); Mean Corpuscular Hemoglobin 30.3 pg (26-34); Mean Corpuscular Volume 94.7 fl (80-100); Mean Platelet Volume 9.9 fl (7.4-10.4); Monocytes Absolute Auto 0.5 K/mm3 (0.1-0.6); Monocytes Percent Auto 3.9 % (2.6-8.5); Neutrophils Absolute Auto 9.4 K/mm3 (1.3-6.7); Neutrophils Percent Auto 74.3 % (45.5-73.1); Nucleated Red Blood Cells Perc 0.2 % (0.0-0.2); Platelet Count Result 228 k/mm3 (150-375); Red Blood Count 3.04 M/mm3 (4.2-5.4); White Blood Count 12.6 K/mm3 (4.5-10.0)
[2023-11-17 05:56] LABS: Alanine Aminotransferase 18 U/L (6-35); Alkaline Phosphatase 99 U/L (38-126); Anion Gap 12 mmol/L (4-12); Aspartate Amino Transferase 16 U/L (14-36); Bilirubin,Total 0.3 mg/dL (0.2-1.3); Blood Urea Nitrogen 106 mg/dL (7-17); Calcium 10.6 mg/dL (8.4-10.2); Carbon Dioxide 22 mmol/L (22-30); Chloride 103 mmol/L (98-107); Estimated CRCL calculation 9 ml/min; Estimated Glomerular Filt Rate 7; Glucose 177 mg/dL (65-110); Magnesium 2.5 mg/dL (1.6-2.3); Phosphorus 7.3 mg/dL (2.5-4.5); Potassium 4.8 mmol/L (3.4-5.0); Sodium 137 mmol/L (137-145)
[2023-11-17] MEDS: LEVOTHYROXINE SODIUM 100 MCG TABLET PO (06:04)
[2023-11-17 07:54] LABS: Anisocytosis 1+; Burr Cells 1+; Ovalocytes 1+; Platelet Estimate Adequate (Adequate); Poikilocytosis 1+
[2023-11-17 07:55] LABS: Schistocytes Rare
[2023-11-17 08:07] LABS: Glucose Point of Care 187 mg/dl (65-105)
[2023-11-17] MEDS: amLODIPine BESYLATE 10 MG TABLET PO (09:23)
[2023-11-17] MEDS: CLOBETASOL PROPIONATE 0.05% OINT 30 GM 1 APPLIC TOPICAL (09:23)
[2023-11-17] MEDS: calcitrioL 0.25 MCG CAPSULE PO (09:23)
[2023-11-17] MEDS: ASCORBIC ACID 500 MG TABLET 1000 MG PO (09:23)
[2023-11-17] MEDS: FERROUS SULFATE 325 MG TABLET DR PO (09:24)
[2023-11-17] MEDS: SODIUM BICARBONATE TAB 650 MG TABLET PO (09:25)
[2023-11-17] MEDS: hydrALAZINE HCL 25 MG TABLET PO (09:25)
[2023-11-17] MEDS: PANTOPRAZOLE 40 MG TABLET PO (09:25)
[2023-11-17] MEDS: HEPARIN SODIUM 5,000 UNITS/ML VIAL 5000 UNITS SUB-Q (09:31)
--- NOTE | 2023-11-17 10:34 | P.PNNP_ITS ---
Progress Note: A&P Assessment and Plan (1) Chronic kidney disease (CKD), stage V: Code(s): N18.5 - Chronic kidney disease, stage 5 Status: Chronic Assessment and Plan: * on presentation, assumption was RODRIGO/ARF on CKD * extensive testing/imaging unrevealing and creatinine remains elevated but stable * results of RENAL BIOPSY noted: * diabetic nephrosclerosis * severe arterionephrosclerosis as well * 70% intersitital fibrosis and tubular atrophy * no other active disease present * creatinine is quite high but she has no symptoms. * Dr. Burgess talked at length with Dr. Weaver yesterday * azotemia likely secondary to use of steroids * no uremic symptoms. * No need for dialysis now * long discussion with the patient. She will need to get education to decide whether she wants PD or hemodialysis. Then she would have EITHER a PD catheter placed OR a fistula or graft placed and then start dialysis when the access is ready. If she gets uremic before this happens then she can always start on hemodialysis with a catheter. No need to place a catheter here because the risk of infection would be higher With a catheter in place than a PDC or fistula or graft. * she will need to follow-up with Dr. Weaver to discuss options of TEACHER SELECTION SPECIALIST/dialysis fairly soon * continue supportive therapy (2) Hypertension: Qualifiers: Hypertension type: essential hypertension Qualified Code(s): I10 - Essential (primary) hypertension Code(s): I10 - Essential (primary) hypertension Status: Chronic Assessment and Plan: * blood pressure running in the 120s to 150s. * diuretics on hold * The patient is on amlodipine and hydralazine. (3) Anemia: Qualifiers: Anemia type: unspecified type Qualified Code(s): D64.9 - Anemia, unspecified Code(s): D64.9 - Anemia, unspecified Status: Chronic Assessment and Plan: * suspect related to RODRIGO, CKD, and acute illness. * however, her previous sudden drop in hemoglobin is not explained by her kidneys * on Epogen while hospitalized * Hemoglobin is down a little bit to 9.2 * she can continue this as an outpatient under Dr. Weaver if needed (4) Type 2 diabetes mellitus: Qualifiers: Diabetes mellitus shelter insulin use: without shelter use Diabetes mellitus complication status: without complication Qualified Code(s): E11.9 - Type 2 diabetes mellitus without complications Code(s): E11.9 - Type 2 diabetes mellitus without complications Status: Chronic Assessment and Plan: * follow accu-cheks * glycemic control per hospitalists Subjective Date/time seen: 11/17/23 10:34 Interval history: Tami is feeling about the same. Eager for discharge. Exam Narrative: General: Well-developed female in NAD with a high body mass index Heart: normal S1 and S2; no rub or gallop Lungs: decreased at the bases Abdomen: soft, nontender, nondistended, positive bowel sounds Extremities: trace edema Skin: no rash or subcu nodules Objective Data Vital Signs Vital Signs: Vital Signs - 24 hr 11/16/23 12:00 11/16/23 12:00 11/16/23 12:45 Temperature 97.6 F Pulse Rate 95 99 98 Respiratory Rate 17 20 Blood Pressure 132/60 Pulse Oximetry 97 Oxygen Delivery 11/16/23 12:55 11/16/23 16:00 11/16/23 16:00
--- NOTE | 2023-11-17 10:34 | PM.PNNEP ---
Progress Note: A&P Assessment and Plan (1) Chronic kidney disease (CKD), stage V: Code(s): N18.5 - Chronic kidney disease, stage 5 Status: Chronic Assessment and Plan: on presentation, assumption was RODRIGO/ARF on CKD extensive testing/imaging unrevealing and creatinine remains elevated but stable results of RENAL BIOPSY noted: diabetic nephrosclerosis severe arterionephrosclerosis as well 70% intersitital fibrosis and tubular atrophy no other active disease present creatinine is quite high but she has no symptoms. Dr. Burgess talked at length with Dr. Weaver yesterday azotemia likely secondary to use of steroids no uremic symptoms. No need for dialysis now long discussion with the patient. She will need to get education to decide whether she wants PD or hemodialysis. Then she would have EITHER a PD catheter placed OR a fistula or graft placed and then start dialysis when the access is ready. If she gets uremic before this happens then she can always start on hemodialysis with a catheter. No need to place a catheter here because the risk of infection would be higher With a catheter in place than a PDC or fistula or graft. she will need to follow-up with Dr. Weaver to discuss options of DELINQUENCY PREVENTION SOCIAL WORKER/dialysis fairly soon continue supportive therapy (2) Hypertension: Qualifiers: Hypertension type: essential hypertension Qualified Code(s): I10 - Essential (primary) hypertension Code(s): I10 - Essential (primary) hypertension Status: Chronic Assessment and Plan: blood pressure running in the 120s to 150s. diuretics on hold The patient is on amlodipine and hydralazine. (3) Anemia: Qualifiers: Anemia type: unspecified type Qualified Code(s): D64.9 - Anemia, unspecified Code(s): D64.9 - Anemia, unspecified Status: Chronic Assessment and Plan: suspect related to RODRIGO, CKD, and acute illness. however, her previous sudden drop in hemoglobin is not explained by her kidneys on Epogen while hospitalized Hemoglobin is down a little bit to 9.2 she can continue this as an outpatient under Dr. Weaver if needed (4) Type 2 diabetes mellitus: Qualifiers: Diabetes mellitus maori physiotherapist insulin use: without maori physiotherapist use Diabetes mellitus complication status: without complication Qualified Code(s): E11.9 - Type 2 diabetes mellitus without complications Code(s): E11.9 - Type 2 diabetes mellitus without complications Status: Chronic Assessment and Plan[facility]ists Subjective Date/time seen: 11/17/23 10:34 Interval history: Tami is feeling about the same. Eager for discharge. Exam Narrative: General: Well-developed female in NAD with a high body mass index Heart: normal S1 and S2; no rub or gallop Lungs: decreased at the bases Abdomen: soft, nontender, nondistended, positive bowel sounds Extremities: trace edema Skin: no rash or subcu nodules Objective Data Vital Signs Vital Signs: Vital Signs - 24 hr 11/16/23 12:00 11/16/23 12:00 11/16/23 12:45 Temperature 97.6 F Pulse Rate 95 99 98 Respiratory Rate 17 20 Blood Pressure 132/60 Pulse Oximetry 97 Oxygen Delivery 11/16/23 12:55 11/16/23 16:00 11/16/23 16:00 Temperature 97.7 F Pulse Rate 97 98 96 Respiratory Rate 18 17 Blood Pressure 130/68 Pulse Oximetry 99 Oxygen Delivery 11/16/23 19:58 11/16/23 21:24 11/16/23 21:26 Temperature 97.5 F L Pulse Rate 97 98 98 Respiratory Rate 18 22 H 24 H Blood Pressure 142/53 H Pulse Oximetry 99 97 Oxygen Delivery CPAP 11/16/23 21:31 11/16/23 20:00 11/17/23 00:00 Temperature 97.7 F Pulse Rate 95 92 Respiratory Rate 23 H 18 Blood Pressure 153/61 H Pulse Oximetry 98 Oxygen Delivery CPAP 11/17/23 02:49 11/17/23 02:40 11/17/23 03:00 Temperature Pulse Rate 95 95 94 Respirat
[2023-11-17 12:05] LABS: Glucose Point of Care 198 mg/dl (65-105)
--- NOTE | 2023-11-18 07:42 | PM.DS ---
DS: Admitting Diagnosis Discharge Date 11/17/23 Admitting Diagnosis Acute on chronic renal Failure DS: Discharge Diagnosis Discharge Diagnosis (1) Acute on chronic renal insufficiency: Code(s): N28.9 - Disorder of kidney and ureter, unspecified; N18.9 - Chronic kidney disease, unspecified Status: Acute Assessment and Plan: Patient with acute on chronic kidney disease. Acute process may be secondary to abx, AIN? No clear baseline (last Cr 1.7 in 2020) but Cr 5.9 on admission and climbed to 6.1 Silk Screen Printing Racker consulted. Cortisol 14 with normal stimulation test. 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 Steroids stopped 11/12. Cr trended down to 5.4. BUN climbing to 115 possibly related to steroids. Potassium still periodically elevated. K 5.2 today so Samiakelma added. Serum bicarb dropped to 18 treated with Biacrb and serum bicarb remaining normal Phos 6.3. Continue Rocaltrol Discussed with nephrology. Concerns she will do well at home (lives alone) without moving forward with HD sooner. Plan is to see if labs continue to improve tomorrow. If they do, then home with close followup. If not, then have GenSurg see Saturday for tunneled catheter placement. (2) Anemia: Qualifiers: Anemia type: unspecified type Qualified Code(s): D64.9 - Anemia, unspecified Code(s): D64.9 - Anemia, unspecified Status: Chronic Assessment and Plan: Hemoglobin 8.2 g/dL on admission and would drop periodically to 6 range. No schistocytes noted. Fe 25, TIBC 232 with TSat 11%. Ferritin 58. B12/folate normal She did receive 2U PRBCs on 11/09 for Hgb 6.7. Hgb mostly in the 9 range since. Continue Epo and Vit C/iron supplements. (3) Hypertension: Qualifiers: Hypertension type: essential hypertension Qualified Code(s): I10 - Essential (primary) hypertension Code(s): I10 - Essential (primary) hypertension Status: Chronic Assessment and Plan: Patient's blood pressure was reviewed on 11/15 Blood pressure remains well controlled. ECHO this admission shows LV systolic function hyperdynamic with EF 70%, LV diastolic dysfunction grade 1, mild pulmonary hypertension, PA pressure estimated at 43 mmHg Will continue current medications. (4) Type 2 diabetes mellitus: Qualifiers: Diabetes mellitus complication status: without complication Diabetes mellitus penitentiary insulin use: without penitentiary use Qualified Code(s): E11.9 - Type 2 diabetes mellitus without complications Code(s): E11.9 - Type 2 diabetes mellitus without complications Status: Chronic Assessment and Plan: A1c 8.7.%. The patient's blood glucose was reviewed on 11/15 Glucose better in the 200's but still remains poorly controlled. Continue AccuCheks covering with sliding scale. Hypoglycemia protocol available as needed. Receiving anywhere from 10-16U novolog per day. Continue to monitor. Add low dose lantus at night. (5) Psoriasis: Code(s): L40.9 - Psoriasis, unspecified Status: Acute Assessment and Plan: Patient noted to have a new erythema to bilateral lower extremities that travels from her feet to just below her knees. Blanchable without warmth. Denies pain or itching. The rash resolved overnight without intervention. Psoriasis rash to bilateral ankles/feet with right worse than left, rash to hands, and left eye. Clobetasol cream topical BID to affected areas except kota-orbital, groin or axilla (6) Hypothyroidism: Qualifiers: Hypothyroidism type: unspecified Qualified Code(s): E03.9 - Hypothyroidism, unspecified Code(s): E03.9 - Hypothyroidism, unspecified Status: Acute Assessment and Plan: TSH mildly elevated
== END 2023-11-17 14:20 | disposition home or self-care (01) | DRG 683 ==
LOC: ANHED 22:55 → ANH2MED 11-05 03:13
PROVIDERS: Internal Medicine; Internal Medicine Nephrology; Nurse Practitioner Acute Care; Admitting Provider Student in an Organized Health Care Education/Training Program; Emergency Provider Emergency Medicine; PCP Internal Medicine; Visit Provider Nurse Practitioner Family
DX: N17.9 Acute kidney failure, unspecified (principal); I12.0 Hypertensive chronic kidney disease with stage 5 chronic kidney disease or end stage renal disease; N39.0 Urinary tract infection, site not specified; E11.22 Type 2 diabetes mellitus with diabetic chronic kidney disease; N18.5 Chronic kidney disease, stage 5; M10.9 Gout, unspecified; E03.9 Hypothyroidism, unspecified; E78.5 Hyperlipidemia, unspecified; G47.33 Obstructive sleep apnea (adult) (pediatric); D63.1 Anemia in chronic kidney disease; D50.9 Iron deficiency anemia, unspecified; J44.9 Chronic obstructive pulmonary disease, unspecified; L40.9 Psoriasis, unspecified; E87.70 Fluid overload, unspecified; B95.1 Streptococcus, group B, as the cause of diseases classified elsewhere; E55.9 Vitamin D deficiency, unspecified; Z85.3 Personal history of malignant neoplasm of breast; Z87.891 Personal history of nicotine dependence; Z79.84 Long term (current) use of oral hypoglycemic drugs
CPT/HCPCS: 36415; 36430; 36600; 50200; 70450; 71045; 71250; 74177; 76775; 76942; 78707; 80053; 80069; 81001; 82274; 82533; 82550; 82570; 82607; 82728; 82746; 82805; 82948; 83010; 83036; 83520; 83540; 83550; 83605; 83735; 83880; 83883; 83930; 83935; 84100; 84132; 84145; 84156; 84300; 84439; 84443; 84480; 84484; 84540; 85014; 85018; 85025; 85027; 85046; 85055; 85610; 85652; 85730; 85999; 86036; 86038; 86039; 86160; 86162; 86225; 86334; 86335; 86850; 86900; 86901; 86923; 87040; 87077; 87086; 87088; 87637; 88300; 88329; 93005; 93306; 94002; 94640; 96372; 96375; 97110; 97116; 97161; 97165; 97530; 97535; 99285; A9270; A9562; G0378; J0360; J0834; J1644; J1815; J1939; J1940; J2405; J2919; J7030; J7040; J7512; P9016; Q5105; Q9967